=== PATIENT | female | born 1930 | race Caucasian/White ===

== ENCOUNTER 2016-07-07 10:50 | Inpatient (IN) | payer MEDICARE, OTHER ==
[~2016-07-07] VITALS: Ht 157.5 cm; Wt 56.8 kg
[~2016-07-07 10:50] MED LIST: /MOXI40TA PO; /PANT40TA PO; ALBU0.084 NEB; ALBU17IN INH; ALPR0.25 PO; AZIT250T3 PO; CITA10TA5 PO; CITA20TA2 PO; CITA20TA4 PO; COMBIN INH; DONE5TAB17 PO; DRIS50002 PO; FLUT44IN INH; FURO20TA2 PO; GABA-279 PO; HYOS125TA SL; IPRASOL4 INH; MIRT1TAB PO; MYLASSUD PO; NEURON PO; PANT40TA2 PO; PRED10TA2 PO; PRED5TA PO; SPIR1CAP INH; STIO1AER INH; SUCR1TA PO; TYLE325T5 PO; VITA500047 PO; XANA0.25 PO; ZANT150T PO; ZITH250T PO; [UNRECOGNIZED DRUG - OTHER] INH
[2016-07-07] MEDS ORDERED: IPRATROPIUM 0.5MG/ALBUTEROL 2.5MG INH SOL UD 3ML (DUONEB)(J7620) As Ordered ONE ×2 (11:32→16:15)
[2016-07-07] MEDS ORDERED: ALBUTEROL SULFATE 2.5 MG/0.5 ML INH NEB SOLN As Ordered ONE (11:32)
[2016-07-07 11:47] LABS: BASO # 0.1 K/mm3 (0.0-0.2); BASO % 0.8 % (0.0-1.0); EOS # 0.2 K/mm3 (0.0-0.50); EOS % 2.5 % (0.0-3.0); LARGE UNSTAINED CELL # 0.2 K/mm3 (0.0-0.4); LARGE UNSTAINED CELL % 2.2 % (0.0-4.0); LYMPH # 1.2 K/mm3 (1.5-4.5); LYMPH % 15.1 % (24.0-44.0); MEAN CORPUSCULAR HEMOGLOBIN 26.6 pg (27.0-33.0); MEAN CORPUSCULAR HGB CONC 30.8 g/dl (32.0-36.5); MEAN CORPUSCULAR VOLUME 86.2 fl (80.0-96.0); MONO # 0.2 K/mm3 (0.0-0.8); MONO % 2.6 % (0.0-5.0); NEUTROPHILS # 5.5 K/mm3 (1.8-7.7); NEUTROPHILS % 76.8 % (36.0-66.0); PLATELET COUNT, AUTOMATED 189 k/mm3 (150-450); RED CELL DISTRIBUTION WIDTH 13.7 % (11.5-14.5); WHITE BLOOD COUNT 7.1 K/mm3 (4.0-10.0)
[2016-07-07 12:04] LABS: ANION GAP 7 MEQ/L (8-16); BLOOD UREA NITROGEN 15 MG/DL (7-18); CALCIUM LEVEL 9.4 MG/DL (8.8-10.2); CARBON DIOXIDE LEVEL 35 MEQ/L (21-32); CHLORIDE LEVEL 102 MEQ/L (98-107); GLOMERULAR FILTRATION RATE > 60.0 (>32); GLUCOSE, FASTING 92 MG/DL (83-110); POTASSIUM SERUM 3.8 MEQ/L (3.5-5.1); SODIUM LEVEL 144 MEQ/L (136-145)
--- NOTE | 2016-07-07 12:24 | REP ---
PORTABLE CHEST: AP portable view of the chest is performed. COMPARISON: 06/26/2016 The heart is upper limits of normal in size, unchanged. There is some calcification of the thoracic aorta. The mediastinal silhouette is unchanged. Diffuse interstitial fibrosis is stable without evidence of acute infiltrate or pulmonary edema. IMPRESSION: Stable chronic lung changes. No evidence of acute infiltrate or pulmonary edema. Signed by Ezekiel Rees MD 07/07/2016 04:17 P
--- NOTE | 2016-07-07 13:45 | ECGEPIP ---
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
[2016-07-07] MEDS ORDERED: ONDANSETRON 4MG/2ML VIAL (J2405) IV PRN (14:00)
[2016-07-07] MEDS: IPRATROPIUM 0.5MG/ALBUTEROL 2.5MG INH SOL UD 3ML (DUONEB)(J7620) NEB PRN (16:17)
[2016-07-07 16:30] VITALS: BP 133/61
[2016-07-07] MEDS ORDERED: ALPRAZolam 0.25 MG TAB As Ordered ONE (17:13)
[2016-07-07] MEDS: SUCRALFATE 1 GM TAB PO SCH (17:17)
[2016-07-07] MEDS: ALPRAZolam 0.25 MG TAB PO PRN (17:17)
--- NOTE | 2016-07-07 17:43 | HPE ---
DATE OF ADMISSION: 07/07/2016 PRIMARY CARE PROVIDER: Angélica Sellers CHIEF COMPLAINT: Chest pain and shortness of breath. HISTORY OF THE PRESENT ILLNESS: This is an 85-year-old female patient with underlying medical history of chronic obstructive pulmonary disease (COPD), on home oxygen, O2 two liters, depression, anxiety, chronic respiratory failure, on O2 at night, history of cholecystectomy, hysterectomy, former smoker, was recently discharged on 07/03/2016. The patient was admitted for burning sensation of the chest. At this time, the patient presented with chest discomfort and pressure again, but as per patient, burning sensation was improved but also reported mild dyspnea. Denies any diarrhea or constipation. Denies any fevers or chills. Denies any significant cough. As per family, family is having increasing difficulty caring for the patient and seeking assistance in terms of placement, whether assisted living or residential facility. The patient initially was disagreeable during last admission, stating that she is returning to [place], but this time the patient is agreeable to potential placement. ALLERGIES: The patient reported allergy to ASPIRIN, FLUTICASONE, HYOSCYAMINE, IODINE, MILK PROTEIN EXTRACT, PENICILLIN, PENICILLIN CROSS REACTOR, RED DYE, SOLU-MEDROL, SULFA DRUGS, SULFA CROSS REACTOR, TEGASEROD. PAST MEDICAL HISTORY: Anxiety. COPD. Chronic respiratory failure, O2 dependent at home. Essential tremor. Gastric polyp. Irritable bowel syndrome with diarrhea intermittently. PAST SURGICAL HISTORY: Hysterectomy. Cholecystectomy. Colonoscopy, Cataract surgery bilateral. SOCIAL HISTORY: The patient travels with the son. Former smoker. Quit smoking 35 years ago. Denies alcohol drinking. Last drink was in her 50s and 60s. Denies any illicit drug use. FAMILY HISTORY: None significant. REVIEW OF SYSTEMS: 10-point review of systems is negative except for those mentioned in the history of the present illness. HOME MEDICATIONS: - Ventolin inhaler every 4 hours as needed - Duo-Nebs every 4 hours as needed - Xanax 0.25 mg by mouth three times a day as needed - Mylanta 30 mL by mouth every 6 hours as needed - citalopram 10 mg by mouth daily - donepezil 5 mg by mouth nightly - Flovent two puffs inhalation twice a day - Lasix 20 mg by mouth daily - gabapentin 100 mg by mouth twice a day - hyoscyamine 1-2 tablets by mouth sublingual four times a day as needed - mirtazapine 7.5 mg by mouth nightly - Protonix 40 mg by mouth twice a day - Carafate 1 gram by mouth three times a day - Spiriva inhalation daily - vitamin D 50,000 units by mouth weekly on Sunday PHYSICAL EXAMINATION: VITAL SIGNS: Blood pressure 132/60, pulse 78, respirations 20, temperature 97.5, pulse oximetry 96% on 2 liters nasal cannula. GENERAL: Patient with essential tremor, alert and oriented times three, in no acute distress. HEENT: Normocephalic, atraumatic with essential tremor. PULMONARY: Bilaterally clear to auscultation. CARDIAC: Regular rate and rhythm. Normal S1, S2. ABDOMEN: Soft, nontender, nondistended. EXTREMITIES: No edema bilateral lower extremities. Minimal tenderness to palpation lower extremities. EKG: Sinus rhythm at 77, no ST segment changes. LABORATORY: WBC 7.1, hemoglobin and hematocrit 13.1 over 42.6, platelets 189. Chemistry: Sodium 144, potassium 3.8, chloride 102, bicarbonate 35, BUN 15, creatinine 0.6. Cardiac enzymes negative times one. B-natriuretic peptide 14.3. ASSESSMENT AND PLAN: This is an 85-year-old female patient with underlying medical history of chronic obstructive pulmonary disease, chronic hypoxic respiratory failure, essential tremor, gastric polyp, irritable bowel syndrome, anxiety, presented with dyspnea and burning chest pain. PROBLEMS: 1. Burning chest pain. Atypical. Likely noncardiac. Likely secondary to GERD. Patient had previous workup. Cardiac enzymes negative. Telemetry monitoring overnight. EKG is appreciated. Protonix, Maalox, Carafate. Patient needs outpatient followup with gastroenterology after coronary event is ruled out. 2. Chronic obstructive pulmonary disease, chronic hypoxic respiratory failure. Oxygen supplementation, nebulizer treatment. Patient currently not having significant wheeze. Continue home medication. 3. Anxiety and depression. Continue home medications. 4. Depression. Continue home medication, supportive care. 5. Peripheral neuropathy. Continue Neurontin. 6. Deep vein thrombosis (DVT) prophylaxis. Lovenox subcu. DISPOSITION PLANNING: Patient and family services (PFS) consulted for potential placement, physical therapy.
[2016-07-07 19:28] VITALS: BP 123/59
[2016-07-07 20:00] VITALS: BP 123/59
[2016-07-07] MEDS: IPRATROPIUM 0.5MG/ALBUTEROL 2.5MG INH SOL UD 3ML (DUONEB)(J7620) NEB SCH (20:00)
[2016-07-07] MEDS: FLUTICASONE HFA 44 MCG 10.6GM INHALER (FLOVENT) INH SCH (20:54)
[2016-07-07] MEDS: MIRTAZAPINE 7.5MG PER 1/2 TABLET PO SCH (21:00)
[2016-07-07] MEDS ORDERED: PANTOPRAZOLE 40MG TAB (PROTONIX) As Ordered ONE (21:09)
[2016-07-07] MEDS ORDERED: GABAPENTIN 100 MG CAP As Ordered ONE (21:09)
[2016-07-07] MEDS: PANTOPRAZOLE 40MG TAB (PROTONIX) PO SCH (21:12)
[2016-07-07] MEDS: GABAPENTIN 100 MG CAP PO SCH (21:12)
[2016-07-07] MEDS: SENOKOT S TAB PO SCH (21:13)
[2016-07-07] MEDS: DONEPEZIL 5 MG TAB PO SCH (21:13)
[2016-07-08] VITALS (7 sets, daily range): BP systolic 106–142; BP diastolic 50–63; O2SAT 95
[2016-07-08] MEDS ORDERED: ACETAMINOPHEN 325 MG TAB As Ordered ONE (00:58)
[2016-07-08] MEDS: ACETAMINOPHEN TAB 650MG DOSE (2X325MG) PO PRN (00:59)
[2016-07-08] MEDS ORDERED: IPRATROPIUM 0.5MG/ALBUTEROL 2.5MG INH SOL UD 3ML (DUONEB)(J7620) As Ordered ONE ×3 (01:51→08:41)
[2016-07-08] MEDS: IPRATROPIUM 0.5MG/ALBUTEROL 2.5MG INH SOL UD 3ML (DUONEB)(J7620) NEB SCH ×4 (02:00→20:11)
[2016-07-08] MEDS ORDERED: ONDANSETRON 4MG/2ML VIAL (J2405) As Ordered ONE (04:36)
[2016-07-08] MEDS: IPRATROPIUM 0.5MG/ALBUTEROL 2.5MG INH SOL UD 3ML (DUONEB)(J7620) NEB PRN (04:41)
[2016-07-08 06:46] LABS: MEAN CORPUSCULAR HEMOGLOBIN 27.6 pg (27.0-33.0); MEAN CORPUSCULAR HGB CONC 31.2 g/dl (32.0-36.5); MEAN CORPUSCULAR VOLUME 88.4 fl (80.0-96.0); WHITE BLOOD COUNT 6.6 K/mm3 (4.0-10.0)
[2016-07-08 07:33] LABS: ANION GAP 9 MEQ/L (8-16); BLOOD UREA NITROGEN 16 MG/DL (7-18); CALCIUM LEVEL 9.1 MG/DL (8.8-10.2); CARBON DIOXIDE LEVEL 26 MEQ/L (21-32); CHLORIDE LEVEL 107 MEQ/L (98-107); CREATININE FOR GFR 0.51 MG/DL (0.55-1.02); GLOMERULAR FILTRATION RATE > 60.0 (>32); GLUCOSE, FASTING 76 MG/DL (83-110); MAGNESIUM LEVEL 2.3 MG/DL (1.8-2.4); POTASSIUM SERUM 4.1 MEQ/L (3.5-5.1); SODIUM LEVEL 142 MEQ/L (136-145)
[2016-07-08] MEDS: FLUTICASONE HFA 44 MCG 10.6GM INHALER (FLOVENT) INH SCH ×2 (08:47→20:11)
[2016-07-08] MEDS: TIOTROPIUM INHALER/CAPSULE (SPIRIVA) INH SCH (08:47)
[2016-07-08] MEDS ORDERED: ALPRAZolam 0.25 MG TAB As Ordered ONE (10:08)
[2016-07-08] MEDS: ALPRAZolam 0.25 MG TAB PO PRN ×3 (10:09→20:18)
[2016-07-08] MEDS: ENOXAPARIN 30 MG/0.3 ML SYR (J1650) SC SCH (10:10)
[2016-07-08] MEDS: GABAPENTIN 100 MG CAP PO SCH ×2 (10:11→20:18)
[2016-07-08] MEDS: FUROSEMIDE 20 MG TAB PO SCH (10:11)
[2016-07-08] MEDS: SUCRALFATE 1 GM TAB PO SCH ×3 (10:12→16:52)
[2016-07-08] MEDS: SENOKOT S TAB PO SCH ×2 (10:12→20:18)
[2016-07-08] MEDS: PANTOPRAZOLE 40MG TAB (PROTONIX) PO SCH ×2 (10:12→20:18)
[2016-07-08] MEDS: CitaloPRAM (CeleXA) 10 MG TABLET PO SCH (10:12)
--- NOTE | 2016-07-08 12:40 | IPN ---
DATE: 07/08/2016 Ms. Bravo is feeling well this morning. She has no complaints of chest pain. She does have intermittent burning substernally. No shortness of breath, no cough. Has tolerated diet. Temperature is 99, pulse 67, respiratory rate 18, blood pressure 130/63, 98% on 2.5 liters. She is awake and appropriately interactive, sitting at bedside. She has axial resting tremor. Mucous membranes moist. Neck supple. She is thin appearing. Her breathing is symmetrical and rested. Heart is distant sounding. Normal S1 and S2. Abdomen is soft, doughy, nontender. There is no significant lower extremity edema. White cell count is 6.6, hemoglobin 12, platelets 183, BUN 16, creatinine 0.5. Troponins have been negative times two. BNP was 14. My assessment is as follows: This is an 85-year-old with atypical chest pain, chronic hypoxic respiratory failure, essential tremor, irritable bowel, anxiety. My plan is as follows: 1. The patient has atypical chest pain which is most likely GI related. Continue current regimen and plan for outpatient GI consult. The patient has previously declined or not followed up with. 2. The patient has chronic obstructive pulmonary disease (COPD), chronic hypoxic respiratory failure on oxygen. Continue home medications and oxygen supplement as needed. I will monitor her clinically. 3. The patient has anxiety and depression. 4. The patient has peripheral neuropathy. 5. The patient has deep vein thrombosis (DVT) prophylaxis. 6. Patient and family services (PFS) has been consulted for likely placement. Physical therapy as ordered.
--- NOTE | 2016-07-08 13:56 | EDDOCDS ---
Physician Documentation [facility] Name: Barbara Bravo Age: 85 yrs Sex: Female : 1930 Arrival Date: 07/07/2016 Time: 10:50 Bed Admit Hold Private MD: Angélica Sellers A Disposition: 07/07/16 14:04 Hospitalization ordered by Kim Mcfarlane for Inpatient Admission. Preliminary diagnosis are Chronic obstructive pulmonary disease with (acute) exacerbation, Acute and chronic respiratory failure with hypoxia. - Bed requested for 4 [place]. - Status is Inpatient Admission. kr3 - Condition is Stable. - Problem is new. - Symptoms are unchanged. Historical: - Allergies: Advair Diskus (Unknown); Aspirin (Unknown); IODINEIODINE CONTAINING (Rash); PENICILLINS (Rash); Red Dye (Unknown); SULFA (SULFONAMIDES) (Rash); Symax-SL (Unknown); zelnorm (Unknown); - Home Meds: 1. Oxygen 2 liters at night and than as needed thru out day 2.5 LPM at night 2. alprazolam 0.25 mg Oral tab 1 tab tid prn (Last dose: 07/07/2016) 3. donepezil 5 mg oral TbDL nightly 4. Spiriva with HandiHaler 18 mcg Inhl CpDv 1 cap once daily (Last dose: 07/06/2016) 5. ventolinnHFA 2 puffs 2 puffa 4 times daily as needed. four times a day (Last dose: 07/07/2016) 6. gabapentin 100 mg Oral cap twice daily 7. Flovent HFA 2 puffs twice daily (Last dose: Unknown) 8. Lasix 20 mg Oral tab 1 tab once daily (Last dose: 07/07/2016) 9. Vitamin D Oral 78546 unit weekly 10. aluminum/ magnesium/simet 30ml every 6 hours as needed 11. pantoprazole 40 mg oral TbEC 1 tab 2 times per day (Last dose: 07/07/2016) 12. citalopram 10 mg Oral tab once daily (Last dose: 07/07/2016) 13. hyoscyamine sulfate 0.125 mg SL subl 1 -2 tabs under the tongue 4 times a day as needed 14. sucralfate 1 gram Oral tab 1 tab three times a day as needed 15. mirtazapine 7.5 mg Oral tab nightly 16. Albuterol-Ipratropium Inhl every 4 hours as needed - PMHx: Anxiety; COPD; ESSENTIAL TREMOR; Gastric Polyps; IBS with diarrhea; - PSHx: Hysterectomy; - Social history: Smoking status: Patient states former smoker of tobacco. No barriers to communication noted, The patient speaks fluent [place], Speaks appropriately for age. - Family history: Not pertinent. - : The pt / caregiver states he / she is not on anticoagulants. Home medication list is obtained from [employer] import data, a discharge med list. - Exposure Risk Screening:: None identified. Vital Signs: 07/07 11:03 BP 132 / 60; Pulse 78; Resp 20; Temp 97.5; Pulse Ox 87% on R/A; Weight 58.97 kg / rs3 130.01 lbs; Height 5 ft. 2 in. (157.48 cm); 11:12 Pulse Ox 96% on 2 lpm NC; kr3 12:03 BP 146 / 62 (auto/); kr3 12:04 Pulse 82 MON; Pulse Ox 96% on 2 lpm NC; kr3 12:33 BP 127 / 58 (auto/); kr3 12:34 Pulse 80 MON; Pulse Ox 93% on 2 lpm NC; kr3 13:03 BP 134 / 60 (auto/); kr3 13:04 Pulse 80 MON; Pulse Ox 93% on 2 lpm NC; kr3 13:33 BP 139 / 64 (auto/); kr3 13:34 Pulse 84 MON; Pulse Ox 93% on 2 lpm NC; kr3 14:02 Pulse 94 MON; Pulse Ox 92% on 2 lpm NC; kr3 14:03 BP 134 / 62 (auto/); kr3 11:03 Body Mass Index 23.78 (58.97 kg, 157.48 cm) rs3 MDM: 11:20 IV Saline Lock ordered. ml 11:20 Vital Signs ordered. ml 11:20 [employer] Teacher/Pulse Ox/q 15 min VS ordered. ml 11:20 Rhythm Strip to chart ordered. ml 11:21 Albuterol 5 mg Nebulizer once ordered. ml 11:21 Albuterol-Ipratropium 3 ml Inhalation once ordered. ml 11:21 Call Respiratory ordered. ml 11:21 CBC with Diff Ordered. EDMS 11:21 MED Profile Ordered. EDMS 11:21 CIP Ordered. EDMS 11:21 Troponin Ordered. EDMS 11:21 BNP Ordered. EDMS 11:21 ECG WITH READING ER PHYS+CARDIAG ordered. EDMS 11:23 Chest, 1 View Ordered. EDMS 11:24 Call Respiratory complete. rs3 11:41 Albuterol 5 mg Nebulizer once ordered. km6 12:01 Financial registration complete. lg 12:09 CBC with Diff Reviewed. ar2 12:09 MED Profile Reviewed. ar2 12:09 CIP Reviewed. ar2 12:09 Troponin Reviewed. ar2 12:09 BNP Reviewed. ar2 13:54 PHYSICAL THERAPY EVAL & TREAT ordered. EDMS 13:54 Admission / Observation Status ordered. EDMS 13:54 REGULAR DIET ordered. EDMS 13:55 CARDIAC MARKER PANEL Ordered. EDMS 14:04 BED REQUEST+ADM ordered. EDMS 14:45 [facility] Payment Agreement was scanned into [employer] and attached to record. lg 16:07 Albuterol-Ipratropium 3 ml Inhalation once ordered. jmb 19:31 COMPLETE BLOOD COUNT Ordered. EDMS 19:31 BASIC METABOLIC PROFILE Ordered. EDMS 19:31 MAGNESIUM LEVEL Ordered. EDMS 12 09:10 T-Sheet-- Draft Copy was scanned into [employer] and attached to record. [facility] Administered Medications: 07/07 11:35 Drug: Albuterol 5 mg [albuterol sulfate 2.5 mg/0.5 mL solution for nebulization (1 mL)] [facility] Route: Nebulizer; 11:41 Follow up: Response: Nebulizer completed km6 11:44 Follow up: Response: Nebulizer completed km6 11:41 Drug: Albuterol-Ipratropium 3 ml [ipratropium-albuterol 0.5 mg-3 mg(2.5 mg base)/3 mL [facility] nebulization soln (3 mL)] Route: Inhalation; 17:35 Drug: Albuterol-Ipratropium 3 ml [ipratropium-albuterol 0.5 mg-3 mg(2.5 mg base)/3 mL [facility] nebulization soln (3 mL)] {Note: administered by Mendel Krishnamurthy RRT at 1645 p.m..} Route: Inhalation; Signatures: Dispatcher [employer] Suzie Farmer MD MD ml Dandy Tsai, Reg Reg lg JakubRonna km6 Dasia Meadows,RN RN kr3 Davide Welch PA-C PA-C ar2 Marilee,RachelRN RN rs3 Mik Nur RN RN jmb Sarwat Hansen, CORPORATE WELLNESS COORDINATOR CORPORATE WELLNESS COORDINATOR jrd Bro Leonard RN RN mts Hoffert, Sarah [facility] The chart was reviewed and I authenticate all verbal orders and agree with the evaluation and treatment provided.Attachments: 14:45 [facility] Payment Agreement lg 07/08 09:10 T-Sheet-- Draft Copy [facility] MTDD
--- NOTE | 2016-07-08 13:56 | EDDOCDS ---
Nurse's Notes [facility] Name: Barbara Bravo Age: 85 yrs Sex: Female : 1930 Arrival Date: 07/07/2016 Time: 10:50 Bed Admit Hold Private MD: Angélica Sellers A Diagnosis: Chronic obstructive pulmonary disease with (acute) exacerbation;Acute and chronic respiratory failure with hypoxia Presentation: 07/07 10:54 Suicide/Homicide risk assessment- the patient denies having any suicidal and/or kr3 homicidal ideations and does not present with any other emotional, behavioral or mental health complaints. Status: Patient is not a supervisor home restoration service or dependent. Transition of care: patient was not received from another setting of care. 10:54 Acuity: DELORES Level 3 kr3 10:54 Method Of Arrival: Ambulance kr3 10:55 Presenting complaint: EMS states: increase difficulty breathing for several days. Adult kr3 Sepsis Screening: The patient does not have new or worsening altered mentation. Care prior to arrival: Medications administered prior to arrival: albuterol times 2, albuterol and atrovent, solumedrol 125mg Glucose check. 86. 11:01 Presenting complaint: Patient states: shortness of breath began 1 day ago. Complains of kr3 tightness upper chest intermittent. 11:12 Presenting complaint: Patient states: was hospitalized recently for same. Would like kr3 halfway placement but is unsure how to proceed. Reports anxiety at home. 14:19 Adult Sepsis Screening: Systolic blood pressure is greater than 100. Patient has a kr3 qSOFA score of 0- Negative Sepsis Screen. Triage Assessment: 10:58 General: Appears in no apparent distress, comfortable, Behavior is cooperative. Pain: kr3 Denies pain. The patient is triaged at the bedside. See Assessment in Nurses Notes section of ED record. Neurological: Level of Consciousness is awake, alert. Respiratory: Onset: The symptoms/episode began/occurred yesterday, Airway is patent Respiratory effort is even, Breath sounds with wheezes bilaterally. Respiratory: Reports shortness of breath on exertion Denies cough. Derm: Skin is pink, warm & dry. Historical: - Allergies: Advair Diskus (Unknown); Aspirin (Unknown); IODINEIODINE CONTAINING (Rash); PENICILLINS (Rash); Red Dye (Unknown); SULFA (SULFONAMIDES) (Rash); Symax-SL (Unknown); zelnorm (Unknown); - Home Meds: 1. Oxygen 2 liters at night and than as needed thru out day 2.5 LPM at night 2. alprazolam 0.25 mg Oral tab 1 tab tid prn (Last dose: 07/07/2016) 3. donepezil 5 mg oral TbDL nightly 4. Spiriva with HandiHaler 18 mcg Inhl CpDv 1 cap once daily (Last dose: 07/06/2016) 5. ventolinnHFA 2 puffs 2 puffa 4 times daily as needed. four times a day (Last dose: 07/07/2016) 6. gabapentin 100 mg Oral cap twice daily 7. Flovent HFA 2 puffs twice daily (Last dose: Unknown) 8. Lasix 20 mg Oral tab 1 tab once daily (Last dose: 07/07/2016) 9. Vitamin D Oral 07818 unit weekly 10. aluminum/ magnesium/simet 30ml every 6 hours as needed 11. pantoprazole 40 mg oral TbEC 1 tab 2 times per day (Last dose: 07/07/2016) 12. citalopram 10 mg Oral tab once daily (Last dose: 07/07/2016) 13. hyoscyamine sulfate 0.125 mg SL subl 1 -2 tabs under the tongue 4 times a day as needed 14. sucralfate 1 gram Oral tab 1 tab three times a day as needed 15. mirtazapine 7.5 mg Oral tab nightly 16. Albuterol-Ipratropium Inhl every 4 hours as needed - PMHx: Anxiety; COPD; ESSENTIAL TREMOR; Gastric Polyps; IBS with diarrhea; - PSHx: Hysterectomy; - Social history: Smoking status: Patient states former smoker of tobacco. No barriers to communication noted, The patient speaks fluent Macedonian, Speaks appropriately for age. - Family history: Not pertinent. - : The pt / caregiver states he / she is not on anticoagulants. Home medication list is obtained from [employer] import data, a discharge med list. - Exposure Risk Screening:: None identified. Screenin:13 Screening information is obtained from the patient. Fall risk: At risk due to gait kr3 disturbance, The following interventions are performed due to a positive Fall Risk Screen: Fall Alert bracelet is placed on the patient. Assistance ADL's: requires no assistance with activities of daily living. Abuse/DV Screen: The patient / caregiver reports he/she is: not in a situation that causes fear, pain or injury. Nutritional screening: No deficits noted. Advance Directives: Currently, there is no health care proxy. There is no Power of Prestressed Concrete Laborer. home support is adequate. Assessment: 11:14 Reassessment: Patient appears in no apparent distress at this time. Cardiovascular: kr3 Rhythm is sinus rhythm No ectopy. 12:14 Reassessment: Patient appears in no apparent distress at this time. Neurological: No kr3 deficits noted. Respiratory: Respiratory effort is even, unlabored. Derm: Skin is normal. 13:10 Adult Sepsis Screening: The patient does not have new or worsening altered mentation. kr3 Patient's respiratory rate is less than 22. Systolic blood pressure is greater than 100. Patient has a qSOFA score of 0- Negative Sepsis Screen. 13:30 Reassessment: Patient appears in no apparent distress at this time. talking with 3 hospitalist. 14:17 Reassessment: Patient appears in no apparent distress at this time. son at bedside. kr3 aware that admission is pending. 16:05 General: Appears in no apparent distress, Behavior is restless. Pain: Denies pain. rogelio Neurological: Level of Consciousness is awake, alert, obeys commands, Oriented to person, place, time, Nutritional Health Coach are equal bilaterally Speech is normal, Facial symmetry appears normal, Facial symmetry: tongue is midline. Cardiovascular: Capillary refill < 3 seconds Heart tones present Pulses are all present. Rhythm is sinus rhythm No ectopy. Respiratory: Airway is patent Respiratory effort is even, unlabored, Respiratory pattern is regular, symmetrical, Breath sounds with crackles bilaterally. GI: Abdomen is non- distended. Derm: Skin is pink, warm & dry. Musculoskeletal: Range of motion intact in all extremities. 17:18 General: Report off to Mariella Hopson RN. [facility] Vital Signs: 11:03 BP 132 / 60; Pulse 78; Resp 20; Temp 97.5; Pulse Ox 87% on R/A; Weight 58.97 kg; Height rs3 5 ft. 2 in. (157.48 cm); 11:12 Pulse Ox 96% on 2 lpm NC; kr3 12:03 BP 146 / 62 (auto/); kr3 12:04 Pulse 82 MON; Pulse Ox 96% on 2 lpm NC; kr3 12:33 BP 127 / 58 (auto/); kr3 12:34 Pulse 80 MON; Pulse Ox 93% on 2 lpm NC; kr3 13:03 BP 134 / 60 (auto/); kr3 13:04 Pulse 80 MON; Pulse Ox 93% on 2 lpm NC; kr3 13:33 BP 139 / 64 (auto/); kr3 13:34 Pulse 84 MON; Pulse Ox 93% on 2 lpm NC; kr3 14:02 Pulse 94 MON; Pulse Ox 92% on 2 lpm NC; kr3 14:03 BP 134 / 62 (auto/); kr3 11:03 Body Mass Index 23.78 (58.97 kg, 157.48 cm) rs3 Vitals: 11:03 Log In Time N/A - ambulance arrival. kr3 ED Course: 10:51 Patient visited by Sarwat Hansen PCA. jrd 10:51 Monica Brambila, RN is Primary Nurse. jrd 10:51 Dasia Meadows,JOYCE is Primary Nurse. jrd 10:51 Angélica Sellers is Private Physician. jrd 10:51 Patient moved to Waiting jrd 10:51 Patient moved to 11 jrd 10:54 Triage Initiated kr3 11:13 The patient / caregiver is instructed regarding the plan of care and ED course. Patient ria has correct armband on for positive identification. Placed in gown. Bed in low position. Call light in reach. Side rails up X2. information clerk automobile club on. Pulse ox on. NIBP on. 11:34 BNP Sent. rs3 11:34 Troponin Sent. rs3 11:34 CIP Sent. rs3 11:34 MED Profile Sent. rs3 11:34 CBC with Diff Sent. rs3 11:37 EKG done. (by ED staff). Reviewed by Suzie Meyer MD. jb5 11:38 Patient visited by Ariana Arnold PCA. jb5 11:42 Davide Welch PA-C is PHCP. ar2 11:42 Suzie Meyer MD is Attending Physician. ar2 11:42 Patient visited by Davide Welch PA-C. ar2 12:09 Patient visited by Alphonse Marshall PCA. jlf 12:42 Patient visited by Alphonse Marshall PCA. jlf 12:47 Chest, 1 View Returned. EDMS 13:22 Patient visited by Alphonse Marshall PCA. jlf 14:04 Kim Mcfarlane is Hospitalizing Provider. ar2 14:13 EKG-ADULT Returned. EDMS 14:17 PO fluids given. kr3 14:41 Diet tray given. kr3 14:45 [facility] Payment Agreement was scanned into [employer] and attached to record. lg 16:21 Patient moved to 19 jmb 18:08 Patient moved to Admit Hold mt4 19:03 Primary Nurse role handed off by Monica Brambila, JOYCE reeves 19:12 Primary Nurse role handed off by Dasia Meadows,JOYCE weems 21:10 moved bed patient insisted that air was blowing on her head VERY upset so moving the jb5 patient helped some patient insisted that she has been here for DAYS is now writing everything down becaue we can't tell the truth says patient. 21:13 Patient visited by Ariana Arnold PCA. jb5 07/08 01:02 Federico Isidro,RN is Primary Nurse. mgs 09:10 T-Sheet-- Draft Copy was scanned into [employer] and attached to record. [facility] Administered Medications: 07/07 11:35 Drug: Albuterol 5 mg [albuterol sulfate 2.5 mg/0.5 mL solution for nebulization (1 mL)] 6 Route: Nebulizer; 11:41 Follow up: Response: Nebulizer completed km6 11:44 Follow up: Response: Nebulizer completed km 11:41 Drug: Albuterol-Ipratropium 3 ml [ipratropium-albuterol 0.5 mg-3 mg(2.5 mg base)/3 mL [facility] nebulization soln (3 mL)] Route: Inhalation; 17:35 Drug: Albuterol-Ipratropium 3 ml [ipratropium-albuterol 0.5 mg-3 mg(2.5 mg base)/[address] [facility] nebulization soln (3 mL)] {Note: administered by Mendel Krishnamurthy CONSUMER RELATIONS COMPLAINT CLERK at 1645 p.m..} Route: Inhalation; RT: 11:43 Initial Med Neb Given as ordered Patient was instructed and evaluated on procedure km6 Patient tolerated procedure well without adverse effect. Respiratory: Breath sounds with wheezes bilaterally. at expiration. Order Results: Lab Order: CBC with Diff; SPEC'M 07/07/16 11:23 Test: WHITE BLOOD COUNT; Value: 7.1; Range: 4.0-10.0; Units: K/mm3; Status: F Test: RED BLOOD COUNT; Value: 4.94; Range: 4.00-5.40; Units: M/mm3; Status: F Test: HEMOGLOBIN; Value: 13.1; Range: 12.0-16.0; Units: g/dl; Status: F Test: HEMATOCRIT; Value: 42.6; Range: 36.0-47.0; Units: %; Status: F Test: MEAN CORPUSCULAR VOLUME; Value: 86.2; Range: 80.0-96.0; Units: fl; Status: F Test: MEAN CORPUSCULAR HEMOGLOBIN; Value: 26.6; Range: 27.0-33.0; Abnormal: Below low normal; Units: pg; Status: F Test: MEAN CORPUSCULAR HGB CONC; Value: 30.8; Range: 32.0-36.5; Abnormal: Below low normal; Units: g/dl; Status: F Test: RED CELL DISTRIBUTION WIDTH; Value: 13.7; Range: 11.5-14.5; Units: %; Status: F Test: PLATELET COUNT, AUTOMATED; Value: 189; Range: 150-450; Units: k/mm3; Status: F Test: NEUTROPHILS %; Value: 76.8; Range: 36.0-66.0; Abnormal: Above high normal; Units: %; Status: F Test: LYMPH %; Value: 15.1; Range: 24.0-44.0; Abnormal: Below low normal; Units: %; Status: F Test: MONO %; Value: 2.6; Range: 0.0-5.0; Units: %; Status: F Test: EOS %; Value: 2.5; Range: 0.0-3.0; Units: %; Status: F Test: BASO %; Value: 0.8; Range: 0.0-1.0; Units: %; Status: F Test: LARGE UNSTAINED CELL %; Value: 2.2; Range: 0.0-4.0; Units: %; Status: F Test: NEUTROPHILS #; Value: 5.5; Range: 1.8-7.7; Units: K/mm3; Status: F Test: LYMPH #; Value: 1.2; Range: 1.5-4.5; Abnormal: Below low normal; Units: K/mm3; Status: F Test: MONO #; Value: 0.2; Range: 0.0-0.8; Units: K/mm3; Status: F Test: EOS #; Value: 0.2; Range: 0.0-0.50; Units: K/mm3; Status: F Test: BASO #; Value: 0.1; Range: 0.0-0.2; Units: K/mm3; Status: F Test: LARGE UNSTAINED CELL #; Value: 0.2; Range: 0.0-0.4; Units: K/mm3; Status: F Lab Order: MED Profile; [facility]'M 07/07/16 11:23 Test: GLUCOSE, FASTING; Value: 92; Range: 83-110; Units: MG/DL; Status: F Test: BLOOD UREA NITROGEN; Value: 15; Range: 7-18; Units: MG/DL; Status: F Test: CREATININE FOR GFR; Value: 0.60; Range: 0.55-1.02; Units: MG/DL; Status: F Test: GLOMERULAR FILTRATION RATE; Value: > 60.0; Range: >32; Status: F Test: SODIUM LEVEL; Value: 144; Range: 136-145; Units: MEQ/L; Status: F Test: POTASSIUM SERUM; Value: 3.8; Range: 3.5-5.1; Units: MEQ/L; Status: F Test: CHLORIDE LEVEL; Value: 102; Range: 98-107; Units: MEQ/L; Status: F Test: CARBON DIOXIDE LEVEL; Value: 35; Range: 21-32; Abnormal: Above high normal; Units: MEQ/L; Status: F Test: ANION GAP; Value: 7; Range: 8-16; Abnormal: Below low normal; Units: MEQ/L; Status: F Test: CALCIUM LEVEL; Value: 9.4; Range: 8.8-10.2; Units: MG/DL; Status: F Test Note: ; Units are mL/min/1.73 m2 Chronic Kidney Disease Staging per NKF: Stage I & II GFR >=60 Normal to Mildly Decreased Stage III GFR 30-59 Moderately Decreased Stage IV GFR 15-29 Severely Decreased Stage V GFR <15 Very Little GFR Left ESRD GFR <15 on CONSUMER RELATIONS COMPLAINT CLERK Lab Order: CIP; [facility] 07/07/16 11:23 Test: CPK CREATINE PHOSPHOKINASE; Value: 31; Range: 26-192; Units: U/L; Status: F Test: CK-MB VALUE MASS; Value: 1.0; Range: 0.0-3.6; Units: NG/ML; Status: F Test: MB/CK RELATIVE INDEX; Value: 3.22; Range: < OR =4; Status: F Test Note: ; DIAGNOSIS CRITERIA MMB ng/ml Relative Index (RI) NON-AMI < or = 5 N/A REES ZONE > 5 < or = 4 AMI > 5 > 4 Lab Order: Troponin; [facility] 07/07/16 11:23 Test: TROPONIN I; Value: < 0.02; Range: < 0.10; Units: NG/ML; Status: F Test Note: ; Troponin I Reference Interval for Queryday LOCI: 99th Percentile= 0.00-0.045 ng/ml Risk Stratification: <= 0.10 ng/ml Decreased Risk for Adverse Clinical Events. 0.10-1.50 ng/ml Increased Risk for Adverse Clinical Events. Evaluation of additional criterion and/or repeat testing in 2-6 hours is suggested to rule out myocardial damage. >= 1.50 ng/ml Indicative of Myocardial Injury. Lab Order: BNP; [facility] 07/07/16 11:23 Test: BRAIN NATRIURETIC PEPTIDE; Value: 14.3; Range: <100; Units: PG/ML; Status: F Lab Order: CARDIAC MARKER PANEL; [facility] 07/07/16 18:19 Test: CPK CREATINE PHOSPHOKINASE; Value: 32; Range: 26-192; Units: U/L; Status: F Test: CK-MB VALUE MASS; Value: 1.0; Range: 0.0-3.6; Units: NG/ML; Status: F Test: MB/CK RELATIVE INDEX; Value: 3.12; Range: < OR =4; Status: F Test: TROPONIN I; Value: < 0.02; Range: < 0.10; Units: NG/ML; Status: F Test Note: ; DIAGNOSIS CRITERIA MMB ng/ml Relative Index (RI) NON-AMI < or = 5 N/A REES ZONE > 5 < or = 4 AMI > 5 > 4 Lab Order: COMPLETE BLOOD COUNT; [facility] 07/08/16 06:31 Test: WHITE BLOOD COUNT; Value: 6.6; Range: 4.0-10.0; Units: K/mm3; Status: F Test: RED BLOOD COUNT; Value: 4.34; Range: 4.00-5.40; Units: M/mm3; Status: F Test: HEMOGLOBIN; Value: 12.0; Range: 12.0-16.0; Units: g/dl; Status: F Test: HEMATOCRIT; Value: 38.4; Range: 36.0-47.0; Units: %; Status: F Test: MEAN CORPUSCULAR VOLUME; Value: 88.4; Range: 80.0-96.0; Units: fl; Status: F Test: MEAN CORPUSCULAR HEMOGLOBIN; Value: 27.6; Range: 27.0-33.0; Units: pg; Status: F Test: MEAN CORPUSCULAR HGB CONC; Value: 31.2; Range: 32.0-36.5; Abnormal: Below low normal; Units: g/dl; Status: F Test: RED CELL DISTRIBUTION WIDTH; Value: 13.0; Range: 11.5-14.5; Units: %; Status: F Test: PLATELET COUNT, AUTOMATED; Value: 183; Range: 150-450; Units: k/mm3; Status: F Lab Order: BASIC METABOLIC PROFILE; [facility] 07/08/16 06:31 Test: GLUCOSE, FASTING; Value: 76; Range: 83-110; Abnormal: Below low normal; Units: MG/DL; Status: F Test: BLOOD UREA NITROGEN; Value: 16; Range: 7-18; Units: MG/DL; Status: F Test: CREATININE FOR GFR; Value: 0.51; Range: 0.55-1.02; Abnormal: Below low normal; Units: MG/DL; Status: F Test: GLOMERULAR FILTRATION RATE; Value: > 60.0; Range: >32; Status: F Test: SODIUM LEVEL; Value: 142; Range: 136-145; Units: MEQ/L; Status: F Test: POTASSIUM SERUM; Value: 4.1; Range: 3.5-5.1; Units: MEQ/L; Status: F Test: CHLORIDE LEVEL; Value: 107; Range: 98-107; Units: MEQ/L; Status: F Test: CARBON DIOXIDE LEVEL; Value: 26; Range: 21-32; Units: MEQ/L; Status: F Test: ANION GAP; Value: 9; Range: 8-16; Units: MEQ/L; Status: F Test: CALCIUM LEVEL; Value: 9.1; Range: 8.8-10.2; Units: MG/DL; Status: F Test Note: ; Units are mL/min/1.73 m2 Chronic Kidney Disease Staging per NKF: Stage I & II GFR >=60 Normal to Mildly Decreased Stage III GFR 30-59 Moderately Decreased Stage IV GFR 15-29 Severely Decreased Stage V GFR <15 Very Little GFR Left ESRD GFR <15 on CONSUMER RELATIONS COMPLAINT CLERK Lab Order: MAGNESIUM LEVEL; SPEC'M 07/08/16 06:31 Test: MAGNESIUM LEVEL; Value: 2.3; Range: 1.8-2.4; Units: MG/DL; Status: F Radiology Order: EKG-ADULT Test: EKG-ADULT REASON FOR EXAMINATION: sob; Stationary ECG Study; [facility] - ED; ; Test Date: 2016-07-07; Pat Name: BARBARA BRAVO Department:; Room: -; Gender: F Rn Quality: anuj; : 1930 Requested By: Suzie Meyer; Order Number: [id number] Reading MD: Td Campbell; Measurements; Intervals [place]; Rate: 77 P: -6; [place]: 155 QRS: 28; QRSD: 94 T: 27; QT: 377; QTc: 428; Interpretive Statements; SINUS RHYTHM; POSSIBLE LEFT ATRIAL ENLARGEMENT; LEFT VENTRICULAR HYPERTROPHY; ; Electronically Signed On 07-07-2016 13:45:14 EST by Td Campbell; Radiology Order: Chest, 1 View Test: Chest, 1 View REASON FOR EXAMINATION: sob; PORTABLE CHEST:; ; AP portable view of the chest is performed.; ; COMPARISON: 06/26/2016; ; The heart is upper limits of normal in size, unchanged. There is some; calcification of the thoracic aorta. The mediastinal silhouette is unchanged.; Diffuse interstitial fibrosis is stable without evidence of acute infiltrate or; pulmonary edema.; ; IMPRESSION:; ; Stable chronic lung changes. No evidence of acute infiltrate or pulmonary edema.; ; ; ; Signed by; Ezekiel Rees MD 07/07/2016 04:17 P; Outcome: 14:04 Decision to Hospitalize by Provider. ar2 14:19 No special radiology studies were completed. kr3 07/08 13:55 Patient left the ED. kr3 Signatures: Dispatcher [employer] EDMS Dandy Tsai, Reg Reg lg Ronna Call km6 Dasia Meadows,RN RN kr3 Ariana Arnold, REFINERY OPERATOR LIGHT ENDS RECOVERY REFINERY OPERATOR LIGHT ENDS RECOVERY jb5 Monica Brambila, RN RN Davide Nathan, PA-C PA-C ar2 Emma Mendoza mt4 Rachel HuntRN RN rs3 Mik Nur,RN RN Alphonse Srivastava, REFINERY OPERATOR LIGHT ENDS RECOVERY REFINERY OPERATOR LIGHT ENDS RECOVERY jlSarwat Martinez, REFINERY OPERATOR LIGHT ENDS RECOVERY REFINERY OPERATOR LIGHT ENDS RECOVERY jrFederico Richard,RN RN Laurel Rowan Corrections: (The following items were deleted from the chart) 07/07 11:34 11:03 BP 132 / ???; Pulse 78bpm; Resp 20bpm; Pulse Ox 87% RA; Temp 97.5F; 58.97 kg; rs3 Height 5 ft. 2 in.; BMI: 23.7; kr3 11:41 11:15 Albuterol 5 mg Nebulizer km6 km6 MTDD
[2016-07-08] MEDS: MAALOX 30 ML SUSP *UDC PO PRN (14:09)
[2016-07-08] MEDS: DONEPEZIL 5 MG TAB PO SCH (20:18)
[2016-07-08] MEDS: MIRTAZAPINE 7.5MG PER 1/2 TABLET PO SCH (20:18)
[2016-07-09] MEDS: IPRATROPIUM 0.5MG/ALBUTEROL 2.5MG INH SOL UD 3ML (DUONEB)(J7620) NEB SCH ×4 (02:00→19:00)
[2016-07-09] MEDS: ALPRAZolam 0.25 MG TAB PO PRN ×3 (05:24→17:11)
[2016-07-09 06:00] VITALS: BP 133/58
[2016-07-09 06:17] LABS: MEAN CORPUSCULAR HEMOGLOBIN 27.9 pg (27.0-33.0); MEAN CORPUSCULAR HGB CONC 31.3 g/dl (32.0-36.5); MEAN CORPUSCULAR VOLUME 89.2 fl (80.0-96.0); WHITE BLOOD COUNT 5.9 K/mm3 (4.0-10.0)
[2016-07-09 06:31] LABS: ANION GAP 5 MEQ/L (8-16); BLOOD UREA NITROGEN 20 MG/DL (7-18); CALCIUM LEVEL 9.1 MG/DL (8.8-10.2); CARBON DIOXIDE LEVEL 37 MEQ/L (21-32); CHLORIDE LEVEL 104 MEQ/L (98-107); CREATININE FOR GFR 0.58 MG/DL (0.55-1.02); GLOMERULAR FILTRATION RATE > 60.0 (>32); GLUCOSE, FASTING 79 MG/DL (83-110); MAGNESIUM LEVEL 2.3 MG/DL (1.8-2.4); SODIUM LEVEL 146 MEQ/L (136-145)
[2016-07-09] MEDS: FLUTICASONE HFA 44 MCG 10.6GM INHALER (FLOVENT) INH SCH ×2 (08:15→18:04)
[2016-07-09] MEDS: TIOTROPIUM INHALER/CAPSULE (SPIRIVA) INH SCH (08:15)
[2016-07-09] MEDS: ALBUTEROL 90 MCG/ACT 8GM HFA INHALER INH PRN ×2 (08:16→18:04)
[2016-07-09] MEDS: PANTOPRAZOLE 40MG TAB (PROTONIX) PO SCH ×2 (08:54→20:18)
[2016-07-09] MEDS: GABAPENTIN 100 MG CAP PO SCH ×2 (08:54→20:18)
[2016-07-09] MEDS: CitaloPRAM (CeleXA) 10 MG TABLET PO SCH (08:54)
[2016-07-09] MEDS: SENOKOT S TAB PO SCH ×2 (08:55→20:18)
[2016-07-09] MEDS: SUCRALFATE 1 GM TAB PO SCH ×3 (08:55→17:11)
[2016-07-09] MEDS: FUROSEMIDE 20 MG TAB PO SCH (08:55)
[2016-07-09] MEDS: ENOXAPARIN 30 MG/0.3 ML SYR (J1650) SC SCH (08:55)
[2016-07-09] MEDS: VITAMIN D 50,000 UNITS CAPSULE (ERGOCALCIFEROL 1.25MG) PO SCH (08:55)
[2016-07-09] MEDS: MAALOX 30 ML SUSP *UDC PO PRN ×2 (10:23→15:05)
--- NOTE | 2016-07-09 10:27 | IPNPDOC ---
Date of Service/Time 07/09/16 Progress Note SUBJECTIVE: [Patient also has burning in her chest is better but still present. She otherwise has no other skin complaints] OBJECTIVE: PHYSICAL EXAMINATION: VITAL SIGNS: Please see below. GENERAL: Frail elderly female sleeping peacefully is entered the room but easily arousable to verbal stimuli she has an essential tremor HEENT: [ she is wearing glasses she has moist mucous membranes] CARDIOVASCULAR: S1-S2 regular. RESPIRATORY: Clear no wheeze. ABDOMINAL: Bowel sounds are present abdomen soft EXTREMITIES: No clubbing cyanosis she has some tenderness to even light touch of the bilateral lower extremities LABORATORY DATA: Mild hypernatremia otherwise Please see below. DVT prophylaxis ordered?: [Lovenox] ASSESSMENT AND PLAN: This is a 85-year-old female with noncardiac chest pain. Problem #1 chest pain/burning: Likely noncardiac in nature likely GI in nature the patient is on Protonix twice a day in addition to that she is also on Zofran Mylanta Carafate. And it is improving. The patient was previously scheduled see GI as an outpatient but she did not fall while. She will likely benefit from outpatient EGD. At the present time she is tolerating a regular diet Problem #2 anxiety depression the patient was continued on Xanax and Celexa Problem #3 dementia the patient continued on Aricept and Remeron the patient feels as though she is too much for them to care for at home and she will likely require long-term facility placement I did discuss this with her this a.m. and she is agreeable for this Problem #4 COPD the patient was continued on Spiriva Flovent as well as duo nebs she is at her baseline O2 requirement. Problem #5 neuropathy the patient continued on gabapentin DISPOSITION: [The patient will require placement physical therapy is ordered]. VS, I&O, 24H, Fishbone VS, I&O, 24H, Fishbone Vital Signs Date Time Temp Pulse Resp B/P Pulse Ox O2 Delivery O2 Flow Rate FiO2 07/09/16 06:00 96.0 63 21 133/58 97 Nasal Cannula 2.0 I&O- Last 24 Hours up to 6 AM 07/09/16 06:00 Intake Total 1440 ml Output Total 400 ml Balance 1040 ml Laboratory Tests 2 07/09/16 06:05: Anion Gap 5L, Blood Urea Nitrogen 20H, Creatinine 0.58, Sodium Level 146H, Potassium Level 4.0, Chloride Level 104, Carbon Dioxide Level 37H, Calcium Level 9.1, Glomerular Filtration Rate > 60.0, Magnesium Level 2.3 Laboratory Tests 07/09/16 06:05 Calcium Level 9.1, Red Blood Count 4.25, Mean Corpuscular Volume 89.2, Mean Corpuscular Hemoglobin 27.9, Mean Corpuscular Hemoglobin Concent 31.3 L, Red Cell Distribution Width 13.0 JOSE ALBERTO SEN MD Jul 09, 2016 10:27
[2016-07-09] MEDS: MIRTAZAPINE 7.5MG PER 1/2 TABLET PO SCH (20:18)
[2016-07-09] MEDS: DONEPEZIL 5 MG TAB PO SCH (20:18)
[2016-07-09 22:00] VITALS: BP 116/55
[2016-07-10] MEDS: IPRATROPIUM 0.5MG/ALBUTEROL 2.5MG INH SOL UD 3ML (DUONEB)(J7620) NEB SCH ×4 (00:07→19:53)
[2016-07-10] MEDS: IPRATROPIUM 0.5MG/ALBUTEROL 2.5MG INH SOL UD 3ML (DUONEB)(J7620) NEB PRN ×3 (05:24→20:56)
[2016-07-10 06:00] VITALS: BP 132/63
[2016-07-10] MEDS: ALPRAZolam 0.25 MG TAB PO PRN ×2 (06:08→14:52)
[2016-07-10 07:01] LABS: MEAN CORPUSCULAR HEMOGLOBIN 27.7 pg (27.0-33.0); MEAN CORPUSCULAR HGB CONC 30.9 g/dl (32.0-36.5); MEAN CORPUSCULAR VOLUME 89.8 fl (80.0-96.0); WHITE BLOOD COUNT 4.9 K/mm3 (4.0-10.0)
[2016-07-10 07:23] LABS: ANION GAP 4 MEQ/L (8-16); BLOOD UREA NITROGEN 19 MG/DL (7-18); CARBON DIOXIDE LEVEL 38 MEQ/L (21-32); CHLORIDE LEVEL 101 MEQ/L (98-107); CREATININE FOR GFR 0.53 MG/DL (0.55-1.02); GLOMERULAR FILTRATION RATE > 60.0 (>32); GLUCOSE, FASTING 80 MG/DL (83-110); MAGNESIUM LEVEL 2.3 MG/DL (1.8-2.4); POTASSIUM SERUM 3.9 MEQ/L (3.5-5.1); SODIUM LEVEL 143 MEQ/L (136-145)
[2016-07-10] MEDS: SUCRALFATE 1 GM TAB PO SCH ×3 (08:25→17:32)
[2016-07-10] MEDS: GABAPENTIN 100 MG CAP PO SCH ×2 (08:25→20:37)
[2016-07-10] MEDS: CitaloPRAM (CeleXA) 10 MG TABLET PO SCH (08:25)
[2016-07-10] MEDS: ENOXAPARIN 30 MG/0.3 ML SYR (J1650) SC SCH (08:25)
[2016-07-10] MEDS: FUROSEMIDE 20 MG TAB PO SCH (08:25)
[2016-07-10] MEDS: PANTOPRAZOLE 40MG TAB (PROTONIX) PO SCH ×2 (08:25→20:37)
[2016-07-10] MEDS: SENOKOT S TAB PO SCH ×2 (08:25→20:37)
[2016-07-10] MEDS: TIOTROPIUM INHALER/CAPSULE (SPIRIVA) INH SCH (08:56)
[2016-07-10] MEDS: FLUTICASONE HFA 44 MCG 10.6GM INHALER (FLOVENT) INH SCH ×2 (08:57→19:54)
--- NOTE | 2016-07-10 12:59 | IPNPDOC ---
Date of Service/Time 07/10/16 Progress Note SUBJECTIVE: [Her burning substernal pain is improving. She does not remember me from her previous stays lengthy discussion] OBJECTIVE: PHYSICAL EXAMINATION: VITAL SIGNS: Please see below. GENERAL: Frail elderly female sitting in a recliner she does have a pronounced essential tremor involving her head HEENT: [ she is wearing glasses she has moist mucous membranes] CARDIOVASCULAR: S1-S2 regular. RESPIRATORY: Clear no wheeze. ABDOMINAL: Bowel sounds are present abdomen soft EXTREMITIES: No clubbing cyanosis she has some tenderness to even light touch of the bilateral lower extremities LABORATORY DATA: Please see below. DVT prophylaxis ordered?: [Lovenox] ASSESSMENT AND PLAN: This is a 85-year-old female with noncardiac chest pain. Problem #1 chest pain/burning: Likely noncardiac in nature likely GI in nature the patient is on Protonix twice a day in addition to that she is also on Zofran Mylanta Carafate. And it is improving. The patient was previously scheduled see GI as an outpatient but she did not fall while. She will likely benefit from outpatient EGD. At the present time she is tolerating a regular diet Problem #2 anxiety depression the patient was continued on Xanax and Celexa Problem #3 dementia the patient continued on Aricept and Remeron the patient feels as though she is too much for them to care for at home and she will likely require senior living facility placement I did discuss this with the patient yesterday she was disappointed but agreeable to this morning when I bring that up with her again she does not remember that yesterday his conversation at all. This a.m. she is angry about her family's decision but agreeable. PFS consultation placed as we work towards disposition Problem #4 COPD the patient was continued on Spiriva Flovent as well as duo nebs she is at her baseline O2 requirement. Problem #5 neuropathy the patient continued on gabapentin DISPOSITION: [The patient will require placement physical therapy is ordered]. VS, I&O, 24H, Fishbone VS, I&O, 24H, Fishbone Vital Signs Date Time Temp Pulse Resp B/P Pulse Ox O2 Delivery O2 Flow Rate FiO2 07/10/16 10:51 92 Nasal Cannula 1.0 07/10/16 06:00 96.7 64 17 132/63 I&O- Last 24 Hours up to 6 AM 07/10/16 06:00 Intake Total 1920 ml Output Total 900 ml Balance 1020 ml Laboratory Tests 2 07/10/16 06:09: Anion Gap 4L, Blood Urea Nitrogen 19H, Creatinine 0.53L, Sodium Level 143, Potassium Level 3.9, Chloride Level 101, Carbon Dioxide Level 38H, Calcium Level 9.0, Glomerular Filtration Rate > 60.0, Magnesium Level 2.3 Laboratory Tests 07/10/16 06:09 Calcium Level 9.0, Red Blood Count 4.11, Mean Corpuscular Volume 89.8, Mean Corpuscular Hemoglobin 27.7, Mean Corpuscular Hemoglobin Concent 30.9 L, Red Cell Distribution Width 13.0 JOSE ALBERTO SEN MD Jul 10, 2016 12:59
[2016-07-10 14:00] VITALS: BP 102/49
--- NOTE | 2016-07-10 14:56 | EDDOCDS ---
Physician Documentation [facility] Name: Barbara Bravo Age: 85 yrs Sex: Female : 1930 Arrival Date: 07/07/2016 Time: 10:50 Bed Admit Hold Private MD: Angélica Sellers A Disposition: 07/07/16 14:04 Hospitalization ordered by Kim Mcfarlane for Inpatient Admission. Preliminary diagnosis are Chronic obstructive pulmonary disease with (acute) exacerbation, Acute and chronic respiratory failure with hypoxia. - Bed requested for 4 [place]. - Status is Inpatient Admission. kr3 - Condition is Stable. - Problem is new. - Symptoms are unchanged. Historical: - Allergies: Advair Diskus (Unknown); Aspirin (Unknown); IODINEIODINE CONTAINING (Rash); PENICILLINS (Rash); Red Dye (Unknown); SULFA (SULFONAMIDES) (Rash); Symax-SL (Unknown); zelnorm (Unknown); - Home Meds: 1. Oxygen 2 liters at night and than as needed thru out day 2.5 LPM at night 2. alprazolam 0.25 mg Oral tab 1 tab tid prn (Last dose: 07/07/2016) 3. donepezil 5 mg oral TbDL nightly 4. Spiriva with HandiHaler 18 mcg Inhl CpDv 1 cap once daily (Last dose: 07/06/2016) 5. ventolinnHFA 2 puffs 2 puffa 4 times daily as needed. four times a day (Last dose: 07/07/2016) 6. gabapentin 100 mg Oral cap twice daily 7. Flovent HFA 2 puffs twice daily (Last dose: Unknown) 8. Lasix 20 mg Oral tab 1 tab once daily (Last dose: 07/07/2016) 9. Vitamin D Oral 87463 unit weekly 10. aluminum/ magnesium/simet 30ml every 6 hours as needed 11. pantoprazole 40 mg oral TbEC 1 tab 2 times per day (Last dose: 07/07/2016) 12. citalopram 10 mg Oral tab once daily (Last dose: 07/07/2016) 13. hyoscyamine sulfate 0.125 mg SL subl 1 -2 tabs under the tongue 4 times a day as needed 14. sucralfate 1 gram Oral tab 1 tab three times a day as needed 15. mirtazapine 7.5 mg Oral tab nightly 16. Albuterol-Ipratropium Inhl every 4 hours as needed - PMHx: Anxiety; COPD; ESSENTIAL TREMOR; Gastric Polyps; IBS with diarrhea; - PSHx: Hysterectomy; - Social history: Smoking status: Patient states former smoker of tobacco. No barriers to communication noted, The patient speaks fluent Kazakh, Speaks appropriately for age. - Family history: Not pertinent. - : The pt / caregiver states he / she is not on anticoagulants. Home medication list is obtained from [employer] import data, a discharge med list. - Exposure Risk Screening:: None identified. Vital Signs: 07/07 11:03 BP 132 / 60; Pulse 78; Resp 20; Temp 97.5; Pulse Ox 87% on R/A; Weight 58.97 kg / rs3 130.01 lbs; Height 5 ft. 2 in. (157.48 cm); 11:12 Pulse Ox 96% on 2 lpm NC; kr3 12:03 BP 146 / 62 (auto/); kr3 12:04 Pulse 82 MON; Pulse Ox 96% on 2 lpm NC; kr3 12:33 BP 127 / 58 (auto/); kr3 12:34 Pulse 80 MON; Pulse Ox 93% on 2 lpm NC; kr3 13:03 BP 134 / 60 (auto/); kr3 13:04 Pulse 80 MON; Pulse Ox 93% on 2 lpm NC; kr3 13:33 BP 139 / 64 (auto/); kr3 13:34 Pulse 84 MON; Pulse Ox 93% on 2 lpm NC; kr3 14:02 Pulse 94 MON; Pulse Ox 92% on 2 lpm NC; kr3 14:03 BP 134 / 62 (auto/); kr3 11:03 Body Mass Index 23.78 (58.97 kg, 157.48 cm) rs3 MDM: 11:20 IV Saline Lock ordered. ml 11:20 Vital Signs ordered. ml 11:20 Quality Improvement Manager/Pulse Ox/q 15 min VS ordered. ml 11:20 Rhythm Strip to chart ordered. ml 11:21 Albuterol 5 mg Nebulizer once ordered. ml 11:21 Albuterol-Ipratropium 3 ml Inhalation once ordered. ml 11:21 Call Respiratory ordered. ml 11:21 CBC with Diff Ordered. EDMS 11:21 MED Profile Ordered. EDMS 11:21 CIP Ordered. EDMS 11:21 Troponin Ordered. EDMS 11:21 BNP Ordered. EDMS 11:21 ECG WITH READING ER PHYS+CARDIAG ordered. EDMS 11:23 Chest, 1 View Ordered. EDMS 11:24 Call Respiratory complete. rs3 11:41 Albuterol 5 mg Nebulizer once ordered. km6 12:01 Financial registration complete. lg 12:09 CBC with Diff Reviewed. ar2 12:09 MED Profile Reviewed. ar2 12:09 CIP Reviewed. ar2 12:09 Troponin Reviewed. ar2 12:09 BNP Reviewed. ar2 13:54 PHYSICAL THERAPY EVAL & TREAT ordered. EDMS 13:54 Admission / Observation Status ordered. EDMS 13:54 REGULAR DIET ordered. EDMS 13:55 CARDIAC MARKER PANEL Ordered. EDMS 14:04 BED REQUEST+ADM ordered. EDMS 14:45 [facility] Payment Agreement was scanned into [employer] and attached to record. lg 16:07 Albuterol-Ipratropium 3 ml Inhalation once ordered. b 19:31 COMPLETE BLOOD COUNT Ordered. EDMS 19:31 BASIC METABOLIC PROFILE Ordered. EDMS 19:31 MAGNESIUM LEVEL Ordered. EDMS 12 09:10 T-Sheet-- Draft Copy was scanned into [employer] and attached to record. [place] [place] 14:17 ECG/EKG was scanned into [employer] and attached to record. gb Administered Medications: 07/07 11:35 Drug: Albuterol 5 mg [albuterol sulfate 2.5 mg/0.5 mL solution for nebulization (1 mL)] [facility] Route: Nebulizer; 11:41 Follow up: Response: Nebulizer completed [facility] 11:44 Follow up: Response: Nebulizer completed [facility] 11:41 Drug: Albuterol-Ipratropium 3 ml [ipratropium-albuterol 0.5 mg-3 mg(2.5 mg base)/3 mL [facility] nebulization soln (3 mL)] Route: Inhalation; 17:35 Drug: Albuterol-Ipratropium 3 ml [ipratropium-albuterol 0.5 mg-3 mg(2.5 mg base)/3 mL [facility] nebulization soln (3 mL)] {Note: administered by Mendel Krishnamurthy RRT at 1645 p.m..} Route: Inhalation; Signatures: Dispatcher [employer] EDSuzie Perry MD MD ml Cassie Dougherty, Reg Reg gb Dandy Tsai, Reg Reg lg Ronna Call km6 Dasia Meadows,RN RN kr3 Davide Welch PA-C PAVesta ar2 Rachel Hunt RN RN rs3 Mik NurRN RN faustinab Sarwat Hansen, RADHA DATA TECHNICAL LEAD Bro Ware RN RN [facility] The chart was reviewed and I authenticate all verbal orders and agree with the evaluation and treatment provided.Attachments: 14:45 [facility] [place] Agreement lg 07/08 09:10 T-Sheet-- Draft Copy [facility] [place] 14:17 ECG/EKG gb Chart Complete MTDD
--- NOTE | 2016-07-10 14:56 | EDDOCDS ---
Nurse's Notes [facility] Name: Barbara Bravo Age: 85 yrs Sex: Female : 1930 Arrival Date: 07/07/2016 Time: 10:50 Bed Admit Hold Private MD: Angélica Sellers A Diagnosis: Chronic obstructive pulmonary disease with (acute) exacerbation;Acute and chronic respiratory failure with hypoxia Presentation: 07/07 10:54 Suicide/Homicide risk assessment- the patient denies having any suicidal and/or kr3 homicidal ideations and does not present with any other emotional, behavioral or mental health complaints. Status: Patient is not a ambulatory services representative or dependent. Transition of care: patient was not received from another setting of care. 10:54 Acuity: DELORES Level 3 kr3 10:54 Method Of Arrival: Ambulance kr3 10:55 Presenting complaint: EMS states: increase difficulty breathing for several days. Adult kr3 Sepsis Screening: The patient does not have new or worsening altered mentation. Care prior to arrival: Medications administered prior to arrival: albuterol times 2, albuterol and atrovent, solumedrol 125mg Glucose check. 86. 11:01 Presenting complaint: Patient states: shortness of breath began 1 day ago. Complains of kr3 tightness upper chest intermittent. 11:12 Presenting complaint: Patient states: was hospitalized recently for same. Would like kr3 long term placement but is unsure how to proceed. Reports anxiety at home. 14:19 Adult Sepsis Screening: Systolic blood pressure is greater than 100. Patient has a kr3 qSOFA score of 0- Negative Sepsis Screen. Triage Assessment: 10:58 General: Appears in no apparent distress, comfortable, Behavior is cooperative. Pain: kr3 Denies pain. The patient is triaged at the bedside. See Assessment in Nurses Notes section of ED record. Neurological: Level of Consciousness is awake, alert. Respiratory: Onset: The symptoms/episode began/occurred yesterday, Airway is patent Respiratory effort is even, Breath sounds with wheezes bilaterally. Respiratory: Reports shortness of breath on exertion Denies cough. Derm: Skin is pink, warm & dry. Historical: - Allergies: Advair Diskus (Unknown); Aspirin (Unknown); IODINEIODINE CONTAINING (Rash); PENICILLINS (Rash); Red Dye (Unknown); SULFA (SULFONAMIDES) (Rash); Symax-SL (Unknown); zelnorm (Unknown); - Home Meds: 1. Oxygen 2 liters at night and than as needed thru out day 2.5 LPM at night 2. alprazolam 0.25 mg Oral tab 1 tab tid prn (Last dose: 07/07/2016) 3. donepezil 5 mg oral TbDL nightly 4. Spiriva with HandiHaler 18 mcg Inhl CpDv 1 cap once daily (Last dose: 07/06/2016) 5. ventolinnHFA 2 puffs 2 puffa 4 times daily as needed. four times a day (Last dose: 07/07/2016) 6. gabapentin 100 mg Oral cap twice daily 7. Flovent HFA 2 puffs twice daily (Last dose: Unknown) 8. Lasix 20 mg Oral tab 1 tab once daily (Last dose: 07/07/2016) 9. Vitamin D Oral 89025 unit weekly 10. aluminum/ magnesium/simet 30ml every 6 hours as needed 11. pantoprazole 40 mg oral TbEC 1 tab 2 times per day (Last dose: 07/07/2016) 12. citalopram 10 mg Oral tab once daily (Last dose: 07/07/2016) 13. hyoscyamine sulfate 0.125 mg SL subl 1 -2 tabs under the tongue 4 times a day as needed 14. sucralfate 1 gram Oral tab 1 tab three times a day as needed 15. mirtazapine 7.5 mg Oral tab nightly 16. Albuterol-Ipratropium Inhl every 4 hours as needed - PMHx: Anxiety; COPD; ESSENTIAL TREMOR; Gastric Polyps; IBS with diarrhea; - PSHx: Hysterectomy; - Social history: Smoking status: Patient states former smoker of tobacco. No barriers to communication noted, The patient speaks fluent Irish, Speaks appropriately for age. - Family history: Not pertinent. - : The pt / caregiver states he / she is not on anticoagulants. Home medication list is obtained from [employer] import data, a discharge med list. - Exposure Risk Screening:: None identified. Screenin:13 Screening information is obtained from the patient. Fall risk: At risk due to gait kr3 disturbance, The following interventions are performed due to a positive Fall Risk Screen: Fall Alert bracelet is placed on the patient. Assistance ADL's: requires no assistance with activities of daily living. Abuse/DV Screen: The patient / caregiver reports he/she is: not in a situation that causes fear, pain or injury. Nutritional screening: No deficits noted. Advance Directives: Currently, there is no health care proxy. There is no Power of [employer]. home support is adequate. Assessment: 11:14 Reassessment: Patient appears in no apparent distress at this time. Cardiovascular: kr3 Rhythm is sinus rhythm No ectopy. 12:14 Reassessment: Patient appears in no apparent distress at this time. Neurological: No kr3 deficits noted. Respiratory: Respiratory effort is even, unlabored. Derm: Skin is normal. 13:10 Adult Sepsis Screening: The patient does not have new or worsening altered mentation. kr3 Patient's respiratory rate is less than 22. Systolic blood pressure is greater than 100. Patient has a qSOFA score of 0- Negative Sepsis Screen. 13:30 Reassessment: Patient appears in no apparent distress at this time. talking with 3 hospitalist. 14:17 Reassessment: Patient appears in no apparent distress at this time. son at bedside. kr3 aware that admission is pending. 16:05 General: Appears in no apparent distress, Behavior is restless. Pain: Denies pain. rogelio Neurological: Level of Consciousness is awake, alert, obeys commands, Oriented to person, place, time, Home Specialist are equal bilaterally Speech is normal, Facial symmetry appears normal, Facial symmetry: tongue is midline. Cardiovascular: Capillary refill < 3 seconds Heart tones present Pulses are all present. Rhythm is sinus rhythm No ectopy. Respiratory: Airway is patent Respiratory effort is even, unlabored, Respiratory pattern is regular, symmetrical, Breath sounds with crackles bilaterally. GI: Abdomen is non- distended. Derm: Skin is pink, warm & dry. Musculoskeletal: Range of motion intact in all extremities. 17:18 General: Report off to Mariella Hopson RN. [facility] Vital Signs: 11:03 BP 132 / 60; Pulse 78; Resp 20; Temp 97.5; Pulse Ox 87% on R/A; Weight 58.97 kg; Height rs3 5 ft. 2 in. (157.48 cm); 11:12 Pulse Ox 96% on 2 lpm NC; kr3 12:03 BP 146 / 62 (auto/); kr3 12:04 Pulse 82 MON; Pulse Ox 96% on 2 lpm NC; kr3 12:33 BP 127 / 58 (auto/); kr3 12:34 Pulse 80 MON; Pulse Ox 93% on 2 lpm NC; kr3 13:03 BP 134 / 60 (auto/); kr3 13:04 Pulse 80 MON; Pulse Ox 93% on 2 lpm NC; kr3 13:33 BP 139 / 64 (auto/); kr3 13:34 Pulse 84 MON; Pulse Ox 93% on 2 lpm NC; kr3 14:02 Pulse 94 MON; Pulse Ox 92% on 2 lpm NC; kr3 14:03 BP 134 / 62 (auto/); kr3 11:03 Body Mass Index 23.78 (58.97 kg, 157.48 cm) rs3 Vitals: 11:03 Log In Time N/A - ambulance arrival. kr3 ED Course: 10:51 Patient visited by Sarwat Hansen PCA. jrd 10:51 Monica Brambila, RN is Primary Nurse. jrd 10:51 Dasia Meadows,JOYCE is Primary Nurse. jrd 10:51 Angélica Sellers is Private Physician. jrd 10:51 Patient moved to Waiting jrd 10:51 Patient moved to 11 jrd 10:54 Triage Initiated kr3 11:13 The patient / caregiver is instructed regarding the plan of care and ED course. Patient ria has correct armband on for positive identification. Placed in gown. Bed in low position. Call light in reach. Side rails up X2. vice president media relations on. Pulse ox on. NIBP on. 11:34 BNP Sent. rs3 11:34 Troponin Sent. rs3 11:34 CIP Sent. rs3 11:34 MED Profile Sent. rs3 11:34 CBC with Diff Sent. rs3 11:37 EKG done. (by ED staff). Reviewed by Suzie Meyer MD. jb5 11:38 Patient visited by Ariana Arnold PCA. jb5 11:42 Davide Welch PA-C is PHCP. ar2 11:42 Suzie Meyer MD is Attending Physician. ar2 11:42 Patient visited by Davide Welch PA-C. ar2 12:09 Patient visited by Alphonse Marshall PCA. jlf 12:42 Patient visited by Alphonse Marshall PCA. jlf 12:47 Chest, 1 View Returned. EDMS 13:22 Patient visited by Alphonse Marshall PCA. jlf 14:04 Kim Mcfarlane is Hospitalizing Provider. ar2 14:13 EKG-ADULT Returned. EDMS 14:17 PO fluids given. kr3 14:41 Diet tray given. kr3 14:45 [facility] Payment Agreement was scanned into [employer] and attached to record. lg 16:21 Patient moved to 19 jmb 18:08 Patient moved to Admit Hold mt4 19:03 Primary Nurse role handed off by Monica Brambila, JOYCE reeves 19:12 Primary Nurse role handed off by Dasia Meadows,JOYCE fuchs 21:10 moved bed bc patient insisted that air was blowing on her head VERY upset so moving the jb5 patient helped some patient insisted that she has been here for DAYS is now writing everything down becaue we can't tell the truth says patient. 21:13 Patient visited by Ariana Arnold PCA. jb5 07/08 01:02 Federico Isidro,RN is Primary Nurse. mgs 09:10 T-Sheet-- Draft Copy was scanned into [employer] and attached to record. [facility] 14:17 ECG/EKG was scanned into [employer] and attached to record. gb Administered Medications: 07/07 11:35 Drug: Albuterol 5 mg [albuterol sulfate 2.5 mg/0.5 mL solution for nebulization (1 mL)] [facility] Route: Nebulizer; 11:41 Follow up: Response: Nebulizer completed km 11:44 Follow up: Response: Nebulizer completed [facility] 11:41 Drug: Albuterol-Ipratropium 3 ml [ipratropium-albuterol 0.5 mg-3 mg(2.5 mg base)/3 mL [facility] nebulization soln (3 mL)] Route: Inhalation; 17:35 Drug: Albuterol-Ipratropium 3 ml [ipratropium-albuterol 0.5 mg-3 mg(2.5 mg base)/3 mL [facility] nebulization soln (3 mL)] {Note: administered by Mendel Krishnamurthy DRUG AND ALCOHOL COUNSELLOR at 1645 p.m..} Route: Inhalation; RT: 11:43 Initial Med Neb Given as ordered Patient was instructed and evaluated on procedure km6 Patient tolerated procedure well without adverse effect. Respiratory: Breath sounds with wheezes bilaterally. at expiration. Order Results: Lab Order: CBC with Diff; SPEC'M 07/07/16 11:23 Test: WHITE BLOOD COUNT; Value: 7.1; Range: 4.0-10.0; Units: K/mm3; Status: F Test: RED BLOOD COUNT; Value: 4.94; Range: 4.00-5.40; Units: M/mm3; Status: F Test: HEMOGLOBIN; Value: 13.1; Range: 12.0-16.0; Units: g/dl; Status: F Test: HEMATOCRIT; Value: 42.6; Range: 36.0-47.0; Units: %; Status: F Test: MEAN CORPUSCULAR VOLUME; Value: 86.2; Range: 80.0-96.0; Units: fl; Status: F Test: MEAN CORPUSCULAR HEMOGLOBIN; Value: 26.6; Range: 27.0-33.0; Abnormal: Below low normal; Units: pg; Status: F Test: MEAN CORPUSCULAR HGB CONC; Value: 30.8; Range: 32.0-36.5; Abnormal: Below low normal; Units: g/dl; Status: F Test: RED CELL DISTRIBUTION WIDTH; Value: 13.7; Range: 11.5-14.5; Units: %; Status: F Test: PLATELET COUNT, AUTOMATED; Value: 189; Range: 150-450; Units: k/mm3; Status: F Test: NEUTROPHILS %; Value: 76.8; Range: 36.0-66.0; Abnormal: Above high normal; Units: %; Status: F Test: LYMPH %; Value: 15.1; Range: 24.0-44.0; Abnormal: Below low normal; Units: %; Status: F Test: MONO %; Value: 2.6; Range: 0.0-5.0; Units: %; Status: F Test: EOS %; Value: 2.5; Range: 0.0-3.0; Units: %; Status: F Test: BASO %; Value: 0.8; Range: 0.0-1.0; Units: %; Status: F Test: LARGE UNSTAINED CELL %; Value: 2.2; Range: 0.0-4.0; Units: %; Status: F Test: NEUTROPHILS #; Value: 5.5; Range: 1.8-7.7; Units: K/mm3; Status: F Test: LYMPH #; Value: 1.2; Range: 1.5-4.5; Abnormal: Below low normal; Units: K/mm3; Status: F Test: MONO #; Value: 0.2; Range: 0.0-0.8; Units: K/mm3; Status: F Test: EOS #; Value: 0.2; Range: 0.0-0.50; Units: K/mm3; Status: F Test: BASO #; Value: 0.1; Range: 0.0-0.2; Units: K/mm3; Status: F Test: LARGE UNSTAINED CELL #; Value: 0.2; Range: 0.0-0.4; Units: K/mm3; Status: F Lab Order: MED Profile; [facility] 07/07/16 11:23 Test: GLUCOSE, FASTING; Value: 92; Range: 83-110; Units: MG/DL; Status: F Test: BLOOD UREA NITROGEN; Value: 15; Range: 7-18; Units: MG/DL; Status: F Test: CREATININE FOR GFR; Value: 0.60; Range: 0.55-1.02; Units: MG/DL; Status: F Test: GLOMERULAR FILTRATION RATE; Value: > 60.0; Range: >32; Status: F Test: SODIUM LEVEL; Value: 144; Range: 136-145; Units: MEQ/L; Status: F Test: POTASSIUM SERUM; Value: 3.8; Range: 3.5-5.1; Units: MEQ/L; Status: F Test: CHLORIDE LEVEL; Value: 102; Range: 98-107; Units: MEQ/L; Status: F Test: CARBON DIOXIDE LEVEL; Value: 35; Range: 21-32; Abnormal: Above high normal; Units: MEQ/L; Status: F Test: ANION GAP; Value: 7; Range: 8-16; Abnormal: Below low normal; Units: MEQ/L; Status: F Test: CALCIUM LEVEL; Value: 9.4; Range: 8.8-10.2; Units: MG/DL; Status: F Test Note: ; Units are mL/min/1.73 m2 Chronic Kidney Disease Staging per NKF: Stage I & II GFR >=60 Normal to Mildly Decreased Stage III GFR 30-59 Moderately Decreased Stage IV GFR 15-29 Severely Decreased Stage V GFR <15 Very Little GFR Left ESRD GFR <15 on DRUG AND ALCOHOL COUNSELLOR Lab Order: CIP; [facility] 07/07/16 11:23 Test: CPK CREATINE PHOSPHOKINASE; Value: 31; Range: 26-192; Units: U/L; Status: F Test: CK-MB VALUE MASS; Value: 1.0; Range: 0.0-3.6; Units: NG/ML; Status: F Test: MB/CK RELATIVE INDEX; Value: 3.22; Range: < OR =4; Status: F Test Note: ; DIAGNOSIS CRITERIA MMB ng/ml Relative Index (RI) NON-AMI < or = 5 N/A REES ZONE > 5 < or = 4 AMI > 5 > 4 Lab Order: Troponin; [facility] 07/07/16 11:23 Test: TROPONIN I; Value: < 0.02; Range: < 0.10; Units: NG/ML; Status: F Test Note: ; Troponin I Reference Interval for Trenergi LOCI: 99th Percentile= 0.00-0.045 ng/ml Risk Stratification: <= 0.10 ng/ml Decreased Risk for Adverse Clinical Events. 0.10-1.50 ng/ml Increased Risk for Adverse Clinical Events. Evaluation of additional criterion and/or repeat testing in 2-6 hours is suggested to rule out myocardial damage. >= 1.50 ng/ml Indicative of Myocardial Injury. Lab Order: BNP; [facility] 07/07/16 11:23 Test: BRAIN NATRIURETIC PEPTIDE; Value: 14.3; Range: <100; Units: PG/ML; Status: F Lab Order: CARDIAC MARKER PANEL; [facility] 07/07/16 18:19 Test: CPK CREATINE PHOSPHOKINASE; Value: 32; Range: 26-192; Units: U/L; Status: F Test: CK-MB VALUE MASS; Value: 1.0; Range: 0.0-3.6; Units: NG/ML; Status: F Test: MB/CK RELATIVE INDEX; Value: 3.12; Range: < OR =4; Status: F Test: TROPONIN I; Value: < 0.02; Range: < 0.10; Units: NG/ML; Status: F Test Note: ; DIAGNOSIS CRITERIA MMB ng/ml Relative Index (RI) NON-AMI < or = 5 N/A REES ZONE > 5 < or = 4 AMI > 5 > 4 Lab Order: COMPLETE BLOOD COUNT; [facility] 07/08/16 06:31 Test: WHITE BLOOD COUNT; Value: 6.6; Range: 4.0-10.0; Units: K/mm3; Status: F Test: RED BLOOD COUNT; Value: 4.34; Range: 4.00-5.40; Units: M/mm3; Status: F Test: HEMOGLOBIN; Value: 12.0; Range: 12.0-16.0; Units: g/dl; Status: F Test: HEMATOCRIT; Value: 38.4; Range: 36.0-47.0; Units: %; Status: F Test: MEAN CORPUSCULAR VOLUME; Value: 88.4; Range: 80.0-96.0; Units: fl; Status: F Test: MEAN CORPUSCULAR HEMOGLOBIN; Value: 27.6; Range: 27.0-33.0; Units: pg; Status: F Test: MEAN CORPUSCULAR HGB CONC; Value: 31.2; Range: 32.0-36.5; Abnormal: Below low normal; Units: g/dl; Status: F Test: RED CELL DISTRIBUTION WIDTH; Value: 13.0; Range: 11.5-14.5; Units: %; Status: F Test: PLATELET COUNT, AUTOMATED; Value: 183; Range: 150-450; Units: k/mm3; Status: F Lab Order: BASIC METABOLIC PROFILE; [facility] 07/08/16 06:31 Test: GLUCOSE, FASTING; Value: 76; Range: 83-110; Abnormal: Below low normal; Units: MG/DL; Status: F Test: BLOOD UREA NITROGEN; Value: 16; Range: 7-18; Units: MG/DL; Status: F Test: CREATININE FOR GFR; Value: 0.51; Range: 0.55-1.02; Abnormal: Below low normal; Units: MG/DL; Status: F Test: GLOMERULAR FILTRATION RATE; Value: > 60.0; Range: >32; Status: F Test: SODIUM LEVEL; Value: 142; Range: 136-145; Units: MEQ/L; Status: F Test: POTASSIUM SERUM; Value: 4.1; Range: 3.5-5.1; Units: MEQ/L; Status: F Test: CHLORIDE LEVEL; Value: 107; Range: 98-107; Units: MEQ/L; Status: F Test: CARBON DIOXIDE LEVEL; Value: 26; Range: 21-32; Units: MEQ/L; Status: F Test: ANION GAP; Value: 9; Range: 8-16; Units: MEQ/L; Status: F Test: CALCIUM LEVEL; Value: 9.1; Range: 8.8-10.2; Units: MG/DL; Status: F Test Note: ; Units are mL/min/1.73 m2 Chronic Kidney Disease Staging per NKF: Stage I & II GFR >=60 Normal to Mildly Decreased Stage III GFR 30-59 Moderately Decreased Stage IV GFR 15-29 Severely Decreased Stage V GFR <15 Very Little GFR Left ESRD GFR <15 on DRUG AND ALCOHOL COUNSELLOR Lab Order: MAGNESIUM LEVEL; SPEC'M 07/08/16 06:31 Test: MAGNESIUM LEVEL; Value: 2.3; Range: 1.8-2.4; Units: MG/DL; Status: F Radiology Order: EKG-ADULT Test: EKG-ADULT REASON FOR EXAMINATION: sob; Stationary ECG Study; [facility] - ED; ; Test Date: 2016-07-07; Pat Name: BARBARA BRAVO Department:; Room: -; Gender: F 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 There is some; calcification of the thoracic aorta. The mediastinal silhouette is unchanged.; Diffuse interstitial fibrosis is stable without evidence of acute infiltrate or; pulmonary edema.; ; IMPRESSION:; ; Stable chronic lung changes. No evidence of acute infiltrate or pulmonary edema.; ; ; ; Signed by; Ezekiel Rees MD 07/07/2016 04:17 P; Outcome: 14:04 Decision to Hospitalize by Provider. ar2 14:19 No special radiology studies were completed. kr3 07/08 13:55 Patient left the ED. kr3 Signatures: Dispatcher [employer] EDMS Cassie Dougherty, Reg Reg gb Dandy Tsai, Reg Reg lg StantonRonna rodriguez km6 Dasia Meadows,RN RN kr3 Ariana Arnold, AMUSEMENT CENTRE MANAGER AMUSEMENT CENTRE MANAGER jb5 Monica Brambila, RN RN Davide Nathan PA-C PA-Gin ar2 Emma Mendoza mt4 Rachel Hunt RN RN rs3 Mik NurRN RN Alphonse Srivastava, AMUSEMENT CENTRE MANAGER AMUSEMENT CENTRE MANAGER jlSarwat Martinez, AMUSEMENT CENTRE MANAGER AMUSEMENT CENTRE MANAGER Federico Oleary,RN RN Laurel Rowan Corrections: (The following items were deleted from the chart) 07/07 11:34 11:03 BP 132 / ???; Pulse 78bpm; Resp 20bpm; Pulse Ox 87% RA; Temp 97.5F; 58.97 kg; rs3 Height 5 ft. 2 in.; BMI: 23.7; kr3 11:41 11:15 Albuterol 5 mg Nebulizer km6 km6 Chart Complete MTDD
--- NOTE | 2016-07-10 14:56 | EDDOCDS ---
Physician Documentation [facility] Name: Barbara Bravo Age: 85 yrs Sex: Female : 1930 Arrival Date: 07/07/2016 Time: 10:50 Bed Admit Hold Private MD: Angélica Sellers A Disposition: 07/07/16 14:04 Hospitalization ordered by Kim Mcfarlane for Inpatient Admission. Preliminary diagnosis are Chronic obstructive pulmonary disease with (acute) exacerbation, Acute and chronic respiratory failure with hypoxia. - Bed requested for 4 Hercules. - Status is Inpatient Admission. kr3 - Condition is Stable. - Problem is new. - Symptoms are unchanged. Historical: - Allergies: Advair Diskus (Unknown); Aspirin (Unknown); IODINEIODINE CONTAINING (Rash); PENICILLINS (Rash); Red Dye (Unknown); SULFA (SULFONAMIDES) (Rash); Symax-SL (Unknown); zelnorm (Unknown); - Home Meds: 1. Oxygen 2 liters at night and than as needed thru out day 2.5 LPM at night 2. alprazolam 0.25 mg Oral tab 1 tab tid prn (Last dose: 07/07/2016) 3. donepezil 5 mg oral TbDL nightly 4. Spiriva with HandiHaler 18 mcg Inhl CpDv 1 cap once daily (Last dose: 07/06/2016) 5. ventolinnHFA 2 puffs 2 puffa 4 times daily as needed. four times a day (Last dose: 07/07/2016) 6. gabapentin 100 mg Oral cap twice daily 7. Flovent HFA 2 puffs twice daily (Last dose: Unknown) 8. Lasix 20 mg Oral tab 1 tab once daily (Last dose: 07/07/2016) 9. Vitamin D Oral 87146 unit weekly 10. aluminum/ magnesium/simet 30ml every 6 hours as needed 11. pantoprazole 40 mg oral TbEC 1 tab 2 times per day (Last dose: 07/07/2016) 12. citalopram 10 mg Oral tab once daily (Last dose: 07/07/2016) 13. hyoscyamine sulfate 0.125 mg SL subl 1 -2 tabs under the tongue 4 times a day as needed 14. sucralfate 1 gram Oral tab 1 tab three times a day as needed 15. mirtazapine 7.5 mg Oral tab nightly 16. Albuterol-Ipratropium Inhl every 4 hours as needed - PMHx: Anxiety; COPD; ESSENTIAL TREMOR; Gastric Polyps; IBS with diarrhea; - PSHx: Hysterectomy; - Social history: Smoking status: Patient states former smoker of tobacco. No barriers to communication noted, The patient speaks fluent Icelandic, Speaks appropriately for age. - Family history: Not pertinent. - : The pt / caregiver states he / she is not on anticoagulants. Home medication list is obtained from copygram import data, a discharge med list. - Exposure Risk Screening:: None identified. Vital Signs: 07/07 11:03 BP 132 / 60; Pulse 78; Resp 20; Temp 97.5; Pulse Ox 87% on R/A; Weight 58.97 kg / rs3 130.01 lbs; Height 5 ft. 2 in. (157.48 cm); 11:12 Pulse Ox 96% on 2 lpm NC; kr3 12:03 BP 146 / 62 (auto/); kr3 12:04 Pulse 82 MON; Pulse Ox 96% on 2 lpm NC; kr3 12:33 BP 127 / 58 (auto/); kr3 12:34 Pulse 80 MON; Pulse Ox 93% on 2 lpm NC; kr3 13:03 BP 134 / 60 (auto/); kr3 13:04 Pulse 80 MON; Pulse Ox 93% on 2 lpm NC; kr3 13:33 BP 139 / 64 (auto/); kr3 13:34 Pulse 84 MON; Pulse Ox 93% on 2 lpm NC; kr3 14:02 Pulse 94 MON; Pulse Ox 92% on 2 lpm NC; kr3 14:03 BP 134 / 62 (auto/); kr3 11:03 Body Mass Index 23.78 (58.97 kg, 157.48 cm) rs3 MDM: 11:20 IV Saline Lock ordered. ml 11:20 Vital Signs ordered. ml 11:20 Maintenance Machine Repairer/Pulse Ox/q 15 min VS ordered. ml 11:20 Rhythm Strip to chart ordered. ml 11:21 Albuterol 5 mg Nebulizer once ordered. ml 11:21 Albuterol-Ipratropium 3 ml Inhalation once ordered. ml 11:21 Call Respiratory ordered. ml 11:21 CBC with Diff Ordered. EDMS 11:21 MED Profile Ordered. EDMS 11:21 CIP Ordered. EDMS 11:21 Troponin Ordered. EDMS 11:21 BNP Ordered. EDMS 11:21 ECG WITH READING ER PHYS+CARDIAG ordered. EDMS 11:23 Chest, 1 View Ordered. EDMS 11:24 Call Respiratory complete. rs3 11:41 Albuterol 5 mg Nebulizer once ordered. km6 12:01 Financial registration complete. lg 12:09 CBC with Diff Reviewed. ar2 12:09 MED Profile Reviewed. ar2 12:09 CIP Reviewed. ar2 12:09 Troponin Reviewed. ar2 12:09 BNP Reviewed. ar2 13:54 PHYSICAL THERAPY EVAL & TREAT ordered. EDMS 13:54 Admission / Observation Status ordered. EDMS 13:54 REGULAR DIET ordered. EDMS 13:55 CARDIAC MARKER PANEL Ordered. EDMS 14:04 BED REQUEST+ADM ordered. EDMS 14:45 [facility] Payment Agreement was scanned into [employer] and attached to record. lg 16:07 Albuterol-Ipratropium 3 ml Inhalation once ordered. b 19:31 COMPLETE BLOOD COUNT Ordered. EDMS 19:31 BASIC METABOLIC PROFILE Ordered. EDMS 19:31 MAGNESIUM LEVEL Ordered. EDMS 12 09:10 T-Sheet-- Draft Copy was scanned into [employer] and attached to record. [facility] 14:17 ECG/EKG was scanned into [employer] and attached to record. gb Administered Medications: 07/07 11:35 Drug: Albuterol 5 mg [albuterol sulfate 2.5 mg/0.5 mL solution for nebulization (1 mL)] [facility] Route: Nebulizer; 11:41 Follow up: Response: Nebulizer completed [facility] 11:44 Follow up: Response: Nebulizer completed [facility] 11:41 Drug: Albuterol-Ipratropium 3 ml [ipratropium-albuterol 0.5 mg-3 mg(2.5 mg base)/3 mL [facility] nebulization soln (3 mL)] Route: Inhalation; 17:35 Drug: Albuterol-Ipratropium 3 ml [ipratropium-albuterol 0.5 mg-3 mg(2.5 mg base)/3 mL [facility] nebulization soln (3 mL)] {Note: administered by Mendel Krishnamurthy RRT at 1645 p.m..} Route: Inhalation; Signatures: Dispatcher [employer] EDSuzie Perry MD MD ml Cassie Dougherty, Reg Reg gb Dandy Tsai, Reg Reg lg Ronna Call km6 Dsaia Meadows,RN RN kr3 Davide Welch PA-C PAVesta ar2 Rachel Hunt RN RN rs3 Mik NurRN RN faustinab Sarwat Hansen, RADHA INTERNATIONAL FLIGHT ATTENDANT Bro Ware RN RN [facility] The chart was reviewed and I authenticate all verbal orders and agree with the evaluation and treatment provided.Attachments: 14:45 [facility] [place] Agreement lg 07/08 09:10 T-Sheet-- Draft Copy [facility] 14:17 ECG/EKG gb Chart Complete MTDD
[2016-07-10] MEDS: MIRTAZAPINE 7.5MG PER 1/2 TABLET PO SCH (20:37)
[2016-07-10] MEDS: DONEPEZIL 5 MG TAB PO SCH (20:37)
[2016-07-10 22:00] VITALS: BP 134/63
[2016-07-11] MEDS: IPRATROPIUM 0.5MG/ALBUTEROL 2.5MG INH SOL UD 3ML (DUONEB)(J7620) NEB SCH ×4 (01:00→19:55)
[2016-07-11] MEDS: MAALOX 30 ML SUSP *UDC PO PRN (04:49)
[2016-07-11 06:00] VITALS: BP 137/63
[2016-07-11] MEDS: ALPRAZolam 0.25 MG TAB PO PRN ×3 (06:40→20:22)
[2016-07-11 07:05] LABS: MEAN CORPUSCULAR HEMOGLOBIN 27.6 pg (27.0-33.0); MEAN CORPUSCULAR HGB CONC 31.6 g/dl (32.0-36.5); MEAN CORPUSCULAR VOLUME 87.4 fl (80.0-96.0); RED CELL DISTRIBUTION WIDTH 13.8 % (11.5-14.5); WHITE BLOOD COUNT 6.1 K/mm3 (4.0-10.0)
[2016-07-11] MEDS: SUCRALFATE 1 GM TAB PO SCH ×3 (07:08→17:45)
[2016-07-11 07:26] LABS: ANION GAP 7 MEQ/L (8-16); BLOOD UREA NITROGEN 15 MG/DL (7-18); CALCIUM LEVEL 9.7 MG/DL (8.8-10.2); CARBON DIOXIDE LEVEL 34 MEQ/L (21-32); CHLORIDE LEVEL 104 MEQ/L (98-107); GLOMERULAR FILTRATION RATE > 60.0 (>32); GLUCOSE, FASTING 81 MG/DL (83-110); MAGNESIUM LEVEL 2.4 MG/DL (1.8-2.4); POTASSIUM SERUM 3.8 MEQ/L (3.5-5.1); SODIUM LEVEL 145 MEQ/L (136-145)
[2016-07-11] MEDS: FLUTICASONE HFA 44 MCG 10.6GM INHALER (FLOVENT) INH SCH ×2 (07:52→19:55)
[2016-07-11] MEDS: TIOTROPIUM INHALER/CAPSULE (SPIRIVA) INH SCH (07:52)
[2016-07-11] MEDS: CitaloPRAM (CeleXA) 10 MG TABLET PO SCH (09:22)
[2016-07-11] MEDS: PANTOPRAZOLE 40MG TAB (PROTONIX) PO SCH ×2 (09:22→20:22)
[2016-07-11] MEDS: GABAPENTIN 100 MG CAP PO SCH ×2 (09:22→20:22)
[2016-07-11] MEDS: FUROSEMIDE 20 MG TAB PO SCH (09:23)
[2016-07-11] MEDS: SENOKOT S TAB PO SCH ×2 (09:23→20:22)
[2016-07-11] MEDS: ENOXAPARIN 30 MG/0.3 ML SYR (J1650) SC SCH (09:23)
[2016-07-11] MEDS ORDERED: TUBERCULIN PPD 5 UNITS/0.1 ML ID ONE (12:00)
[2016-07-11 14:00] VITALS: BP 113/55
[2016-07-11] MEDS: DONEPEZIL 5 MG TAB PO SCH (20:22)
[2016-07-11] MEDS: MIRTAZAPINE 7.5MG PER 1/2 TABLET PO SCH (20:22)
[2016-07-11] MEDS: ACETAMINOPHEN TAB 650MG DOSE (2X325MG) PO PRN (20:23)
[2016-07-11 22:00] VITALS: BP 104/55
[2016-07-12] MEDS: IPRATROPIUM 0.5MG/ALBUTEROL 2.5MG INH SOL UD 3ML (DUONEB)(J7620) NEB SCH ×4 (01:49→19:53)
[2016-07-12] MEDS: MAALOX 30 ML SUSP *UDC PO PRN ×3 (05:37→20:31)
[2016-07-12 05:57] LABS: MEAN CORPUSCULAR HEMOGLOBIN 27.5 pg (27.0-33.0); MEAN CORPUSCULAR HGB CONC 32.1 g/dl (32.0-36.5); MEAN CORPUSCULAR VOLUME 85.6 fl (80.0-96.0); RED CELL DISTRIBUTION WIDTH 13.8 % (11.5-14.5); WHITE BLOOD COUNT 5.8 K/mm3 (4.0-10.0)
[2016-07-12 06:00] VITALS: BP 127/60
[2016-07-12 06:12] LABS: ANION GAP 5 MEQ/L (8-16); BLOOD UREA NITROGEN 15 MG/DL (7-18); CARBON DIOXIDE LEVEL 36 MEQ/L (21-32); CHLORIDE LEVEL 105 MEQ/L (98-107); CREATININE FOR GFR 0.62 MG/DL (0.55-1.02); GLOMERULAR FILTRATION RATE > 60.0 (>32); GLUCOSE, FASTING 77 MG/DL (83-110); MAGNESIUM LEVEL 2.3 MG/DL (1.8-2.4); POTASSIUM SERUM 4.2 MEQ/L (3.5-5.1); SODIUM LEVEL 146 MEQ/L (136-145)
[2016-07-12] MEDS: TIOTROPIUM INHALER/CAPSULE (SPIRIVA) INH SCH (07:33)
[2016-07-12] MEDS: FLUTICASONE HFA 44 MCG 10.6GM INHALER (FLOVENT) INH SCH ×2 (07:34→19:54)
[2016-07-12] MEDS: SUCRALFATE 1 GM TAB PO SCH ×3 (08:58→18:46)
[2016-07-12] MEDS: GABAPENTIN 100 MG CAP PO SCH ×2 (08:58→20:32)
[2016-07-12] MEDS: CitaloPRAM (CeleXA) 10 MG TABLET PO SCH (08:59)
[2016-07-12] MEDS: FUROSEMIDE 20 MG TAB PO SCH (08:59)
[2016-07-12] MEDS: SENOKOT S TAB PO SCH ×2 (08:59→20:32)
[2016-07-12] MEDS: PANTOPRAZOLE 40MG TAB (PROTONIX) PO SCH ×2 (08:59→20:32)
[2016-07-12] MEDS: ENOXAPARIN 30 MG/0.3 ML SYR (J1650) SC SCH (09:00)
[2016-07-12] MEDS: ALPRAZolam 0.25 MG TAB PO PRN ×2 (09:07→20:31)
[2016-07-12 14:00] VITALS: BP 129/60
[2016-07-12] MEDS: MIRTAZAPINE 7.5MG PER 1/2 TABLET PO SCH (20:31)
[2016-07-12] MEDS: DONEPEZIL 5 MG TAB PO SCH (20:32)
[2016-07-12] MEDS ORDERED: CALCIUM CARBONATE 500 MG CHEW U/D PO ONE (21:15)
[2016-07-12 22:00] VITALS: BP 106/49
[2016-07-13] MEDS: IPRATROPIUM 0.5MG/ALBUTEROL 2.5MG INH SOL UD 3ML (DUONEB)(J7620) NEB SCH ×4 (00:04→20:00)
[2016-07-13] MEDS: MAALOX 30 ML SUSP *UDC PO PRN ×3 (03:28→22:34)
[2016-07-13] MEDS: ALPRAZolam 0.25 MG TAB PO PRN ×2 (05:50→14:20)
[2016-07-13 06:00] VITALS: BP 130/60
[2016-07-13 07:00] LABS: MEAN CORPUSCULAR HEMOGLOBIN 26.9 pg (27.0-33.0); MEAN CORPUSCULAR HGB CONC 30.7 g/dl (32.0-36.5); MEAN CORPUSCULAR VOLUME 87.7 fl (80.0-96.0); RED CELL DISTRIBUTION WIDTH 12.7 % (11.5-14.5); WHITE BLOOD COUNT 5.3 K/mm3 (4.0-10.0)
[2016-07-13 07:15] LABS: ANION GAP 6 MEQ/L (8-16); BLOOD UREA NITROGEN 14 MG/DL (7-18); CALCIUM LEVEL 9.3 MG/DL (8.8-10.2); CARBON DIOXIDE LEVEL 35 MEQ/L (21-32); CHLORIDE LEVEL 102 MEQ/L (98-107); CREATININE FOR GFR 0.61 MG/DL (0.55-1.02); GLOMERULAR FILTRATION RATE > 60.0 (>32); GLUCOSE, FASTING 78 MG/DL (83-110); MAGNESIUM LEVEL 2.4 MG/DL (1.8-2.4); POTASSIUM SERUM 4.1 MEQ/L (3.5-5.1); SODIUM LEVEL 143 MEQ/L (136-145)
[2016-07-13] MEDS: ENOXAPARIN 30 MG/0.3 ML SYR (J1650) SC SCH (07:51)
[2016-07-13] MEDS: SENOKOT S TAB PO SCH ×2 (07:51→22:34)
[2016-07-13] MEDS: CitaloPRAM (CeleXA) 10 MG TABLET PO SCH (07:51)
[2016-07-13] MEDS: SUCRALFATE 1 GM TAB PO SCH ×3 (07:51→17:26)
[2016-07-13] MEDS: GABAPENTIN 100 MG CAP PO SCH ×2 (07:51→22:34)
[2016-07-13] MEDS: PANTOPRAZOLE 40MG TAB (PROTONIX) PO SCH ×2 (07:52→22:34)
[2016-07-13] MEDS: FUROSEMIDE 20 MG TAB PO SCH (07:52)
[2016-07-13] MEDS: TIOTROPIUM INHALER/CAPSULE (SPIRIVA) INH SCH (08:07)
[2016-07-13] MEDS: FLUTICASONE HFA 44 MCG 10.6GM INHALER (FLOVENT) INH SCH ×2 (08:08→20:02)
[2016-07-13] MEDS ORDERED: PPD DOCUMENTATION ENTRY MISC XX SCH (10:00)
[2016-07-13 14:00] VITALS: BP 113/56
[2016-07-13 21:00] VITALS: BP 118/57
[2016-07-13] MEDS: DONEPEZIL 5 MG TAB PO SCH (22:34)
[2016-07-13] MEDS: MIRTAZAPINE 7.5MG PER 1/2 TABLET PO SCH (22:34)
[2016-07-14] MEDS: IPRATROPIUM 0.5MG/ALBUTEROL 2.5MG INH SOL UD 3ML (DUONEB)(J7620) NEB SCH ×4 (00:48→20:07)
[2016-07-14 05:54] LABS: MEAN CORPUSCULAR HEMOGLOBIN 27.3 pg (27.0-33.0); MEAN CORPUSCULAR HGB CONC 31.3 g/dl (32.0-36.5); MEAN CORPUSCULAR VOLUME 87.2 fl (80.0-96.0); RED CELL DISTRIBUTION WIDTH 13.6 % (11.5-14.5); WHITE BLOOD COUNT 6.2 K/mm3 (4.0-10.0)
[2016-07-14 06:20] LABS: ANION GAP 6 MEQ/L (8-16); BLOOD UREA NITROGEN 18 MG/DL (7-18); CALCIUM LEVEL 8.9 MG/DL (8.8-10.2); CARBON DIOXIDE LEVEL 37 MEQ/L (21-32); CHLORIDE LEVEL 103 MEQ/L (98-107); CREATININE FOR GFR 0.53 MG/DL (0.55-1.02); GLOMERULAR FILTRATION RATE > 60.0 (>32); GLUCOSE, FASTING 79 MG/DL (83-110); MAGNESIUM LEVEL 2.4 MG/DL (1.8-2.4); POTASSIUM SERUM 4.3 MEQ/L (3.5-5.1); SODIUM LEVEL 146 MEQ/L (136-145)
[2016-07-14 06:50] VITALS: BP 119/60
[2016-07-14] MEDS: CitaloPRAM (CeleXA) 10 MG TABLET PO SCH (08:21)
[2016-07-14] MEDS: PANTOPRAZOLE 40MG TAB (PROTONIX) PO SCH ×2 (08:21→19:40)
[2016-07-14] MEDS: ALPRAZolam 0.25 MG TAB PO PRN ×2 (08:21→19:40)
[2016-07-14] MEDS: ENOXAPARIN 30 MG/0.3 ML SYR (J1650) SC SCH (08:22)
[2016-07-14] MEDS: SENOKOT S TAB PO SCH ×2 (08:22→19:40)
[2016-07-14] MEDS: FUROSEMIDE 20 MG TAB PO SCH (08:22)
[2016-07-14] MEDS: SUCRALFATE 1 GM TAB PO SCH ×3 (08:22→16:47)
[2016-07-14] MEDS: GABAPENTIN 100 MG CAP PO SCH ×2 (08:22→19:40)
[2016-07-14] MEDS: TIOTROPIUM INHALER/CAPSULE (SPIRIVA) INH SCH (08:53)
[2016-07-14] MEDS: FLUTICASONE HFA 44 MCG 10.6GM INHALER (FLOVENT) INH SCH ×2 (08:53→20:07)
[2016-07-14] MEDS: IPRATROPIUM 0.5MG/ALBUTEROL 2.5MG INH SOL UD 3ML (DUONEB)(J7620) NEB PRN (10:18)
[2016-07-14 12:50] VITALS: BP 109/54
[2016-07-14] MEDS: ALBUTEROL 90 MCG/ACT 8GM HFA INHALER INH PRN (17:00)
[2016-07-14] MEDS: MAALOX 30 ML SUSP *UDC PO PRN (19:40)
[2016-07-14] MEDS: DONEPEZIL 5 MG TAB PO SCH (19:40)
[2016-07-14] MEDS: MIRTAZAPINE 7.5MG PER 1/2 TABLET PO SCH (19:41)
[2016-07-14 21:20] VITALS: BP 121/54
[2016-07-15] MEDS: IPRATROPIUM 0.5MG/ALBUTEROL 2.5MG INH SOL UD 3ML (DUONEB)(J7620) NEB SCH ×4 (00:36→19:15)
[2016-07-15 05:25] VITALS: BP 135/64
[2016-07-15] MEDS: ALPRAZolam 0.25 MG TAB PO PRN (05:32)
[2016-07-15] MEDS: IPRATROPIUM 0.5MG/ALBUTEROL 2.5MG INH SOL UD 3ML (DUONEB)(J7620) NEB PRN (05:49)
[2016-07-15] MEDS: CitaloPRAM (CeleXA) 10 MG TABLET PO SCH (08:06)
[2016-07-15] MEDS: SENOKOT S TAB PO SCH ×2 (08:06→20:05)
[2016-07-15] MEDS: SUCRALFATE 1 GM TAB PO SCH ×3 (08:06→16:57)
[2016-07-15] MEDS: GABAPENTIN 100 MG CAP PO SCH ×2 (08:06→20:05)
[2016-07-15] MEDS: PANTOPRAZOLE 40MG TAB (PROTONIX) PO SCH ×2 (08:06→20:05)
[2016-07-15] MEDS: ENOXAPARIN 30 MG/0.3 ML SYR (J1650) SC SCH (08:06)
[2016-07-15] MEDS: FUROSEMIDE 20 MG TAB PO SCH (08:07)
[2016-07-15] MEDS: TIOTROPIUM INHALER/CAPSULE (SPIRIVA) INH SCH (08:40)
[2016-07-15] MEDS: FLUTICASONE HFA 44 MCG 10.6GM INHALER (FLOVENT) INH SCH ×2 (08:40→21:00)
[2016-07-15] MEDS: ALPRAZolam 0.5 MG TAB PO PRN ×2 (12:19→18:27)
[2016-07-15 14:00] VITALS: BP 92/52
[2016-07-15 17:08] VITALS: BP 126/60
[2016-07-15] MEDS: MIRTAZAPINE 7.5MG PER 1/2 TABLET PO SCH (20:05)
[2016-07-15] MEDS: MAALOX 30 ML SUSP *UDC PO PRN (20:05)
[2016-07-15] MEDS: DONEPEZIL 5 MG TAB PO SCH (20:05)
[2016-07-16] MEDS: MAALOX 30 ML SUSP *UDC PO PRN ×2 (01:39→19:52)
[2016-07-16] MEDS: ALPRAZolam 0.5 MG TAB PO PRN ×3 (02:30→17:28)
[2016-07-16] MEDS: IPRATROPIUM 0.5MG/ALBUTEROL 2.5MG INH SOL UD 3ML (DUONEB)(J7620) NEB SCH ×4 (02:30→20:11)
[2016-07-16 05:50] VITALS: BP 102/57
[2016-07-16] MEDS: SUCRALFATE 1 GM TAB PO SCH ×3 (06:37→17:28)
[2016-07-16] MEDS: TIOTROPIUM INHALER/CAPSULE (SPIRIVA) INH SCH (08:00)
[2016-07-16] MEDS: FLUTICASONE HFA 44 MCG 10.6GM INHALER (FLOVENT) INH SCH ×2 (09:00→20:11)
[2016-07-16] MEDS: ENOXAPARIN 30 MG/0.3 ML SYR (J1650) SC SCH (10:00)
[2016-07-16] MEDS: SENOKOT S TAB PO SCH ×2 (10:00→19:52)
[2016-07-16] MEDS: PANTOPRAZOLE 40MG TAB (PROTONIX) PO SCH ×2 (10:00→19:52)
[2016-07-16] MEDS: GABAPENTIN 100 MG CAP PO SCH ×2 (10:00→19:52)
[2016-07-16] MEDS: CitaloPRAM (CeleXA) 10 MG TABLET PO SCH (10:01)
[2016-07-16] MEDS: FUROSEMIDE 20 MG TAB PO SCH (10:01)
[2016-07-16] MEDS: VITAMIN D 50,000 UNITS CAPSULE (ERGOCALCIFEROL 1.25MG) PO SCH (10:02)
[2016-07-16 14:00] VITALS: BP 115/56
[2016-07-16] MEDS: MIRTAZAPINE 7.5MG PER 1/2 TABLET PO SCH (19:52)
[2016-07-16] MEDS: DONEPEZIL 5 MG TAB PO SCH (19:52)
[2016-07-16 22:00] VITALS: BP 105/51
[2016-07-17] MEDS: IPRATROPIUM 0.5MG/ALBUTEROL 2.5MG INH SOL UD 3ML (DUONEB)(J7620) NEB SCH ×4 (01:54→19:36)
[2016-07-17 06:00] VITALS: BP 142/64
[2016-07-17] MEDS: TIOTROPIUM INHALER/CAPSULE (SPIRIVA) INH SCH (07:22)
[2016-07-17] MEDS: FLUTICASONE HFA 44 MCG 10.6GM INHALER (FLOVENT) INH SCH ×2 (07:23→19:37)
[2016-07-17] MEDS: CitaloPRAM (CeleXA) 10 MG TABLET PO SCH (08:44)
[2016-07-17] MEDS: FUROSEMIDE 20 MG TAB PO SCH (08:44)
[2016-07-17] MEDS: SUCRALFATE 1 GM TAB PO SCH ×3 (08:44→16:30)
[2016-07-17] MEDS: PANTOPRAZOLE 40MG TAB (PROTONIX) PO SCH ×2 (08:44→20:51)
[2016-07-17] MEDS: MAALOX 30 ML SUSP *UDC PO PRN ×2 (08:44→16:30)
[2016-07-17] MEDS: GABAPENTIN 100 MG CAP PO SCH ×2 (08:45→20:51)
[2016-07-17] MEDS: ALPRAZolam 0.5 MG TAB PO PRN ×2 (08:45→15:58)
[2016-07-17] MEDS: SENOKOT S TAB PO SCH ×2 (08:45→20:51)
[2016-07-17] MEDS: ENOXAPARIN 30 MG/0.3 ML SYR (J1650) SC SCH (13:12)
[2016-07-17 14:00] VITALS: BP 114/55
[2016-07-17] MEDS: ACETAMINOPHEN TAB 650MG DOSE (2X325MG) PO PRN (16:00)
[2016-07-17] MEDS ORDERED: ALBU17IN INH (17:21)
[2016-07-17] MEDS ORDERED: IPRASOL4 IN (17:39)
[2016-07-17] MEDS ORDERED: XANA0.25 PO (17:39)
[2016-07-17] MEDS ORDERED: MYLASSUD FT (17:39)
[2016-07-17] MEDS ORDERED: LASI20TA PO (17:43)
[2016-07-17] MEDS ORDERED: CITA10TA5 PO (17:43)
[2016-07-17] MEDS ORDERED: FLUT44IN INH (17:43)
[2016-07-17] MEDS ORDERED: DONETAB5 PO (17:43)
[2016-07-17] MEDS ORDERED: NEUR100C PO (17:43)
[2016-07-17] MEDS ORDERED: HYOS0.1259 PO (17:43)
[2016-07-17] MEDS ORDERED: MIRT1TAB PO (17:43)
[2016-07-17] MEDS ORDERED: PANT40TA2 PO (17:46)
[2016-07-17] MEDS ORDERED: SUCR1TA PO (17:46)
[2016-07-17] MEDS ORDERED: VITA50003 PO (17:46)
[2016-07-17] MEDS ORDERED: SPIR1CAP INH (17:46)
[2016-07-17] MEDS: DONEPEZIL 5 MG TAB PO SCH (20:51)
[2016-07-17] MEDS: MIRTAZAPINE 7.5MG PER 1/2 TABLET PO SCH (20:51)
[2016-07-17 22:00] VITALS: BP 125/57
[2016-07-18] MEDS: IPRATROPIUM 0.5MG/ALBUTEROL 2.5MG INH SOL UD 3ML (DUONEB)(J7620) NEB SCH ×4 (00:08→07:55)
[2016-07-18] MEDS: ALPRAZolam 0.5 MG TAB PO PRN ×2 (01:18→07:05)
[2016-07-18 06:00] VITALS: BP 132/63
[2016-07-18] MEDS: MAALOX 30 ML SUSP *UDC PO PRN (06:53)
[2016-07-18] MEDS: SUCRALFATE 1 GM TAB PO SCH (07:04)
[2016-07-18] MEDS: GABAPENTIN 100 MG CAP PO SCH (07:04)
[2016-07-18] MEDS: SENOKOT S TAB PO SCH (07:05)
[2016-07-18] MEDS: CitaloPRAM (CeleXA) 10 MG TABLET PO SCH (07:05)
[2016-07-18] MEDS: PANTOPRAZOLE 40MG TAB (PROTONIX) PO SCH (07:05)
[2016-07-18] MEDS: FUROSEMIDE 20 MG TAB PO SCH (07:05)
[2016-07-18] MEDS: FLUTICASONE HFA 44 MCG 10.6GM INHALER (FLOVENT) INH SCH (07:07)
[2016-07-18] MEDS: TIOTROPIUM INHALER/CAPSULE (SPIRIVA) INH SCH (07:07)
[2016-07-18] MEDS: ENOXAPARIN 30 MG/0.3 ML SYR (J1650) SC SCH (08:38)
--- NOTE | 2016-07-18 14:55 | IPN ---
DATE: 07/18/2016 Ms. Bravo will be discharged today with the plans as laid out yesterday by Dr. Benjamin. No complaints this morning. Temperature is 98.2, pulse 60, respiratory rate 20, blood pressure 132/63, 97% on 2 liters nasal cannula. She has requested to have her breathing treatments at bedside which I believe will be reasonable.
--- NOTE | 2016-09-19 10:27 | DSES ---
DATE OF ADMISSION: 07/10/2016 DATE OF DISCHARGE: 07/18/2016 SPECIALISTS INVOLVED IN CARE: None. COMPLICATIONS OF STAY: None. PROCEDURES PERFORMED DURING STAY: None. DISCHARGE DIAGNOSES: 1. Atypical chest pain. 2. Anxiety and depression. 3. Dementia. 4. Chronic obstructive pulmonary disease (COPD). 5. Neuropathy. 6. Chronic respiratory failure, home oxygen dependent. 7. Essential tremor. 8. Irritable bowel syndrome with diarrhea. SUMMARY OF HOSPITALIZATION: This is an 85-year-old who presented with burning sensation of the chest and some shortness of breath. She was admitted to the hospitalist service. Her symptoms improved. The patient was open to the idea of placement on the day of discharge, see my progress note from that day for condition at discharge. Discharge instructions include the following. Diet and activity as tolerated. Followup with her primary care provider (PCP) within 7 days. Followup with GI within 1 week. Albuterol every 4 hours as needed for shortness of breath. DuoNeb inhaled every 4 hours as needed for shortness of breath. Xanax 0.25 mg three times a day as needed for anxiety or agitation. Maalox 30 mL every 6 hours as needed for GI upset. Citalopram 10 mg by mouth daily. Donepezil 5 mg b mouth daily at bedtime. Vitamin D supplement 50,000 units weekly on Sundays. Fluticasone 2 puffs inhaled twice daily. Lasix 20 mg by mouth daily. Neurontin 100 mg by mouth twice daily. Hyoscyamine 0.125 mg four times as needed for abdominal discomfort. Mirtazapine 7.5 mg by mouth daily at bedtime. Protonix 40 mg by mouth daily. Sucralfate 1 gram by mouth before meals. Spiriva inhaled daily. She is on continuous home oxygen. She is given a prescription for rolling walker and shower chair. She is discharged to assisted living.
== END 2016-07-18 09:20 | DRG 313 ==
LOC: M ED 10:50 → M ED INP 13:48 → M MSPAV 07-08 13:58 → OBSVTOIN 07-10 12:56
PROVIDERS: ADMIT Hospitalist; ATTEND Internal Medicine
DX: R07.89 Other chest pain (principal); J96.11 Chronic respiratory failure with hypoxia; J44.9 Chronic obstructive pulmonary disease, unspecified; R20.8 Other disturbances of skin sensation; F41.9 Anxiety disorder, unspecified; F32.9 Major depressive disorder, single episode, unspecified; F03.90 Unspecified dementia, unspecified severity, without behavioral disturbance, psychotic disturbance, mood disturbance, and anxiety; G25.0 Essential tremor; K58.0 Irritable bowel syndrome with diarrhea; G62.9 Polyneuropathy, unspecified; Z99.81 Dependence on supplemental oxygen; Z87.891 Personal history of nicotine dependence; Z79.899 Other long term (current) drug therapy

== ENCOUNTER 2016-07-19 17:26 | Emergency (ER) | payer MEDICARE, OTHER ==
[~2016-07-19 17:26] MED LIST changes: +DONETAB5 PO; +HYOS0.1259 PO; +IPRASOL4 IN; +LASI20TA PO; +MYLASSUD FT; +NEUR100C PO; +VITA50003 PO
[2016-07-19] MEDS ORDERED: GI COCKTAIL 50ML BTL(HYOSCYAMINE/MAALOX/LIDOCAINE VISCOUS)(1:3:1) As Ordered ONE ×2 (17:39→20:36)
[2016-07-19 17:51] LABS: BASO % 0.3 % (0.0-1.0); EOS # 0.3 K/mm3 (0.0-0.50); EOS % 4.4 % (0.0-3.0); LARGE UNSTAINED CELL # 0.3 K/mm3 (0.0-0.4); LARGE UNSTAINED CELL % 4.4 % (0.0-4.0); LYMPH # 1.2 K/mm3 (1.5-4.5); LYMPH % 17.3 % (24.0-44.0); MEAN CORPUSCULAR HEMOGLOBIN 27.3 pg (27.0-33.0); MEAN CORPUSCULAR HGB CONC 31.4 g/dl (32.0-36.5); MEAN CORPUSCULAR VOLUME 86.9 fl (80.0-96.0); MONO # 0.3 K/mm3 (0.0-0.8); MONO % 4.1 % (0.0-5.0); NEUTROPHILS # 4.7 K/mm3 (1.8-7.7); NEUTROPHILS % 69.5 % (36.0-66.0); PLATELET COUNT, AUTOMATED 197 k/mm3 (150-450); RED CELL DISTRIBUTION WIDTH 12.8 % (11.5-14.5); WHITE BLOOD COUNT 6.8 K/mm3 (4.0-10.0)
[2016-07-19 18:15] LABS: ANION GAP 6 MEQ/L (8-16); BLOOD UREA NITROGEN 14 MG/DL (7-18); CALCIUM LEVEL 9.3 MG/DL (8.8-10.2); CARBON DIOXIDE LEVEL 34 MEQ/L (21-32); CHLORIDE LEVEL 104 MEQ/L (98-107); CREATININE FOR GFR 0.52 MG/DL (0.55-1.02); GLOMERULAR FILTRATION RATE > 60.0 (>32); GLUCOSE, FASTING 88 MG/DL (83-110); POTASSIUM SERUM 4.4 MEQ/L (3.5-5.1); SODIUM LEVEL 144 MEQ/L (136-145)
[2016-07-19] MEDS ORDERED: SUCRALFATE 1 GM TAB As Ordered ONE (18:18)
[2016-07-19] MEDS ORDERED: PANTOPRAZOLE 40MG INJ (PROTONIX) (C9113) As Ordered ONE (18:52)
[2016-07-19] MEDS ORDERED: MORPHINE 2 MG/ML 1ML SYRINGE As Ordered ONE ×2 (18:53→20:06)
--- NOTE | 2016-07-19 18:56 | REP ---
AP PORTABLE VIEW OF THE CHEST: AP portable view of the chest is performed and compared to prior study of 06/29/2016. There is again diffuse interstitial fibrotic change which appears stable. No new infiltrate is seen. The heart is normal in size. There is calcification of the thoracic aorta. Mediastinal silhouette is unchanged. IMPRESSION: Stable chronic findings without evidence of acute infiltrate. Signed by Ezekiel Rees MD 07/19/2016 07:17 P
--- NOTE | 2016-07-19 20:06 | ECGEPIP ---
Stationary ECG Study [facility] - ED Test Date: 2016-07-19 Pat Name: ALINA SANTOS Department: Room: - Gender: F Anatomic Pathology Assistant: marco : 1930 Requested By: Laurel Em Order Number: [id number] Reading MD: Laurel Em Measurements Intervals [place] Rate: 66 P: 80 SC: 158 QRS: 41 QRSD: 86 T: 48 QT: 373 QTc: 391 Interpretive Statements SINUS RHYTHM POSSIBLE LEFT ATRIAL ENLARGEMENT NSTTW ABNORMALITY Electronically Signed On 07-19-2016 20:06:07 EST by Laurel Em
[2016-07-19] MEDS ORDERED: NORCO, ANEXSIA 5/325MG TABLET (HYDROcodone/ACETAMINOPHEN) As Ordered ONE (20:13)
--- NOTE | 2016-07-19 20:57 | EDDOCDS ---
Physician Documentation [facility] Name: Barbara Bravo Age: 85 yrs Sex: Female : 1930 Arrival Date: 07/19/2016 Time: 17:26 Bed 5 Private MD: Brea Ruiz Disposition: 07/19/16 19:16 Discharged to Home/Self Care. Impression: Gastro-esophageal reflux disease with esophagitis. - Condition is Stable. - Discharge Instructions: Esophagitis, Gastroesophageal Reflux Disease, Adult, Heartburn, [id number]. - Prescriptions for Carafate 100 mg/mL Oral suspension - take 10 milliliter by ORAL route 4 times per day on an empty stomach 1 hour before meals and at bedtime; 220 milliliter. Protonix 40 mg Oral Tablet - take 1 tablet by ORAL route once daily; 30 tablet. - Medication Reconciliation, Local Pharmacy Hours form. - Follow up: Brea Ruiz; When: 1 - 2 days. - Problem is an acute exacerbation. - Symptoms have improved. Historical: - Allergies: Advair Diskus (Unknown); Aspirin (Unknown); IODINEIODINE CONTAINING (Rash); PENICILLINS (Rash); Red Dye (Unknown); SULFA (SULFONAMIDES) (Rash); Symax-SL (Unknown); zelnorm (Unknown); - Home Meds: 1. aluminum/ magnesium/simet 30ml every 6 hours as needed (Last dose: 07/19/2016) 2. alprazolam 0.25 mg Oral tab 1 tab tid prn 3. Oxygen continuous 2.5 LPM at night 4. Vitamin D Oral 49230 unit weekly 5. Spiriva with HandiHaler 18 mcg Inhl CpDv 1 cap once daily 6. pantoprazole 40 mg oral TbEC 1 tab once daily (Last dose: 07/19/2016) 7. mirtazapine 7.5 mg Oral tab nightly (Last dose: 07/18/2016) 8. gabapentin 100 mg Oral tab twice daily 9. Lasix 20 mg Oral tab 1 tab once daily (Last dose: 07/19/2016) 10. Flovent HFA 2 puffs twice daily (Last dose: 07/19/2016) 11. citalopram 10 mg Oral tab once daily (Last dose: 07/19/2016) 12. donepezil 5 mg oral TbDL nightly (Last dose: 07/18/2016) 13. Albuterol-Ipratropium Inhl every 4 hours as needed 14. Ventolin Rotahaler/Rotacaps Inhl as needed 15. sucralfate 1 gram Oral tab 1 tab three times a day as needed (Last dose: 07/19/2016) 16. hyoscyamine sulfate 0.125 mg SL subl 1 -2 tabs under the tongue 4 times a day as needed - PMHx: Anxiety; COPD; ESSENTIAL TREMOR; Gastric Polyps; IBS with diarrhea; GERD; - PSHx: Hysterectomy; - Social history: Smoking status: Patient states former smoker of tobacco. No barriers to communication noted, The patient speaks fluent Filipino, Speaks appropriately for age. - Family history: Not pertinent. - : The pt / caregiver states he / she is not on anticoagulants. Home medication list is obtained from the facility MAR. - Exposure Risk Screening:: None identified. Vital Signs: 07/19 17:32 BP 164 / 83 (auto/); jp6 17:34 Pulse 68 MON; Pulse Ox 97% ; jp6 17:34 BP 145 / 89; Pulse 70; Resp 16; Temp 98(O); Pulse Ox 95% on 2 lpm NC; Pain 0/10; jp6 17:43 BP 164 / 83; Pulse 68; Resp 18; Temp 97.7(T); Pulse Ox 97% on 2 lpm NC; Weight 56.7 kg kr3 / 125 lbs (R); Height 5 ft. 2 in. (157.48 cm); 18:07 Pain 2/10; kr3 17:43 Body Mass Index 22.86 (56.70 kg, 157.48 cm) kr3 MDM: 17:35 ECG WITH READING ER PHYS+CARDIAG ordered. EDMS 17:37 Title Curative Specialist/Pulse Ox/q 30 min VS ordered. sd1 17:37 IV Saline Lock ordered. sd1 17:37 Rhythm Strip to chart ordered. sd1 17:37 Undress patient appropriately for examination ordered. sd1 17:37 GI Cocktail - (Alum-Mag Hydroxide-Simeth 30 ml, Lidocaine 10 ml, Hyoscyamine 10 ml) PO sd1 once; Pre-mixed 50mL unit dose ordered. 17:38 Basic Metabolic Profile Ordered. EDMS 17:38 CBC with Diff Ordered. EDMS 17:38 Cardiac Injury Profile Ordered. EDMS 17:38 Troponin Ordered. EDMS 17:39 Chest, 1 View Ordered. EDMS 17:57 Sucralfate 1 grams PO once ordered. sd1 18:31 Financial registration complete. dm19 18:32 REPLACED BY [facility] Payment Agreement was scanned into [employer] and attached to record. dm19 18:38 Basic Metabolic Profile Reviewed. sd1 18:38 CBC with Diff Reviewed. sd1 18:38 Cardiac Injury Profile Reviewed. sd1 18:38 Troponin Reviewed. sd1 18:38 pantoprazole 40 mg IV at bolus once ordered. sd1 18:47 morphine 2 mg IVP every 15 minutes; Document pain score/vitals after each dose (Hold if sd1 SBP < 90mmHg) x3 ordered. 18:48 REGULAR+DIET ordered. EDMS 18:50 ECG WITH READING ER PHYS+CARDIAG ordered. EDMS 20:12 HYDROcodone-acetaminophen 5 mg-325 mg 1 tabs PO once ordered. cs11 Administered Medications: 17:42 Drug: GI Cocktail - (Alum-Mag Hydroxide-Simeth Suspension 225 mg-200 mg-25 mg/5 mL 30 kr3 ml, Lidocaine Liquid 2 % 10 ml, Hyoscyamine Liquid 10 ml) Route: PO; 18:07 Follow up: Pain 2/10 Adult; Response: Pain is decreased kr3 18:23 Drug: Sucralfate 1 grams [sucralfate 1 gram tablet (1 tabs)] Route: PO; k 18:57 Drug: pantoprazole 40 mg [pantoprazole 40 mg intravenous solution] Route: IV; Rate: kr3 bolus; Site: left hand; 20:12 Not Given (Patient Refused): morphine 2 mg IVP every 15 minutes; Document pain cs11 score/vitals after each dose (Hold if SBP < 90mmHg) x3 20:14 Drug: HYDROcodone-acetaminophen 1 tabs [hydrocodone 5 mg-acetaminophen 325 mg tablet (1 cf2 tabs)] Route: PO; Signatures: Dispatcher [employer] EDMS Laurel Em MD MD sd1 Dasia MeadowsRN RN inessa3 Arslan Powers DO DO cs11 Monica Foley RN RN jp6 Melly Braga dm19 Vadim Tomas RNk Caridad Evans RN cf2 The chart was reviewed and I authenticate all verbal orders and agree with the evaluation and treatment provided.Corrections: (The following items were deleted from the chart) 18:35 17:38 ECG WITH READING ER PHYS+CARDIAG ordered. EDMS EDMS Attachments: 18:32 [facility] [place] dm19 MTDD
--- NOTE | 2016-07-19 20:57 | EDDOCDS ---
Nurse's Notes [facility] Name: Alina Bravo Age: 85 yrs Sex: Female : 1930 Arrival Date: 07/19/2016 Time: 17:26 Bed 5 Private MD: Brea Ruiz Diagnosis: Gastro-esophageal reflux disease with esophagitis Presentation: 07/19 17:27 Presenting complaint: Patient states: 'torso burning' all day EMS states: called for kr3 chest pain. Patient told EMS feels like GERD flare up. Adult Sepsis Screening: The patient does not have new or worsening altered mentation. Suicide/Homicide risk assessment- the patient denies having any suicidal and/or homicidal ideations and does not present with any other emotional, behavioral or mental health complaints. Status: Patient is not a client service consultant or dependent. Transition of care: patient was not received from another setting of care. 17:27 Method Of Arrival: Ambulance kr3 17:27 Acuity: DELORES Level 3 kr3 20:56 Adult Sepsis Screening: Patient's respiratory rate is less than 22. Systolic blood jp6 pressure is greater than 100. Patient has a qSOFA score of. Triage Assessment: 17:43 General: Appears in no apparent distress, comfortable, Behavior is anxious, appropriate kr3 for age, cooperative. Pain: Location: back and chest Pain currently is 7 out of 10 on a pain scale. Quality of pain is described as burning, Pain began 10 AM Is continuous. The patient is triaged at the bedside. See Assessment in Nurses Notes section of ED record. Neurological: Level of Consciousness is awake, alert. Respiratory: Airway is patent Respiratory effort is even, labored, Breath sounds are clear bilaterally. GI: Reports epigastric pain. Derm: Skin is normal. Historical: - Allergies: Advair Diskus (Unknown); Aspirin (Unknown); IODINEIODINE CONTAINING (Rash); PENICILLINS (Rash); Red Dye (Unknown); SULFA (SULFONAMIDES) (Rash); Symax-SL (Unknown); zelnorm (Unknown); - Home Meds: 1. aluminum/ magnesium/simet 30ml every 6 hours as needed (Last dose: 07/19/2016) 2. alprazolam 0.25 mg Oral tab 1 tab tid prn 3. Oxygen continuous 2.5 LPM at night 4. Vitamin D Oral 17428 unit weekly 5. Spiriva with HandiHaler 18 mcg Inhl CpDv 1 cap once daily 6. pantoprazole 40 mg oral TbEC 1 tab once daily (Last dose: 07/19/2016) 7. mirtazapine 7.5 mg Oral tab nightly (Last dose: 07/18/2016) 8. gabapentin 100 mg Oral tab twice daily 9. Lasix 20 mg Oral tab 1 tab once daily (Last dose: 07/19/2016) 10. Flovent HFA 2 puffs twice daily (Last dose: 07/19/2016) 11. citalopram 10 mg Oral tab once daily (Last dose: 07/19/2016) 12. donepezil 5 mg oral TbDL nightly (Last dose: 07/18/2016) 13. Albuterol-Ipratropium Inhl every 4 hours as needed 14. Ventolin Rotahaler/Rotacaps Inhl as needed 15. sucralfate 1 gram Oral tab 1 tab three times a day as needed (Last dose: 07/19/2016) 16. hyoscyamine sulfate 0.125 mg SL subl 1 -2 tabs under the tongue 4 times a day as needed - PMHx: Anxiety; COPD; ESSENTIAL TREMOR; Gastric Polyps; IBS with diarrhea; GERD; - PSHx: Hysterectomy; - Social history: Smoking status: Patient states former smoker of tobacco. No barriers to communication noted, The patient speaks fluent Uzbek, Speaks appropriately for age. - Family history: Not pertinent. - : The pt / caregiver states he / she is not on anticoagulants. Home medication list is obtained from the facility MAR. - Exposure Risk Screening:: None identified. Screenin:46 Screening information is obtained from the patient. Fall risk: At risk due to gait kr3 disturbance, The following interventions are performed due to a positive Fall Risk Screen: Fall Alert bracelet is placed on the patient. Assistance ADL's: Requires assistance with meal preparation, this assistance is provided by residence staff, medication administration, assistance is provided by residence staff. Abuse/DV Screen: The patient / caregiver reports he/she is: not in a situation that causes fear, pain or injury. Nutritional screening: No deficits noted. Advance Directives: Currently, there is no health care proxy. There is no Power of Public Services Assistant. home support is adequate. Assessment: 17:47 Reassessment: talking in full sentences but reports 'I can't breath'. kr3 18:24 General: Appears states I can't breathe. reassurance provided regarding continuous jmk application of oxygen , chest CTA, and maintaining sat above 96% despite conversation. relaxation encouraged.. 18:57 Reassessment: Patient appears in no apparent distress at this time. Reassessment: kr3 refused Morphine. Pain: Location: chest Pain currently is 5 out of 10 on a pain scale. Quality of pain is described as burning. 20:00 Reassessment: Patient states symptoms have not improved. General: Appears anxious-c/o jp6 gi upset and sob.VS WNL.. Behavior is anxious, cooperative. Neurological: No deficits noted. Neurological: Level of Consciousness is awake, alert, Oriented to person, place, time. EENT: No deficits noted. Cardiovascular: No deficits noted. Respiratory: Respiratory effort is even, unlabored, Respiratory pattern is regular, symmetrical, Breath sounds are diminished bilaterally. GI: No deficits noted. : No deficits noted. Derm: Skin is pink, warm & dry. Musculoskeletal: No deficits noted. 20:53 Reassessment: Patient appears in no apparent distress at this time. Patient states jp6 symptoms have improved. Report called to Sofiya RN nurse airport location manager at [facility] Vital Signs: 17:32 BP 164 / 83 (auto/); jp6 17:34 Pulse 68 MON; Pulse Ox 97% ; jp6 17:34 BP 145 / 89; Pulse 70; Resp 16; Temp 98(O); Pulse Ox 95% on 2 lpm NC; Pain 0/10; jp6 17:43 BP 164 / 83; Pulse 68; Resp 18; Temp 97.7(T); Pulse Ox 97% on 2 lpm NC; Weight 56.7 kg kr3 (R); Height 5 ft. 2 in. (157.48 cm); 18:07 Pain 2/10; kr3 17:43 Body Mass Index 22.86 (56.70 kg, 157.48 cm) kr3 Vitals: 17:43 Log In Time N/A - ambulance arrival. kr3 ED Course: 17:27 Patient visited by Na Sullivan, Tip Mender. lbd 17:27 Patient moved to Waiting lbd 17:27 Patient moved to 5 kr3 17:28 Brea Ruiz is Private Physician. lbd 17:28 Laurel Em MD is Attending Physician. sd1 17:28 Patient moved to Waiting lbd 17:28 Patient moved to 5 sd1 17:29 Triage Initiated kr3 17:30 Patient visited by Laurel Em MD. sd1 17:34 The patient / caregiver is instructed regarding the plan of care and ED course. Pulse jp6 ox on. 17:34 Discontinued lock intact, bleeding controlled, pressure dressing applied, No jp6 redness/swelling at site. No procedures done that require assistance. 17:43 Patient visited by Alphonse Marshall PCA. jlf 17:43 Patient visited by Alphonse Marshall PCA. jlf 17:43 Basic Metabolic Profile Sent. kr3 17:43 CBC with Diff Sent. kr3 17:43 Cardiac Injury Profile Sent. kr3 17:43 Troponin Sent. kr3 17:43 EKG done. (by ED staff). Reviewed by Laurel Em MD. jlf 17:48 Maintain field IV. Dressing intact. Site clean & dry. Gauge & site: #20 left hand. O2 kr3 via nasal cannula \T\ 2L/min. 18:26 Patient visited by Vadim Tomas,JOYCE. jmk 18:32 [facility] Payment Agreement was scanned into Peecho and attached to record. dm19 18:56 Patient visited by Dasia Meadows,JOYCE. kr3 19:14 Chest, 1 View Returned. EDMS 19:16 Brea Ruiz is Referral Physician. sd1 19:45 Monica Foley,RN is Primary Nurse. jp6 19:45 Patient visited by Monica Foley RN. jp6 20:33 EKG-ADULT Returned. EDMS Administered Medications: 17:42 Drug: GI Cocktail - (Alum-Mag Hydroxide-Simeth Suspension 225 mg-200 mg-25 mg/5 mL 30 kr3 ml, Lidocaine Liquid 2 % 10 ml, Hyoscyamine Liquid 10 ml) Route: PO; 18:07 Follow up: Pain 2/10 Adult; Response: Pain is decreased kr3 18:23 Drug: Sucralfate 1 grams [sucralfate 1 gram tablet (1 tabs)] Route: PO; jmk 18:57 Drug: pantoprazole 40 mg [pantoprazole 40 mg intravenous solution] Route: IV; Rate: kr3 bolus; Site: left hand; 20:12 Not Given (Patient Refused): morphine 2 mg IVP every 15 minutes; Document pain cs11 score/vitals after each dose (Hold if SBP < 90mmHg) x3 20:14 Drug: HYDROcodone-acetaminophen 1 tabs [hydrocodone 5 mg-acetaminophen 325 mg tablet (1 cf2 tabs)] Route: PO; Order Results: Lab Order: Basic Metabolic Profile; SPEC'M 07/19/16 17:41 Test: GLUCOSE, FASTING; Value: 88; Range: 83-110; Units: MG/DL; Status: F Test: BLOOD UREA NITROGEN; Value: 14; Range: 7-18; Units: MG/DL; Status: F Test: CREATININE FOR GFR; Value: 0.52; Range: 0.55-1.02; Abnormal: Below low normal; Units: MG/DL; Status: F Test: GLOMERULAR FILTRATION RATE; Value: > 60.0; Range: >32; Status: F Test: SODIUM LEVEL; Value: 144; Range: 136-145; Units: MEQ/L; Status: F Test: POTASSIUM SERUM; Value: 4.4; Range: 3.5-5.1; Units: MEQ/L; Status: F Test: CHLORIDE LEVEL; Value: 104; Range: 98-107; Units: MEQ/L; Status: F Test: CARBON DIOXIDE LEVEL; Value: 34; Range: 21-32; Abnormal: Above high normal; Units: MEQ/L; Status: F Test: ANION GAP; Value: 6; Range: 8-16; Abnormal: Below low normal; Units: MEQ/L; Status: F Test: CALCIUM LEVEL; Value: 9.3; Range: 8.8-10.2; Units: MG/DL; Status: F Test Note: ; Units are mL/min/1.73 m2 Chronic Kidney Disease Staging per NKF: Stage I & II GFR >=60 Normal to Mildly Decreased Stage III GFR 30-59 Moderately Decreased Stage IV GFR 15-29 Severely Decreased Stage V GFR <15 Very Little GFR Left ESRD GFR <15 on RETAIL DEPARTMENT RESET Lab Order: CBC with Diff; SPEC'M 07/19/16 17:41 Test: WHITE BLOOD COUNT; Value: 6.8; Range: 4.0-10.0; Units: K/mm3; Status: F Test: RED BLOOD COUNT; Value: 4.33; Range: 4.00-5.40; Units: M/mm3; Status: F Test: HEMOGLOBIN; Value: 11.8; Range: 12.0-16.0; Abnormal: Below low normal; Units: g/dl; Status: F Test: HEMATOCRIT; Value: 37.6; Range: 36.0-47.0; Units: %; Status: F Test: MEAN CORPUSCULAR VOLUME; Value: 86.9; Range: 80.0-96.0; Units: fl; Status: F Test: MEAN CORPUSCULAR HEMOGLOBIN; Value: 27.3; Range: 27.0-33.0; Units: pg; Status: F Test: MEAN CORPUSCULAR HGB CONC; Value: 31.4; Range: 32.0-36.5; Abnormal: Below low normal; Units: g/dl; Status: F Test: RED CELL DISTRIBUTION WIDTH; Value: 12.8; Range: 11.5-14.5; Units: %; Status: F Test: PLATELET COUNT, AUTOMATED; Value: 197; Range: 150-450; Units: k/mm3; Status: F Test: NEUTROPHILS %; Value: 69.5; Range: 36.0-66.0; Abnormal: Above high normal; Units: %; Status: F Test: LYMPH %; Value: 17.3; Range: 24.0-44.0; Abnormal: Below low normal; Units: %; Status: F Test: MONO %; Value: 4.1; Range: 0.0-5.0; Units: %; Status: F Test: EOS %; Value: 4.4; Range: 0.0-3.0; Abnormal: Above high normal; Units: %; Status: F Test: BASO %; Value: 0.3; Range: 0.0-1.0; Units: %; Status: F Test: LARGE UNSTAINED CELL %; Value: 4.4; Range: 0.0-4.0; Abnormal: Above high normal; Units: %; Status: F Test: NEUTROPHILS #; Value: 4.7; Range: 1.8-7.7; Units: K/mm3; Status: F Test: LYMPH #; Value: 1.2; Range: 1.5-4.5; Abnormal: Below low normal; Units: K/mm3; Status: F Test: MONO #; Value: 0.3; Range: 0.0-0.8; Units: K/mm3; Status: F Test: EOS #; Value: 0.3; Range: 0.0-0.50; Units: K/mm3; Status: F Test: BASO #; Value: 0.0; Range: 0.0-0.2; Units: K/mm3; Status: F Test: LARGE UNSTAINED CELL #; Value: 0.3; Range: 0.0-0.4; Units: K/mm3; Status: F Lab Order: Cardiac Injury Profile; SPEC'M 07/19/16 17:41 Test: CPK CREATINE PHOSPHOKINASE; Value: 36; Range: 26-192; Units: U/L; Status: F Test: CK-MB VALUE MASS; Value: 1.0; Range: 0.0-3.6; Units: NG/ML; Status: F Test: MB/CK RELATIVE INDEX; Value: 2.77; Range: < OR =4; Status: F Test Note: ; DIAGNOSIS CRITERIA MMB ng/ml Relative Index (RI) NON-AMI < or = 5 N/A REES ZONE > 5 < or = 4 AMI > 5 > 4 Lab Order: Troponin; SPEC'M 07/19/16 17:41 Test: TROPONIN I; Value: < 0.02; Range: < 0.10; Units: NG/ML; Status: F Test Note: ; Troponin I Reference Interval for [employer] LOCI: 99th Percentile= 0.00-0.045 ng/ml Risk Stratification: <= 0.10 ng/ml Decreased Risk for Adverse Clinical Events. 0.10-1.50 ng/ml Increased Risk for Adverse Clinical Events. Evaluation of additional criterion and/or repeat testing in 2-6 hours is suggested to rule out myocardial damage. >= 1.50 ng/ml Indicative of Myocardial Injury. 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; : 1930 Requested By: Laurel Em; Order Number: [id number] Reading MD: Laurel Em; Measurements; Intervals [place]; Rate: 66 P: 80; SC: 158 QRS: 41; QRSD: 86 T: 48; QT: 373; QTc: 391; Interpretive Statements; SINUS RHYTHM; POSSIBLE LEFT ATRIAL ENLARGEMENT; NSTTW ABNORMALITY; Electronically Signed On 07-19-2016 20:06:07 EST by Laurel Em; Radiology Order: Chest, 1 View Test: Chest, 1 View REASON FOR EXAMINATION: Chest Pain; AP PORTABLE VIEW OF THE CHEST:; ; AP portable view of the chest is performed and compared to prior study of; 06/29/2016.; ; There is again diffuse interstitial fibrotic change which appears stable. No new; infiltrate is seen. The heart is normal in size. There is calcification of the; thoracic aorta. Mediastinal silhouette is unchanged.; ; IMPRESSION:; ; Stable chronic findings without evidence of acute infiltrate.; ; ; Signed by; Ezekiel Rees MD 07/19/2016 07:17 P; Outcome: 17:34 Discharge Assessment: Patient awake, alert and oriented x 3. No cognitive and/or jp6 functional deficits noted. Patient verbalized understanding of disposition instructions. patient administered narcotics - yes. Pt provided with safe discharge. The following High Risk Discharge criteria are identified: None. Discharged to snf. Report called to Sofiya COOK. Condition: improved. Discharge instructions given to patient, Instructed on discharge instructions, follow up and referral plans. medication usage, Demonstrated understanding of instructions, medications, Patient was not receptive of discharge instructions. Prescriptions given X 1. CT Study completed. Property :Personal belongings accompany Pt. 19:16 Discharge ordered by Provider. sd1 20:57 Patient left the ED. jp6 Signatures: Dispatcher [employer] EDMS Laurel Em MD MD sd1 Na Sullivan, Tip Mender Unit lbd Vadim Tomas,RN RN Dasia Valerio,RN RN inessa3 Alphonse Marshall, X [employer] WIREMAN X [employer] ELECT[employer] WIREMAN Monica FuRN RN jp6 Caridad Evans,RN RN cf2 Melly Braga dm19 Arslan Powers DO cs11 Corrections: (The following items were deleted from the chart) 17: 17:27 Acuity: DELORES Level 2 kr3 kr3 MTDD
--- NOTE | 2016-07-21 21:57 | EDDOCDS ---
Physician Documentation [facility] Name: Barbara Bravo Age: 85 yrs Sex: Female : 1930 Arrival Date: 07/19/2016 Time: 17:26 Bed 5 Private MD: Brea Ruiz Disposition: 07/19/16 19:16 Discharged to Home/Self Care. Impression: Gastro-esophageal reflux disease with esophagitis. - Condition is Stable. - Discharge Instructions: Esophagitis, Gastroesophageal Reflux Disease, Adult, Heartburn, Ltps-ke-Apdy. - Prescriptions for Carafate 100 mg/mL Oral suspension - take 10 milliliter by ORAL route 4 times per day on an empty stomach 1 hour before meals and at bedtime; 220 milliliter. Protonix 40 mg Oral Tablet - take 1 tablet by ORAL route once daily; 30 tablet. - Medication Reconciliation, Local Pharmacy Hours form. - Follow up: Brea Ruiz; When: 1 - 2 days. - Problem is an acute exacerbation. - Symptoms have improved. Historical: - Allergies: Advair Diskus (Unknown); Aspirin (Unknown); IODINEIODINE CONTAINING (Rash); PENICILLINS (Rash); Red Dye (Unknown); SULFA (SULFONAMIDES) (Rash); Symax-SL (Unknown); zelnorm (Unknown); - Home Meds: 1. aluminum/ magnesium/simet 30ml every 6 hours as needed (Last dose: 07/19/2016) 2. alprazolam 0.25 mg Oral tab 1 tab tid prn 3. Oxygen continuous 2.5 LPM at night 4. Vitamin D Oral 42177 unit weekly 5. Spiriva with HandiHaler 18 mcg Inhl CpDv 1 cap once daily 6. pantoprazole 40 mg oral TbEC 1 tab once daily (Last dose: 07/19/2016) 7. mirtazapine 7.5 mg Oral tab nightly (Last dose: 07/18/2016) 8. gabapentin 100 mg Oral tab twice daily 9. Lasix 20 mg Oral tab 1 tab once daily (Last dose: 07/19/2016) 10. Flovent HFA 2 puffs twice daily (Last dose: 07/19/2016) 11. citalopram 10 mg Oral tab once daily (Last dose: 07/19/2016) 12. donepezil 5 mg oral TbDL nightly (Last dose: 07/18/2016) 13. Albuterol-Ipratropium Inhl every 4 hours as needed 14. Ventolin Rotahaler/Rotacaps Inhl as needed 15. sucralfate 1 gram Oral tab 1 tab three times a day as needed (Last dose: 07/19/2016) 16. hyoscyamine sulfate 0.125 mg SL subl 1 -2 tabs under the tongue 4 times a day as needed - PMHx: Anxiety; COPD; ESSENTIAL TREMOR; Gastric Polyps; IBS with diarrhea; GERD; - PSHx: Hysterectomy; - Social history: Smoking status: Patient states former smoker of tobacco. No barriers to communication noted, The patient speaks fluent Trinidadian, Speaks appropriately for age. - Family history: Not pertinent. - : The pt / caregiver states he / she is not on anticoagulants. Home medication list is obtained from the facility MAR. - Exposure Risk Screening:: None identified. Vital Signs: 07/19 17:32 BP 164 / 83 (auto/); jp6 17:34 Pulse 68 MON; Pulse Ox 97% ; jp6 17:34 BP 145 / 89; Pulse 70; Resp 16; Temp 98(O); Pulse Ox 95% on 2 lpm NC; Pain 0/10; jp6 17:43 BP 164 / 83; Pulse 68; Resp 18; Temp 97.7(T); Pulse Ox 97% on 2 lpm NC; Weight 56.7 kg kr3 / 125 lbs (R); Height 5 ft. 2 in. (157.48 cm); 18:07 Pain 2/10; kr3 17:43 Body Mass Index 22.86 (56.70 kg, 157.48 cm) kr3 MDM: 17:35 ECG WITH READING ER PHYS+CARDIAG ordered. EDMS 17:37 Statistical Assistant/Pulse Ox/q 30 min VS ordered. sd1 17:37 IV Saline Lock ordered. sd1 17:37 Rhythm Strip to chart ordered. sd1 17:37 Undress patient appropriately for examination ordered. sd1 17:37 GI Cocktail - (Alum-Mag Hydroxide-Simeth 30 ml, Lidocaine 10 ml, Hyoscyamine 10 ml) PO sd1 once; Pre-mixed 50mL unit dose ordered. 17:38 Basic Metabolic Profile Ordered. EDMS 17:38 CBC with Diff Ordered. EDMS 17:38 Cardiac Injury Profile Ordered. EDMS 17:38 Troponin Ordered. EDMS 17:39 Chest, 1 View Ordered. EDMS 17:57 Sucralfate 1 grams PO once ordered. sd1 18:31 Financial registration complete. dm19 18:32 [facility] Payment Agreement was scanned into Dib[employer] and attached to record. dm19 18:38 Basic Metabolic Profile Reviewed. sd1 18:38 CBC with Diff Reviewed. sd1 18:38 Cardiac Injury Profile Reviewed. sd1 18:38 Troponin Reviewed. sd1 18:38 pantoprazole 40 mg IV at bolus once ordered. sd1 18:47 morphine 2 mg IVP every 15 minutes; Document pain score/vitals after each dose (Hold if sd1 SBP < 90mmHg) x3 ordered. 18:48 REGULAR+DIET ordered. EDMS 18:50 ECG WITH READING ER PHYS+CARDIAG ordered. EDMS 20:12 HYDROcodone-acetaminophen 5 mg-325 mg 1 tabs PO once ordered. cs11 07/21 08:21 T-Sheet-- Draft Copy was scanned into Dibbz and attached to record. gb 08:22 ECG/EKG was scanned into [employer]ib[employer] and attached to record. gb Administered Medications: 07/19 17:42 Drug: GI Cocktail - (Alum-Mag Hydroxide-Simeth Suspension 225 mg-200 mg-25 mg/5 mL 30 kr3 ml, Lidocaine Liquid 2 % 10 ml, Hyoscyamine Liquid 10 ml) Route: PO; 18:07 Follow up: Pain 2/10 Adult; Response: Pain is decreased kr3 18:23 Drug: Sucralfate 1 grams [sucralfate 1 gram tablet (1 tabs)] Route: PO; k 18:57 Drug: pantoprazole 40 mg [pantoprazole 40 mg intravenous solution] Route: IV; Rate: kr3 bolus; Site: left hand; 20:12 Not Given (Patient Refused): morphine 2 mg IVP every 15 minutes; Document pain cs11 score/vitals after each dose (Hold if SBP < 90mmHg) x3 20:14 Drug: HYDROcodone-acetaminophen 1 tabs [hydrocodone 5 mg-acetaminophen 325 mg tablet (1 cf2 tabs)] Route: PO; Signatures: Dispatcher [employer] EDMS Laurel Em MD MD sd1 Cassie Dougherty, Reg Reg gb Dasia Meadows,RN RN kr3 Arslan Powers, DO cs11 Monica Foley,RN RN jp6 Melly Braga dm19 Vadim Tomas RNk Cristina, Caridad COOK cf2 The chart was reviewed and I authenticate all verbal orders and agree with the evaluation and treatment provided.Corrections: (The following items were deleted from the chart) 18:35 17:38 ECG WITH READING ER PHYS+CARDIAG ordered. EDMS EDMS Attachments: 18:32 [facility] Payment Agreement dm19 07/21 08:21 T-Sheet-- Draft Copy gb 08:22 ECG/EKG gb Chart Complete MTDD
--- NOTE | 2016-07-21 21:57 | EDDOCDS ---
Physician Documentation [facility] Name: Barbara Bravo Age: 85 yrs Sex: Female : 1930 Arrival Date: 07/19/2016 Time: 17:26 Bed 5 Private MD: Brea Ruiz Disposition: 07/19/16 19:16 Discharged to Home/Self Care. Impression: Gastro-esophageal reflux disease with esophagitis. - Condition is Stable. - Discharge Instructions: Esophagitis, Gastroesophageal Reflux Disease, Adult, Heartburn, [id number]. - Prescriptions for Carafate 100 mg/mL Oral suspension - take 10 milliliter by ORAL route 4 times per day on an empty stomach 1 hour before meals and at bedtime; 220 milliliter. Protonix 40 mg Oral Tablet - take 1 tablet by ORAL route once daily; 30 tablet. - Medication Reconciliation, Local Pharmacy Hours form. - Follow up: Brea Ruiz; When: 1 - 2 days. - Problem is an acute exacerbation. - Symptoms have improved. Historical: - Allergies: Advair Diskus (Unknown); Aspirin (Unknown); IODINEIODINE CONTAINING (Rash); PENICILLINS (Rash); Red Dye (Unknown); SULFA (SULFONAMIDES) (Rash); Symax-SL (Unknown); zelnorm (Unknown); - Home Meds: 1. aluminum/ magnesium/simet 30ml every 6 hours as needed (Last dose: 07/19/2016) 2. alprazolam 0.25 mg Oral tab 1 tab tid prn 3. Oxygen continuous 2.5 LPM at night 4. Vitamin D Oral 23945 unit weekly 5. Spiriva with HandiHaler 18 mcg Inhl CpDv 1 cap once daily 6. pantoprazole 40 mg oral TbEC 1 tab once daily (Last dose: 07/19/2016) 7. mirtazapine 7.5 mg Oral tab nightly (Last dose: 07/18/2016) 8. gabapentin 100 mg Oral tab twice daily 9. Lasix 20 mg Oral tab 1 tab once daily (Last dose: 07/19/2016) 10. Flovent HFA 2 puffs twice daily (Last dose: 07/19/2016) 11. citalopram 10 mg Oral tab once daily (Last dose: 07/19/2016) 12. donepezil 5 mg oral TbDL nightly (Last dose: 07/18/2016) 13. Albuterol-Ipratropium Inhl every 4 hours as needed 14. Ventolin Rotahaler/Rotacaps Inhl as needed 15. sucralfate 1 gram Oral tab 1 tab three times a day as needed (Last dose: 07/19/2016) 16. hyoscyamine sulfate 0.125 mg SL subl 1 -2 tabs under the tongue 4 times a day as needed - PMHx: Anxiety; COPD; ESSENTIAL TREMOR; Gastric Polyps; IBS with diarrhea; GERD; - PSHx: Hysterectomy; - Social history: Smoking status: Patient states former smoker of tobacco. No barriers to communication noted, The patient speaks fluent Sierra Leonean, Speaks appropriately for age. - Family history: Not pertinent. - : The pt / caregiver states he / she is not on anticoagulants. Home medication list is obtained from the facility MAR. - Exposure Risk Screening:: None identified. Vital Signs: 07/19 17:32 BP 164 / 83 (auto/); jp6 17:34 Pulse 68 MON; Pulse Ox 97% ; jp6 17:34 BP 145 / 89; Pulse 70; Resp 16; Temp 98(O); Pulse Ox 95% on 2 lpm NC; Pain 0/10; jp6 17:43 BP 164 / 83; Pulse 68; Resp 18; Temp 97.7(T); Pulse Ox 97% on 2 lpm NC; Weight 56.7 kg kr3 / 125 lbs (R); Height 5 ft. 2 in. (157.48 cm); 18:07 Pain 2/10; kr3 17:43 Body Mass Index 22.86 (56.70 kg, 157.48 cm) kr3 MDM: 17:35 ECG WITH READING ER PHYS+CARDIAG ordered. EDMS 17:37 Expediter Service Order/Pulse Ox/q 30 min VS ordered. sd1 17:37 IV Saline Lock ordered. sd1 17:37 Rhythm Strip to chart ordered. sd1 17:37 Undress patient appropriately for examination ordered. sd1 17:37 GI Cocktail - (Alum-Mag Hydroxide-Simeth 30 ml, Lidocaine 10 ml, Hyoscyamine 10 ml) PO sd1 once; Pre-mixed 50mL unit dose ordered. 17:38 Basic Metabolic Profile Ordered. EDMS 17:38 CBC with Diff Ordered. EDMS 17:38 Cardiac Injury Profile Ordered. EDMS 17:38 Troponin Ordered. EDMS 17:39 Chest, 1 View Ordered. EDMS 17:57 Sucralfate 1 grams PO once ordered. sd1 18:31 Financial registration complete. dm19 18:32 [facility] Payment Agreement was scanned into [employer] and attached to record. dm19 18:38 Basic Metabolic Profile Reviewed. sd1 18:38 CBC with Diff Reviewed. sd1 18:38 Cardiac Injury Profile Reviewed. sd1 18:38 Troponin Reviewed. sd1 18:38 pantoprazole 40 mg IV at bolus once ordered. sd1 18:47 morphine 2 mg IVP every 15 minutes; Document pain score/vitals after each dose (Hold if sd1 SBP < 90mmHg) x3 ordered. 18:48 REGULAR+DIET ordered. EDMS 18:50 ECG WITH READING ER PHYS+CARDIAG ordered. EDMS 20:12 HYDROcodone-acetaminophen 5 mg-325 mg 1 tabs PO once ordered. cs11 07/21 08:21 T-Sheet-- Draft Copy was scanned into [employer] and attached to record. gb 08:22 ECG/EKG was scanned into [employer] and attached to record. gb Administered Medications: 07/19 17:42 Drug: GI Cocktail - (Alum-Mag Hydroxide-Simeth Suspension 225 mg-200 mg-25 mg/5 mL 30 kr3 ml, Lidocaine Liquid 2 % 10 ml, Hyoscyamine Liquid 10 ml) Route: PO; 18:07 Follow up: Pain 2/10 Adult; Response: Pain is decreased kr3 18:23 Drug: Sucralfate 1 grams [sucralfate 1 gram tablet (1 tabs)] Route: PO; k 18:57 Drug: pantoprazole 40 mg [pantoprazole 40 mg intravenous solution] Route: IV; Rate: kr3 bolus; Site: left hand; 20:12 Not Given (Patient Refused): morphine 2 mg IVP every 15 minutes; Document pain cs11 score/vitals after each dose (Hold if SBP < 90mmHg) x3 20:14 Drug: HYDROcodone-acetaminophen 1 tabs [hydrocodone 5 mg-acetaminophen 325 mg tablet (1 cf2 tabs)] Route: PO; Signatures: Dispatcher [employer] EDMS Laurel Em MD MD sd1 Cassie Dougherty, Reg Reg gb Dasia Meadows,RN RN kr3 Arslan Powers, DO cs11 Monica Foley,RN RN jp6 Melly Braga dm19 Vadim Tomas RNk Cristina, Caridad COOK cf2 The chart was reviewed and I authenticate all verbal orders and agree with the evaluation and treatment provided.Corrections: (The following items were deleted from the chart) 18:35 17:38 ECG WITH READING ER PHYS+CARDIAG ordered. EDMS EDMS Attachments: 18:32 [facility] Payment Agreement dm19 07/21 08:21 T-Sheet-- Draft Copy gb 08:22 ECG/EKG gb Chart Complete MTDD
--- NOTE | 2016-07-21 21:58 | EDDOCDS ---
Nurse's Notes [facility] Name: Alina Santos Age: 85 yrs Sex: Female : 1930 Arrival Date: 07/19/2016 Time: 17:26 Bed 5 Private MD: Brea Ruiz Diagnosis: Gastro-esophageal reflux disease with esophagitis Presentation: 07/19 17:27 Presenting complaint: Patient states: 'torso burning' all day EMS states: called for kr3 chest pain. Patient told EMS feels like GERD flare up. Adult Sepsis Screening: The patient does not have new or worsening altered mentation. Suicide/Homicide risk assessment- the patient denies having any suicidal and/or homicidal ideations and does not present with any other emotional, behavioral or mental health complaints. Status: Patient is not a service assistant or dependent. Transition of care: patient was not received from another setting of care. 17:27 Method Of Arrival: Ambulance kr3 17:27 Acuity: DELORES Level 3 kr3 20:56 Adult Sepsis Screening: Patient's respiratory rate is less than 22. Systolic blood jp6 pressure is greater than 100. Patient has a qSOFA score of. Triage Assessment: 17:43 General: Appears in no apparent distress, comfortable, Behavior is anxious, appropriate kr3 for age, cooperative. Pain: Location: back and chest Pain currently is 7 out of 10 on a pain scale. Quality of pain is described as burning, Pain began 10 AM Is continuous. The patient is triaged at the bedside. See Assessment in Nurses Notes section of ED record. Neurological: Level of Consciousness is awake, alert. Respiratory: Airway is patent Respiratory effort is even, labored, Breath sounds are clear bilaterally. GI: Reports epigastric pain. Derm: Skin is normal. Historical: - Allergies: Advair Diskus (Unknown); Aspirin (Unknown); IODINEIODINE CONTAINING (Rash); PENICILLINS (Rash); Red Dye (Unknown); SULFA (SULFONAMIDES) (Rash); Symax-SL (Unknown); zelnorm (Unknown); - Home Meds: 1. aluminum/ magnesium/simet 30ml every 6 hours as needed (Last dose: 07/19/2016) 2. alprazolam 0.25 mg Oral tab 1 tab tid prn 3. Oxygen continuous 2.5 LPM at night 4. Vitamin D Oral 82384 unit weekly 5. Spiriva with HandiHaler 18 mcg Inhl CpDv 1 cap once daily 6. pantoprazole 40 mg oral TbEC 1 tab once daily (Last dose: 07/19/2016) 7. mirtazapine 7.5 mg Oral tab nightly (Last dose: 07/18/2016) 8. gabapentin 100 mg Oral tab twice daily 9. Lasix 20 mg Oral tab 1 tab once daily (Last dose: 07/19/2016) 10. Flovent HFA 2 puffs twice daily (Last dose: 07/19/2016) 11. citalopram 10 mg Oral tab once daily (Last dose: 07/19/2016) 12. donepezil 5 mg oral TbDL nightly (Last dose: 07/18/2016) 13. Albuterol-Ipratropium Inhl every 4 hours as needed 14. Ventolin Rotahaler/Rotacaps Inhl as needed 15. sucralfate 1 gram Oral tab 1 tab three times a day as needed (Last dose: 07/19/2016) 16. hyoscyamine sulfate 0.125 mg SL subl 1 -2 tabs under the tongue 4 times a day as needed - PMHx: Anxiety; COPD; ESSENTIAL TREMOR; Gastric Polyps; IBS with diarrhea; GERD; - PSHx: Hysterectomy; - Social history: Smoking status: Patient states former smoker of tobacco. No barriers to communication noted, The patient speaks fluent Albanian, Speaks appropriately for age. - Family history: Not pertinent. - : The pt / caregiver states he / she is not on anticoagulants. Home medication list is obtained from the facility MAR. - Exposure Risk Screening:: None identified. Screenin:46 Screening information is obtained from the patient. Fall risk: At risk due to gait kr3 disturbance, The following interventions are performed due to a positive Fall Risk Screen: Fall Alert bracelet is placed on the patient. Assistance ADL's: Requires assistance with meal preparation, this assistance is provided by residence staff, medication administration, assistance is provided by residence staff. Abuse/DV Screen: The patient / caregiver reports he/she is: not in a situation that causes fear, pain or injury. Nutritional screening: No deficits noted. Advance Directives: Currently, there is no health care proxy. There is no Power of User Support Analyst Supervisor. home support is adequate. Assessment: 17:47 Reassessment: talking in full sentences but reports 'I can't breath'. kr3 18:24 General: Appears states I can't breathe. reassurance provided regarding continuous jmk application of oxygen , chest CTA, and maintaining sat above 96% despite conversation. relaxation encouraged.. 18:57 Reassessment: Patient appears in no apparent distress at this time. Reassessment: kr3 refused Morphine. Pain: Location: chest Pain currently is 5 out of 10 on a pain scale. Quality of pain is described as burning. 20:00 Reassessment: Patient states symptoms have not improved. General: Appears anxious-c/o jp6 gi upset and sob.VS WNL.. Behavior is anxious, cooperative. Neurological: No deficits noted. Neurological: Level of Consciousness is awake, alert, Oriented to person, place, time. EENT: No deficits noted. Cardiovascular: No deficits noted. Respiratory: Respiratory effort is even, unlabored, Respiratory pattern is regular, symmetrical, Breath sounds are diminished bilaterally. GI: No deficits noted. : No deficits noted. Derm: Skin is pink, warm & dry. Musculoskeletal: No deficits noted. 20:53 Reassessment: Patient appears in no apparent distress at this time. Patient states jp6 symptoms have improved. Report called to Sofiya RN nurse hospital account manager at [facility].. Vital Signs: 17:32 BP 164 / 83 (auto/); jp6 17:34 Pulse 68 MON; Pulse Ox 97% ; jp6 17:34 BP 145 / 89; Pulse 70; Resp 16; Temp 98(O); Pulse Ox 95% on 2 lpm NC; Pain 0/10; jp6 17:43 BP 164 / 83; Pulse 68; Resp 18; Temp 97.7(T); Pulse Ox 97% on 2 lpm NC; Weight 56.7 kg kr3 (R); Height 5 ft. 2 in. (157.48 cm); 18:07 Pain 2/10; kr3 17:43 Body Mass Index 22.86 (56.70 kg, 157.48 cm) kr3 Vitals: 17:43 Log In Time N/A - ambulance arrival. kr3 ED Course: 17:27 Patient visited by Na Sullivan, [employer] Salesperson. lbd 17:27 Patient moved to Waiting lbd 17:27 Patient moved to 5 kr3 17:28 Brea Ruiz is Private Physician. lbd 17:28 Laurel Em MD is Attending Physician. sd1 17:28 Patient moved to Waiting lbd 17:28 Patient moved to 5 sd1 17:29 Triage Initiated kr3 17:30 Patient visited by Laurel Em MD. sd1 17:34 The patient / caregiver is instructed regarding the plan of care and ED course. Pulse jp6 ox on. 17:34 Discontinued lock intact, bleeding controlled, pressure dressing applied, No jp6 redness/swelling at site. No procedures done that require assistance. 17:43 Patient visited by Alphonse Marshall PCA. jlf 17:43 Patient visited by Alphonse Marshall PCA. jlf 17:43 Basic Metabolic Profile Sent. kr3 17:43 CBC with Diff Sent. kr3 17:43 Cardiac Injury Profile Sent. kr3 17:43 Troponin Sent. kr3 17:43 EKG done. (by ED staff). Reviewed by Laurel mE MD. jlf 17:48 Maintain field IV. Dressing intact. Site clean & dry. Gauge & site: #20 left hand. O2 kr3 via nasal cannula \T\ 2L/min. 18:26 Patient visited by Vadim Tomas,JOYCE. jmk 18:32 [facility] Payment Agreement was scanned into [employer] and attached to record. dm19 18:56 Patient visited by Dasia Meadows,JOYCE. kr3 19:14 Chest, 1 View Returned. EDMS 19:16 Brea Ruiz is Referral Physician. sd1 19:45 Monica Foley,RN is Primary Nurse. jp6 19:45 Patient visited by Monica Foley RN. jp6 20:33 EKG-ADULT Returned. EDMS 01 08:21 T-Sheet-- Draft Copy was scanned into [employer] and attached to record. gb 08:22 ECG/EKG was scanned into [employer] and attached to record. gb Administered Medications: 07/19 17:42 Drug: GI Cocktail - (Alum-Mag Hydroxide-Simeth Suspension 225 mg-200 mg-25 mg/5 mL 30 kr3 ml, Lidocaine Liquid 2 % 10 ml, Hyoscyamine Liquid 10 ml) Route: PO; 18:07 Follow up: Pain 2/10 Adult; Response: Pain is decreased kr3 18:23 Drug: Sucralfate 1 grams [sucralfate 1 gram tablet (1 tabs)] Route: PO; [facility] 18:57 Drug: pantoprazole 40 mg [pantoprazole 40 mg intravenous solution] Route: IV; Rate: kr3 bolus; Site: left hand; 20:12 Not Given (Patient Refused): morphine 2 mg IVP every 15 minutes; Document pain cs11 score/vitals after each dose (Hold if SBP < 90mmHg) x3 20:14 Drug: HYDROcodone-acetaminophen 1 tabs [hydrocodone 5 mg-acetaminophen 325 mg tablet (1 cf2 tabs)] Route: PO; Order Results: Lab Order: Basic Metabolic Profile; [facility] 07/19/16 17:41 Test: GLUCOSE, FASTING; Value: 88; Range: 83-110; Units: MG/DL; Status: F Test: BLOOD UREA NITROGEN; Value: 14; Range: 7-18; Units: MG/DL; Status: F Test: CREATININE FOR GFR; Value: 0.52; Range: 0.55-1.02; Abnormal: Below low normal; Units: MG/DL; Status: F Test: GLOMERULAR FILTRATION RATE; Value: > 60.0; Range: >32; Status: F Test: SODIUM LEVEL; Value: 144; Range: 136-145; Units: MEQ/L; Status: F Test: POTASSIUM SERUM; Value: 4.4; Range: 3.5-5.1; Units: MEQ/L; Status: F Test: CHLORIDE LEVEL; Value: 104; Range: 98-107; Units: MEQ/L; Status: F Test: CARBON DIOXIDE LEVEL; Value: 34; Range: 21-32; Abnormal: Above high normal; Units: MEQ/L; Status: F Test: ANION GAP; Value: 6; Range: 8-16; Abnormal: Below low normal; Units: MEQ/L; Status: F Test: CALCIUM LEVEL; Value: 9.3; Range: 8.8-10.2; Units: MG/DL; Status: F Test Note: ; Units are mL/min/1.73 m2 Chronic Kidney Disease Staging per NKF: Stage I & II GFR >=60 Normal to Mildly Decreased Stage III GFR 30-59 Moderately Decreased Stage IV GFR 15-29 Severely Decreased Stage V GFR <15 Very Little GFR Left ESRD GFR <15 on BILLING CLERK Lab Order: CBC with Diff; LISA'M 07/19/16 17:41 Test: WHITE BLOOD COUNT; Value: 6.8; Range: 4.0-10.0; Units: K/mm3; Status: F Test: RED BLOOD COUNT; Value: 4.33; Range: 4.00-5.40; Units: M/mm3; Status: F Test: HEMOGLOBIN; Value: 11.8; Range: 12.0-16.0; Abnormal: Below low normal; Units: g/dl; Status: F Test: HEMATOCRIT; Value: 37.6; Range: 36.0-47.0; Units: %; Status: F Test: MEAN CORPUSCULAR VOLUME; Value: 86.9; Range: 80.0-96.0; Units: fl; Status: F Test: MEAN CORPUSCULAR HEMOGLOBIN; Value: 27.3; Range: 27.0-33.0; Units: pg; Status: F Test: MEAN CORPUSCULAR HGB CONC; Value: 31.4; Range: 32.0-36.5; Abnormal: Below low normal; Units: g/dl; Status: F Test: RED CELL DISTRIBUTION WIDTH; Value: 12.8; Range: 11.5-14.5; Units: %; Status: F Test: PLATELET COUNT, AUTOMATED; Value: 197; Range: 150-450; Units: k/mm3; Status: F Test: NEUTROPHILS %; Value: 69.5; Range: 36.0-66.0; Abnormal: Above high normal; Units: %; Status: F Test: LYMPH %; Value: 17.3; Range: 24.0-44.0; Abnormal: Below low normal; Units: %; Status: F Test: MONO %; Value: 4.1; Range: 0.0-5.0; Units: %; Status: F Test: EOS %; Value: 4.4; Range: 0.0-3.0; Abnormal: Above high normal; Units: %; Status: F Test: BASO %; Value: 0.3; Range: 0.0-1.0; Units: %; Status: F Test: LARGE UNSTAINED CELL %; Value: 4.4; Range: 0.0-4.0; Abnormal: Above high normal; Units: %; Status: F Test: NEUTROPHILS #; Value: 4.7; Range: 1.8-7.7; Units: K/mm3; Status: F Test: LYMPH #; Value: 1.2; Range: 1.5-4.5; Abnormal: Below low normal; Units: K/mm3; Status: F Test: MONO #; Value: 0.3; Range: 0.0-0.8; Units: K/mm3; Status: F Test: EOS #; Value: 0.3; Range: 0.0-0.50; Units: K/mm3; Status: F Test: BASO #; Value: 0.0; Range: 0.0-0.2; Units: K/mm3; Status: F Test: LARGE UNSTAINED CELL #; Value: 0.3; Range: 0.0-0.4; Units: K/mm3; Status: F Lab Order: Cardiac Injury Profile; SPEC'M 07/19/16 17:41 Test: CPK CREATINE PHOSPHOKINASE; Value: 36; Range: 26-192; Units: U/L; Status: F Test: CK-MB VALUE MASS; Value: 1.0; Range: 0.0-3.6; Units: NG/ML; Status: F Test: MB/CK RELATIVE INDEX; Value: 2.77; Range: < OR =4; Status: F Test Note: ; DIAGNOSIS CRITERIA MMB ng/ml Relative Index (RI) NON-AMI < or = 5 N/A REES ZONE > 5 < or = 4 AMI > 5 > 4 Lab Order: Troponin; SPEC'M 07/19/16 17:41 Test: TROPONIN I; Value: < 0.02; Range: < 0.10; Units: NG/ML; Status: F Test Note: ; Troponin I Reference Interval for [employer] LOCI: 99th Percentile= 0.00-0.045 ng/ml Risk Stratification: <= 0.10 ng/ml Decreased Risk for Adverse Clinical Events. 0.10-1.50 ng/ml Increased Risk for Adverse Clinical Events. Evaluation of additional criterion and/or repeat testing in 2-6 hours is suggested to rule out myocardial damage. >= 1.50 ng/ml Indicative of Myocardial Injury. 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; : 1930 Requested By: Laurel Em; Order Number: [id number] Reading MD: Laurel Em; Measurements; Intervals [place]; Rate: 66 P: 80; ME: 158 QRS: 41; QRSD: 86 T: 48; QT: 373; QTc: 391; Interpretive Statements; SINUS RHYTHM; POSSIBLE LEFT ATRIAL ENLARGEMENT; NSTTW ABNORMALITY; Electronically Signed On 07-19-2016 20:06:07 EST by Laurel Em; Radiology Order: Chest, 1 View Test: Chest, 1 View REASON FOR EXAMINATION: Chest Pain; AP PORTABLE VIEW OF THE CHEST:; ; AP portable view of the chest is performed and compared to prior study of; 06/29/2016.; ; There is again diffuse interstitial fibrotic change which appears stable. No new; infiltrate is seen. The heart is normal in size. There is calcification of the; thoracic aorta. Mediastinal silhouette is unchanged.; ; IMPRESSION:; ; Stable chronic findings without evidence of acute infiltrate.; ; ; Signed by; Ezekiel Rees MD 07/19/2016 07:17 P; Outcome: 17:34 Discharge Assessment: Patient awake, alert and oriented x 3. No cognitive and/or jp6 functional deficits noted. Patient verbalized understanding of disposition instructions. patient administered narcotics - yes. Pt provided with safe discharge. The following High Risk Discharge criteria are identified: None. Discharged to [facility]. Report called to Sofiya COOK. Condition: improved. Discharge instructions given to patient, Instructed on discharge instructions, follow up and referral plans. medication usage, Demonstrated understanding of instructions, medications, Patient was not receptive of discharge instructions. Prescriptions given X 1. CT Study completed. Property :Personal belongings accompany Pt. 19:16 Discharge ordered by Provider. sd1 20:57 Patient left the ED. jp6 Signatures: Dispatcher [employer] EDMS Laurel Em MD MD sd1 Na Sullivan, [employer] Salesperson Unit lbd Vadim Tomas,RN RN faustinak Cassie Dougherty, Reg Reg gb Dasia Meadows,RN RN kr3 Alphonse Marshall, HVAC SERVICE TECHNICIAN HVAC SERVICE TECHNICIAN jlf Monica Foley,RN RN jp6 Caridad Evans,RN RN cf2 Melly Braga dm19 Arslan Powers DO cs11 Corrections: (The following items were deleted from the chart) 17:31 17:27 Acuity: DELORES Level 2 kr3 kr3 Chart Complete MTDD
== END 2016-07-19 20:57 | disposition home or self-care (01) ==
LOC: M ED 17:26
DX: K21.9 Gastro-esophageal reflux disease without esophagitis (principal); J44.9 Chronic obstructive pulmonary disease, unspecified; I10 Essential (primary) hypertension; F41.9 Anxiety disorder, unspecified; K58.0 Irritable bowel syndrome with diarrhea; G25.0 Essential tremor; K31.7 Polyp of stomach and duodenum; Z79.899 Other long term (current) drug therapy; Z99.81 Dependence on supplemental oxygen; Z88.0 Allergy status to penicillin; Z88.2 Allergy status to sulfonamides; Z88.8 Allergy status to other drugs, medicaments and biological substances; Z88.6 Allergy status to analgesic agent; Z91.041 Radiographic dye allergy status
CPT/HCPCS: 71010; 80048; 82550; 82553; 84484; 85025; 93005; 93041; 96374; 99285; C9113

== ENCOUNTER 2016-08-01 09:40 | Emergency (ER) | payer MEDICARE, OTHER ==
[2016-08-01 11:37] LABS: ANION GAP 7 MEQ/L (8-16); BLOOD UREA NITROGEN 10 MG/DL (7-18); CALCIUM LEVEL 9.8 MG/DL (8.8-10.2); CARBON DIOXIDE LEVEL 34 MEQ/L (21-32); CHLORIDE LEVEL 102 MEQ/L (98-107); CREATININE FOR GFR 0.54 MG/DL (0.55-1.02); GLOMERULAR FILTRATION RATE > 60.0 (>32); GLUCOSE, FASTING 88 MG/DL (83-110); POTASSIUM SERUM 3.8 MEQ/L (3.5-5.1); SODIUM LEVEL 143 MEQ/L (136-145)
[2016-08-01] MEDS ORDERED: IPRATROPIUM 0.5MG/ALBUTEROL 2.5MG INH SOL UD 3ML (DUONEB)(J7620) As Ordered ONE (11:44)
[2016-08-01 11:47] LABS: BASO % 0.2 % (0.0-1.0); EOS # 0.1 K/mm3 (0.0-0.50); EOS % 0.6 % (0.0-3.0); LARGE UNSTAINED CELL # 0.1 K/mm3 (0.0-0.4); LARGE UNSTAINED CELL % 0.8 % (0.0-4.0); LYMPH # 0.5 K/mm3 (1.5-4.5); LYMPH % 4.4 % (24.0-44.0); MEAN CORPUSCULAR HEMOGLOBIN 27.8 pg (27.0-33.0); MEAN CORPUSCULAR HGB CONC 31.9 g/dl (32.0-36.5); MEAN CORPUSCULAR VOLUME 87.2 fl (80.0-96.0); MONO # 0.3 K/mm3 (0.0-0.8); MONO % 2.5 % (0.0-5.0); NEUTROPHILS # 10.8 K/mm3 (1.8-7.7); NEUTROPHILS % 91.5 % (36.0-66.0); PLATELET COUNT, AUTOMATED 183 k/mm3 (150-450); RED CELL DISTRIBUTION WIDTH 13.2 % (11.5-14.5); WHITE BLOOD COUNT 11.8 K/mm3 (4.0-10.0)
--- NOTE | 2016-08-01 13:10 | REP ---
PA and lateral chest radiograph 08/01/2016 Indication :shortness of breath Comparison: PA and lateral chest 04/06/2007, 06/29/2016, portable chest 07/19/2016 The cardiac silhouette is of normal size. Chronic scarring is seen in the region of the right cardiophrenic angle, in addition to the epicardial fat pad. There is cephalization of pulmonary vasculature consistent with pulmonary venous hypertension. Small nodular density in the right base measuring 6 x 11 mm represents interval change. There is generalized osteopenia in the thoracic spine and minimal thoracic dextroscoliosis Impression underlying COPD with pulmonary venous hypertension. Prominent right epicardial fat pad with scarring in the cardiophrenic angle. 6 x 11 mm nodular density in the right base concerning for pulmonary nodule. Consider CT of the chest which can be performed without IV contrast Signed by Raysa Deal MD 08/01/2016 01:01 P
--- NOTE | 2016-08-01 14:20 | REP ---
CT study of the chest without contrast: History: Nodule on chest x-ray. Comparison is made with today's chest x-ray showing a 1.1 cm nodular density projecting just above the right hemidiaphragm. CT findings: There is no evidence of pleural or pericardial effusion. No mediastinal or hilar adenopathy is noted on this noncontrast CT study. There is some vascular calcification. No adrenal lesion is seen. The visualized upper abdominal structures show clips in the gallbladder fossa and are otherwise unremarkable. There is bronchiectasis in the right lower lobe with some inspissated endobronchial secretions in the basilar segment bronchi. There is some linear atelectatic or fibrotic change in the right lower lobe. Also noted in this region is a somewhat nodular opacity 2-3 cm above the right hemidiaphragm. This measures 7 mm in diameter. It is not visibly calcified. This would appear to correspond with the radiographic opacity. There is a second pulmonary nodule which is more impressive and more worrisome in the vishal bronchovascular distribution in the left upper lobe. This measures 12-13 mm in greatest diameter. It is not visibly calcified. No other significant lung nodule or mass lesion is seen. No infiltrate is noted. The exam is otherwise unremarkable. Impression: 1. Right lower lobe bronchiectasis with discoid atelectasis and/or scarring in the right lower lobe. 2. 7 mm noncalcified pulmonary nodule in the right lower lobe. 3. 13 mm irregular noncalcified pulmonary nodule in the left upper lobe worrisome for primary lung malignancy. Recommend pulmonary medicine evaluation and PET scanning. Signed by Michael Lo MD 08/01/2016 02:35 P
[2016-08-01] MEDS ORDERED: ALPRAZolam 0.25 MG TAB As Ordered ONE (17:28)
--- NOTE | 2016-08-01 18:33 | EDDOCDS ---
Nurse's Notes [facility] Name: Barbara Bravo Age: 85 yrs Sex: Female : 1930 Arrival Date: 08/01/2016 Time: 09:40 Bed 6 Private MD: Brea Ruiz Diagnosis: Chronic obstructive pulmonary disease with (acute) exacerbation;Solitary pulmonary nodule Presentation: 08/01 09:54 Presenting complaint: Patient states: states she has been ill for the past week, mk4 coughing productive and short of breathe is on oxygen as she has COPD . Adult Sepsis Screening: The patient does not have new or worsening altered mentation. Patient has a respiratory rate of greater than or equal to 22 (1 point). Systolic blood pressure is greater than 100. Patient has a qSOFA score of 1- Negative Sepsis Screen. Patient has fever/chills- Positive Sepsis Screen. ED Provider Notified Td Campbell MD Patient made DELORES Level 2. Patient placed in exam room. Charge nurse notified. 09:55 Suicide/Homicide risk assessment- the patient denies having any suicidal and/or mk4 homicidal ideations and does not present with any other emotional, behavioral or mental health complaints. Status: Patient is not a emergency medical service manager or dependent. Transition of care: patient was received from [facility]-assisted. 09:55 Acuity: DELORES Level 2 mk4 09:55 Method Of Arrival: Ambulance mk4 Triage Assessment: 10:00 Respiratory: Onset: The symptoms/episode began/occurred 2 weeks prior. mk4 10:04 General: Appears in no apparent distress. Respiratory: Airway is patent Respiratory mk4 effort is even, labored, Respiratory pattern is tachypnea. Historical: - Allergies: Advair Diskus (Unknown); Aspirin (Unknown); IODINEIODINE CONTAINING (Rash); PENICILLINS (Rash); Red Dye (Unknown); SULFA (SULFONAMIDES) (Rash); Symax-SL (Unknown); zelnorm (Unknown); - Home Meds: 1. Tums Oral as needed 2. Acetaminophen Oral 650 mg as needed 3. pantoprazole 40 mg oral TbEC 1 tab once daily 4. sucralfate 1 gram Oral tab 1 tab three times a day as needed 5. Vitamin D Oral 52776 unit weekly 6. Spiriva with HandiHaler 18 mcg Inhl CpDv 1 cap once daily 7. mirtazapine 7.5 mg Oral tab nightly 8. gabapentin 100 mg Oral tab twice daily 9. Lasix 20 mg Oral tab 1 tab once daily 10. Flovent HFA 2 puffs twice daily 11. citalopram 10 mg Oral tab once daily 12. donepezil 5 mg oral TbDL nightly 13. Albuterol-Ipratropium Inhl as needed as needed 14. alprazolam 0.25 mg Oral tab 1 tab tid prn 15. Mag-Al Plus 200-200-20 mg/5 mL oral susp 30 mL as needed 16. Ventolin Rotahaler/Rotacaps Inhl as needed 17. hyoscyamine sulfate 0.125 mg SL subl 1 -2 tabs under the tongue 4 times a day as needed - PMHx: Anxiety; COPD; Gastric Polyps; GERD; IBS with diarrhea; ESSENTIAL TREMOR; - Social history: Smoking status: Patient states was never smoker of tobacco. No barriers to communication noted, The patient speaks fluent Wolof. - Family history: Not pertinent. - : The pt / caregiver states he / she is not on anticoagulants. Home medication list is obtained from the facility MAR. Screenin:43 Screening information is obtained from the patient. Fall risk: At risk due to age, gait mk4 disturbance, The following interventions are performed due to a positive Fall Risk Screen: Fall Risk is added to Special Handling on the patient Summary Screen. A Fall Risk Bracelet was applied to the patient. Side Rails are placed in the up position. A Call Amaya is given with instruction to call for help when getting out of bed. Fall Alert bracelet is placed on the patient. Assistance ADL's: Requires assistance with meal preparation, this assistance is provided by residence staff, bathing, assistance is provided by residence staff, dressing, assistance is provided by toileting, assistance is provided by ambulation, assistance is provided by residence staff, housework, assistance is provided by residence staff, medication administration, assistance is provided by residence staff. Abuse/DV Screen: The patient / caregiver reports he/she is: not in a situation that causes fear, pain or injury. Nutritional screening: No deficits noted. Advance Directives: There is. home support is adequate. 11:53 Fall Risk. mk4 Assessment: 10:43 General: Appears ill. Neurological: Level of Consciousness is awake, alert, Pt noted to mk4 have tremors of the upper extremeties. Respiratory: Airway is patent Respiratory effort is even, Respiratory pattern is tachypnea. Derm: Skin is intact. 11:11 General: Appears in no apparent distress, Dr Toth in examining pt. Respiratory: Airway is mk4 patent Respiratory effort is even, Respiratory pattern is regular. 12:58 Neurological: Level of Consciousness is awake, alert. Respiratory: Breath sounds with mk4 wheezes inspiratory expiratory. GI: Reports UPSET STOMACH sotero madeline provided. 13:43 General: Appears in no apparent distress, pt states she has some indigestion / nausea mk4 persisting . Cardiovascular: Chest pain is denied. 13:57 General: Appears in no apparent distress, Dr Toth in speaking with pt. mk4 15:03 General: Appears in no apparent distress, pt sitting on edge of bed states she hasnt mk4 seen a nurse or Dr since 10 am which isnt true, pt requesting to be discharged , states she wants to go back to [place]. 16:10 General: Appears in no apparent distress, Behavior is anxious, cooperative, forgetful. mk4 Respiratory: Airway is patent Respiratory effort is even, unlabored, Respiratory pattern is regular. 18:04 General: Appears in no apparent distress, comfortable, Behavior is cooperative. mk4 Respiratory: Airway is patent Respiratory effort is even, Respiratory pattern is regular. Vital Signs: 09:55 BP 150 / 67; Pulse 88; Resp 26; Temp 100.7(TE); Pulse Ox 97% on 3 lpm NC; mk4 10:27 Weight 56.7 kg (R); Height 5 ft. 2 in. (157.48 cm) (R); dem1 10:45 Pulse 78 MON; Pulse Ox 98% ; mk4 11:12 BP 121 / 58 (auto/); mk4 11:12 Pulse 78 MON; Pulse Ox 97% ; mk4 13:38 Temp 98.8(O); mk4 14:28 Pulse 94 MON; Pulse Ox 93% ; mk4 14:28 Temp 98.9(TE); mk4 14:29 BP 142 / 65 (auto/); mk4 14:56 Pulse 88 MON; Pulse Ox 95% ; mk4 15:02 Pulse 86 MON; Pulse Ox 95% ; mk4 15:50 Pulse 90 MON; Pulse Ox 91% ; mk4 16:10 BP 152 / 70 (auto/); mk4 16:25 BP 137 / 56 (auto/); mk4 16:54 BP 165 / 74 (auto/); mk4 10:27 Body Mass Index 22.86 (56.70 kg, 157.48 cm) dem1 Vitals: 09:55 Log In Time N/A - ambulance arrival. mk4 ED Course: 09:41 Patient visited by Na Sullivan, Mail Order Sorter. lbd 09:41 Patient moved to Waiting lbd 09:42 Brea Ruiz is Private Physician. lbd 09:42 Wendy Garrido DO is PHCP. jo4 09:42 Td Campbell MD is Attending Physician. jo4 09:42 Patient moved to 6 lbd 09:55 Triage Initiated mk4 10:14 Patient visited by Molly Mosley RN. mk4 10:26 Pt greeted and oriented to ED. Patient advised of names of staff involved in care, [facility] location of call amaya, wait times and NPO status. Patient has correct armband on for positive identification. Placed in gown. Bed in low position. Call light in reach. Side rails up X2. Assisted to bathroom. traffic monitor specialist on. Pulse ox on. NIBP on. 10:27 Patient visited by Portia Leon. dem1 10:28 Patient visited by Portia Leon. dem1 10:33 Patient visited by Wendy Garrido DO. jo4 10:46 Maintain field IV. IV. mk4 11:11 Patient visited by Molly Mosley RN. mk4 11:23 [facility] Payment Agreement was scanned into [employer] and attached to record. mm15 11:27 BMP Sent. mk4 11:28 CBC with Diff Sent. mk4 11:31 Patient visited by Portia Leon. dem1 11:31 Assisted to bathroom. dem1 12:06 Patient visited by Molly Mosley RN. mk4 12:39 Patient visited by Molly Mosley RN. mk4 12:59 Patient visited by Molly Mosley RN. mk4 13:17 Chest, 2 View (pa\E\lat) Returned. EDMS 13:35 Patient visited by Molly Mosley RN. mk4 13:43 The patient / caregiver is instructed regarding the plan of care and ED course. mk4 14:20 Patient visited by Amy Danielle PCA. ct3 14:31 Patient visited by Rufina San PCA. ar3 14:31 Assisted to bathroom. ar3 14:53 CT Chest Without Contrast Returned. EDMS 15:07 Patient visited by Molly Mosley RN. mk4 15:41 Patient visited by Molly Mosley RN. mk4 16:21 Patient visited by Molly Mosley RN. mk4 17:03 Patient visited by Molly Mosley RN. mk4 17:07 Buddy Hernadez is Referral Physician. jo4 17:07 Chance Neumann MD is Referral Physician. jo4 17:30 Patient visited by Molly Mosley RN. mk4 18:04 Discontinued IV lock bleeding controlled, pressure dressing applied. No procedures done mk4 that require assistance. O2 via nasal cannula \T\ 2L/min. Administered Medications: 11:40 Drug: Albuterol-Ipratropium 3 ml [ipratropium-albuterol 0.5 mg-3 mg(2.5 mg base)/3 mL kt1 nebulization soln (3 mL)] Route: Inhalation; 17:30 Drug: ALPRAZolam 0.25 mg [alprazolam 0.25 mg tablet (1 tabs)] Route: PO; mk4 RT: 11:53 Initial Med Neb Given as ordered Patient was instructed and evaluated on procedure. kt1 Respiratory: Breath sounds are clear Breath sounds are diminished bilaterally. Order Results: Lab Order: CBC with Diff; SPEC'M 08/01/16 11:00 Test: WHITE BLOOD COUNT; Value: 11.8; Range: 4.0-10.0; Abnormal: Above high normal; Units: K/mm3; Status: F Test: RED BLOOD COUNT; Value: 4.49; Range: 4.00-5.40; Units: M/mm3; Status: F Test: HEMOGLOBIN; Value: 12.5; Range: 12.0-16.0; Units: g/dl; Status: F Test: HEMATOCRIT; Value: 39.1; Range: 36.0-47.0; Units: %; Status: F Test: MEAN CORPUSCULAR VOLUME; Value: 87.2; Range: 80.0-96.0; Units: fl; Status: F Test: MEAN CORPUSCULAR HEMOGLOBIN; Value: 27.8; Range: 27.0-33.0; Units: pg; Status: F Test: MEAN CORPUSCULAR HGB CONC; Value: 31.9; Range: 32.0-36.5; Abnormal: Below low normal; Units: g/dl; Status: F Test: RED CELL DISTRIBUTION WIDTH; Value: 13.2; Range: 11.5-14.5; Units: %; Status: F Test: PLATELET COUNT, AUTOMATED; Value: 183; Range: 150-450; Units: k/mm3; Status: F Test: NEUTROPHILS %; Value: 91.5; Range: 36.0-66.0; Abnormal: Above high normal; Units: %; Status: F Test: LYMPH %; Value: 4.4; Range: 24.0-44.0; Abnormal: Below low normal; Units: %; Status: F Test: MONO %; Value: 2.5; Range: 0.0-5.0; Units: %; Status: F Test: EOS %; Value: 0.6; Range: 0.0-3.0; Units: %; Status: F Test: BASO %; Value: 0.2; Range: 0.0-1.0; Units: %; Status: F Test: LARGE UNSTAINED CELL %; Value: 0.8; Range: 0.0-4.0; Units: %; Status: F Test: NEUTROPHILS #; Value: 10.8; Range: 1.8-7.7; Abnormal: Above high normal; Units: K/mm3; Status: F Test: LYMPH #; Value: 0.5; Range: 1.5-4.5; Abnormal: Below low normal; Units: K/mm3; Status: F Test: MONO #; Value: 0.3; Range: 0.0-0.8; Units: K/mm3; Status: F Test: EOS #; Value: 0.1; Range: 0.0-0.50; Units: K/mm3; Status: F Test: BASO #; Value: 0.0; Range: 0.0-0.2; Units: K/mm3; Status: F Test: LARGE UNSTAINED CELL #; Value: 0.1; Range: 0.0-0.4; Units: K/mm3; Status: F Lab Order: GRACE; LISA'M 08/01/16 11:00 Test: GLUCOSE, FASTING; Value: 88; Range: 83-110; Units: MG/DL; Status: F Test: BLOOD UREA NITROGEN; Value: 10; Range: 7-18; Units: MG/DL; Status: F Test: CREATININE FOR GFR; Value: 0.54; Range: 0.55-1.02; Abnormal: Below low normal; Units: MG/DL; Status: F Test: GLOMERULAR FILTRATION RATE; Value: > 60.0; Range: >32; Status: F Test: SODIUM LEVEL; Value: 143; Range: 136-145; Units: MEQ/L; Status: F Test: POTASSIUM SERUM; Value: 3.8; Range: 3.5-5.1; Units: MEQ/L; Status: F Test: CHLORIDE LEVEL; Value: 102; Range: 98-107; Units: MEQ/L; Status: F Test: CARBON DIOXIDE LEVEL; Value: 34; Range: 21-32; Abnormal: Above high normal; Units: MEQ/L; Status: F Test: ANION GAP; Value: 7; Range: 8-16; Abnormal: Below low normal; Units: MEQ/L; Status: F Test: CALCIUM LEVEL; Value: 9.8; Range: 8.8-10.2; Units: MG/DL; Status: F Test Note: ; Units are mL/min/1.73 m2 Chronic Kidney Disease Staging per NKF: Stage I & II GFR >=60 Normal to Mildly Decreased Stage III GFR 30-59 Moderately Decreased Stage IV GFR 15-29 Severely Decreased Stage V GFR <15 Very Little GFR Left ESRD GFR <15 on MACHINE SETUP OPERATOR Radiology Order: Chest, 2 View (pa\E\lat) Test: Chest, 2 View (pa\E\lat) REASON FOR EXAMINATION: Shortness of Breath; PA and lateral chest radiograph 08/01/2016; ; Indication :shortness of breath; ; Comparison: PA and lateral chest 04/06/2007, 06/29/2016, portable chest; 07/19/2016; ; The cardiac silhouette is of normal size. Chronic scarring is seen in the region; of the right cardiophrenic angle, in addition to the epicardial fat pad. There; is cephalization of pulmonary vasculature consistent with pulmonary venous; hypertension. Small nodular density in the right base measuring 6 x 11 mm; represents interval change. There is generalized osteopenia in the thoracic; spine and minimal thoracic dextroscoliosis; ; Impression underlying COPD with pulmonary venous hypertension.; ; Prominent right epicardial fat pad with scarring in the cardiophrenic angle.; ; 6 x 11 mm nodular density in the right base concerning for pulmonary nodule.; ; Consider CT of the chest which can be performed without IV contrast; ; ; Signed by; Raysa Deal MD 08/01/2016 01:01 P; Radiology Order: CT Chest Without Contrast Test: CT Chest Without Contrast REASON FOR EXAMINATION: Ndule on CXR; CT study of the chest without contrast:; ; History: Nodule on chest x-ray. Comparison is made with today's chest x-ray; showing a 1.1 cm nodular density projecting just above the right hemidiaphragm.; ; CT findings: There is no evidence of pleural or pericardial effusion. No; mediastinal or hilar adenopathy is noted on this noncontrast CT study. There is; some vascular calcification. No adrenal lesion is seen. The visualized upper; abdominal structures show clips in the gallbladder fossa and are otherwise; unremarkable.; ; There is bronchiectasis in the right lower lobe with some inspissated; endobronchial secretions in the basilar segment bronchi. There is some linear; atelectatic or fibrotic change in the right lower lobe. Also noted in this; region is a somewhat nodular opacity 2-3 cm above the right hemidiaphragm. This; measures 7 mm in diameter. It is not visibly calcified. This would appear to; correspond with the radiographic opacity. There is a second pulmonary nodule; which is more impressive and more worrisome in the vishal bronchovascular; distribution in the left upper lobe. This measures 12-13 mm in greatest; diameter. It is not visibly calcified. No other significant lung nodule or mass; lesion is seen. No infiltrate is noted. The exam is otherwise unremarkable.; ; Impression:; ; 1. Right lower lobe bronchiectasis with discoid atelectasis and/or scarring in; the right lower lobe.; ; 2. 7 mm noncalcified pulmonary nodule in the right lower lobe.; ; 3. 13 mm irregular noncalcified pulmonary nodule in the left upper lobe; worrisome for primary lung malignancy. Recommend pulmonary medicine evaluation; and PET scanning.; ; ; Signed by; Michael Lo MD 08/01/2016 02:35 P; Outcome: 17:08 Discharge ordered by Provider. jo4 18:07 Discharge Assessment: Patient awake, alert and oriented x 3. No cognitive and/or mk4 functional deficits noted. Patient verbalized understanding of disposition instructions. Patient awake and alert. Discharge Assessment: patient administered narcotics - no. Discharged to halfway. Report called to fidelina. The following High Risk Discharge criteria are identified: None. Condition: stable. CT Study completed. Property sent home with patient. 18:33 Patient left the ED. mk4 Signatures: Dispatcher [employer] EDMS Na Sullivan, Mail Order Sorter Unit lbd Sheeba Dunlap kt1 Rufina San, SENIOR ANIMATOR SENIOR ANIMATOR ar3 DanielleAmy hinton, SENIOR ANIMATOR SENIOR ANIMATOR ct3 Portia Leon dem1 Marshal Rivers mm15 Molly Mosley RN RN mk4 Wendy Garrido DO DO jo4 Corrections: (The following items were deleted from the chart) 09:56 09:54 Acuity: DELORES Level 3 mk4 mk4 MTDTed
--- NOTE | 2016-08-01 18:33 | EDDOCDS ---
Physician Documentation [facility] Name: Barbara Bravo Age: 85 yrs Sex: Female : 1930 Arrival Date: 08/01/2016 Time: 09:40 Bed 6 Private MD: Brea Ruiz Disposition: 08/01/16 17:08 Discharged to Home/Self Care. Impression: Chronic obstructive pulmonary disease with (acute) exacerbation, Solitary pulmonary nodule. - Condition is Stable. - Discharge Instructions: Chronic Obstructive Pulmonary Disease. - Medication Reconciliation, Local Pharmacy Hours form. - Follow up: Buddy Hernadez; When: As previously arranged; Reason: Further diagnostic work-up. Follow up: Chance Neumann MD; When: Call to arrange an appointment; Reason: Recheck today's complaints. - Problem is an acute exacerbation. - Symptoms have improved. - Notes: A referral will be made for you to see a consumer relations specialist for the lung nodule noted on chest CT. You have requested to see a femaleprovider, if possible. Please schedule an appointment to see Dr. Neumann at your soonest convenience. Historical: - Allergies: Advair Diskus (Unknown); Aspirin (Unknown); IODINEIODINE CONTAINING (Rash); PENICILLINS (Rash); Red Dye (Unknown); SULFA (SULFONAMIDES) (Rash); Symax-SL (Unknown); zelnorm (Unknown); - Home Meds: 1. Tums Oral as needed 2. Acetaminophen Oral 650 mg as needed 3. pantoprazole 40 mg oral TbEC 1 tab once daily 4. sucralfate 1 gram Oral tab 1 tab three times a day as needed 5. Vitamin D Oral 74594 unit weekly 6. Spiriva with HandiHaler 18 mcg Inhl CpDv 1 cap once daily 7. mirtazapine 7.5 mg Oral tab nightly 8. gabapentin 100 mg Oral tab twice daily 9. Lasix 20 mg Oral tab 1 tab once daily 10. Flovent HFA 2 puffs twice daily 11. citalopram 10 mg Oral tab once daily 12. donepezil 5 mg oral TbDL nightly 13. Albuterol-Ipratropium Inhl as needed as needed 14. alprazolam 0.25 mg Oral tab 1 tab tid prn 15. Mag-Al Plus 200-200-20 mg/5 mL oral susp 30 mL as needed 16. Ventolin Rotahaler/Rotacaps Inhl as needed 17. hyoscyamine sulfate 0.125 mg SL subl 1 -2 tabs under the tongue 4 times a day as needed - PMHx: Anxiety; COPD; Gastric Polyps; GERD; IBS with diarrhea; ESSENTIAL TREMOR; - Social history: Smoking status: Patient states was never smoker of tobacco. No barriers to communication noted, The patient speaks fluent Nicaraguan. - Family history: Not pertinent. - : The pt / caregiver states he / she is not on anticoagulants. Home medication list is obtained from the facility SEP. Vital Signs: 08/01 09:55 BP 150 / 67; Pulse 88; Resp 26; Temp 100.7(TE); Pulse Ox 97% on 3 lpm NC; mk4 10:27 Weight 56.7 kg / 125 lbs (R); Height 5 ft. 2 in. (157.48 cm) (R); dem1 10:45 Pulse 78 MON; Pulse Ox 98% ; mk4 11:12 BP 121 / 58 (auto/); mk4 11:12 Pulse 78 MON; Pulse Ox 97% ; mk4 13:38 Temp 98.8(O); mk4 14:28 Pulse 94 MON; Pulse Ox 93% ; mk4 14:28 Temp 98.9(TE); mk4 14:29 BP 142 / 65 (auto/); mk4 14:56 Pulse 88 MON; Pulse Ox 95% ; mk4 15:02 Pulse 86 MON; Pulse Ox 95% ; mk4 15:50 Pulse 90 MON; Pulse Ox 91% ; mk4 16:10 BP 152 / 70 (auto/); mk4 16:25 BP 137 / 56 (auto/); mk4 16:54 BP 165 / 74 (auto/); mk4 10:27 Body Mass Index 22.86 (56.70 kg, 157.48 cm) dem1 MDM: 11:20 Financial registration complete. mm15 11:23 [facility] [place] was scanned into [employer] and attached to record. mm15 11:24 Albuterol-Ipratropium 3 ml Inhalation once ordered. jo4 11:24 Call Respiratory ordered. jo4 11:25 Chest, 2 View (pa\E\lat) Ordered. EDMS 11:25 CBC with Diff Ordered. EDMS 11:25 BMP Ordered. EDMS 11:29 Call Respiratory complete. ml6 11:41 BMP Reviewed. jo4 13:07 CBC with Diff Reviewed. jo4 13:07 Repeat Temperature - Oral: Inform provider of result ordered. pc 13:09 CT Chest Without Contrast Ordered. EDMS 14:00 Chest, 2 View (pa\E\lat) Reviewed. jo4 15:30 CT Chest Without Contrast Reviewed. jo4 17:23 ALPRAZolam Tablet 0.25 mg PO once ordered. jo4 Administered Medications: 11:40 Drug: Albuterol-Ipratropium 3 ml [ipratropium-albuterol 0.5 mg-3 mg(2.5 mg base)/3 mL kt1 nebulization soln (3 mL)] Route: Inhalation; 17:30 Drug: ALPRAZolam 0.25 mg [alprazolam 0.25 mg tablet (1 tabs)] Route: PO; mk4 Signatures: Dispatcher [employer] [facility] Td Campbell MD MD pc Lowe, Matthew RN RN ml6 Marshal Rivers mm15 Molly Mosley RN RN mk4 Wendy Garrido DO DO jo4 Sheeba Dunlap kt1 The chart was reviewed and I authenticate all verbal orders and agree with the evaluation and treatment provided.Attachments: 11:23 [facility] Payment Agreement mm15 MTDD
--- NOTE | 2016-08-03 19:33 | EDDOCDS ---
Nurse's Notes [facility] Name: Barbara Bravo Age: 85 yrs Sex: Female : 1930 Arrival Date: 08/01/2016 Time: 09:40 Bed 6 Private MD: Brea Ruiz Diagnosis: Chronic obstructive pulmonary disease with (acute) exacerbation;Solitary pulmonary nodule Presentation: 08/01 09:54 Presenting complaint: Patient states: states she has been ill for the past week, mk4 coughing productive and short of breathe is on oxygen as she has COPD . Adult Sepsis Screening: The patient does not have new or worsening altered mentation. Patient has a respiratory rate of greater than or equal to 22 (1 point). Systolic blood pressure is greater than 100. Patient has a qSOFA score of 1- Negative Sepsis Screen. Patient has fever/chills- Positive Sepsis Screen. ED Provider Notified Td Campbell MD Patient made DELORES Level 2. Patient placed in exam room. Charge nurse notified. 09:55 Suicide/Homicide risk assessment- the patient denies having any suicidal and/or mk4 homicidal ideations and does not present with any other emotional, behavioral or mental health complaints. Status: Patient is not a well services operator or dependent. Transition of care: patient was received from [facility]-assisted. 09:55 Acuity: DELORES Level 2 mk4 09:55 Method Of Arrival: Ambulance mk4 Triage Assessment: 10:00 Respiratory: Onset: The symptoms/episode began/occurred 2 weeks prior. mk4 10:04 General: Appears in no apparent distress. Respiratory: Airway is patent Respiratory mk4 effort is even, labored, Respiratory pattern is tachypnea. Historical: - Allergies: Advair Diskus (Unknown); Aspirin (Unknown); IODINEIODINE CONTAINING (Rash); PENICILLINS (Rash); Red Dye (Unknown); SULFA (SULFONAMIDES) (Rash); Symax-SL (Unknown); zelnorm (Unknown); - Home Meds: 1. Tums Oral as needed 2. Acetaminophen Oral 650 mg as needed 3. pantoprazole 40 mg oral TbEC 1 tab once daily 4. sucralfate 1 gram Oral tab 1 tab three times a day as needed 5. Vitamin D Oral 10404 unit weekly 6. Spiriva with HandiHaler 18 mcg Inhl CpDv 1 cap once daily 7. mirtazapine 7.5 mg Oral tab nightly 8. gabapentin 100 mg Oral tab twice daily 9. Lasix 20 mg Oral tab 1 tab once daily 10. Flovent HFA 2 puffs twice daily 11. citalopram 10 mg Oral tab once daily 12. donepezil 5 mg oral TbDL nightly 13. Albuterol-Ipratropium Inhl as needed as needed 14. alprazolam 0.25 mg Oral tab 1 tab tid prn 15. Mag-Al Plus 200-200-20 mg/5 mL oral susp 30 mL as needed 16. Ventolin Rotahaler/Rotacaps Inhl as needed 17. hyoscyamine sulfate 0.125 mg SL subl 1 -2 tabs under the tongue 4 times a day as needed - PMHx: Anxiety; COPD; Gastric Polyps; GERD; IBS with diarrhea; ESSENTIAL TREMOR; - Social history: Smoking status: Patient states was never smoker of tobacco. No barriers to communication noted, The patient speaks fluent Palestinian. - Family history: Not pertinent. - : The pt / caregiver states he / she is not on anticoagulants. Home medication list is obtained from the facility MAR. Screenin:43 Screening information is obtained from the patient. Fall risk: At risk due to age, gait mk4 disturbance, The following interventions are performed due to a positive Fall Risk Screen: Fall Risk is added to Special Handling on the patient Summary Screen. A Fall Risk Bracelet was applied to the patient. Side Rails are placed in the up position. A Call Amaya is given with instruction to call for help when getting out of bed. Fall Alert bracelet is placed on the patient. Assistance ADL's: Requires assistance with meal preparation, this assistance is provided by residence staff, bathing, assistance is provided by residence staff, dressing, assistance is provided by toileting, assistance is provided by ambulation, assistance is provided by residence staff, housework, assistance is provided by residence staff, medication administration, assistance is provided by residence staff. Abuse/DV Screen: The patient / caregiver reports he/she is: not in a situation that causes fear, pain or injury. Nutritional screening: No deficits noted. Advance Directives: There is. home support is adequate. 11:53 Fall Risk. mk4 Assessment: 10:43 General: Appears ill. Neurological: Level of Consciousness is awake, alert, Pt noted to mk4 have tremors of the upper extremeties. Respiratory: Airway is patent Respiratory effort is even, Respiratory pattern is tachypnea. Derm: Skin is intact. 11:11 General: Appears in no apparent distress, Dr Toth in examining pt. Respiratory: Airway is mk4 patent Respiratory effort is even, Respiratory pattern is regular. 12:58 Neurological: Level of Consciousness is awake, alert. Respiratory: Breath sounds with mk4 wheezes inspiratory expiratory. GI: Reports UPSET STOMACH sotero madeline provided. 13:43 General: Appears in no apparent distress, pt states she has some indigestion / nausea mk4 persisting . Cardiovascular: Chest pain is denied. 13:57 General: Appears in no apparent distress, Dr Toth in speaking with pt. mk4 15:03 General: Appears in no apparent distress, pt sitting on edge of bed states she hasnt mk4 seen a nurse or Dr since 10 am which isnt true, pt requesting to be discharged , states she wants to go back to [place]. 16:10 General: Appears in no apparent distress, Behavior is anxious, cooperative, forgetful. mk4 Respiratory: Airway is patent Respiratory effort is even, unlabored, Respiratory pattern is regular. 18:04 General: Appears in no apparent distress, comfortable, Behavior is cooperative. mk4 Respiratory: Airway is patent Respiratory effort is even, Respiratory pattern is regular. Vital Signs: 09:55 BP 150 / 67; Pulse 88; Resp 26; Temp 100.7(TE); Pulse Ox 97% on 3 lpm NC; mk4 10:27 Weight 56.7 kg (R); Height 5 ft. 2 in. (157.48 cm) (R); dem1 10:45 Pulse 78 MON; Pulse Ox 98% ; mk4 11:12 BP 121 / 58 (auto/); mk4 11:12 Pulse 78 MON; Pulse Ox 97% ; mk4 13:38 Temp 98.8(O); mk4 14:28 Pulse 94 MON; Pulse Ox 93% ; mk4 14:28 Temp 98.9(TE); mk4 14:29 BP 142 / 65 (auto/); mk4 14:56 Pulse 88 MON; Pulse Ox 95% ; mk4 15:02 Pulse 86 MON; Pulse Ox 95% ; mk4 15:50 Pulse 90 MON; Pulse Ox 91% ; mk4 16:10 BP 152 / 70 (auto/); mk4 16:25 BP 137 / 56 (auto/); mk4 16:54 BP 165 / 74 (auto/); mk4 10:27 Body Mass Index 22.86 (56.70 kg, 157.48 cm) dem1 Vitals: 09:55 Log In Time N/A - ambulance arrival. mk4 ED Course: 09:41 Patient visited by Na Sullivan, Drawing Frame Tender. lbd 09:41 Patient moved to Waiting lbd 09:42 Brea Ruiz is Private Physician. lbd 09:42 Wendy Garrido DO is PHCP. jo4 09:42 Td Campbell MD is Attending Physician. jo4 09:42 Patient moved to 6 lbd 09:55 Triage Initiated mk4 10:14 Patient visited by Molly Mosley RN. mk4 10:26 Pt greeted and oriented to ED. Patient advised of names of staff involved in care, [facility] location of call amaya, wait times and NPO status. Patient has correct armband on for positive identification. Placed in gown. Bed in low position. Call light in reach. Side rails up X2. Assisted to bathroom. playground monitor on. Pulse ox on. NIBP on. 10:27 Patient visited by Portia Leon. dem1 10:28 Patient visited by Portia Leon. dem1 10:33 Patient visited by Wendy Garrido DO. jo4 10:46 Maintain field IV. IV. mk4 11:11 Patient visited by Molly Mosley RN. mk4 11:23 [facility] Payment Agreement was scanned into [employer] and attached to record. mm15 11:27 BMP Sent. mk4 11:28 CBC with Diff Sent. mk4 11:31 Patient visited by Portia Leon. dem1 11:31 Assisted to bathroom. dem1 12:06 Patient visited by Molly Mosley RN. mk4 12:39 Patient visited by Molly Mosley RN. mk4 12:59 Patient visited by Molly Mosley RN. mk4 13:17 Chest, 2 View (pa\E\lat) Returned. EDMS 13:35 Patient visited by Molly Mosley RN. mk4 13:43 The patient / caregiver is instructed regarding the plan of care and ED course. mk4 14:20 Patient visited by Amy Danielle PCA. ct3 14:31 Patient visited by Rufina San PCA. ar3 14:31 Assisted to bathroom. ar3 14:53 CT Chest Without Contrast Returned. EDMS 15:07 Patient visited by Molly Mosley, JOYCE. mk4 15:41 Patient visited by Molly Mosley, JOYCE. mk4 16:21 Patient visited by Molly Mosley RN. mk4 17:03 Patient visited by Molly Mosley, JOYCE. mk4 17:07 Buddy Henradez is Referral Physician. jo4 17:07 Chance Neumann MD is Referral Physician. jo4 17:30 Patient visited by Molly Mosley RN. mk4 18:04 Discontinued IV lock bleeding controlled, pressure dressing applied. No procedures done mk4 that require assistance. O2 via nasal cannula \T\ 2L/min. 08/02 09:25 T-Sheet-- Draft Copy was scanned into [employer] and attached to record. gb 09:25 Rhythm Strip was scanned into [employer] and attached to record. gb 09:25 PCR was scanned into [employer] and attached to record. gb Administered Medications: 08/01 11:40 Drug: Albuterol-Ipratropium 3 ml [ipratropium-albuterol 0.5 mg-3 mg(2.5 mg base)/3 mL kt1 nebulization soln (3 mL)] Route: Inhalation; 17:30 Drug: ALPRAZolam 0.25 mg [alprazolam 0.25 mg tablet (1 tabs)] Route: PO; mk4 Attachments: 09:25 Rhythm Strip gb RT: 08/01 11:53 Initial Med Neb Given as ordered Patient was instructed and evaluated on procedure. kt1 Respiratory: Breath sounds are clear Breath sounds are diminished bilaterally. Order Results: Lab Order: CBC with Diff; SPEC'M 08/01/16 11:00 Test: WHITE BLOOD COUNT; Value: 11.8; Range: 4.0-10.0; Abnormal: Above high normal; Units: K/mm3; Status: F Test: RED BLOOD COUNT; Value: 4.49; Range: 4.00-5.40; Units: M/mm3; Status: F Test: HEMOGLOBIN; Value: 12.5; Range: 12.0-16.0; Units: g/dl; Status: F Test: HEMATOCRIT; Value: 39.1; Range: 36.0-47.0; Units: %; Status: F Test: MEAN CORPUSCULAR VOLUME; Value: 87.2; Range: 80.0-96.0; Units: fl; Status: F Test: MEAN CORPUSCULAR HEMOGLOBIN; Value: 27.8; Range: 27.0-33.0; Units: pg; Status: F Test: MEAN CORPUSCULAR HGB CONC; Value: 31.9; Range: 32.0-36.5; Abnormal: Below low normal; Units: g/dl; Status: F Test: RED CELL DISTRIBUTION WIDTH; Value: 13.2; Range: 11.5-14.5; Units: %; Status: F Test: PLATELET COUNT, AUTOMATED; Value: 183; Range: 150-450; Units: k/mm3; Status: F Test: NEUTROPHILS %; Value: 91.5; Range: 36.0-66.0; Abnormal: Above high normal; Units: %; Status: F Test: LYMPH %; Value: 4.4; Range: 24.0-44.0; Abnormal: Below low normal; Units: %; Status: F Test: MONO %; Value: 2.5; Range: 0.0-5.0; Units: %; Status: F Test: EOS %; Value: 0.6; Range: 0.0-3.0; Units: %; Status: F Test: BASO %; Value: 0.2; Range: 0.0-1.0; Units: %; Status: F Test: LARGE UNSTAINED CELL %; Value: 0.8; Range: 0.0-4.0; Units: %; Status: F Test: NEUTROPHILS #; Value: 10.8; Range: 1.8-7.7; Abnormal: Above high normal; Units: K/mm3; Status: F Test: LYMPH #; Value: 0.5; Range: 1.5-4.5; Abnormal: Below low normal; Units: K/mm3; Status: F Test: MONO #; Value: 0.3; Range: 0.0-0.8; Units: K/mm3; Status: F Test: EOS #; Value: 0.1; Range: 0.0-0.50; Units: K/mm3; Status: F Test: BASO #; Value: 0.0; Range: 0.0-0.2; Units: K/mm3; Status: F Test: LARGE UNSTAINED CELL #; Value: 0.1; Range: 0.0-0.4; Units: K/mm3; Status: F Lab Order: [facility]; SPEC'M 08/01/16 11:00 Test: GLUCOSE, FASTING; Value: 88; Range: 83-110; Units: MG/DL; Status: F Test: BLOOD UREA NITROGEN; Value: 10; Range: 7-18; Units: MG/DL; Status: F Test: CREATININE FOR GFR; Value: 0.54; Range: 0.55-1.02; Abnormal: Below low normal; Units: MG/DL; Status: F Test: GLOMERULAR FILTRATION RATE; Value: > 60.0; Range: >32; Status: F Test: SODIUM LEVEL; Value: 143; Range: 136-145; Units: MEQ/L; Status: F Test: POTASSIUM SERUM; Value: 3.8; Range: 3.5-5.1; Units: MEQ/L; Status: F Test: CHLORIDE LEVEL; Value: 102; Range: 98-107; Units: MEQ/L; Status: F Test: CARBON DIOXIDE LEVEL; Value: 34; Range: 21-32; Abnormal: Above high normal; Units: MEQ/L; Status: F Test: ANION GAP; Value: 7; Range: 8-16; Abnormal: Below low normal; Units: MEQ/L; Status: F Test: CALCIUM LEVEL; Value: 9.8; Range: 8.8-10.2; Units: MG/DL; Status: F Test Note: ; Units are mL/min/1.73 m2 Chronic Kidney Disease Staging per NKF: Stage I & II GFR >=60 Normal to Mildly Decreased Stage III GFR 30-59 Moderately Decreased Stage IV GFR 15-29 Severely Decreased Stage V GFR <15 Very Little GFR Left ESRD GFR <15 on COUPLER Radiology Order: Chest, 2 View (pa\E\lat) Test: Chest, 2 View (pa\E\lat) REASON FOR EXAMINATION: Shortness of Breath; PA and lateral chest radiograph 08/01/2016; ; Indication :shortness of breath; ; Comparison: PA and lateral chest 04/06/2007, 06/29/2016, portable chest; 07/19/2016; ; The cardiac silhouette is of normal size. Chronic scarring is seen in the region; of the right cardiophrenic angle, in addition to the epicardial fat pad. There; is cephalization of pulmonary vasculature consistent with pulmonary venous; hypertension. Small nodular density in the right base measuring 6 x 11 mm; represents interval change. There is generalized osteopenia in the thoracic; spine and minimal thoracic dextroscoliosis; ; Impression underlying COPD with pulmonary venous hypertension.; ; Prominent right epicardial fat pad with scarring in the cardiophrenic angle.; ; 6 x 11 mm nodular density in the right base concerning for pulmonary nodule.; ; Consider CT of the chest which can be performed without IV contrast; ; ; Signed by; Raysa Deal MD 08/01/2016 01:01 P; Radiology Order: CT Chest Without Contrast Test: CT Chest Without Contrast REASON FOR EXAMINATION: Ndule on CXR; CT study of the chest without contrast:; ; History: Nodule on chest x-ray. Comparison is made with today's chest x-ray; showing a 1.1 cm nodular density projecting just above the right hemidiaphragm.; ; CT findings: There is no evidence of pleural or pericardial effusion. No; mediastinal or hilar adenopathy is noted on this noncontrast CT study. There is; some vascular calcification. No adrenal lesion is seen. The visualized upper; abdominal structures show clips in the gallbladder fossa and are otherwise; unremarkable.; ; There is bronchiectasis in the right lower lobe with some inspissated; endobronchial secretions in the basilar segment bronchi. There is some linear; atelectatic or fibrotic change in the right lower lobe. Also noted in this; region is a somewhat nodular opacity 2-3 cm above the right hemidiaphragm. This; measures 7 mm in diameter. It is not visibly calcified. This would appear to; correspond with the radiographic opacity. There is a second pulmonary nodule; which is more impressive and more worrisome in the vishal bronchovascular; distribution in the left upper lobe. This measures 12-13 mm in greatest; diameter. It is not visibly calcified. No other significant lung nodule or mass; lesion is seen. No infiltrate is noted. The exam is otherwise unremarkable.; ; Impression:; ; 1. Right lower lobe bronchiectasis with discoid atelectasis and/or scarring in; the right lower lobe.; ; 2. 7 mm noncalcified pulmonary nodule in the right lower lobe.; ; 3. 13 mm irregular noncalcified pulmonary nodule in the left upper lobe; worrisome for primary lung malignancy. Recommend pulmonary medicine evaluation; and PET scanning.; ; ; Signed by; Michael Lo MD 08/01/2016 02:35 P; Outcome: 17:08 Discharge ordered by Provider. jo4 18:07 Discharge Assessment: Patient awake, alert and oriented x 3. No cognitive and/or mk4 functional deficits noted. Patient verbalized understanding of disposition instructions. Patient awake and alert. Discharge Assessment: patient administered narcotics - no. Discharged to group home. Report called to fidelina. The following High Risk Discharge criteria are identified: None. Condition: stable. CT Study completed. Property sent home with patient. 18:33 Patient left the ED. mk4 Signatures: Dispatcher [employer] EDMS Na Sullivan, Drawing Frame Tender Unit lbd Cassie Dougherty, Reg Reg gb Sheeba Dunlap kt1 Rufina San, CHAINSTITCH ELASTIC ATTACHER CHAINSTITCH ELASTIC ATTACHER ar3 DanielleAmy, CHAINSTITCH ELASTIC ATTACHER CHAINSTITCH ELASTIC ATTACHER ct3 Portia Leon1 Marshal Rivers mm15 Molly Mosley, JOYCE RN mk4 Wendy Garrido DO DO jo4 Corrections: (The following items were deleted from the chart) 09:56 09:54 Acuity: DELORES Level 3 mk4 mk4 Chart Complete MTDD
--- NOTE | 2016-08-03 19:33 | EDDOCDS ---
Physician Documentation [facility] Name: Barbara Bravo Age: 85 yrs Sex: Female : 1930 Arrival Date: 08/01/2016 Time: 09:40 Bed 6 Private MD: Brea Ruiz Disposition: 08/01/16 17:08 Discharged to Home/Self Care. Impression: Chronic obstructive pulmonary disease with (acute) exacerbation, Solitary pulmonary nodule. - Condition is Stable. - Discharge Instructions: Chronic Obstructive Pulmonary Disease. - Medication Reconciliation, Local Pharmacy Hours form. - Follow up: Buddy Hernadez; When: As previously arranged; Reason: Further diagnostic work-up. Follow up: Chance Neumann MD; When: Call to arrange an appointment; Reason: Recheck today's complaints. - Problem is an acute exacerbation. - Symptoms have improved. - Notes: A referral will be made for you to see a behavioral intervention specialist for the lung nodule noted on chest CT. You have requested to see a femaleprovider, if possible. Please schedule an appointment to see Dr. Neumann at your soonest convenience. Historical: - Allergies: Advair Diskus (Unknown); Aspirin (Unknown); IODINEIODINE CONTAINING (Rash); PENICILLINS (Rash); Red Dye (Unknown); SULFA (SULFONAMIDES) (Rash); Symax-SL (Unknown); zelnorm (Unknown); - Home Meds: 1. Tums Oral as needed 2. Acetaminophen Oral 650 mg as needed 3. pantoprazole 40 mg oral TbEC 1 tab once daily 4. sucralfate 1 gram Oral tab 1 tab three times a day as needed 5. Vitamin D Oral 77847 unit weekly 6. Spiriva with HandiHaler 18 mcg Inhl CpDv 1 cap once daily 7. mirtazapine 7.5 mg Oral tab nightly 8. gabapentin 100 mg Oral tab twice daily 9. Lasix 20 mg Oral tab 1 tab once daily 10. Flovent HFA 2 puffs twice daily 11. citalopram 10 mg Oral tab once daily 12. donepezil 5 mg oral TbDL nightly 13. Albuterol-Ipratropium Inhl as needed as needed 14. alprazolam 0.25 mg Oral tab 1 tab tid prn 15. Mag-Al Plus 200-200-20 mg/5 mL oral susp 30 mL as needed 16. Ventolin Rotahaler/Rotacaps Inhl as needed 17. hyoscyamine sulfate 0.125 mg SL subl 1 -2 tabs under the tongue 4 times a day as needed - PMHx: Anxiety; COPD; Gastric Polyps; GERD; IBS with diarrhea; ESSENTIAL TREMOR; - Social history: Smoking status: Patient states was never smoker of tobacco. No barriers to communication noted, The patient speaks fluent Iranian. - Family history: Not pertinent. - : The pt / caregiver states he / she is not on anticoagulants. Home medication list is obtained from the facility SEP. Vital Signs: 08/01 09:55 BP 150 / 67; Pulse 88; Resp 26; Temp 100.7(TE); Pulse Ox 97% on 3 lpm NC; mk4 10:27 Weight 56.7 kg / 125 lbs (R); Height 5 ft. 2 in. (157.48 cm) (R); dem1 10:45 Pulse 78 MON; Pulse Ox 98% ; mk4 11:12 BP 121 / 58 (auto/); mk4 11:12 Pulse 78 MON; Pulse Ox 97% ; mk4 13:38 Temp 98.8(O); mk4 14:28 Pulse 94 MON; Pulse Ox 93% ; mk4 14:28 Temp 98.9(TE); mk4 14:29 BP 142 / 65 (auto/); mk4 14:56 Pulse 88 MON; Pulse Ox 95% ; mk4 15:02 Pulse 86 MON; Pulse Ox 95% ; mk4 15:50 Pulse 90 MON; Pulse Ox 91% ; mk4 16:10 BP 152 / 70 (auto/); mk4 16:25 BP 137 / 56 (auto/); mk4 16:54 BP 165 / 74 (auto/); mk4 10:27 Body Mass Index 22.86 (56.70 kg, 157.48 cm) dem1 MDM: 11:20 Financial registration complete. mm15 11:23 [facility] Payment Agreement was scanned into [employer] and attached to record. mm15 11:24 Albuterol-Ipratropium 3 ml Inhalation once ordered. jo4 11:24 Call Respiratory ordered. jo4 11:25 Chest, 2 View (pa\E\lat) Ordered. EDMS 11:25 CBC with Diff Ordered. EDMS 11:25 BMP Ordered. EDMS 11:29 Call Respiratory complete. ml6 11:41 BMP Reviewed. jo4 13:07 CBC with Diff Reviewed. jo4 13:07 Repeat Temperature - Oral: Inform provider of result ordered. pc 13:09 CT Chest Without Contrast Ordered. EDMS 14:00 Chest, 2 View (pa\E\lat) Reviewed. jo4 15:30 CT Chest Without Contrast Reviewed. jo4 17:23 ALPRAZolam Tablet 0.25 mg PO once ordered. jo4 08/02 09:25 T-Sheet-- Draft Copy was scanned into [employer] and attached to record. gb 09: Rhythm Strip was scanned into [employer] and attached to record. gb 09: PCR was scanned into [employer] and attached to record. gb Administered Medications: 08/01 11:40 Drug: Albuterol-Ipratropium 3 ml [ipratropium-albuterol 0.5 mg-3 mg(2.5 mg base)/3 mL kt1 nebulization soln (3 mL)] Route: Inhalation; 17:30 Drug: ALPRAZolam 0.25 mg [alprazolam 0.25 mg tablet (1 tabs)] Route: PO; mk4 Signatures: Dispatcher [employer] EDPA Td Campbell MD MD pc Barnhardt, Gloria, Reg Reg Federico Morris, RN RN ml6 Marshal Rivers mm15 Molly Mosley RN RN mk4 Wendy Garrido DO DO jo4 Sheeba Dunlap kt1 The chart was reviewed and I authenticate all verbal orders and agree with the evaluation and treatment provided.Attachments: 11:23 [facility] Payment Agreement mm15 08/02 09:25 T-Sheet-- Draft Copy gb Chart Complete MTDD
--- NOTE | 2016-08-03 19:33 | EDDOCDS ---
Physician Documentation [facility] Name: Barbara Bravo Age: 85 yrs Sex: Female : 1930 Arrival Date: 08/01/2016 Time: 09:40 Bed 6 Private MD: Brea Ruiz Disposition: 08/01/16 17:08 Discharged to Home/Self Care. Impression: Chronic obstructive pulmonary disease with (acute) exacerbation, Solitary pulmonary nodule. - Condition is Stable. - Discharge Instructions: Chronic Obstructive Pulmonary Disease. - Medication Reconciliation, Local Pharmacy Hours form. - Follow up: Buddy Hernadez; When: As previously arranged; Reason: Further diagnostic work-up. Follow up: Chance Neumann MD; When: Call to arrange an appointment; Reason: Recheck today's complaints. - Problem is an acute exacerbation. - Symptoms have improved. - Notes: A referral will be made for you to see a building performance specialist for the lung nodule noted on chest CT. You have requested to see a femaleprovider, if possible. Please schedule an appointment to see Dr. Neumann at your soonest convenience. Historical: - Allergies: Advair Diskus (Unknown); Aspirin (Unknown); IODINEIODINE CONTAINING (Rash); PENICILLINS (Rash); Red Dye (Unknown); SULFA (SULFONAMIDES) (Rash); Symax-SL (Unknown); zelnorm (Unknown); - Home Meds: 1. Tums Oral as needed 2. Acetaminophen Oral 650 mg as needed 3. pantoprazole 40 mg oral TbEC 1 tab once daily 4. sucralfate 1 gram Oral tab 1 tab three times a day as needed 5. Vitamin D Oral 38307 unit weekly 6. Spiriva with HandiHaler 18 mcg Inhl CpDv 1 cap once daily 7. mirtazapine 7.5 mg Oral tab nightly 8. gabapentin 100 mg Oral tab twice daily 9. Lasix 20 mg Oral tab 1 tab once daily 10. Flovent HFA 2 puffs twice daily 11. citalopram 10 mg Oral tab once daily 12. donepezil 5 mg oral TbDL nightly 13. Albuterol-Ipratropium Inhl as needed as needed 14. alprazolam 0.25 mg Oral tab 1 tab tid prn 15. Mag-Al Plus 200-200-20 mg/5 mL oral susp 30 mL as needed 16. Ventolin Rotahaler/Rotacaps Inhl as needed 17. hyoscyamine sulfate 0.125 mg SL subl 1 -2 tabs under the tongue 4 times a day as needed - PMHx: Anxiety; COPD; Gastric Polyps; GERD; IBS with diarrhea; ESSENTIAL TREMOR; - Social history: Smoking status: Patient states was never smoker of tobacco. No barriers to communication noted, The patient speaks fluent Belarusian. - Family history: Not pertinent. - : The pt / caregiver states he / she is not on anticoagulants. Home medication list is obtained from the facility SEP. Vital Signs: 08/01 09:55 BP 150 / 67; Pulse 88; Resp 26; Temp 100.7(TE); Pulse Ox 97% on 3 lpm NC; mk4 10:27 Weight 56.7 kg / 125 lbs (R); Height 5 ft. 2 in. (157.48 cm) (R); dem1 10:45 Pulse 78 MON; Pulse Ox 98% ; mk4 11:12 BP 121 / 58 (auto/); mk4 11:12 Pulse 78 MON; Pulse Ox 97% ; mk4 13:38 Temp 98.8(O); mk4 14:28 Pulse 94 MON; Pulse Ox 93% ; mk4 14:28 Temp 98.9(TE); mk4 14:29 BP 142 / 65 (auto/); mk4 14:56 Pulse 88 MON; Pulse Ox 95% ; mk4 15:02 Pulse 86 MON; Pulse Ox 95% ; mk4 15:50 Pulse 90 MON; Pulse Ox 91% ; mk4 16:10 BP 152 / 70 (auto/); mk4 16:25 BP 137 / 56 (auto/); mk4 16:54 BP 165 / 74 (auto/); mk4 10:27 Body Mass Index 22.86 (56.70 kg, 157.48 cm) dem1 MDM: 11:20 Financial registration complete. mm15 11:23 [facility] Payment Agreement was scanned into Atzip and attached to record. mm15 11:24 Albuterol-Ipratropium 3 ml Inhalation once ordered. jo4 11:24 Call Respiratory ordered. jo4 11:25 Chest, 2 View (pa\E\lat) Ordered. EDMS 11:25 CBC with Diff Ordered. EDMS 11:25 BMP Ordered. EDMS 11:29 Call Respiratory complete. ml6 11:41 BMP Reviewed. jo4 13:07 CBC with Diff Reviewed. jo4 13:07 Repeat Temperature - Oral: Inform provider of result ordered. pc 13:09 CT Chest Without Contrast Ordered. EDMS 14:00 Chest, 2 View (pa\E\lat) Reviewed. jo4 15:30 CT Chest Without Contrast Reviewed. jo4 17:23 ALPRAZolam Tablet 0.25 mg PO once ordered. jo4 08/02 09:25 T-Sheet-- Draft Copy was scanned into Atzip and attached to record. gb 09: Rhythm Strip was scanned into Atzip and attached to record. gb 09: PCR was scanned into [employer] and attached to record. gb Administered Medications: 08/01 11:40 Drug: Albuterol-Ipratropium 3 ml [ipratropium-albuterol 0.5 mg-3 mg(2.5 mg base)/3 mL kt1 nebulization soln (3 mL)] Route: Inhalation; 17:30 Drug: ALPRAZolam 0.25 mg [alprazolam 0.25 mg tablet (1 tabs)] Route: PO; mk4 Signatures: Dispatcher [employer] EDVT Td Campbell MD MD pc Barnhardt, Gloria, Reg Reg Federico Morris, RN RN ml6 Marshal Rivers mm15 Molly Mosley RN RN mk4 Wendy Garrido DO DO jo4 Sheeba Dunlap kt1 The chart was reviewed and I authenticate all verbal orders and agree with the evaluation and treatment provided.Attachments: 11:23 [facility] Payment Agreement mm15 08/02 09:25 T-Sheet-- Draft Copy gb Chart Complete MTDD
== END 2016-08-01 18:33 | disposition home or self-care (01) ==
LOC: M ED 09:40
DX: J44.1 Chronic obstructive pulmonary disease with (acute) exacerbation (principal); R91.1 Solitary pulmonary nodule; F41.1 Generalized anxiety disorder; K21.9 Gastro-esophageal reflux disease without esophagitis; K31.7 Polyp of stomach and duodenum; K58.0 Irritable bowel syndrome with diarrhea; G25.0 Essential tremor; Z79.899 Other long term (current) drug therapy; Z88.8 Allergy status to other drugs, medicaments and biological substances; Z88.6 Allergy status to analgesic agent; Z88.0 Allergy status to penicillin; Z91.018 Allergy to other foods; Z88.2 Allergy status to sulfonamides

== ENCOUNTER → 2016-08-29 | Outpatient (REF) | payer MEDICARE, OTHER | END | disposition home or self-care (01) | PROVIDERS: ATTEND Physician Assistant Medical | DX: K21.9 Gastro-esophageal reflux disease without esophagitis (principal) ==

== ENCOUNTER → 2016-09-08 | Outpatient (REF) | payer MEDICARE, OTHER ==
[~2016-09-08] MED LIST changes: +ACET-654 PO; +LEVO750T33 PO; +MACR100C3 PO; +PRED10TA PO; +TUMS500C PO
== END ==
LOC: EEVIPCON 09:14 → M LAB REF 09:14
PROVIDERS: ATTEND Physician Assistant
DX: N39.0 Urinary tract infection, site not specified (principal)

== ENCOUNTER → 2016-09-15 | Outpatient (CLI) | payer MEDICARE, OTHER ==
[~2016-09-15] MED LIST changes: -LEVO750T33 PO; -PRED10TA PO
--- NOTE | 2016-09-15 14:00 | REP ---
CHEST, TWO VIEWS: HISTORY: Shortness of breath. COMPARISON: 08/01/2016 A diffuse increase in interstitial markings is present in the lungs. The heart is upper limits of normal in size. The pulmonary vasculature is normal in appearance. The bony structure is osteopenic. IMPRESSION: Chronic interstitial fibrosis. Signed by Jaden Rojas MD 09/15/2016 02:04 P
[2016-09-15 17:33] LABS: ANION GAP 6 MEQ/L (8-16); BLOOD UREA NITROGEN 18 MG/DL (7-18); CALCIUM LEVEL 9.3 MG/DL (8.8-10.2); CARBON DIOXIDE LEVEL 38 MEQ/L (21-32); CHLORIDE LEVEL 99 MEQ/L (98-107); CREATININE FOR GFR 0.56 MG/DL (0.55-1.02); GLOMERULAR FILTRATION RATE > 60.0 (>32); GLUCOSE, FASTING 67 MG/DL (83-110); POTASSIUM SERUM 4.5 MEQ/L (3.5-5.1); SODIUM LEVEL 143 MEQ/L (136-145)
[2016-09-15 17:40] LABS: BASO % 0.4 % (0.0-1.0); EOS # 0.2 K/mm3 (0.0-0.50); EOS % 4.5 % (0.0-3.0); LARGE UNSTAINED CELL # 0.2 K/mm3 (0.0-0.4); LARGE UNSTAINED CELL % 4.4 % (0.0-4.0); LYMPH # 0.9 K/mm3 (1.5-4.5); LYMPH % 16.8 % (24.0-44.0); MEAN CORPUSCULAR HEMOGLOBIN 26.3 pg (27.0-33.0); MEAN CORPUSCULAR VOLUME 87.9 fl (80.0-96.0); MONO # 0.4 K/mm3 (0.0-0.8); NEUTROPHILS # 3.5 K/mm3 (1.8-7.7); NEUTROPHILS % 66.8 % (36.0-66.0); PLATELET COUNT, AUTOMATED 228 k/mm3 (150-450); RED CELL DISTRIBUTION WIDTH 14.2 % (11.5-14.5); WHITE BLOOD COUNT 5.3 K/mm3 (4.0-10.0)
[2016-09-15 18:03] LABS: ADD MORPHOLOGY? YES; HYPOCHROMASIA 1+
== END ==
LOC: M SMT 10:58
PROVIDERS: ATTEND Student in an Organized Health Care Education/Training Program
DX: J84.9 Interstitial pulmonary disease, unspecified (principal); R06.02 Shortness of breath

== ENCOUNTER 2016-09-18 16:23 | Inpatient (IN) | payer MEDICARE, OTHER ==
[~2016-09-18] VITALS: Ht 157.5 cm; Wt 58.8 kg
[~2016-09-18 16:23] MED LIST changes: -ACET-654 PO; -MACR100C3 PO; -TUMS500C PO
[2016-09-18 18:07] LABS: BASO % 0.2 % (0.0-1.0); EOS # 0.4 K/mm3 (0.0-0.50); EOS % 6.6 % (0.0-3.0); LARGE UNSTAINED CELL # 0.2 K/mm3 (0.0-0.4); LARGE UNSTAINED CELL % 3.4 % (0.0-4.0); LYMPH # 1.4 K/mm3 (1.5-4.5); LYMPH % 23.6 % (24.0-44.0); MEAN CORPUSCULAR HEMOGLOBIN 26.9 pg (27.0-33.0); MEAN CORPUSCULAR HGB CONC 30.8 g/dl (32.0-36.5); MEAN CORPUSCULAR VOLUME 87.2 fl (80.0-96.0); MONO # 0.3 K/mm3 (0.0-0.8); MONO % 5.3 % (0.0-5.0); NEUTROPHILS # 3.7 K/mm3 (1.8-7.7); NEUTROPHILS % 60.9 % (36.0-66.0); PLATELET COUNT, AUTOMATED 222 k/mm3 (150-450); RED CELL DISTRIBUTION WIDTH 14.1 % (11.5-14.5)
--- NOTE | 2016-09-18 18:17 | REP ---
Portable chest x-ray: History: Dyspnea and cough. Comparison chest x-ray is from 09/15/2016. Findings: The lungs are somewhat hyperinflated free of infiltrate. Heart is mildly enlarged unchanged. Interstitial markings are slightly prominent in the bases. Pulmonary vasculature is not increased. Oxygen delivery tubing and EKG monitoring electrodes are seen. Impression: Mildly prominent heart unchanged. Bibasilar interstitial fibrosis mild in degree. No acute disease. Signed by Michael Lo MD 09/18/2016 07:46 P
[2016-09-18 18:27] LABS: ANION GAP 3 MEQ/L (8-16); BLOOD UREA NITROGEN 20 MG/DL (7-18); CALCIUM LEVEL 9.1 MG/DL (8.8-10.2); CARBON DIOXIDE LEVEL 38 MEQ/L (21-32); CHLORIDE LEVEL 101 MEQ/L (98-107); CREATININE FOR GFR 0.61 MG/DL (0.55-1.02); GLOMERULAR FILTRATION RATE > 60.0 (>32); GLUCOSE, FASTING 97 MG/DL (83-110); POTASSIUM SERUM 4.1 MEQ/L (3.5-5.1); SODIUM LEVEL 142 MEQ/L (136-145)
[2016-09-18] MEDS ORDERED: dexameTHASONE 20 MG/5 ML VIAL (J1100) IV ONE (19:15)
[2016-09-18] MEDS: IPRATROPIUM 0.5MG/ALBUTEROL 2.5MG INH SOL UD 3ML (DUONEB)(J7620) NEB SCH ×4 (19:35→23:45)
[2016-09-18 20:03] LABS: ABG BASE EXCESS 10.8 (-2.0-2.0); ABG HCO3 34.9 MEQ/L (22.0-26.0); ABG PARTIAL PRESSURE CO2 44.7 mmHg (35.0-45.0); ABG PARTIAL PRESSURE O2 142.4 mmHg (75.0-100.0); ABG STANDARD HCO3 34.5 MEQ/L (22.0-26.0); ABG TOTAL CO2 36.2 MEQ/L (23.0-31.0)
--- NOTE | 2016-09-18 21:00 | ECGEPIP ---
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
[2016-09-18] MEDS ORDERED: ACETAMINOPHEN TAB 650MG DOSE (2X325MG) PO PRN (21:45)
[2016-09-18] MEDS ORDERED: IPRASOL4 INH (22:45)
[2016-09-18] MEDS ORDERED: FURO20TA2 PO (22:45)
[2016-09-18] MEDS ORDERED: HYOS0.1259 PO (22:45)
[2016-09-18] MEDS ORDERED: TUMS500C PO (22:45)
[2016-09-18] MEDS ORDERED: CITA10TA5 PO (22:45)
[2016-09-18] MEDS ORDERED: DONE5TAB17 PO (22:45)
[2016-09-18] MEDS ORDERED: PANT40TA2 PO (22:45)
[2016-09-18] MEDS ORDERED: ACET-654 PO (22:45)
[2016-09-18] MEDS ORDERED: MYLASSUD PO (22:45)
[2016-09-18] MEDS ORDERED: MACR100C3 PO (22:45)
[2016-09-18] MEDS ORDERED: FLUT44IN INH (22:45)
[2016-09-18] MEDS ORDERED: GABA-279 PO (22:45)
[2016-09-18] MEDS ORDERED: ALPR0.25 PO (22:45)
[2016-09-18 23:08] VITALS: BP 146/65
[2016-09-18] MEDS: ALPRAZolam 0.25 MG TAB PO PRN (23:32)
--- NOTE | 2016-09-18 23:48 | HPEPDOC ---
General Date of Admission Sep 18, 2016 at 21:40 Primary Care Physician: HONORIO NAVARRO DO Attending Physician: PIETER VELASQUEZ DO Chief Complaint The patient is a 86-year-old female admitted with a reason for visit of Copd W/ Exacerbation. Source: Patient, Family, Old records Exam Limitations: No limitations Timing/Duration: Day(s), Getting worse Severity: Moderate Associated Symptoms: Chest Pain, Cough, Shortness of breath, Weakness History of Present Illness Ms. Bravo is an 86 female with a past medical history significant for chronic obstructive pulmonary disease, grade 1 diastolic dysfunction, anxiety, gastroesophageal reflux disease, Alzheimer's disease, essential tremor, neuropathy, and vitamin D deficiency who presents to [facility] with "not feeling good" for the last couple days. She is a resident of [facility] and is accompanied in the emergency department by her daughter. She states that she is "not feeling good" for the last couple days and feels as if she is getting progressively worse. She initially presented to her primary care provider at the resident clinic and was instructed to present to the ED due to her worsening symptoms. She states that she feels short of breath and that she is "coming down with a cold." She admits to shortness of breath, especially with ambulation. She states that her nebulizer treatments do help. She is on oxygen 2L nasal cannula 05/02. She states that her breathing limits her activity. She admits to a productive cough of yellow sputum and states that she felt feverish at time of presentation. She describes a chest tightness , but denies pain in her chest. She describes a heaviness in her chest for the past couple days, states that is has remained the same in character, and is constant. The heaviness gets worse with exertion. She admits to a burning in her lower extremities that has been present since her 30's, but no pain. She feels weak and unsteady, but denies ever falling. She states that she is very cautious when ambulating to make sure she does not fall. She feels nervous and scared and states that she has always been a tearful individual. She denies any recent travel, environmental exposure, dizziness, blurry vision, change in vision or hearing. Home Medications Scheduled Albuterol/Ipratropium (Ipratropium [place]/Albut 0.5-2.5 (3) mg/3Ml) 1 Yasemin Yasemin 1 YASEMIN INH BID (Reported) Alprazolam (Alprazolam) 0.25 Mg Tab 0.25 MG PO TID (Reported) Citalopram Hydrobromide (Citalopram Hydrobromide) 10 Mg Tab 10 MG PO DAILY ( Reported) Donepezil Hydrochloride (Donepezil HCl) 5 Mg Tab 5 MG PO QHS (Reported) Fluticasone Propionate (Flovent Hfa 44 MCG) 120 Puff/10.6 Gm Aero 2 PUFF INH BID (Reported) Furosemide (Furosemide) 20 Mg Tab 20 MG PO DAILY (Reported) Gabapentin (Gabapentin) 100 Mg Cap 100 MG PO BID (Reported) Levofloxacin Hemihydrate (Levofloxacin) 750 Mg Tab 750 MG PO DAILY Mirtazapine (Mirtazapine) 7.5 Mg Tab 15 MG PO QHS (Reported) Pantoprazole Sodium (Pantoprazole Sodium) 40 Mg Tab 40 MG PO BID (Reported) Prednisone (Prednisone) 10 Mg Tab 10 MG PO ASDIRECTED Sucralfate (Carafate) 1 Gm Tab 1 GM PO AC (Reported) Tiotropium [place] Monohydrate (Spiriva Handihaler) 18 Mcg Cap 1 INHALATION INH DAILY (Reported) Vitamin D (Drisdol) 50,000 Unit Cap 50,000 UNIT PO QWEEK (Reported) SUNDAY Scheduled PRN Acetaminophen (Acetaminophen) 325 Mg Tab 650 MG PO Q6H PRN PRN PAIN (Reported) Albuterol Sulfate (Ventolin Hfa) 200 Puff/8 Gm Aers 2 PUFF INH Q4H PRN PRN SHORTNESS OF BREATH (Reported) Albuterol/Ipratropium (Ipratropium [place]/Albut 0.5-2.5 (3) mg/3Ml) 1 Yasemin Yasemin 1 YASEMIN INH Q6H PRN PRN SHORTNESS OF BREATH (Reported) Aluminum/Magnesium/Simeth (Mag-Al Plus 200-200-20 mg/5Ml) 30 Ml Susp 10 ML PO Q6H PRN PRN GI UPSET (Reported) Calcium Carbonate (Tums) 500 Mg Chw 500 MG PO QID PRN PRN INDIGESTION (Reported ) Hyoscyamine Sulfate (Hyoscyamine Sulfate) 0.125 Mg/5 Ml Elx 0.125 MG PO QID PRN PRN CRAMPS (Reported) Allergies Coded Allergies: Penicillins (Verified Allergy, Mild, RASH, 07/07/16) Sulfa Drugs (Verified Allergy, Mild, RASH, 07/07/16) Aspirin (Unverified Allergy, Unknown, 01/11/16) Fluticasone (Unverified Allergy, Unknown, 06/29/16) Hyoscyamine (Unverified Allergy, Unknown, [place], 01/11/16) Iodine (Unverified Allergy, Unknown, "TURNS RED", 01/11/16) Red Dye (Unverified Allergy, Unknown, "RED FOOD DYE", 01/11/16) Salmeterol (Unverified Allergy, Unknown, 06/29/16) Tegaserod (Unverified Allergy, Unknown, 01/11/16) Past Medical History Medical History 1. COPD 2. Anxiety 3. Grade 1 diastolic heart failure 4. GERD 5. Neuropathy 6. Alzheimer's 7. Essential tremor 8. IBS 9. Vitamin D deficiency Surgical History 1. Hysterectomy 2. Cholecystectomy 3. 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 No pets Review of Symptoms Constitutional: Reports: Weakness Eyes: Denies: Vision change ENT: Denies: Ear Pain Pulmonary: Reports: Cough, Dyspnea Cardiovascular: Reports: Chest Pain (Heaviness, tightness) Gastrointestinal: Denies: Abdominal Pain, Hematochezia, Melena, Nausea, Vomiting Genitourinary: Denies: Hematuria Hematologic: Denies: Petecchia, Purpura Musculoskeletal: Reports: Back Pain, Shoulder Pain Neurological: Reports: Weakness Physical Examination General Exam: Positive: Alert, Cooperative Eye Exam: Positive: EOMI, PERRLA, Negative: Sclera icteric ENT Exam: Positive: Atraumatic Neck Exam: Positive: Supple, Negative: Lymphadenopathy, thyromegaly Chest Exam: Positive: Diminished, Rhonchi, Wheezing Heart Exam: Positive: Normal S1, Normal S2, Rate Normal, Regular Rhythm, Negative: Gallops, Murmurs, Rubs Telemetry: Positive: No significant arrhythmia, Sinus Abdomen Exam: Positive: Normal bowel sounds, Soft, Negative: Hepatospenomegaly, Tenderness Extremity Exam: Positive: Normal pulses, Tenderness, Negative: Clubbing, Cyanosis, Edema, Swelling Skin Exam: Negative: Lesion, Rash Neuro Exam: Positive: Cranial Nerves 3-12 NL, Normal Speech Vital Signs T 98.1 HR 89 RR 22 BP 123/58 O2 95% 2L NC Height (in): 62 Weight (kg): 56.699 BMI (kg): 22.9 Laboratory Data Labs 24H Laboratory Tests 2 09/18/16 17:50: Anion Gap 3L, B-Type Natriuretic Peptide 19.5, White Blood Count 6.0, Red Blood Count 4.26, Hemoglobin 11.4L, Hematocrit 37.1, Mean Corpuscular Volume 87.2, Mean Corpuscular Hemoglobin 26.9L, Mean Corpuscular Hemoglobin Concent 30.8L, Red Cell Distribution Width 14.1, Platelet Count 222, Neutrophils (%) (Auto) 60.9, Lymphocytes (%) (Auto) 23.6L, Monocytes (%) (Auto) 5.3H, Eosinophils (%) ( Auto) 6.6H, Basophils (%) (Auto) 0.2, Neutrophils # (Auto) 3.7, Lymphocytes # ( Auto) 1.4L, Monocytes # (Auto) 0.3, Eosinophils # (Auto) 0.4, Basophils # (Auto ) 0.0, Blood Urea Nitrogen 20H, Creatinine 0.61, Sodium Level 142, Potassium Level 4.1, Chloride Level 101, Carbon Dioxide Level 38H, Calcium Level 9.1, Glomerular Filtration Rate > 60.0, Large Unclassified Cells # 0.2, Large Unclassified Cells % 3.4 09/18/16 19:45: Arterial Blood pH 7.510H, Arterial Blood Partial Pressure CO2 44.7, Arterial Blood Partial Pressure O2 142.4H, Arterial Blood Total CO2 36.2H, Arterial Blood HCO3 34.9H, Arterial Blood Base Excess 10.8H, Arterial Blood Oxygen Saturation 99.5H, Blood Gas Bicarbonate Standard 34.5H CBC/BMP Laboratory Tests 09/18/16 17:50 Calcium Level 9.1, Red Blood Count 4.26, Mean Corpuscular Volume 87.2, Mean Corpuscular Hemoglobin 26.9 L, Mean Corpuscular Hemoglobin Concent 30.8 L, Red Cell Distribution Width 14.1, Neutrophils (%) (Auto) 60.9, Lymphocytes (%) (Auto ) 23.6 L, Monocytes (%) (Auto) 5.3 H, Eosinophils (%) (Auto) 6.6 H, Basophils (% ) (Auto) 0.2, Neutrophils # (Auto) 3.7, Lymphocytes # (Auto) 1.4 L, Monocytes # (Auto) 0.3, Eosinophils # (Auto) 0.4, Basophils # (Auto) 0.0 Microbiology Microbiology 09/18/16 Blood Culture, Received Pending 09/18/16 Influenza Virus Type A Antigen - Final, Complete 09/18/16 Influenza Virus Type B Antigen - Final, Complete RAD Interpretation STUDY: CXR Rad Actions: Report Reviewed (Mildly prominent heart unchanged. Bibasilar interstitial fibrosis mild in degree. No acute disease.) Assessment/Plan 87 year old female who presents with signs and symptoms consistent with chronic obstructive pulmonary disease exacerbation. Problems (1) COPD with exacerbation Status: Acute Response to Treatment: Stable Problem Text: ABG: pH 7.51, pCO2 44.7, pO2 142.4, HCO3 34.9 - Continue patient on 2L NC - Continuous O2 saturation monitoring Normal WBC - Will hold administering antibiotics for the time-being - Obtain sputum culture - Obtain blood culture - Influenza negative Ordered - Duoneb - Spiriva (home medication) - Flovent (home medication) Monitor repeat labs (2) Diastolic CHF, chronic Status: Chronic Response to Treatment: Stable Problem Text: Maintain patient on home medication - Lasix 20mg daily (3) Neuropathy Status: Chronic Response to Treatment: Stable Problem Text: Maintain patient on home medication - Neurontin 100mg twice a day (4) Anxiety Status: Chronic Response to Treatment: Stable Problem Text: Continue patient on home medications - Xanax 0.25mg three times a day, as needed - Celexa 10mg daily - Remeron 7.5mg nightly (5) GERD (gastroesophageal reflux disease) Status: Chronic Response to Treatment: Stable Problem Text: Ordered - Mylanta 10mL every six hours, as needed Continue patient on home medications - Protonix 40mg twice a day Plan / VTE VTE Prophylaxis Ordered?: Yes (Lovenox 40mg SC daily) Plan Plan Continue nebulizer treatments and inhaled medications for symptomatic relief Monitor O2 saturation Maintain oxygenation via nasal cannula at 2L Continue home medications: GERD, anxiety, CHF, neuropathy Prophylactic DVT treatment: Lovenox 40mg SC daily Monitor daily labs Disposition Medical-surgical unit Anticipated hospitalization: 2 nights Diet: Continue Current Activity: Continue Current Diagnostics: Repeat Labs in AM, Obtain Cultures Anticipated Discharge: Assisted Living CARLOS EMERY Sep 18, 2016 23:48
[2016-09-19] MEDS: MAALOX 30 ML SUSP *UDC PO PRN (02:23)
[2016-09-19 06:00] VITALS: BP 142/63
[2016-09-19] MEDS: IPRATROPIUM 0.5MG/ALBUTEROL 2.5MG INH SOL UD 3ML (DUONEB)(J7620) NEB SCH ×3 (06:50→20:37)
[2016-09-19] MEDS: FLUTICASONE HFA 44 MCG 10.6GM INHALER (FLOVENT) INH SCH ×2 (07:50→20:36)
[2016-09-19] MEDS: TIOTROPIUM INHALER/CAPSULE (SPIRIVA) INH SCH (07:52)
[2016-09-19 07:55] VITALS: O2SAT 92
[2016-09-19] MEDS: ALPRAZolam 0.25 MG TAB PO PRN ×2 (09:42→18:40)
[2016-09-19] MEDS: GABAPENTIN 100 MG CAP PO SCH ×2 (09:42→22:22)
[2016-09-19] MEDS: CitaloPRAM (CeleXA) 10 MG TABLET PO SCH (09:43)
[2016-09-19] MEDS: FUROSEMIDE 20 MG TAB PO SCH (09:43)
[2016-09-19] MEDS: predniSONE 20 MG TAB PO SCH (09:43)
[2016-09-19] MEDS: PANTOPRAZOLE 40MG TAB (PROTONIX) PO SCH ×2 (09:43→22:22)
[2016-09-19] MEDS: ENOXAPARIN 40 MG/0.4 ML SYRINGE (J1650) SC SCH (09:44)
--- NOTE | 2016-09-19 10:07 | IPNPDOC ---
Subjective Date Seen The patient was seen on 09/19/16. Subjective Chief Complaint/HPI The patient is a 86-year-old female admitted with a reason for visit of Copd W/ Exacerbation. General: Denies: Chills, Night Sweats Constitutional: Denies: Chills, Fever Eyes: Denies: Pain, Vision change ENT: Denies: Ear Pain, Head Aches Skin: Denies: Lesions, Rash Pulmonary: Reports: Cough, Dyspnea Cardiovascular: Denies: Chest Pain, Palpitations Gastrointestinal: Denies: Nausea, Vomiting Genitourinary: Denies: Dysuria, Frequency Hematologic: Denies: Bleeding Excessively, Bruising Objective Physical Examination General Exam: Positive: Alert, Cooperative ENT Exam: Positive: Atraumatic, Mucous membr. moist/pink Neck Exam: Negative: JVD Chest Exam: Positive: Diminished, Negative: Rales, Rhonchi Heart Exam: Positive: Normal S1, Normal S2, Rate Normal, Regular Rhythm, Negative: Gallops, Murmurs, Rubs Telemetry: Positive: No significant arrhythmia, Sinus Abdomen Exam: Positive: Normal bowel sounds, Soft, Negative: Hepatospenomegaly, Tenderness Extremity Exam: Positive: Normal pulses, Negative: Clubbing, Cyanosis, Edema, Swelling Skin Exam: Negative: Lesion, Rash Neuro Exam: Positive: Normal Speech Assessment /Plan Problems (1) COPD with exacerbation Status: Acute Response to Treatment: Improving Problem Text: ABG on admission not notable for any CO2 retention Patient requires 2 L of oxygen at baseline, and this remains the same here White blood cell count within normal limits, afebrile here, we will hold off on any antibiotics for now Blood cultures and sputum cultures pending Chest x-ray with no acute findings Started on prednisone 40 mg by mouth daily Continue on Duoneb, Spiriva, Flovent We will continue to monitor the patient's respiratory status. (2) Diastolic CHF, chronic Status: Chronic Response to Treatment: Stable Problem Text: Appears euvolemic at this time Continue Lasix 20mg daily (3) Neuropathy Status: Chronic Response to Treatment: Stable Problem Text: Continue Neurontin 100mg twice a day (4) Anxiety Status: Chronic Response to Treatment: Stable Problem Text: Continue Xanax 0.25mg three times a day, as needed, Celexa 10mg daily, Remeron 7.5mg nightly (5) GERD (gastroesophageal reflux disease) Status: Chronic Response to Treatment: Stable Problem Text: Continue Protonix 40mg twice a day Plan/VTE VTE Prophylaxis Ordered?: Yes (Lovenox 40mg SC daily) Plan Diet: Continue Current Activity: Continue Current Diagnostics: Repeat Labs in AM, Obtain Cultures Anticipated Discharge: Assisted Living Disposition We will continue to monitor the patient's respiratory status and treat her with by mouth steroids for now. Anticipate discharge back to [facility] in the next 24-48 hours pending clinical improvement. VS[facility] Vital Signs/I&O Vital Signs Date Time Temp Pulse Resp B/P Pulse Ox O2 Delivery O2 Flow Rate FiO2 09/19/16 07:55 92 Nasal Cannula 2.0 09/19/16 06:00 96.6 70 19 142/63 I&O- Last 24 Hours up to 6 AM 09/19/16 06:00 Intake Total 300 ml Output Total 175 ml Balance 125 ml Laboratory Data 24H LABS Laboratory Tests 2 09/18/16 17:50: Anion Gap 3L, B-Type Natriuretic Peptide 19.5, White Blood Count 6.0, Red Blood Count 4.26, Hemoglobin 11.4L, Hematocrit 37.1, Mean Corpuscular Volume 87.2, Mean Corpuscular Hemoglobin 26.9L, Mean Corpuscular Hemoglobin Concent 30.8L, Red Cell Distribution Width 14.1, Platelet Count 222, Neutrophils (%) (Auto) 60.9, Lymphocytes (%) (Auto) 23.6L, Monocytes (%) (Auto) 5.3H, Eosinophils (%) ( Auto) 6.6H, Basophils (%) (Auto) 0.2, Neutrophils # (Auto) 3.7, Lymphocytes # ( Auto) 1.4L, Monocytes # (Auto) 0.3, Eosinophils # (Auto) 0.4, Basophils # (Auto ) 0.0, Blood Urea Nitrogen 20H, Creatinine 0.61, Sodium Level 142, Potassium Level 4.1, Chloride Level 101, Carbon Dioxide Level 38H, Calcium Level 9.1, Glomerular Filtration Rate > 60.0, Large Unclassified Cells # 0.2, Large Unclassified Cells % 3.4 09/18/16 19:45: Arterial Blood pH 7.510H, Arterial Blood Partial Pressure CO2 44.7, Arterial Blood Partial Pressure O2 142.4H, Arterial Blood Total CO2 36.2H, Arterial Blood HCO3 34.9H, Arterial Blood Base Excess 10.8H, Arterial Blood Oxygen Saturation 99.5H, Blood Gas Bicarbonate Standard 34.5H CBC/BMP Laboratory Tests 09/18/16 17:50 Calcium Level 9.1, Red Blood Count 4.26, Mean Corpuscular Volume 87.2, Mean Corpuscular Hemoglobin 26.9 L, Mean Corpuscular Hemoglobin Concent 30.8 L, Red Cell Distribution Width 14.1, Neutrophils (%) (Auto) 60.9, Lymphocytes (%) (Auto ) 23.6 L, Monocytes (%) (Auto) 5.3 H, Eosinophils (%) (Auto) 6.6 H, Basophils (% ) (Auto) 0.2, Neutrophils # (Auto) 3.7, Lymphocytes # (Auto) 1.4 L, Monocytes # (Auto) 0.3, Eosinophils # (Auto) 0.4, Basophils # (Auto) 0.0 Microbiology Microbiology 09/18/16 Blood Culture, Received Pending 09/18/16 Influenza Virus Type A Antigen - Final, Complete 09/18/16 Influenza Virus Type B Antigen - Final, Complete FAMILIA ANTHONY MD Sep 19, 2016 10:07
[2016-09-19] MEDS: ONDANSETRON 4 MG TAB (S0181) PO PRN ×2 (11:38→22:22)
[2016-09-19 14:00] VITALS: BP 131/60
[2016-09-19] MEDS: IPRATROPIUM 0.5MG/ALBUTEROL 2.5MG INH SOL UD 3ML (DUONEB)(J7620) NEB PRN (17:14)
[2016-09-19 22:00] VITALS: BP 122/58
[2016-09-19] MEDS: MIRTAZAPINE 7.5MG PER 1/2 TABLET PO SCH (22:22)
[2016-09-20] MEDS: IPRATROPIUM 0.5MG/ALBUTEROL 2.5MG INH SOL UD 3ML (DUONEB)(J7620) NEB SCH ×4 (01:55→20:58)
[2016-09-20 06:00] VITALS: BP 119/56
[2016-09-20 07:00] LABS: MEAN CORPUSCULAR HEMOGLOBIN 26.6 pg (27.0-33.0); MEAN CORPUSCULAR HGB CONC 30.2 g/dl (32.0-36.5); MEAN CORPUSCULAR VOLUME 88.1 fl (80.0-96.0); RED CELL DISTRIBUTION WIDTH 14.7 % (11.5-14.5); WHITE BLOOD COUNT 6.1 K/mm3 (4.0-10.0)
[2016-09-20 07:12] LABS: ANION GAP 4 MEQ/L (8-16); BLOOD UREA NITROGEN 24 MG/DL (7-18); CALCIUM LEVEL 9.4 MG/DL (8.8-10.2); CARBON DIOXIDE LEVEL 37 MEQ/L (21-32); CHLORIDE LEVEL 103 MEQ/L (98-107); CREATININE FOR GFR 0.61 MG/DL (0.55-1.02); GLOMERULAR FILTRATION RATE > 60.0 (>32); GLUCOSE, FASTING 77 MG/DL (83-110); POTASSIUM SERUM 4.1 MEQ/L (3.5-5.1); SODIUM LEVEL 144 MEQ/L (136-145)
[2016-09-20] MEDS: TIOTROPIUM INHALER/CAPSULE (SPIRIVA) INH SCH (07:23)
[2016-09-20] MEDS: FLUTICASONE HFA 44 MCG 10.6GM INHALER (FLOVENT) INH SCH ×2 (07:23→20:59)
[2016-09-20] MEDS: ENOXAPARIN 40 MG/0.4 ML SYRINGE (J1650) SC SCH (08:54)
[2016-09-20] MEDS: predniSONE 20 MG TAB PO SCH (08:55)
[2016-09-20] MEDS: CitaloPRAM (CeleXA) 10 MG TABLET PO SCH (08:55)
[2016-09-20] MEDS: FUROSEMIDE 20 MG TAB PO SCH (08:55)
[2016-09-20] MEDS: GABAPENTIN 100 MG CAP PO SCH ×2 (08:55→21:13)
[2016-09-20] MEDS: PANTOPRAZOLE 40MG TAB (PROTONIX) PO SCH ×2 (08:55→21:14)
[2016-09-20] MEDS ORDERED: PRED10TA PO (10:24)
[2016-09-20] MEDS: ALPRAZolam 0.25 MG TAB PO PRN (11:28)
[2016-09-20 14:00] VITALS: BP 111/53
[2016-09-20] MEDS: IPRATROPIUM 0.5MG/ALBUTEROL 2.5MG INH SOL UD 3ML (DUONEB)(J7620) NEB PRN (14:10)
--- NOTE | 2016-09-20 14:12 | IPNPDOC ---
Subjective Date Seen The patient was seen on 09/20/16. Subjective Chief Complaint/HPI The patient is a 86-year-old female admitted with a reason for visit of Copd W/ Exacerbation. General: Denies: Chills, Night Sweats Constitutional: Denies: Chills, Fever Eyes: Denies: Pain, Vision change ENT: Denies: Ear Pain, Head Aches Skin: Denies: Lesions, Rash Pulmonary: Reports: Cough, Dyspnea Cardiovascular: Denies: Chest Pain, Palpitations Gastrointestinal: Denies: Nausea, Vomiting Genitourinary: Denies: Dysuria, Frequency Hematologic: Denies: Bleeding Excessively, Bruising Objective Physical Examination General Exam: Positive: Alert, Cooperative ENT Exam: Positive: Atraumatic, Mucous membr. moist/pink Neck Exam: Negative: JVD Chest Exam: Positive: Diminished, Negative: Rales, Rhonchi Heart Exam: Positive: Normal S1, Normal S2, Rate Normal, Regular Rhythm, Negative: Gallops, Murmurs, Rubs Telemetry: Positive: No significant arrhythmia, Sinus Abdomen Exam: Positive: Normal bowel sounds, Soft, Negative: Hepatospenomegaly, Tenderness Extremity Exam: Positive: Normal pulses, Negative: Clubbing, Cyanosis, Edema, Swelling Skin Exam: Negative: Lesion, Rash Neuro Exam: Positive: Normal Speech Assessment /Plan Problems (1) COPD with exacerbation Status: Acute Response to Treatment: Improving Problem Text: ABG on admission not notable for any CO2 retention Patient requires 2 L of oxygen at baseline, and this remains the same here White blood cell count within normal limits, afebrile here, we will hold off on any antibiotics for now Blood cultures and sputum cultures unrevealing thus far Respiratory Panel positive for Gonzalez Virus Chest x-ray with no acute findings Cont on Prednisone Continue on Duoneb, Spiriva, Flovent Patient notes that her respiratory status has improved here today We will continue to monitor the patient's respiratory status. (2) Diastolic CHF, chronic Status: Chronic Response to Treatment: Stable Problem Text: Appears euvolemic at this time Continue Lasix 20mg daily (3) Neuropathy Status: Chronic Response to Treatment: Stable Problem Text: Continue Neurontin 100mg twice a day (4) Anxiety Status: Chronic Response to Treatment: Stable Problem Text: Continue Xanax 0.25mg three times a day, as needed, Celexa 10mg daily, Remeron 7.5mg nightly (5) GERD (gastroesophageal reflux disease) Status: Chronic Response to Treatment: Stable Problem Text: Continue Protonix 40mg twice a day Plan/VTE VTE Prophylaxis Ordered?: Yes (Lovenox 40mg SC daily) Plan Diet: Continue Current Activity: Continue Current Diagnostics: Repeat Labs in AM, Obtain Cultures Anticipated Discharge: Assisted Living Disposition Anticipate D/C to [facility] in the AM VS, I&O, 24H, Fishbone Vital Signs/I&O Vital Signs Date Time Temp Pulse Resp B/P Pulse Ox O2 Delivery O2 Flow Rate FiO2 09/20/16 08:10 Room Air 2.0 09/20/16 06:00 97.6 61 19 119/56 98 I&O- Last 24 Hours up to 6 AM 09/20/16 06:00 Intake Total 600 ml Output Total 325 ml Balance 275 ml Laboratory Data 24H LABS Laboratory Tests 2 09/20/16 06:29: Anion Gap 4L, Blood Urea Nitrogen 24H, Creatinine 0.61, Sodium Level 144, Potassium Level 4.1, Chloride Level 103, Carbon Dioxide Level 37H, Calcium Level 9.4, Glomerular Filtration Rate > 60.0 CBC/BMP Laboratory Tests 09/20/16 06:29 Calcium Level 9.4, Red Blood Count 3.90 L, Mean Corpuscular Volume 88.1, Mean Corpuscular Hemoglobin 26.6 L, Mean Corpuscular Hemoglobin Concent 30.2 L, Red Cell Distribution Width 14.7 H Microbiology Microbiology 09/18/16 Blood Culture - Preliminary, Resulted No growth after 24 hours . All specim... 09/19/16 Gram Stain - Final, Resulted 09/19/16 Sputum Culture, Resulted Pending 09/19/16 Respiratory Virus Panel (PCR) (CINDI) - Final, Complete Coronavirus Oc43 09/18/16 Influenza Virus Type A Antigen - Final, Complete 09/18/16 Influenza Virus Type B Antigen - Final, Complete FAMILIA ANTHONY MD Sep 20, 2016 14:12
[2016-09-20 20:59] VITALS: O2SAT 94
[2016-09-20] MEDS: MAALOX 30 ML SUSP *UDC PO PRN (21:13)
[2016-09-20] MEDS: MIRTAZAPINE 7.5MG PER 1/2 TABLET PO SCH (21:14)
[2016-09-20 22:00] VITALS: BP 145/65
[2016-09-21] MEDS: IPRATROPIUM 0.5MG/ALBUTEROL 2.5MG INH SOL UD 3ML (DUONEB)(J7620) NEB SCH ×2 (01:56→08:03)
[2016-09-21 06:00] VITALS: BP 119/58
[2016-09-21 06:53] LABS: MEAN CORPUSCULAR HEMOGLOBIN 26.8 pg (27.0-33.0); MEAN CORPUSCULAR HGB CONC 30.7 g/dl (32.0-36.5); MEAN CORPUSCULAR VOLUME 87.1 fl (80.0-96.0); RED CELL DISTRIBUTION WIDTH 14.2 % (11.5-14.5); WHITE BLOOD COUNT 6.5 K/mm3 (4.0-10.0)
[2016-09-21 07:12] LABS: ANION GAP 3 MEQ/L (8-16); BLOOD UREA NITROGEN 24 MG/DL (7-18); CALCIUM LEVEL 8.9 MG/DL (8.8-10.2); CARBON DIOXIDE LEVEL 38 MEQ/L (21-32); CHLORIDE LEVEL 102 MEQ/L (98-107); CREATININE FOR GFR 0.49 MG/DL (0.55-1.02); GLOMERULAR FILTRATION RATE > 60.0 (>32); GLUCOSE, FASTING 73 MG/DL (83-110); SODIUM LEVEL 143 MEQ/L (136-145)
[2016-09-21] MEDS: CitaloPRAM (CeleXA) 10 MG TABLET PO SCH (07:59)
[2016-09-21] MEDS: ENOXAPARIN 40 MG/0.4 ML SYRINGE (J1650) SC SCH (07:59)
[2016-09-21] MEDS: FUROSEMIDE 20 MG TAB PO SCH (07:59)
[2016-09-21] MEDS: predniSONE 20 MG TAB PO SCH (07:59)
[2016-09-21] MEDS: GABAPENTIN 100 MG CAP PO SCH (07:59)
[2016-09-21] MEDS: PANTOPRAZOLE 40MG TAB (PROTONIX) PO SCH (07:59)
[2016-09-21] MEDS: FLUTICASONE HFA 44 MCG 10.6GM INHALER (FLOVENT) INH SCH (08:03)
[2016-09-21] MEDS: TIOTROPIUM INHALER/CAPSULE (SPIRIVA) INH SCH (08:03)
[2016-09-21] MEDS: ALPRAZolam 0.25 MG TAB PO PRN (10:45)
[2016-09-21] MEDS ORDERED: PRED10TA PO (11:29)
--- NOTE | 2016-09-21 14:38 | DS.PDOC ---
Discharge Summary General Date of Admission Sep 18, 2016 at 21:40 Date of Discharge Sep 21, 2016 at 11:49 Discharge Summary PROCEDURES PERFORMED DURING STAY: None. ADMITTING DIAGNOSES: 1. . COPD exacerbation secondary to viral upper respiratory tract infection 2. . 3. . DISCHARGE DIAGNOSES: 1. . COPD exacerbation 2. . 3. . COMPLICATIONS/CHIEF COMPLAINT: Copd W/Exacerbation. HISTORY OF PRESENT ILLNESS: . 86-year-old female with past medical history of COPD on 2 L of oxygen at baseline, diastolic congestive heart failure, GERD, Alzheimer's disease, essential tremor, and anxiety presents to the [facility] to the ER with a chief complaint of worsening shortness of breath over the last 48 hours. The patient states that she had been having a cough productive of yellowish sputum. She also complained of feeling feverish, with associated lethargy and fatigue. In the ER, a chest x-ray revealed no acute findings. The patient was noted to the hospitalist service for COPD exacerbation. During the patient's stay here in the hospital, she remained afebrile, with a normal white blood cell count. The patient was noted to be positive for coronavirus on respiratory panel. The patient was started on IV steroids which were subsequently transitioned to by mouth steroids as the patient's respiratory status continued to improve. At this time, the patient states that she is feeling much better and is ready to go back to [facility]. The patient was seen by physical therapy, and she was cleared to return back to the assisted living facility. DISCHARGE MEDICATIONS: Please see below. ALLERGIES: Please see below. PHYSICAL EXAMINATION ON DISCHARGE: VITAL SIGNS: Please see below. General Exam: Positive: Alert, Cooperative ENT Exam: Positive: Atraumatic, Mucous membr. moist/pink Neck Exam: Negative: JVD Chest Exam: Positive: Diminished, Negative: Rales, Rhonchi Heart Exam: Positive: Normal S1, Normal S2, Rate Normal, Regular Rhythm, Negative: Gallops, Murmurs, Rubs Telemetry: Positive: No significant arrhythmia, Sinus Abdomen Exam: Positive: Normal bowel sounds, Soft, Negative: Hepatospenomegaly, Tenderness Extremity Exam: Positive: Normal pulses, Negative: Clubbing, Cyanosis, Edema, Swelling Skin Exam: Negative: Lesion, Rash Neuro Exam: Positive: Normal Speech LABORATORY DATA: Please see below. IMAGING: Portable chest x-ray: History: Dyspnea and cough. Comparison chest x-ray is from 09/15/2016. Findings: The lungs are somewhat hyperinflated free of infiltrate. Heart is mildly enlarged unchanged. Interstitial markings are slightly prominent in the bases. Pulmonary vasculature is not increased. Oxygen delivery tubing and EKG monitoring electrodes are seen. Impression: Mildly prominent heart unchanged. Bibasilar interstitial fibrosis mild in degree. No acute disease. PROGNOSIS: Medically stable at this time ACTIVITY: As tolerated. DIET: . 2 g low sodium diet DISPOSITION: [place]. DISCHARGE INSTRUCTIONS: 1. . Follow-up with primary care physician within one week 2. . Complete steroid taper as prescribed 3. . DISCHARGE CONDITION: Stable. TIME SPENT ON DISCHARGE: Greater than 30 minutes. Vital Signs/I&Os Vital Signs Date Time Temp Pulse Resp B/P Pulse Ox O2 Delivery O2 Flow Rate FiO2 09/21/16 08:03 Room Air 2.0 09/21/16 06:00 96.6 69 20 119/58 97 I&O- Last 24 Hours up to 6 AM 09/21/16 05:59 Intake Total 1590 ml Output Total 725 ml Balance 865 ml Laboratory Data Labs 24H Laboratory Tests 2 09/21/16 06:40: Anion Gap 3L, Blood Urea Nitrogen 24H, Creatinine 0.49L, Sodium Level 143, Potassium Level 4.0, Chloride Level 102, Carbon Dioxide Level 38H, Calcium Level 8.9, Glomerular Filtration Rate > 60.0 CBC/BMP Laboratory Tests 09/21/16 06:40 Calcium Level 8.9, Red Blood Count 3.78 L, Mean Corpuscular Volume 87.1, Mean Corpuscular Hemoglobin 26.8 L, Mean Corpuscular Hemoglobin Concent 30.7 L, Red Cell Distribution Width 14.2 Microbiology Microbiology 09/18/16 Blood Culture - Preliminary, Resulted No Growth after 48 hours. All Specime... 09/19/16 Gram Stain - Final, Resulted 09/19/16 Sputum Culture - Preliminary, Resulted Pseudomonas Aeruginosa 09/19/16 Respiratory Virus Panel (PCR) (CINDI) - Final, Complete Coronavirus Oc43 09/18/16 Influenza Virus Type A Antigen - Final, Complete 09/18/16 Influenza Virus Type B Antigen - Final, Complete Discharge Medications Scheduled Albuterol/Ipratropium (Ipratropium [place]/Albut 0.5-2.5 (3) mg/3Ml) 1 Yasemin Yasemin 1 YASEMIN INH BID (Reported) Alprazolam (Alprazolam) 0.25 Mg Tab 0.25 MG PO TID (Reported) Citalopram Hydrobromide (Citalopram Hydrobromide) 10 Mg Tab 10 MG PO DAILY ( Reported) Donepezil Hydrochloride (Donepezil HCl) 5 Mg Tab 5 MG PO QHS (Reported) Fluticasone Propionate (Flovent Hfa 44 MCG) 120 Puff/10.6 Gm Aero 2 PUFF INH BID (Reported) Furosemide (Furosemide) 20 Mg Tab 20 MG PO DAILY (Reported) Gabapentin (Gabapentin) 100 Mg Cap 100 MG PO BID (Reported) Mirtazapine (Mirtazapine) 7.5 Mg Tab 15 MG PO QHS (Reported) Nitrofurantoin Monohydrate Mac (Macrobid) 100 Mg Cap 100 MG PO BID (Reported) Pantoprazole Sodium (Pantoprazole Sodium) 40 Mg Tab 40 MG PO BID (Reported) Prednisone (Prednisone) 10 Mg Tab 10 MG PO ASDIRECTED Sucralfate (Carafate) 1 Gm Tab 1 GM PO AC (Reported) Tiotropium [place] Monohydrate (Spiriva [place]haler) 18 Mcg Cap 1 INHALATION INH DAILY (Reported) Vitamin D (Drisdol) 50,000 Unit Cap 50,000 UNIT PO QWEEK (Reported) SUNDAY Scheduled PRN Acetaminophen (Acetaminophen) 325 Mg Tab 650 MG PO Q6H PRN PRN PAIN (Reported) Albuterol Sulfate (Ventolin Hfa) 200 Puff/8 Gm Aers 2 PUFF INH Q4H PRN PRN SHORTNESS OF BREATH (Reported) Albuterol/Ipratropium (Ipratropium [place]/Albut 0.5-2.5 (3) mg/3Ml) 1 Yasemin Yasemin 1 YASEMIN INH Q6H PRN PRN SHORTNESS OF BREATH (Reported) Aluminum/Magnesium/Simeth (Mag-Al Plus 200-200-20 mg/5Ml) 30 Ml Susp 10 ML PO Q6H PRN PRN GI UPSET (Reported) Calcium Carbonate (Tums) 500 Mg Chw 500 MG PO QID PRN PRN INDIGESTION (Reported ) Hyoscyamine Sulfate (Hyoscyamine Sulfate) 0.125 Mg/5 Ml Elx 0.125 MG PO QID PRN PRN CRAMPS (Reported) Allergies Coded Allergies: Penicillins (Verified Allergy, Mild, RASH, 07/07/16) Sulfa Drugs (Verified Allergy, Mild, RASH, 07/07/16) Aspirin (Unverified Allergy, Unknown, 01/11/16) Fluticasone (Unverified Allergy, Unknown, 06/29/16) Hyoscyamine (Unverified Allergy, Unknown, [place], 01/11/16) Iodine (Unverified Allergy, Unknown, "TURNS RED", 01/11/16) Red Dye (Unverified Allergy, Unknown, "RED FOOD DYE", 01/11/16) Salmeterol (Unverified Allergy, Unknown, 06/29/16) Tegaserod (Unverified Allergy, Unknown, 01/11/16) FAMILIA ANTHONY MD Sep 21, 2016 14:38
== END 2016-09-21 11:49 | DRG 191 ==
LOC: M ED 18:11 → M ED INP 21:40 → M MSPAV 23:06
PROVIDERS: ADMIT Internal Medicine; ATTEND Internal Medicine
DX: J44.1 Chronic obstructive pulmonary disease with (acute) exacerbation (principal); I50.32 Chronic diastolic (congestive) heart failure; F41.9 Anxiety disorder, unspecified; K21.9 Gastro-esophageal reflux disease without esophagitis; G30.9 Alzheimer's disease, unspecified; F02.80 Dementia in other diseases classified elsewhere, unspecified severity, without behavioral disturbance, psychotic disturbance, mood disturbance, and anxiety; G25.0 Essential tremor; E55.9 Vitamin D deficiency, unspecified; B97.29 Other coronavirus as the cause of diseases classified elsewhere; G62.9 Polyneuropathy, unspecified; K58.9 Irritable bowel syndrome, unspecified; Z99.81 Dependence on supplemental oxygen; Z79.899 Other long term (current) drug therapy; Z88.0 Allergy status to penicillin; Z88.2 Allergy status to sulfonamides; Z88.6 Allergy status to analgesic agent; Z88.8 Allergy status to other drugs, medicaments and biological substances; Z91.048 Other nonmedicinal substance allergy status

== ENCOUNTER 2016-09-24 13:00 | Emergency (ER) | payer MEDICARE, OTHER ==
[~2016-09-24] VITALS: Ht 157.5 cm; Wt 56.7 kg
[~2016-09-24 13:00] MED LIST changes: +ACET-654 PO; +MACR100C3 PO; +PRED10TA PO; +TUMS500C PO
[2016-09-24 14:31] LABS: BASO % 0.2 % (0.0-1.0); EOS % 0.3 % (0.0-3.0); LARGE UNSTAINED CELL # 0.1 K/mm3 (0.0-0.4); LARGE UNSTAINED CELL % 0.9 % (0.0-4.0); LYMPH # 0.9 K/mm3 (1.5-4.5); MEAN CORPUSCULAR HEMOGLOBIN 26.8 pg (27.0-33.0); MEAN CORPUSCULAR HGB CONC 30.8 g/dl (32.0-36.5); MEAN CORPUSCULAR VOLUME 87.1 fl (80.0-96.0); MONO # 0.7 K/mm3 (0.0-0.8); MONO % 8.8 % (0.0-5.0); NEUTROPHILS # 6.2 K/mm3 (1.8-7.7); NEUTROPHILS % 78.8 % (36.0-66.0); PLATELET COUNT, AUTOMATED 291 k/mm3 (150-450); RED CELL DISTRIBUTION WIDTH 14.4 % (11.5-14.5); WHITE BLOOD COUNT 7.8 K/mm3 (4.0-10.0)
[2016-09-24 14:55] LABS: ALBUMIN 3.2 GM/DL (3.2-5.2); ALBUMIN/GLOBULIN RATIO 1.03 (1.00-1.93); ALKALINE PHOSPHATASE 82 U/L (45-117); ALT/SGPT 14 U/L (12-78); ANION GAP 6 MEQ/L (8-16); AST/SGOT 10 U/L (15-37); BILIRUBIN,DIRECT < 0.1 MG/DL (0.0-0.2); BILIRUBIN,TOTAL 0.2 MG/DL (0.2-1.0); BLOOD UREA NITROGEN 26 MG/DL (7-18); CALCIUM LEVEL 8.8 MG/DL (8.8-10.2); CARBON DIOXIDE LEVEL 39 MEQ/L (21-32); CHLORIDE LEVEL 100 MEQ/L (98-107); CREATININE FOR GFR 0.52 MG/DL (0.55-1.02); GLOMERULAR FILTRATION RATE > 60.0 (>32); GLUCOSE, FASTING 106 MG/DL (83-110); POTASSIUM SERUM 4.6 MEQ/L (3.5-5.1); SODIUM LEVEL 145 MEQ/L (136-145); TOTAL PROTEIN 6.3 GM/DL (6.4-8.2)
[2016-09-24] MEDS ORDERED: LEVO750T33 PO (16:44)
[2016-09-24] MEDS ORDERED: LevoFLOXacin 750 MG TABLET PO ONE (17:00)
[2016-09-24 18:28] VITALS: BP 129/60
--- NOTE | 2016-09-25 07:16 | REP ---
Pyrexia. COMPARISON: 09/18/2016. The lung metz are hyperexpanded. The cardiomediastinal silhouette is within normal limits. No acute patchy parenchymal opacities or pleural effusions have developed. Fibrotic changes are again seen throughout the lung metz with basilar predominance. There is no significant change in the appearance of the osseous structures. IMPRESSION: Stable chest with chronic changes as described above. Signed by Misael Rider DO 09/25/2016 12:05 P
--- NOTE | 2016-09-25 12:24 | ECGEPIP ---
Stationary ECG Study [facility] - ED Test Date: 2016-09-24 Pat Name: ALINA SANTOS Department: Room: - Gender: F Ophthalmic Medical Technician: tracy : 1930 Requested By: LEONARD Schwartz Order Number: [id number] Reading MD: Laurel Em Measurements Intervals [place] Rate: 70 P: 70 KS: 150 QRS: 35 QRSD: 86 T: 46 QT: 363 QTc: 394 Interpretive Statements SINUS RHYTHM POSSIBLE LEFT ATRIAL ENLARGEMENT SIMILAR 09/18/16 Electronically Signed On 09-25-2016 12:24:13 EDT by Laurel Em
== END 2016-09-24 18:34 | disposition home or self-care (01) ==
LOC: M ED 13:40
DX: B34.2 Coronavirus infection, unspecified (principal); A49.8 Other bacterial infections of unspecified site; R30.0 Dysuria; I50.9 Heart failure, unspecified; I10 Essential (primary) hypertension; J44.9 Chronic obstructive pulmonary disease, unspecified; K21.9 Gastro-esophageal reflux disease without esophagitis; K58.9 Irritable bowel syndrome, unspecified; F41.9 Anxiety disorder, unspecified; F32.9 Major depressive disorder, single episode, unspecified; Z88.8 Allergy status to other drugs, medicaments and biological substances; Z91.02 Food additives allergy status; Z88.0 Allergy status to penicillin; Z88.2 Allergy status to sulfonamides; Z79.899 Other long term (current) drug therapy; Z79.52 Long term (current) use of systemic steroids
CPT/HCPCS: 71020; 80048; 80076; 81001; 82550; 82553; 83605; 84484; 85025; 87040; 87077; 87086; 87804; 93005; 93041; 94760; 99284; P9612

== ENCOUNTER → 2016-10-02 | Outpatient (CLI) | payer MEDICARE, OTHER ==
[~2016-10-02] MED LIST changes: +E-Z PAQUE 60% w/v SUSP 355ML BOTTLE As Ordered ONE; +E-Z-GAS II EFFERVESCENT PACKET (SODIUM BICARB./CITRIC ACID/SIMETHICONE) As Ordered ONE; +E-Z-HD 98% w/w 340GM SUSP BTL As Ordered ONE; +LEVO750T33 PO
--- NOTE | 2016-10-02 16:16 | REP ---
UPPER GI, AIR CONTRAST: The procedure was performed under the direct supervision of Dr. Rees. The images were reviewed with Dr. Rees. The automatic grinder operator film shows no organomegaly or pathological masses. The intestinal gas pattern is nonspecific. There are surgical clips in the right upper quadrant. Liquid barium and gas-producing granules were given in the erect position as well as liquid barium in the prone oblique position in order to perform a double contrast upper GI examination. The oral and pharyngeal stages of deglutition are unremarkable. Esophageal transport is prompt and efficient and there is no esophagitis, stricture or mucosal ring. There is a small sliding hiatal hernia present. Gastroesophageal reflux is not demonstrated on this examination. Within the stomach, there are multiple subcentimeter polyps identified. There is no gastritis or ulcer disease identified. The duodenal grady are normally outlined. The mucosal folds are smooth and regular. There is no duodenitis, pancreatitis, peptic ulcer disease or neoplasm. The visualized portion of the proximal small bowel appears normal in course and caliber. IMPRESSION: 1. There is a small sliding type hiatal hernia. 2. There are multiple subcentimeter polyps identified in the stomach. 3 minutes and 5 seconds of fluoroscopy time was utilized for this procedure. Reviewed by FERNANDEZ Mosher 10/02/2016 05:04 PEdited and Signed by Ezekiel Rees MD 10/03/2016 03:34 P
== END ==
LOC: M RAD 08:51
PROVIDERS: ATTEND Physician Assistant Medical
DX: R10.13 Epigastric pain (principal); K44.9 Diaphragmatic hernia without obstruction or gangrene; K31.7 Polyp of stomach and duodenum; R07.9 Chest pain, unspecified; K21.9 Gastro-esophageal reflux disease without esophagitis

== ENCOUNTER → 2016-10-20 | Outpatient (REF) | payer MEDICARE, OTHER ==
[~2016-10-20] MED LIST changes: -E-Z PAQUE 60% w/v SUSP 355ML BOTTLE As Ordered ONE; -E-Z-GAS II EFFERVESCENT PACKET (SODIUM BICARB./CITRIC ACID/SIMETHICONE) As Ordered ONE; -E-Z-HD 98% w/w 340GM SUSP BTL As Ordered ONE
[2016-10-20 17:51] LABS: MEAN CORPUSCULAR HEMOGLOBIN 26.8 pg (27.0-33.0); MEAN CORPUSCULAR HGB CONC 30.4 g/dl (32.0-36.5); RED CELL DISTRIBUTION WIDTH 15.3 % (11.5-14.5); WHITE BLOOD COUNT 8.6 K/mm3 (4.0-10.0)
[2016-10-20 17:55] LABS: ANION GAP 6 MEQ/L (8-16); BLOOD UREA NITROGEN 22 MG/DL (7-18); CARBON DIOXIDE LEVEL 37 MEQ/L (21-32); CHLORIDE LEVEL 99 MEQ/L (98-107); CREATININE FOR GFR 0.52 MG/DL (0.55-1.02); GLOMERULAR FILTRATION RATE > 60.0 (>32); GLUCOSE, FASTING 78 MG/DL (83-110); POTASSIUM SERUM 4.3 MEQ/L (3.5-5.1); SODIUM LEVEL 142 MEQ/L (136-145)
== END ==
LOC: M SFHCPLAZ 15:12
DX: R07.9 Chest pain, unspecified (principal)
CPT/HCPCS: 36415; 80048; 82550; 82553; 84484; 85027; G0463

== ENCOUNTER → 2016-11-02 | Outpatient (REF) | payer MEDICARE, OTHER ==
[2016-11-02 15:04] LABS: YEAST LIKE CELL URINE AUTO LARGE
== END ==
LOC: M LAB REF 14:18
PROVIDERS: ATTEND Nurse Practitioner Family
DX: R30.0 Dysuria (principal)

== ENCOUNTER 2017-01-16 13:57 | Emergency (ER) | payer MEDICARE, OTHER ==
[~2017-01-16] VITALS: Ht 157.5 cm; Wt 56.8 kg
[~2017-01-16 13:57] MED LIST changes: -ACET-654 PO; +ACET1TAB17 PO; +AZIT-12 PO; -AZIT250T3 PO; +LEVO750T13 PO; -LEVO750T33 PO; -MACR100C3 PO; +MACR100C43 PO; -PRED10TA PO; +VITA1CAP40 PO; -VITA50003 PO
[2017-01-16] MEDS ORDERED: SERT50TA PO (14:20)
[2017-01-16] MEDS ORDERED: METO1TAB87 PO (14:20)
[2017-01-16] MEDS ORDERED: XANA0.5T PO (14:20)
[2017-01-16] MEDS ORDERED: ACETAMINOPHEN TAB 650MG DOSE (2X325MG) PO ONE (14:30)
--- NOTE | 2017-01-16 15:31 | REP ---
Clinical: Trauma . Comparison: 09/14/2016 . Findings: The mediastinum and cardiac silhouette are stable and within normal limits for portable technique. The lung metz demonstrate diffuse chronic interstitial changes without acute consolidation, effusion, or pneumothorax. Skeletal structures demonstrate osteopenia and degenerative changes. Impression: No acute cardiopulmonary process appreciated. Signed by Juve Brown MD 01/16/2017 03:23 P
[2017-01-16] MEDS ORDERED: IPRATROPIUM 0.5MG/ALBUTEROL 2.5MG INH SOL UD 3ML (DUONEB)(J7620) As Ordered ONE (16:12)
[2017-01-16] MEDS ORDERED: IPRATROPIUM 0.5MG/ALBUTEROL 2.5MG INH SOL UD 3ML (DUONEB)(J7620) NEB ONE (16:15)
[2017-01-16 16:18] VITALS: BP 141/64
== END 2017-01-16 16:33 | disposition home or self-care (01) ==
LOC: M ED 13:57 → EDBD 13:57 → M ED 16:33
DX: S20.212A Contusion of left front wall of thorax, initial encounter (principal); W19.XXXA Unspecified fall, initial encounter; Y92.129 Unspecified place in nursing home as the place of occurrence of the external cause; Y93.89 Activity, other specified; Y99.8 Other external cause status; I50.9 Heart failure, unspecified; J45.909 Unspecified asthma, uncomplicated; F41.9 Anxiety disorder, unspecified; Z88.8 Allergy status to other drugs, medicaments and biological substances; Z88.0 Allergy status to penicillin; Z88.2 Allergy status to sulfonamides; Z91.02 Food additives allergy status; Z79.899 Other long term (current) drug therapy

== ENCOUNTER → 2017-02-13 | Outpatient (REF) | payer MEDICARE, OTHER ==
[~2017-02-13] MED LIST changes: +METO1TAB87 PO; +SERT50TA PO; +XANA0.5T PO
== END ==
PROVIDERS: ATTEND Nurse Practitioner Family
DX: E55.9 Vitamin D deficiency, unspecified (principal)

== ENCOUNTER 2017-05-30 15:31 | Inpatient (IN) | payer MEDICARE, OTHER ==
[~2017-05-30] VITALS: Ht 157.5 cm; Wt 60.6 kg
--- NOTE | 2017-05-30 17:01 | REP ---
PORTABLE CHEST: AP portable view of the chest is performed. Prior study of 09/18/2016. Fibrotic changes bilaterally are stable. There is no evidence of acute infiltrate. The heart appears slightly enlarged. Mediastinal silhouette is unchanged. IMPRESSION: No acute infiltrate. Signed by Ezekiel Rees MD 05/31/2017 04:50 P
[2017-05-30] MEDS ORDERED: ACETAMINOPHEN 325 MG TAB As Ordered ONE (17:07)
[2017-05-30 17:11] LABS: BASO % 0.2 % (0.0-1.0); IMMATURE GRANULOCYTE % 0.5 % (0-0); LYMPH # 0.5 10^3/uL (1.5-4.5); LYMPH % 3.6 % (24.0-44.0); MEAN CORPUSCULAR HEMOGLOBIN 27.4 pg (27.0-33.0); MEAN CORPUSCULAR HGB CONC 30.9 g/dl (32.0-36.5); MEAN CORPUSCULAR VOLUME 88.5 fl (80.0-96.0); MONO % 7.5 % (0.0-5.0); NEUTROPHILS # 11.2 10^3/uL (1.8-7.7); NEUTROPHILS % 88.2 % (36.0-66.0); PLATELET COUNT, AUTOMATED 157 10^3/uL (150-450); RED CELL DISTRIBUTION WIDTH 13.8 % (11.5-14.5); WHITE BLOOD COUNT 12.7 10^3/uL (4.0-10.0)
[2017-05-30] MEDS ORDERED: ACETAMINOPHEN TAB 650MG DOSE (2X325MG) PO ONE (17:15)
[2017-05-30 17:19] LABS: ANION GAP 5 MEQ/L (8-16); BLOOD UREA NITROGEN 21 MG/DL (7-18); CALCIUM LEVEL 9.4 MG/DL (8.8-10.2); CARBON DIOXIDE LEVEL 33 MEQ/L (21-32); CHLORIDE LEVEL 102 MEQ/L (98-107); CREATININE FOR GFR 0.64 MG/DL (0.55-1.02); GLOMERULAR FILTRATION RATE > 60.0 (>32); GLUCOSE, FASTING 111 MG/DL (83-110); SODIUM LEVEL 140 MEQ/L (136-145)
[2017-05-30] MEDS ORDERED: ISOVUE-370 76% 100ML VIAL (Q9967) As Ordered ONE (18:28)
[2017-05-30] MEDS ORDERED: IPRATROPIUM 0.5MG/ALBUTEROL 2.5MG INH SOL UD 3ML (DUONEB)(J7620) NEB ONE (19:00)
[2017-05-30 19:09] LABS: MICROSCOPIC INDICATED? MAN YES (NO)
[2017-05-30 19:21] LABS: BACTERIA, URINE LARGE AMOUNT; HYALINE CAST, URINE 0-1 /lpf (0-1); SQUAMOUS EPITHELIAL CELL URINE MOD AMOUNT /hpf (SMALL AMT); TRANSITIONAL EPI CELLS, URINE LARGE AMOUNT /hpf; WBC, URINE TNTC /hpf (0-3)
[2017-05-30 19:22] LABS: MICROSCOPIC EXAM PERFORMED
[2017-05-30] MEDS ORDERED: CIPROFLOXACIN/D5W 400 MG/200 ML BAG (J0744) As Ordered ONE (20:24)
[2017-05-30] MEDS ORDERED: CIPROFLOXACIN 400 MG in APPROPRIATE DILUENT 1 EA IV ONE (20:30)
[2017-05-30] MEDS ORDERED: METO1TAB87 PO (21:47)
[2017-05-30] MEDS ORDERED: PANT40TA2 PO (21:47)
[2017-05-30] MEDS ORDERED: ACET1TAB17 PO (21:47)
[2017-05-30] MEDS ORDERED: SERT50TA PO (21:47)
[2017-05-30] MEDS ORDERED: VITA1CAP40 PO (21:47)
[2017-05-30] MEDS ORDERED: ALPR0.25 PO ×2 (21:47)
[2017-05-30] MEDS ORDERED: MILKSUS PO (21:47)
[2017-05-30] MEDS ORDERED: MONT10TA2 PO (21:47)
[2017-05-30] MEDS ORDERED: VENTAER INH (21:47)
[2017-05-30] MEDS ORDERED: DONETAB6 PO (21:47)
[2017-05-30] MEDS ORDERED: QUET1TAB7 PO (21:47)
[2017-05-30] MEDS ORDERED: MYLASSUD PO (21:47)
[2017-05-30] MEDS ORDERED: FURO20TA2 PO (21:47)
[2017-05-30] MEDS ORDERED: IPRASOL4 INH ×2 (21:47)
[2017-05-30] MEDS ORDERED: GABA-279 PO (21:47)
[2017-05-30] MEDS ORDERED: SPIR1CAP INH (21:47)
--- NOTE | 2017-05-30 23:09 | HPEPDOC ---
General Date of Admission may 30, 2017 Primary Care Physician: Jr Puga Collins Chief Complaint The patient is a 86-year-old female admitted with a reason for visit of Weakness. Source: Patient, Family Exam Limitations: Dementia, Hard of hearing, Mild cognitive slowing Timing/Duration: Day(s) (two days) Severity: Moderate Associated Symptoms: Cough, Chills, Malaise, Nausea, Weakness History of Present Illness 86 y.o. F w/ p.medhx. of COPD, G1DD, anxiety, GERD, Alzheimer, essential tremor , neuropathy, Vit. D. def. presents for two days of generalized weakness and decreased appetite. Daughter at bedside provides much of hx., as pt is very fatigued and unable to answer most of ROS, also due to some baseline dementia. Pt is orientated to person, place, time but very fatigued and falls asleep on exam. Daughter states two days ago, pt became very weak, last night she slid off her bed due to weakness (did not hit head or sustain LOC). Today she was still weak, daughter called EMS. In ED, pt only complains of neck ache, she thinks she slept on it wrong. Appetite has been good, no change in wt. no vomiting, some nausea, no dizziness, no pain with urination nor blood in urine, no inc. frequency urination, no diarrhea nor blood in stool. Pt felt febrile one day ago but no temperature as per daughter, some chills, no muscle aches or night sweats, no sick contacts or travel outside country. No h/a nor change in vision. Follows with Dr. Orourke of Neuro for dementia, apparently MRI was done recently according to daughter. Pt was also at [facility], now lives w/ daughter who stated she has some "lung nodules" but she doesn't want any interventions at her age. The pt. is a full code, her daughter and son are HCP. No new rashes or falls. Pt wears 2 L O2 at night, has required it through the day for past two days according to daughter, yet denies SOB or cough. Home Medications Scheduled Albuterol/Ipratropium (Ipratropium Lawrence/Albut 0.5-2.5 (3) mg/3Ml) 1 Nydia Nydia, 1 NYDIA INH BID, (Reported) Alprazolam (Alprazolam) 0.25 Mg Tab, 0.375 MG PO DAILY, (Reported) Donepezil Hcl (Donepezil HCl) 10 Mg Tab, 10 MG PO DAILY, (Reported) Ergocalciferol (Vitamin D) 50,000 Unit Cap, 50,000 UNIT PO ASDIRECTED, (Reported ) TAKES ON SUNDAY MORNINGS Gabapentin (Gabapentin) 100 Mg Cap, 100 MG PO BID, (Reported) Metoprolol Tartrate (Metoprolol Tartrate) 25 Mg Tab, 12.5 MG PO BID, (Reported) Montelukast Sodium (Montelukast Sodium) 10 Mg Tab, 10 MG PO QHS, (Reported) Pantoprazole Sodium (Pantoprazole Sodium) 40 Mg Tab, 40 MG PO BID, (Reported) Quetiapine Fumerate (Quetiapine Fumarate) 25 Mg Tab, 25 MG PO QHS, (Reported) Sertraline Hcl (Sertraline HCl) 50 Mg Tab, 100 MG PO DAILY, (Reported) Tiotropium Lawrence Monohydrate (Spiriva Handihaler) 18 Mcg Cap, 1 INHALATION INH DAILY, (Reported) Scheduled PRN Acetaminophen (Acetaminophen) 325 Mg Tab, 650 MG PO Q6H PRN for PAIN, (Reported) Albuterol Sulfate (Ventolin Hfa) 108 Mcg/Act Aer, 216 MCG INH Q4H PRN for SHORTNESS OF BREATH, (Reported) Albuterol/Ipratropium (Ipratropium Lawrence/Albut 0.5-2.5 (3) mg/3Ml) 1 Nydia Nydia, 1 NYDIA INH Q4H PRN for SHORTNESS OF BREATH, (Reported) Alprazolam (Alprazolam) 0.25 Mg Tab, 0.25 MG PO BID PRN for ANXIETY, (Reported) Aluminum/Magnesium/Simeth (Mag-Al Plus 200-200-20 mg/5Ml) 30 Ml Susp, 10 ML PO Q6H PRN for GI UPSET, (Reported) Furosemide (Furosemide) 20 Mg Tab, 20 MG PO DAILY PRN for EDEMA, (Reported) Milk Of Magnesia (Milk of Magnesia) 1,200 Mg/15 Ml Oliiva, 30 ML PO DAILY PRN for CONSTIPATION, (Reported) Allergies Coded Allergies: Penicillins (Verified Allergy, Mild, RASH, 07/07/16) Sulfa Drugs (Verified Allergy, Mild, RASH, 07/07/16) Aspirin (Unverified Allergy, Unknown, 01/11/16) Fluticasone (Unverified Allergy, Unknown, 06/29/16) Hyoscyamine (Unverified Allergy, Unknown, [place], 01/11/16) Iodine (Unverified Allergy, Unknown, "TURNS RED", 01/11/16) Red Dye (Unverified Allergy, Unknown, "RED FOOD DYE", 01/11/16) Salmeterol (Unverified Allergy, Unknown, 06/29/16) Tegaserod (Unverified Allergy, Unknown, 01/11/16) Past Medical History Medical History as per hpi Review of Symptoms Constitutional: Reports: Chills, Malaise, Weakness, Fatigue, Lethargy, Denies: Fever, Night Sweats, Weight Loss Eyes: Denies: Pain, Vision change ENT: Denies: Head Aches Skin: Reports: Other (thin skin), Denies: Rash, Lesions, Jaundice, Bruising, Itching, Dry Pulmonary: Denies: Dyspnea, Cough, Pleuritic Chest Pain Cardiovascular: Denies: Chest Pain, Palpitations, Orthopnea, Paroxysmal Noc. Dyspnea, Edema, Lt Headedness Gastrointestinal: Reports: Nausea, Denies: Vomiting, Abdominal Pain, Constipation, Melena, Hematochezia Genitourinary: Denies: Dysuria, Frequency, Incontinence, Hematuria, Retention Hematologic: Reports: Bruising (some bruises on ankle from dog scratch) Neurological: Reports: Weakness, Denies: Numbness Psych: Reports: Other Psych (dementia) Physical Examination General Exam: Positive: Cooperative, Mild Distress, Negative: Alert Eye Exam: Positive: Conjunctiva & lids normal, EOMI, Negative: Sclera icteric, Ptosis ENT Exam: Positive: Atraumatic, Mucous membr. moist/pink, Pharynx Normal, Tongue Midline, Nares Patent Neck Exam: Positive: Supple, Negative: JVD Chest Exam: Positive: Clear to auscultation, Negative: Rales, Rhonchi, Wheezing Heart Exam: Positive: Rate Normal, Normal S1, Normal S2, Negative: Gallops, Murmurs, Rubs Telemetry: Positive: No significant arrhythmia Abdomen Exam: Positive: Normal bowel sounds, Soft, Tenderness (RLQ), Negative: Hepatospenomegaly Extremity Exam: Positive: Normal pulses, Negative: Clubbing, Cyanosis, Edema, Tenderness, Swelling Skin Exam: Positive: Nl turgor and temperature, Other skin issue (thin skin), Negative: Rash, Breakdown Psych Exam: Positive: Oriented x 3, Negative: Memory Intact (baseline dementia) Vital Signs Vital Signs Date Time Temp Pulse Resp B/P (MAP) Pulse Ox O2 Delivery O2 Flow Rate FiO2 05/30/17 21:19 70 115/56 (75) 97 05/30/17 19:01 99.5 05/30/17 17:31 Nasal Cannula 2.0 05/30/17 16:04 18 Laboratory Data Labs 24H Laboratory Tests 2 05/30/17 16:38: Lactic Acid Level 0.7 05/30/17 16:40: Immature Granulocyte % (Auto) 0.5H, White Blood Count 12.7H, Red Blood Count 4.42, Hemoglobin 12.1, Hematocrit 39.1, Mean Corpuscular Volume 88.5, Mean Corpuscular Hemoglobin 27.4, Mean Corpuscular Hemoglobin Concent 30.9L, Red Cell Distribution Width 13.8, Platelet Count 157, Neutrophils (%) (Auto) 88.2H, Lymphocytes (%) (Auto) 3.6L, Monocytes (%) (Auto) 7.5H, Eosinophils (%) (Auto) 0.0, Basophils (%) (Auto) 0.2, Neutrophils # (Auto) 11.2H, Lymphocytes # (Auto) 0.5L, Monocytes # (Auto) 1.0H, Eosinophils # (Auto) 0.0, Basophils # (Auto) 0.0 , Immature Granulocyte # (Auto) 0.1H, Nucleated Red Blood Cells % (auto) 0.0, Anion Gap 5L, Glomerular Filtration Rate > 60.0, Blood Urea Nitrogen 21H, Creatinine 0.64, Sodium Level 140, Potassium Level 4.0, Chloride Level 102, Carbon Dioxide Level 33H, Calcium Level 9.4, Total Creatine Kinase 706H, Magnesium Level 2.0, Creatine Kinase MB 2.1, Creatine Kinase MB Relative Index 0.29, Troponin I 0.17H 05/30/17 19:01: Bedside Urine Color (LAB) DK YELLOW, Bedside Urine Appearance (LAB) TURBIDH, Bedside Urine pH (LAB) 5.0, Bedside Urine Specific [place] (LAB 1.025, Bedside Urine Protein (LAB) 2+H, Bedside Urine Glucose (UA) NEGATIVE, Bedside Urine Ketones (LAB) 1+H, Bedside Urine Blood POSITIVEH, Bedside Urine Nitrite (LAB) POSITIVEH, Bedside Urine Bilirubin (LAB) NEGATIVE, Bedside Urine Urobilinogen ( LAB) NORMAL, Bedside Urine Leukocyte Esterase (L POSITIVEH, Urine WBC TNTCH, Urine RBC 1-3, Urine Squamous Epithelial Cells MOD AMOUNTH, Urine Transitional Epithelial Cells LARGE AMOUNT, Urine Renal Epithelial Cells SMALL AMOUNTH, Urine Bacteria LARGE AMOUNTH, Urine Hyaline Casts 0-1, Urine Mucus SMALL AMOUNTH , Urine Sediment Examination PERFORMED CBC/BMP Laboratory Tests 05/30/17 16:40 Red Blood Count 4.42, Mean Corpuscular Volume 88.5, Mean Corpuscular Hemoglobin 27.4, Mean Corpuscular Hemoglobin Concent 30.9 L, Red Cell Distribution Width 13.8, Neutrophils (%) (Auto) 88.2 H, Lymphocytes (%) (Auto) 3.6 L, Monocytes (% ) (Auto) 7.5 H, Eosinophils (%) (Auto) 0.0, Basophils (%) (Auto) 0.2, Neutrophils # (Auto) 11.2 H, Lymphocytes # (Auto) 0.5 L, Monocytes # (Auto) 1.0 H, Eosinophils # (Auto) 0.0, Basophils # (Auto) 0.0, Calcium Level 9.4, Total Creatine Kinase 706 H Microbiology Microbiology 05/30/17 Blood Culture, Received Pending 05/30/17 Blood Culture, Received Pending 05/30/17 Influenza Virus Type A Antigen - Final, Complete 05/30/17 Influenza Virus Type B Antigen - Final, Complete Problems (1) Sepsis Status: Acute Response to Treatment: Stable Problem Text: c/w fluid hydration patient had fever on presentation, elevated white count and source of infection will c/w antibiotic therapy ceftriaxone 2gm IV q24h (2) UTI (urinary tract infection) Status: Acute Response to Treatment: Stable Problem Text: U/A consistent with UTI patient received ciprofloxacin in ED blood cultures pending WBC 12.7 c/w antibiotic therapy ceftriaxone (3) Fatigue Status: Acute Response to Treatment: Stable Problem Text: likely 2/2 UTI and sepsis will continue to monitor (4) COPD (chronic obstructive pulmonary disease) Status: Chronic Response to Treatment: Stable Problem Text: will continue 2L O2 and home medication Spiriva with duoneb coverage stable (5) Dementia Status: Chronic Response to Treatment: Stable Problem Text: patient is at baseline follows with local neurologist will continue to monitor (6) DVT prophylaxis Status: Acute Response to Treatment: Stable Problem Text: SCD TEDS Plan / VTE VTE Prophylaxis Ordered?: Yes GME ATTESTATION GME ATTESTATION My faculty preceptor for this patient encounter was physically present during the encounter and was fully available. All aspects of the patient interview, examination, medical decision making process, and medical care plan development were reviewed and approved by the faculty preceptor. The faculty preceptor is aware and concurs with the plan as stated in the body of this note and will attest to such by his/her cosignature. ATTENDING NOTE I have seen and examined the patient as did the resident I have reviewed the case and discussed the plan with her I concur with her findings on Hx and PE and agree with her A&P with the following Additions/Exceptions; Patient With Sepsis and Complicated UTI so a 2 MN admission is expected. Patient will require Chemical DVT PPX, Non Ambulatory, Prolonged expectation of illness, advanced Age. I fist saw patient 05/30/2017 DONN WEI DO May 30, 2017 23:09 JUNIOR VERDE MD May 31, 2017 05:27
[2017-05-31 02:55] VITALS: BP 146/65
[2017-05-31] MEDS ORDERED: SLF 3 ML SYR IV PRN (03:45)
[2017-05-31] MEDS: IPRATROPIUM 0.5MG/ALBUTEROL 2.5MG INH SOL UD 3ML (DUONEB)(J7620) NEB PRN ×2 (03:52→08:56)
[2017-05-31] MEDS ORDERED: CEFTRIAXONE SOD 2 GM in APPROPRIATE DILUENT 1 EA IV SCH (04:00)
[2017-05-31] MEDS ORDERED: NS 1,000 ML IV SCH (04:00)
[2017-05-31] MEDS: SLF 3 ML SYR IV SCH ×3 (05:13→20:58)
[2017-05-31 05:20] VITALS: BP 115/58
[2017-05-31 05:35] LABS: BASO % 0.1 % (0.0-1.0); EOS % 0.2 % (0.0-3.0); IMMATURE GRANULOCYTE % 0.6 % (0-0); LYMPH # 0.5 10^3/uL (1.5-4.5); LYMPH % 5.6 % (24.0-44.0); MEAN CORPUSCULAR HGB CONC 29.9 g/dl (32.0-36.5); MEAN CORPUSCULAR VOLUME 90.3 fl (80.0-96.0); MONO # 1.1 10^3/uL (0.0-0.8); MONO % 11.1 % (0.0-5.0); NEUTROPHILS # 7.8 10^3/uL (1.8-7.7); NEUTROPHILS % 82.4 % (36.0-66.0); PLATELET COUNT, AUTOMATED 135 10^3/uL (150-450); RED CELL DISTRIBUTION WIDTH 13.9 % (11.5-14.5); WHITE BLOOD COUNT 9.5 10^3/uL (4.0-10.0)
[2017-05-31 06:16] LABS: ANION GAP 3 MEQ/L (8-16); BLOOD UREA NITROGEN 14 MG/DL (7-18); CALCIUM LEVEL 9.2 MG/DL (8.8-10.2); CARBON DIOXIDE LEVEL 34 MEQ/L (21-32); CHLORIDE LEVEL 104 MEQ/L (98-107); CREATININE FOR GFR 0.41 MG/DL (0.55-1.02); GLOMERULAR FILTRATION RATE > 60.0 (>32); GLUCOSE, FASTING 96 MG/DL (83-110); POTASSIUM SERUM 3.8 MEQ/L (3.5-5.1); SODIUM LEVEL 141 MEQ/L (136-145)
[2017-05-31 08:00] VITALS: BP 134/61
[2017-05-31] MEDS ORDERED: ESCITALOPRAM OXALATE 10 MG TAB (LEXAPRO) PO ONE (08:15)
[2017-05-31] MEDS: DONEPEZIL 5 MG TAB PO SCH (08:42)
[2017-05-31] MEDS: LevoFLOXacin IV 750 MG in APPROPRIATE DILUENT 1 EA IV SCH (08:42)
[2017-05-31] MEDS: TIOTROPIUM INHALER/CAPSULE (SPIRIVA) INH SCH (08:54)
[2017-05-31] MEDS ORDERED: SERTRALINE HCL 50 MG TAB PO SCH (09:00)
[2017-05-31] MEDS ORDERED: SERTRALINE 100 MG TAB PO ONE (09:00)
[2017-05-31] MEDS ORDERED: SERTRALINE HCL 25 MG TABLET PO ONE (09:00)
[2017-05-31] MEDS ORDERED: LEVALBUTEROL 1.25 MG/0.5 ML CONCENTRATE NEB INH PRN (10:45)
--- NOTE | 2017-05-31 11:21 | IPN ---
DATE OF SERVICE: 05/31/2017 Patient seen and examined at the bedside. Chart has been reviewed. This morning, patient complains of persistent dysuria. She refuses Pyridium. Patient also complains of severe depression, unable to stop herself from crying most days and most of the time during the day while awake. Vitals: Temperature 98, pulse 76, respiratory 17, blood pressure 134/61, 88% on room air, 97% 2 liters nasal cannula. Generally, patient is awake, alert, oriented to herself. Answers questions appropriately. She is tearful at the bedside. No respiratory distress or cyanosis. Trachea is midline. No nasal flaring. Able to complete full sentences. No jugular venous distention. No thyromegaly. No cervical lymphadenopathy. Lungs are diminished with wheezing bilaterally. Heart: S1, S2, sinus rhythm. Abdomen is soft, nontender, nondistended. Positive bowel sounds. Positive CVA tenderness. Suprapubic tenderness. No rebound, guarding. Extremities: No cyanosis, clubbing or pitting edema. LABORATORY DATA: Microbiology: Imaging studies have been reviewed. ASSESSMENT AND PLAN: This is an 86-year-old female FULL CODE, past medical history of chronic obstructive pulmonary disease (COPD), anxiety, reflux, Alzheimer's dementia, tremors, vitamin D deficiency, neuropathy, presented to the emergency room with 2 day history of weakness, decrease in appetite. Follows with Dr. Orourke. Wears 2 liters of oxygen only at night but has required it throughout the day as well, presents to the emergency room and was found to have urinary tract infection and sepsis with elevated white count. She was given ceftriaxone but did have a prior history of ESBL E. Coli, therefore this was changed to Levaquin. She is continued on medications for chronic obstructive pulmonary disease (COPD) with DuoNebs, Spiriva due to active wheezing and hypoxia. Patient was started on prednisone. CURRENT ISSUES: 1. Urinary tract infection/pyelonephritis. Patient has a history of E. Coli ESBL contact isolation, continue with Levaquin which it was sensitive to during a previous admission. Discontinue patient's ceftriaxone. 2. Chronic obstructive pulmonary disease (COPD) active exacerbation, active wheezing. Nebulizer treatment and prednisone. Continue with Singulair and oxygen if saturation is below 88%. Discontinue IV fluids. Recheck an x-ray 3. Alzheimer's dementia. Continue home medications. 4. Severe depression. Per Dr Gomez patient may increase her Zoloft to 25 mg increased from baseline which would be 125 mg daily. 5. Anxiety. May resume home dose of Xanax. 6. Deep venous thrombosis (DVT) prophylaxis. Compression stockings. Patient may be transferred to medical/surgical floor.
[2017-05-31] MEDS: LEVALBUTEROL 1.25 MG/0.5 ML CONCENTRATE NEB INH SCH ×4 (11:29→23:47)
[2017-05-31] MEDS: ALPRAZolam 0.25 MG TAB PO SCH (11:40)
[2017-05-31] MEDS: predniSONE 20 MG TAB PO SCH ×2 (11:40→20:57)
[2017-05-31] MEDS: PANTOPRAZOLE 40MG TAB (PROTONIX) PO SCH ×2 (11:41→20:57)
[2017-05-31 12:30] VITALS: BP 131/59
--- NOTE | 2017-05-31 13:49 | ECGEPIP ---
Stationary ECG Study [facility] - ED Test Date: 2017-05-30 Pat Name: ALINA SANTOS Department: Room: - Gender: F Community Engagement Specialist: merissa : [phone] Requested By: GURMEET Alatorre Order Number: [id number] Reading MD: Td Campbell Measurements Intervals [place] Rate: 97 P: 77 WI: 153 QRS: 52 QRSD: 84 T: 70 QT: 334 QTc: 424 Interpretive Statements SINUS RHYTHM LEFT ATRIAL ENLARGEMENT NONSPECIFIC ST & T-WAVE ABNORMALITY SIMILAR TO 09/24/16 Electronically Signed On 05-31-2017 13:49:09 EST by Td Campbell
[2017-05-31] MEDS: MAALOX 30 ML SUSP *UDC PO PRN (17:42)
[2017-05-31 20:05] VITALS: BP 129/62
[2017-05-31] MEDS: MONTELUKAST 10 MG TAB PO SCH (20:57)
[2017-05-31] MEDS: ACETAMINOPHEN 325 MG TAB PO PRN (20:57)
[2017-05-31] MEDS: QUEtiapine FUMARATE 25 MG TAB PO SCH (20:58)
[2017-06-01] MEDS: LEVALBUTEROL 1.25 MG/0.5 ML CONCENTRATE NEB INH SCH ×6 (03:49→23:11)
[2017-06-01 04:00] VITALS: BP 145/67
[2017-06-01] MEDS: SLF 3 ML SYR IV SCH ×3 (04:28→21:05)
[2017-06-01 05:48] LABS: IMMATURE GRANULOCYTE % 0.7 % (0-0); LYMPH # 0.4 10^3/uL (1.5-4.5); LYMPH % 6.5 % (24.0-44.0); MEAN CORPUSCULAR HEMOGLOBIN 26.9 pg (27.0-33.0); MEAN CORPUSCULAR HGB CONC 30.4 g/dl (32.0-36.5); MEAN CORPUSCULAR VOLUME 88.4 fl (80.0-96.0); MONO # 0.3 10^3/uL (0.0-0.8); MONO % 4.6 % (0.0-5.0); NEUTROPHILS % 88.2 % (36.0-66.0); PLATELET COUNT, AUTOMATED 150 10^3/uL (150-450); RED CELL DISTRIBUTION WIDTH 13.8 % (11.5-14.5); WHITE BLOOD COUNT 6.8 10^3/uL (4.0-10.0)
[2017-06-01 06:01] LABS: ANION GAP 5 MEQ/L (8-16); BLOOD UREA NITROGEN 15 MG/DL (7-18); CALCIUM LEVEL 9.6 MG/DL (8.8-10.2); CARBON DIOXIDE LEVEL 32 MEQ/L (21-32); CHLORIDE LEVEL 107 MEQ/L (98-107); CREATININE FOR GFR 0.47 MG/DL (0.55-1.02); GLOMERULAR FILTRATION RATE > 60.0 (>32); GLUCOSE, FASTING 131 MG/DL (83-110); POTASSIUM SERUM 4.3 MEQ/L (3.5-5.1); SODIUM LEVEL 144 MEQ/L (136-145)
[2017-06-01] MEDS: TIOTROPIUM INHALER/CAPSULE (SPIRIVA) INH SCH (07:16)
[2017-06-01 07:17] VITALS: O2SAT 94
[2017-06-01 08:00] VITALS: BP 171/76
[2017-06-01] MEDS: LevoFLOXacin IV 750 MG in APPROPRIATE DILUENT 1 EA IV SCH (08:54)
[2017-06-01] MEDS: DONEPEZIL 5 MG TAB PO SCH (08:55)
[2017-06-01] MEDS: predniSONE 20 MG TAB PO SCH ×2 (08:55→20:51)
[2017-06-01] MEDS: SERTRALINE 100 MG TAB PO SCH (08:55)
[2017-06-01] MEDS: PANTOPRAZOLE 40MG TAB (PROTONIX) PO SCH ×2 (08:55→20:51)
[2017-06-01] MEDS: SERTRALINE HCL 25 MG TABLET PO SCH (08:55)
[2017-06-01] MEDS: ALPRAZolam 0.25 MG TAB PO SCH (08:56)
[2017-06-01] MEDS ORDERED: ESCITALOPRAM OXALATE 10 MG TAB (LEXAPRO) PO SCH (09:00)
--- NOTE | 2017-06-01 11:13 | REP ---
Clinical: Right flank pain. Comparison: 04/03/2007. Findings: The mid to lower pole of the right kidney appears mildly prominent and includes a 1.1 cm hypodensity likely representing cyst. Adjacent inflammatory stranding is appreciated. There is no evidence for hydroureteronephrosis, intrarenal or obstructing ureteral calculi. Findings may represent pyelonephritis and/or lobar nephronia. Correlation with urinalysis is recommended. Liver, spleen, pancreas, bilateral adrenal glands and left kidney are normal for noncontrast evaluation. The patient is status post cholecystectomy. The enteric system is without obvious acute obstruction or inflammatory process. Sigmoid diverticulosis noted without acute diverticulitis. Pelvis demonstrates collapsed bladder and evidence for prior hysterectomy along with pessary in satisfactory position. No pelvic fluid or ascites. No free air. No obvious adenopathy. Atherosclerotic changes of the aorta and vasculature noted without aneurysm. Musculoskeletal structures demonstrate age-related degenerative changes. Lung bases are clear. Visualized heart and pericardium are normal. Impression: 1. Findings as described above may represent right-sided pyelonephritis and/or lobar nephronia. Correlation with urinalysis is recommended. No evidence for urinary tract calcifications or hydroureteronephrosis. 2. Colonic and sigmoid diverticulosis without acute diverticulitis. 3. No ascites. Signed by Juve Brown MD 06/01/2017 11:05 A
[2017-06-01 11:30] VITALS: BP 135/64
--- NOTE | 2017-06-01 12:00 | IPN ---
DATE OF SERVICE: 06/01/2017 Patient seen and examined at the bedside. Chart has been reviewed. She continues to complain of severe depression with crying spells. She states that her dysuria is slightly improved. Urgency and frequency improved as well. Breathing is improved with oral prednisone yesterday. Decreased wheezing. Able to ambulate a little bit better today than yesterday. She has no nausea or vomiting. Unable to sleep at night. Otherwise, tolerating her diet. No abdominal pain. Vitals: Temperature 96.9, pulse 69, respiratory 18, blood pressure 145/67, 98% on 2 liters nasal cannula. Generally, patient is awake, alert, oriented to herself. Answers questions appropriately. No use of respiratory accessory muscles. She has baseline nonessential tremor. Pupils are round and reactive. Moist mucous membranes. No jugular venous distention (JVD). Lungs diminished with bilateral wheezing. Heart S1, S2, sinus tachycardia. Abdomen is soft, nontender, nondistended. Extremities: No cyanosis, clubbing or any pitting edema. LABORATORY DATA: CBC, metabolic panel, microbiology, and imaging studies have been reviewed. ASSESSMENT AND PLAN: This is an 86-year-old female FULL CODE, past history of chronic obstructive pulmonary disease (COPD), anxiety, reflux, Alzheimer's dementia, tremors, vitamin D deficiency, neuropathy, presented to the emergency room with 2 day history of weakness, decreased appetite. Follows with Dr. Orourke. Wears 2 liters of oxygen at night but has required it throughout the day, presented with urinary tract infection and sepsis with elevated white count. She was given ceftriaxone but did have a prior history of ESBL E. Coli, therefore this was changed to Levaquin. Patient had audible wheezing, was treated for chronic obstructive pulmonary disease (COPD) exacerbation with prednisone, DuoNebs, oxygen therapy and Spiriva. CURRENT ISSUES: 1. UTI/pyelonephritis. History of E. Coli ESBL, contact isolation. Patient had resistance to ceftriaxone, currently on Levaquin which it was sensitive. 2. Chronic obstructive pulmonary disease (COPD) exacerbation with active wheezing. Nebulizer treatment and prednisone, Singulair and oxygen to goal saturation of 88 to 92%. 3. Alzheimer's dementia. Continue home medications. 4. Severe depression with crying spells. Per Dr. Gomez, increase Zoloft to 125 daily. 5. Anxiety. Home dose of Xanax. DISPOSITION: May be transferred to the medical/surgical floor.
[2017-06-01 14:00] VITALS: BP 138/74
[2017-06-01] MEDS: ALPRAZolam 0.25 MG TAB PO PRN (16:10)
[2017-06-01] MEDS: QUEtiapine FUMARATE 25 MG TAB PO SCH (20:51)
[2017-06-01] MEDS: MONTELUKAST 10 MG TAB PO SCH (20:51)
[2017-06-01 22:00] VITALS: BP 159/74
[2017-06-02] MEDS: LEVALBUTEROL 1.25 MG/0.5 ML CONCENTRATE NEB INH SCH ×5 (01:28→19:34)
[2017-06-02 06:00] VITALS: BP 144/67
[2017-06-02] MEDS: SLF 3 ML SYR IV SCH ×3 (06:00→22:00)
[2017-06-02] MEDS: LevoFLOXacin 750 MG TABLET PO SCH (06:01)
[2017-06-02] MEDS: ALPRAZolam 0.25 MG TAB PO PRN ×2 (06:04→20:52)
[2017-06-02] MEDS: TIOTROPIUM INHALER/CAPSULE (SPIRIVA) INH SCH (07:17)
[2017-06-02] MEDS ORDERED: ALPRAZolam 0.25 MG TAB PO ONE (08:45)
[2017-06-02] MEDS: DONEPEZIL 5 MG TAB PO SCH (08:48)
[2017-06-02] MEDS: SERTRALINE 100 MG TAB PO SCH (08:48)
[2017-06-02] MEDS: predniSONE 20 MG TAB PO SCH ×2 (08:48→20:52)
[2017-06-02] MEDS: PANTOPRAZOLE 40MG TAB (PROTONIX) PO SCH ×2 (08:48→20:52)
[2017-06-02] MEDS: SERTRALINE HCL 25 MG TABLET PO SCH (08:49)
[2017-06-02 09:03] LABS: IMMATURE GRANULOCYTE % 0.6 % (0-0); LYMPH # 0.6 10^3/uL (1.5-4.5); LYMPH % 6.5 % (24.0-44.0); MEAN CORPUSCULAR HEMOGLOBIN 26.8 pg (27.0-33.0); MEAN CORPUSCULAR HGB CONC 30.2 g/dl (32.0-36.5); MEAN CORPUSCULAR VOLUME 88.7 fl (80.0-96.0); MONO # 0.7 10^3/uL (0.0-0.8); NEUTROPHILS # 7.6 10^3/uL (1.8-7.7); NEUTROPHILS % 84.9 % (36.0-66.0); PLATELET COUNT, AUTOMATED 224 10^3/uL (150-450); RED CELL DISTRIBUTION WIDTH 14.2 % (11.5-14.5); WHITE BLOOD COUNT 8.9 10^3/uL (4.0-10.0)
[2017-06-02 09:31] LABS: ANION GAP 3 MEQ/L (8-16); BLOOD UREA NITROGEN 16 MG/DL (7-18); CALCIUM LEVEL 9.5 MG/DL (8.8-10.2); CARBON DIOXIDE LEVEL 37 MEQ/L (21-32); CHLORIDE LEVEL 103 MEQ/L (98-107); GLOMERULAR FILTRATION RATE > 60.0 (>32); GLUCOSE, FASTING 115 MG/DL (83-110); POTASSIUM SERUM 3.9 MEQ/L (3.5-5.1); SODIUM LEVEL 143 MEQ/L (136-145)
[2017-06-02 14:00] VITALS: BP 132/60
--- NOTE | 2017-06-02 15:25 | IPN ---
DATE OF SERVICE: 06/02/2017 Patient seen and examined at the bedside. Chart has been reviewed. The patient complains of being very anxious and restless, having crying spells. Per Dr. Gomez, the patient's Zoloft can be increased by 25 mg from 100 mg and can be titrated as outpatient up to 200 mg. She denies any fevers, chills, dysuria, urgency, frequency. No other issues per nursing. Vitals: Temperature 98.4, pulse 74, respiratory rate 17, blood pressure 144/67, 95% on 2 liters nasal cannula. Lungs clear to auscultation. No wheezing, rales or rhonchi. Heart S1, S2, sinus rhythm. Abdomen is soft, nontender, nondistended. Positive bowel sounds. Extremities: No cyanosis, clubbing or any pitting edema. Neurologic: The patient has resting essential tremors. She is crying at the bedside, very tearful. The patient denies any suicidal or homicidal tendency and no suicidal plan. LABORATORY DATA: White count 6.8, hemoglobin 11, hematocrit 37, platelet count 150. Sodium 144, potassium 4.3, chloride 107, bicarbonate 32, BUN 15, creatinine 0.47, glucose of 131. ASSESSMENT AND PLAN: This is an 86-year-old female FULL CODE, history of Alzheimer's dementia, essential tremor, chronic obstructive pulmonary disease (COPD), anxiety, reflux, neuropathy, presented to the emergency room with 2 day history of weakness, decreased appetite. Follows with Dr. Orourke. Wears oxygen throughout the day and was found to have a urinary tract infection (UTI) and sepsis with prior history of ESBL E. Coli, resistant to ceftriaxone. Patient had audible wheezing, was treated for COPD exacerbation with DuoNebs, oxygen therapy and Spiriva. CURRENT ISSUES: 1. UTI/pyelonephritis. Currently on contact isolation due to history of ESBL E coli, resistant to ceftriaxone, currently on Levaquin which it was sensitive to, still waiting the urine culture during this admission. Continue with present management. Bacid to prevent Clostridium (C.) difficile. 2. COPD with active wheezing. Improved significantly on nebulizer treatment, prednisone, Singulair and oxygen to goal saturation of 88 to 92%. 3. Alzheimer's dementia. Continue home medications. 4. Severe depression with crying spells. Per Dr. Gomez, Zoloft has been increased to 125 daily. 5. Anxiety. As needed Xanax.
[2017-06-02] MEDS: MAALOX 30 ML SUSP *UDC PO PRN (20:53)
[2017-06-02] MEDS: QUEtiapine FUMARATE 25 MG TAB PO SCH (20:53)
[2017-06-02] MEDS: MONTELUKAST 10 MG TAB PO SCH (20:53)
[2017-06-02 22:00] VITALS: BP 158/60
[2017-06-03] MEDS: LEVALBUTEROL 1.25 MG/0.5 ML CONCENTRATE NEB INH SCH ×8 (03:09→23:35)
[2017-06-03 06:00] VITALS: BP 154/80
[2017-06-03] MEDS: SLF 3 ML SYR IV SCH ×3 (06:00→20:12)
[2017-06-03] MEDS ORDERED: LEVO750T13 PO (06:41)
[2017-06-03] MEDS ORDERED: BACITAB PO ×2 (06:41→06:43)
[2017-06-03] MEDS ORDERED: LEVA750T7 PO (06:43)
[2017-06-03] MEDS: LevoFLOXacin 750 MG TABLET PO SCH (06:53)
[2017-06-03 07:09] LABS: ANION GAP 3 MEQ/L (8-16); BLOOD UREA NITROGEN 19 MG/DL (7-18); CALCIUM LEVEL 9.3 MG/DL (8.8-10.2); CARBON DIOXIDE LEVEL 34 MEQ/L (21-32); CHLORIDE LEVEL 103 MEQ/L (98-107); CREATININE FOR GFR 0.47 MG/DL (0.55-1.02); GLOMERULAR FILTRATION RATE > 60.0 (>32); GLUCOSE, FASTING 104 MG/DL (83-110); POTASSIUM SERUM 4.6 MEQ/L (3.5-5.1); SODIUM LEVEL 140 MEQ/L (136-145)
[2017-06-03] MEDS: TIOTROPIUM INHALER/CAPSULE (SPIRIVA) INH SCH (07:11)
[2017-06-03 08:23] LABS: BASO % 0.1 % (0.0-1.0); IMMATURE GRANULOCYTE % 0.6 % (0-0); LYMPH # 0.6 10^3/uL (1.5-4.5); LYMPH % 7.6 % (24.0-44.0); MEAN CORPUSCULAR HGB CONC 30.3 g/dl (32.0-36.5); MEAN CORPUSCULAR VOLUME 89.1 fl (80.0-96.0); MONO # 0.8 10^3/uL (0.0-0.8); MONO % 9.4 % (0.0-5.0); NEUTROPHILS # 6.8 10^3/uL (1.8-7.7); NEUTROPHILS % 82.3 % (36.0-66.0); PLATELET COUNT, AUTOMATED 248 10^3/uL (150-450); WHITE BLOOD COUNT 8.3 10^3/uL (4.0-10.0)
[2017-06-03] MEDS: SERTRALINE HCL 25 MG TABLET PO SCH (09:06)
[2017-06-03] MEDS: DONEPEZIL 5 MG TAB PO SCH (09:06)
[2017-06-03] MEDS: SERTRALINE 100 MG TAB PO SCH (09:06)
[2017-06-03] MEDS: PANTOPRAZOLE 40MG TAB (PROTONIX) PO SCH ×2 (09:06→20:11)
[2017-06-03] MEDS: VITAMIN D 50,000 UNITS CAPSULE (ERGOCALCIFEROL 1.25MG) PO SCH (09:07)
[2017-06-03] MEDS: predniSONE 20 MG TAB PO SCH ×2 (09:07→20:11)
[2017-06-03] MEDS: ALPRAZolam 0.25 MG TAB PO PRN (11:35)
[2017-06-03 14:00] VITALS: BP 143/75
--- NOTE | 2017-06-03 16:53 | IPN ---
DATE: 06/03/2017 Patient is seen and examined at the bedside. Chart has been reviewed. Patient is still tearful at the bedside, anxious about going home, states that she wanted her tremors to go away prior to discharge. Patient denies any dysuria, urgency, frequency, no fever or chills. Denies any cough, shortness of breath. Patient feels unsteady with ambulation. VITAL SIGNS: Temperature 98.3, pulse 74, respiratory rate 20, blood pressure 154/80, 97% on 2 liters nasal cannula. GENERALLY: Patient has essential tremors. She is awake, alert, oriented, very tearful and sad, answering questions appropriately. Anicteric sclerae. No jugular venous distention (JVD). No thyromegaly. No cervical lymphadenopathy. Moist mucous membranes. LUNGS: Clear to auscultation. No wheezing, rales, or rhonchi. HEART: S1, S2, sinus rhythm. ABDOMEN: Soft, nontender, nondistended. Positive bowel sounds. EXTREMITIES: No cyanosis, clubbing, or any pitting edema. NEUROLOGIC: Patient has resting essential tremors, tearful at the bedside. PSYCHIATRIC: No suicidal or homicidal tendency. No suicidal plan. LABORATORY DATA: CBC, metabolic panel, microbiology, imaging studies have all been reviewed. ASSESSMENT AND PLAN: This is an 86-year-old female with history of essential tremors, Alzheimer's dementia, FULL CODE, chronic obstructive pulmonary disease (COPD), neuropathy, anxiety, presents to the emergency room (ER) due to a history of weakness and decreased appetite, follows usually with Dr. Orourke. Patient was found to have Escherichia (E) coli urinary tract infection, currently on Levaquin. She has also had wheezing and was treated for COPD exacerbation. IMPRESSION: 1. Urinary tract infection (UTI), pyelonephritis. Patient is currently on ceftriaxone. Urine culture shows Escherichia (E) coli which is gibbons sensitive. Will discontinue isolation precautions. Continue with Levaquin for now due to pyelonephritis found on CT of the abdomen and pelvis. 2. Chronic obstructive pulmonary disease (COPD) exacerbation. Nebulizer treatments. Supplemental oxygen. Currently at baseline oxygen saturation. Doing well with Xopenex with no complaints of worsening tremors. Also on prednisone 60 twice a day with improvement in her wheezing. Currently with some coarse breath sounds. 3. Alzheimer's dementia. Continue on donepezil. 4. Severe depression with crying spells. On Zoloft currently at a higher dose, 125 mg daily. 5. For anxiety, as needed Xanax 0.25. 6. Vitamin D deficiency, on vitamin D. 7. Reflux, on Protonix. 8. Code status. FULL CODE. DISPOSITION: Awaiting physical therapy (PT) clearance prior to discharge home.
--- NOTE | 2017-06-03 19:58 | IPNPDOC ---
Text Note Date of Service The patient was seen on 06/03/17. NOTE Patient with Gassy discomfort, Simethicone BID to Ordered PRN. VS,Fishbone, I+O VS, Fishbone, I+O Laboratory Tests 06/03/17 06:15 Calcium Level 9.3 06/03/17 07:42 Red Blood Count 4.33, Mean Corpuscular Volume 89.1, Mean Corpuscular Hemoglobin 27.0, Mean Corpuscular Hemoglobin Concent 30.3 L, Red Cell Distribution Width 14.0, Neutrophils (%) (Auto) 82.3 H, Lymphocytes (%) (Auto) 7.6 L, Monocytes (% ) (Auto) 9.4 H, Eosinophils (%) (Auto) 0.0, Basophils (%) (Auto) 0.1, Neutrophils # (Auto) 6.8, Lymphocytes # (Auto) 0.6 L, Monocytes # (Auto) 0.8, Eosinophils # (Auto) 0.0, Basophils # (Auto) 0.0 Vital Signs Date Time Temp Pulse Resp B/P (MAP) Pulse Ox O2 Delivery O2 Flow Rate FiO2 06/03/17 14:00 98.2 83 18 143/75 (97) 97 Nasal Cannula 2.0 I&O- Last 24 Hours up to 6 AM 06/04/17 06:00 Intake Total 480 ml Output Total 200 ml Balance 280 ml JUNIOR VERDE MD Jun 03, 2017 19:58
[2017-06-03] MEDS: SIMETHICONE 80 MG CHEW TAB PO PRN (20:11)
[2017-06-03] MEDS: QUEtiapine FUMARATE 25 MG TAB PO SCH (20:11)
[2017-06-03] MEDS: MONTELUKAST 10 MG TAB PO SCH (20:12)
[2017-06-03 22:00] VITALS: BP 150/67
[2017-06-04] MEDS: IPRATROPIUM 0.5MG/ALBUTEROL 2.5MG INH SOL UD 3ML (DUONEB)(J7620) NEB PRN (02:54)
[2017-06-04] MEDS: LevoFLOXacin 750 MG TABLET PO SCH (05:30)
[2017-06-04] MEDS: ACETAMINOPHEN 325 MG TAB PO PRN ×2 (05:31→21:42)
[2017-06-04] MEDS: SLF 3 ML SYR IV SCH ×3 (05:31→21:36)
[2017-06-04 06:00] VITALS: BP 156/69
[2017-06-04 06:48] LABS: ANION GAP 2 MEQ/L (8-16); BASO % 0.1 % (0.0-1.0); BLOOD UREA NITROGEN 17 MG/DL (7-18); CALCIUM LEVEL 9.6 MG/DL (8.8-10.2); CARBON DIOXIDE LEVEL 40 MEQ/L (21-32); CHLORIDE LEVEL 101 MEQ/L (98-107); CREATININE FOR GFR 0.44 MG/DL (0.55-1.02); GLOMERULAR FILTRATION RATE > 60.0 (>32); GLUCOSE, FASTING 115 MG/DL (83-110); IMMATURE GRANULOCYTE % 0.8 % (0-0); LYMPH # 0.9 10^3/uL (1.5-4.5); LYMPH % 10.2 % (24.0-44.0); MEAN CORPUSCULAR HEMOGLOBIN 27.1 pg (27.0-33.0); MEAN CORPUSCULAR HGB CONC 30.4 g/dl (32.0-36.5); MEAN CORPUSCULAR VOLUME 89.2 fl (80.0-96.0); MONO # 0.8 10^3/uL (0.0-0.8); MONO % 9.1 % (0.0-5.0); NEUTROPHILS # 6.8 10^3/uL (1.8-7.7); NEUTROPHILS % 79.8 % (36.0-66.0); PLATELET COUNT, AUTOMATED 259 10^3/uL (150-450); POTASSIUM SERUM 4.1 MEQ/L (3.5-5.1); RED CELL DISTRIBUTION WIDTH 14.2 % (11.5-14.5); SODIUM LEVEL 143 MEQ/L (136-145); WHITE BLOOD COUNT 8.5 10^3/uL (4.0-10.0)
[2017-06-04] MEDS: LEVALBUTEROL 1.25 MG/0.5 ML CONCENTRATE NEB INH SCH ×5 (07:33→23:43)
[2017-06-04] MEDS: TIOTROPIUM INHALER/CAPSULE (SPIRIVA) INH SCH (07:33)
[2017-06-04] MEDS: SERTRALINE HCL 25 MG TABLET PO SCH (08:44)
[2017-06-04] MEDS: DONEPEZIL 5 MG TAB PO SCH (08:44)
[2017-06-04] MEDS: SERTRALINE 100 MG TAB PO SCH (08:44)
[2017-06-04] MEDS: predniSONE 20 MG TAB PO SCH ×2 (08:44→21:34)
[2017-06-04] MEDS: PANTOPRAZOLE 40MG TAB (PROTONIX) PO SCH ×2 (08:44→21:35)
--- NOTE | 2017-06-04 09:17 | IPN ---
DATE OF SERVICE: 06/04/2017 Patient seen and examined at the bedside. Chart has been reviewed. Patient denies any dysuria, urgency, frequency, fever, chills, flank pain. Patient is tolerating her diet well. She has chronic essential tremors, unsteady on her feet and has not passes a home safety evaluation. No other issues per nursing. Patient complaints of gas discomfort, given simethicone last evening. No signs of diarrhea. Temperature 98.9, pulse 69, respiratory 20, blood pressure 156/69, 97% on 2 liters nasal cannula. Generally awake, alert, oriented to person and place. Lungs are clear to auscultation. No wheezing, rales or rhonchi. Heart: S1, S2, sinus rhythm. Abdomen is soft, nontender, nondistended. Extremities: No cyanosis, clubbing or pitting edema. Patient has resting tremors. LABORATORY DATA: White count 8.5, hemoglobin 11, hematocrit 37, platelet count 259. Sodium 143, potassium 4.1, chloride 101, bicarbonate 40, BUN 17, creatinine 0.44, glucose of 115. Urine culture 06/01 no growth. Blood culture 05/30 no growth after 72 hours. Influenza A and B are negative. ASSESSMENT AND PLAN: This is an 86-year-old female who has essential tremors, Alzheimer's dementia, FULL CODE, chronic obstructive pulmonary disease (COPD), neuropathy, anxiety, presents to the emergency room (ER) due to history of weakness, decreased appetite, was found to have E. Coli infection currently on Levaquin. Patient also had wheezing and is being treated for chronic obstructive pulmonary disease (COPD) exacerbation. IMPRESSION: Urinary tract infection (UTI) pyelonephritis. Current on ceftriaxone. Urine culture shows E. Coli which was pansensitive. Will discontinue isolation precautions. Continue with ceftriaxone for now. Pyelonephritis was found on CT abdomen and pelvis. Chronic obstructive pulmonary disease (COPD) exacerbation. Nebulizer treatments, supplemental oxygen. Currently at baseline oxygen need. Saturations are adequate. Doing well with Xopenex. No complaints. Also will need to taper prednisone in the next few days. Alzheimer's dementia on Donepezil. Essential tremors, chronic. Severe depression requiring Zoloft which was recently increased to 125 daily for anxiety as needed. Vitamin D deficiency, vitamin D supplementation. Reflux, on Protonix. CODE STATUS: FULL CODE. DISPOSITION: Still awaiting physical therapy (PT) clearance prior to discharge home.
[2017-06-04] MEDS: MAALOX 30 ML SUSP *UDC PO PRN (11:07)
[2017-06-04 14:00] VITALS: BP 136/63
[2017-06-04] MEDS: ALPRAZolam 0.25 MG TAB PO PRN (14:13)
[2017-06-04] MEDS: MONTELUKAST 10 MG TAB PO SCH (21:35)
[2017-06-04] MEDS: QUEtiapine FUMARATE 25 MG TAB PO SCH (21:35)
[2017-06-04] MEDS: SIMETHICONE 80 MG CHEW TAB PO PRN (21:42)
[2017-06-04 22:00] VITALS: BP 155/71
[2017-06-05] MEDS: LEVALBUTEROL 1.25 MG/0.5 ML CONCENTRATE NEB INH SCH ×6 (03:43→21:20)
[2017-06-05] MEDS: ALPRAZolam 0.25 MG TAB PO PRN ×3 (04:02→18:23)
[2017-06-05] MEDS: SLF 3 ML SYR IV SCH (05:25)
[2017-06-05] MEDS: LevoFLOXacin 750 MG TABLET PO SCH (05:25)
[2017-06-05] MEDS: MAALOX 30 ML SUSP *UDC PO PRN (05:27)
[2017-06-05 06:00] VITALS: BP 134/63
[2017-06-05 06:11] LABS: BASO % 0.2 % (0.0-1.0); IMMATURE GRANULOCYTE % 1.1 % (0-0); LYMPH # 0.7 10^3/uL (1.5-4.5); LYMPH % 7.7 % (24.0-44.0); MEAN CORPUSCULAR HEMOGLOBIN 26.7 pg (27.0-33.0); MEAN CORPUSCULAR HGB CONC 30.1 g/dl (32.0-36.5); MEAN CORPUSCULAR VOLUME 88.5 fl (80.0-96.0); MONO # 0.5 10^3/uL (0.0-0.8); MONO % 5.7 % (0.0-5.0); NEUTROPHILS % 85.3 % (36.0-66.0); PLATELET COUNT, AUTOMATED 276 10^3/uL (150-450); RED CELL DISTRIBUTION WIDTH 14.1 % (11.5-14.5); WHITE BLOOD COUNT 9.3 10^3/uL (4.0-10.0)
[2017-06-05 06:23] LABS: ANION GAP 4 MEQ/L (8-16); BLOOD UREA NITROGEN 13 MG/DL (7-18); CALCIUM LEVEL 9.7 MG/DL (8.8-10.2); CARBON DIOXIDE LEVEL 39 MEQ/L (21-32); CHLORIDE LEVEL 98 MEQ/L (98-107); GLOMERULAR FILTRATION RATE > 60.0 (>32); GLUCOSE, FASTING 113 MG/DL (83-110); POTASSIUM SERUM 4.1 MEQ/L (3.5-5.1); SODIUM LEVEL 141 MEQ/L (136-145)
[2017-06-05] MEDS: TIOTROPIUM INHALER/CAPSULE (SPIRIVA) INH SCH (07:20)
[2017-06-05 09:35] VITALS: BP 120/60
[2017-06-05] MEDS: DONEPEZIL 5 MG TAB PO SCH (10:32)
[2017-06-05] MEDS: PANTOPRAZOLE 40MG TAB (PROTONIX) PO SCH ×2 (10:32→20:44)
[2017-06-05] MEDS: predniSONE 20 MG TAB PO SCH ×2 (10:33→20:44)
[2017-06-05] MEDS: SERTRALINE HCL 25 MG TABLET PO SCH (10:34)
[2017-06-05] MEDS: SERTRALINE 100 MG TAB PO SCH (10:34)
--- NOTE | 2017-06-05 13:54 | IPNPDOC ---
Text Note Date of Service The patient was seen on 06/05/17. NOTE Subjective: Patient is an 86 year old female with a PMHx of Diastolic CHF (Grade 1 ), COPD, Alzheimer, Essential tremor, Neuropathy, Vitamin D deficiency, Anxiety , GERD who presented to the ER with decreased appetite and weakness. Patient was noted to have a febrile episode outside the hospital. Patient was subsequently found to have a urinary tract infection with pyelonephritis and she has been started on levofloxacin. Patient was seen and examined at the bedside. The patient denies any complaints. Denies any dysuria or frequency. As remained afebrile. He needs to work with physical therapy. Objective: Vitals (See below) General: Lying in bed, no acute distress, comfortable, AAOx3 HEENT: NC, AT CVS: RRR, +S1S2 Lungs: Fair air entry b/l, mild b/l wheezing Abdomen: Soft, ND, NT Extremities: - Edema, - Calf tenderness Assessment and plan: Urinary tract infection with pyelonephritis - likely 2/2 Escherichia coli - Currently has improvement in her fatigue dysuria and frequency - Maintains afebrile - Cultures remain negative after 5 days - Urine culture 06/01: Negative for growth after 5 days - Continue with levofloxacin (Antibiotic day# 6) Acute exacerbation of COPD - She noted some difficulty with breathing this morning - Reveals mild wheezing in bilateral lung metz - c/w Montelukast - c/w inhaled therapy with Xopinex, Spiriva - c/w prednisone; will consider tapering dose tomorrow Diastolic CHF (Grade 1) - No evidence of acute exacerbation - Appears euvolemic at this moment Alzheimer - c/w donepezil Essential tremor - Chronic Neuropathy - Chronic Vitamin D deficiency - c/w supplementation Anxiety - c/w sertraline, quetiapine, alprazolam GERD - c/w Protonix DVT prophylaxis - c/w sleeve compression devices CODE STATUS: - Full code Disposition: - Awaiting clearance from physical therapy Ishan HORAN, I+O Ishan HORAN, I+O Laboratory Tests 06/05/17 05:42 Red Blood Count 4.54, Mean Corpuscular Volume 88.5, Mean Corpuscular Hemoglobin 26.7 L, Mean Corpuscular Hemoglobin Concent 30.1 L, Red Cell Distribution Width 14.1, Neutrophils (%) (Auto) 85.3 H, Lymphocytes (%) (Auto) 7.7 L, Monocytes (% ) (Auto) 5.7 H, Eosinophils (%) (Auto) 0.0, Basophils (%) (Auto) 0.2, Neutrophils # (Auto) 8.0 H, Lymphocytes # (Auto) 0.7 L, Monocytes # (Auto) 0.5, Eosinophils # (Auto) 0.0, Basophils # (Auto) 0.0, Calcium Level 9.7 Vital Signs Date Time Temp Pulse Resp B/P (MAP) Pulse Ox O2 Delivery O2 Flow Rate FiO2 06/05/17 11:00 Nasal Cannula 2.0 06/05/17 09:35 96.5 84 14 120/60 (80) 97 I&O- Last 24 Hours up to 6 AM 06/06/17 06:00 Intake Total 120 ml Output Total 150 ml Balance -30 ml ELZBIETA ACOSTA MD Jun 05, 2017 13:54
[2017-06-05 14:10] VITALS: BP 120/56
[2017-06-05] MEDS ORDERED: SENNA 8.6 MG TAB (SENOKOT) PO PRN (16:15)
[2017-06-05] MEDS ORDERED: MOM 30ML SUSPENSION UDC PO PRN (16:15)
[2017-06-05] MEDS: SIMETHICONE 80 MG CHEW TAB PO PRN (16:54)
[2017-06-05] MEDS: QUEtiapine FUMARATE 25 MG TAB PO SCH (20:44)
[2017-06-05] MEDS: MONTELUKAST 10 MG TAB PO SCH (20:44)
[2017-06-05 22:00] VITALS: BP 123/60
[2017-06-06] MEDS: LEVALBUTEROL 1.25 MG/0.5 ML CONCENTRATE NEB INH SCH ×7 (00:50→23:38)
[2017-06-06] MEDS: LevoFLOXacin 750 MG TABLET PO SCH (05:13)
[2017-06-06 06:00] VITALS: BP 137/62
[2017-06-06 06:18] LABS: BASO % 0.1 % (0.0-1.0); IMMATURE GRANULOCYTE % 1.3 % (0-0); LYMPH # 0.9 10^3/uL (1.5-4.5); LYMPH % 7.8 % (24.0-44.0); MEAN CORPUSCULAR HEMOGLOBIN 26.3 pg (27.0-33.0); MEAN CORPUSCULAR HGB CONC 30.1 g/dl (32.0-36.5); MEAN CORPUSCULAR VOLUME 87.4 fl (80.0-96.0); MONO # 0.6 10^3/uL (0.0-0.8); MONO % 5.5 % (0.0-5.0); NEUTROPHILS # 9.8 10^3/uL (1.8-7.7); NEUTROPHILS % 85.3 % (36.0-66.0); PLATELET COUNT, AUTOMATED 290 10^3/uL (150-450); RED CELL DISTRIBUTION WIDTH 14.1 % (11.5-14.5); WHITE BLOOD COUNT 11.5 10^3/uL (4.0-10.0)
[2017-06-06 06:29] LABS: ANION GAP 1 MEQ/L (8-16); BLOOD UREA NITROGEN 13 MG/DL (7-18); CALCIUM LEVEL 9.4 MG/DL (8.8-10.2); CARBON DIOXIDE LEVEL 41 MEQ/L (21-32); CHLORIDE LEVEL 99 MEQ/L (98-107); CREATININE FOR GFR 0.43 MG/DL (0.55-1.02); GLOMERULAR FILTRATION RATE > 60.0 (>32); GLUCOSE, FASTING 112 MG/DL (83-110); SODIUM LEVEL 141 MEQ/L (136-145)
[2017-06-06] MEDS: TIOTROPIUM INHALER/CAPSULE (SPIRIVA) INH SCH (07:31)
--- NOTE | 2017-06-06 09:01 | REP ---
Clinical: Chest pain. Dyspnea. Comparison: 05/30/2017. Findings: Mediastinum and cardiac silhouette are within normal limits and stable. Lung metz demonstrate diffuse chronic advanced interstitial changes and scarring/fibrosis with possible trace basilar atelectasis. No obvious acute consolidation, effusion, or pneumothorax. Skeletal structures stable. Impression: Stable chronic changes. Cannot exclude trace left basilar atelectasis. Signed by Juve Brown MD 06/06/2017 08:53 A
[2017-06-06] MEDS: SERTRALINE HCL 25 MG TABLET PO SCH (09:16)
[2017-06-06] MEDS: predniSONE 20 MG TAB PO SCH ×2 (09:16→21:00)
[2017-06-06] MEDS: SERTRALINE 100 MG TAB PO SCH (09:16)
[2017-06-06] MEDS: DONEPEZIL 5 MG TAB PO SCH (09:17)
[2017-06-06] MEDS: PANTOPRAZOLE 40MG TAB (PROTONIX) PO SCH ×2 (09:17→21:00)
[2017-06-06] MEDS: MAALOX 30 ML SUSP *UDC PO PRN (12:23)
--- NOTE | 2017-06-06 13:10 | IPNPDOC ---
Text Note Date of Service The patient was seen on 06/06/17. NOTE Subjective: Patient is an 86 year old female with a PMHx of Diastolic CHF (Grade 1 ), COPD, Alzheimer, Essential tremor, Neuropathy, Vitamin D deficiency, Anxiety , GERD who presented to the ER with decreased appetite and weakness. Patient was noted to have a febrile episode outside the hospital. Patient was subsequently found to have a urinary tract infection with pyelonephritis and she has been started on levofloxacin. Patient was seen and examined at the bedside. She reports that she feels a little weak. Denies any dysuria or cough a this time. Objective: Vitals (See below) General: Lying in bed, no acute distress, comfortable, AAOx3 HEENT: NC, AT CVS: RRR, +S1S2 Lungs: Fair air entry b/l, mild b/l wheezing Abdomen: Soft, ND, NT Extremities: - Edema, - Calf tenderness Assessment and plan: Urinary tract infection with pyelonephritis - Currently has improvement in her fatigue dysuria and frequency - Maintains afebrile - Cultures remain negative after 5 days - Urine culture 06/01: Negative for growth after 5 days - CT abdomen / pelvis 06/01: suspected right sided pyelonephritis / lobar nephronia, chronic sigmoid diverticulosis without diverticulitis - Continue with levofloxacin (Antibiotic day# 7) Acute exacerbation of COPD - Denies any difficulty breathing - Reveals mild wheezing in bilateral lung metz - c/w Montelukast - c/w inhaled therapy with Xopinex, Spiriva - c/w prednisone; will reduce dose today Leukocytosis - possibly 2/2 corticosteroids - Remains afebrile - Repeat CXR and UA ordered - no change in current antibiotics at this time - Will taper steroids Diastolic CHF (Grade 1) - No evidence of acute exacerbation - Appears euvolemic at this moment Alzheimer - c/w donepezil Essential tremor - Chronic Neuropathy - Chronic Vitamin D deficiency - c/w supplementation Anxiety - c/w sertraline, quetiapine, alprazolam GERD - c/w Protonix DVT prophylaxis - c/w sleeve compression devices CODE STATUS: - Full code Disposition: - Cleared by physical therapy - Awaiting normalization of leukocytosis VS,Fishbone, I+O VS, Fishbone, I+O Laboratory Tests 06/06/17 05:41 Red Blood Count 4.37, Mean Corpuscular Volume 87.4, Mean Corpuscular Hemoglobin 26.3 L, Mean Corpuscular Hemoglobin Concent 30.1 L, Red Cell Distribution Width 14.1, Neutrophils (%) (Auto) 85.3 H, Lymphocytes (%) (Auto) 7.8 L, Monocytes (% ) (Auto) 5.5 H, Eosinophils (%) (Auto) 0.0, Basophils (%) (Auto) 0.1, Neutrophils # (Auto) 9.8 H, Lymphocytes # (Auto) 0.9 L, Monocytes # (Auto) 0.6, Eosinophils # (Auto) 0.0, Basophils # (Auto) 0.0, Calcium Level 9.4 Vital Signs Date Time Temp Pulse Resp B/P (MAP) Pulse Ox O2 Delivery O2 Flow Rate FiO2 06/06/17 06:00 98.9 75 17 137/62 (87) 99 Nasal Cannula 2.0 I&O- Last 24 Hours up to 6 AM 06/07/17 06:00 Intake Total 240 ml Output Total 0 ml Balance 240 ml ELZBIETA ACOSTA MD Jun 06, 2017 13:10
[2017-06-06 14:00] VITALS: BP 133/62
[2017-06-06] MEDS: SIMETHICONE 80 MG CHEW TAB PO PRN (16:09)
[2017-06-06] MEDS: ALPRAZolam 0.25 MG TAB PO PRN (21:00)
[2017-06-06] MEDS: MONTELUKAST 10 MG TAB PO SCH (21:00)
[2017-06-06] MEDS: QUEtiapine FUMARATE 25 MG TAB PO SCH (21:00)
[2017-06-06 22:00] VITALS: BP 150/69
[2017-06-07] MEDS: LEVALBUTEROL 1.25 MG/0.5 ML CONCENTRATE NEB INH SCH ×6 (03:41→23:26)
[2017-06-07 06:00] VITALS: BP 155/73
[2017-06-07] MEDS: LevoFLOXacin 750 MG TABLET PO SCH (06:34)
[2017-06-07] MEDS: TIOTROPIUM INHALER/CAPSULE (SPIRIVA) INH SCH (07:44)
[2017-06-07] MEDS ORDERED: predniSONE 20 MG TAB PO SCH (09:00)
[2017-06-07 09:35] LABS: BASO % 0.2 % (0.0-1.0); EOS % 0.1 % (0.0-3.0); IMMATURE GRANULOCYTE % 0.9 % (0-0); LYMPH # 1.1 10^3/uL (1.5-4.5); LYMPH % 9.3 % (24.0-44.0); MEAN CORPUSCULAR HEMOGLOBIN 26.5 pg (27.0-33.0); MEAN CORPUSCULAR HGB CONC 30.3 g/dl (32.0-36.5); MEAN CORPUSCULAR VOLUME 87.4 fl (80.0-96.0); MONO # 0.8 10^3/uL (0.0-0.8); NEUTROPHILS # 9.7 10^3/uL (1.8-7.7); NEUTROPHILS % 82.5 % (36.0-66.0); PLATELET COUNT, AUTOMATED 295 10^3/uL (150-450); RED CELL DISTRIBUTION WIDTH 14.5 % (11.5-14.5); WHITE BLOOD COUNT 11.7 10^3/uL (4.0-10.0)
[2017-06-07 10:00] LABS: ALBUMIN 2.7 GM/DL (3.2-5.2); ALBUMIN/GLOBULIN RATIO 1.08 (1.00-1.93); ALKALINE PHOSPHATASE 55 U/L (45-117); ALT/SGPT 24 U/L (12-78); ANION GAP 6 MEQ/L (8-16); AST/SGOT 15 U/L (7-37); BILIRUBIN,TOTAL 0.2 MG/DL (0.2-1.0); BLOOD UREA NITROGEN 12 MG/DL (7-18); CALCIUM LEVEL 8.6 MG/DL (8.8-10.2); CARBON DIOXIDE LEVEL 36 MEQ/L (21-32); CHLORIDE LEVEL 99 MEQ/L (98-107); CREATININE FOR GFR 0.45 MG/DL (0.55-1.02); GLOMERULAR FILTRATION RATE > 60.0 (>32); GLUCOSE, FASTING 92 MG/DL (83-110); MAGNESIUM LEVEL 2.1 MG/DL (1.8-2.4); POTASSIUM SERUM 4.2 MEQ/L (3.5-5.1); SODIUM LEVEL 141 MEQ/L (136-145); TOTAL PROTEIN 5.2 GM/DL (6.4-8.2)
[2017-06-07] MEDS: predniSONE 20 MG TAB PO SCH ×2 (10:05→20:03)
[2017-06-07] MEDS: PANTOPRAZOLE 40MG TAB (PROTONIX) PO SCH ×2 (10:05→20:03)
[2017-06-07] MEDS: DONEPEZIL 5 MG TAB PO SCH (10:05)
[2017-06-07] MEDS: SERTRALINE 100 MG TAB PO SCH (10:05)
[2017-06-07] MEDS: SERTRALINE HCL 25 MG TABLET PO SCH (10:05)
--- NOTE | 2017-06-07 11:31 | REP ---
Clinical: Constipation. Technique: Single supine view of the abdomen and pelvis. Findings: Moderate fecal stasis is suggested without evidence for obstruction or obvious perforation. No definite fecal impaction at the rectum is identified by current radiograph. No organomegaly. Prior cholecystectomy. Skeletal structures demonstrate age-related degenerative changes. Impression: Mild/moderate fecal stasis suggested. Signed by Juve Brown MD 06/07/2017 11:22 A
[2017-06-07] MEDS: MIRALAX *UNIT DOSE* 17GM PACKET PO SCH (11:59)
[2017-06-07 14:00] VITALS: BP 134/63
--- NOTE | 2017-06-07 14:06 | IPNPDOC ---
Text Note Date of Service The patient was seen on 06/07/17. NOTE Subjective: Patient is an 86 year old female with a PMHx of Diastolic CHF (Grade 1 ), COPD, Alzheimer, Essential tremor, Neuropathy, Vitamin D deficiency, Anxiety , GERD who presented to the ER with decreased appetite and weakness. Patient was noted to have a febrile episode outside the hospital. Patient was subsequently found to have a urinary tract infection with pyelonephritis and she has been started on levofloxacin. Patient was seen and examined at the bedside. Patient again noted feeling fatigued, feels that she is not herself. Denies any cough. Denies any difficulty breathing. Denies any dysuria, abdominal pain or diarrhea. Objective: Vitals (See below) General: Lying in bed, no acute distress, comfortable, AAOx3 HEENT: NC, AT CVS: RRR, +S1S2 Lungs: Fair air entry b/l, mild b/l wheezing Abdomen: Soft, ND, NT Extremities: - Edema, - Calf tenderness Assessment and plan: Urinary tract infection with pyelonephritis - Denies any urinary symptoms - Temperature of 100.2 noted on 06/06, afternoon - Blood and urine cultures have remained negative from 05/30 and 06/01 - CT abdomen / pelvis 06/01: suspected right sided pyelonephritis / lobar nephronia, chronic sigmoid diverticulosis without diverticulitis - Continue with levofloxacin (Antibiotic day# 8 of 10) Acute exacerbation of COPD - Does not reporting any shortness of breath, wheezing or cough - Physical without any evidence of wheezing or rhonchi - CXR 06/06: Stable chronic changes, cannot exclude trace left basilar atelectasis - c/w Montelukast - c/w inhaled therapy with Xopinex, Spiriva - c/w prednisone; will continue to taper dose of steroids - c/w incentive spirometry Leukocytosis - possibly 2/2 corticosteroids - Remains afebrile - Repeat CXR and UA ordered - no change in current antibiotics at this time Fecal stasis / Constipation - Noted to have history of severe constipation the past - XR Abdomen 06/07: Mild/moderate fecal stasis suggested - c/w senna, milk of magnesia PRN - We will give Fleet enema today Diastolic CHF (Grade 1) - No evidence of acute exacerbation - Appears euvolemic at this moment Alzheimer - c/w donepezil Essential tremor - Chronic Neuropathy - Chronic Vitamin D deficiency - c/w supplementation Anxiety - c/w sertraline, quetiapine, alprazolam GERD - c/w Protonix DVT prophylaxis - c/w sleeve compression devices CODE STATUS: - Full code Disposition: - Cleared by physical therapy - Awaiting normalization of leukocytosis VS,Fishbone, I+O VS, Fishbone, I+O Laboratory Tests 06/07/17 08:47 Red Blood Count 4.30, Mean Corpuscular Volume 87.4, Mean Corpuscular Hemoglobin 26.5 L, Mean Corpuscular Hemoglobin Concent 30.3 L, Red Cell Distribution Width 14.5, Neutrophils (%) (Auto) 82.5 H, Lymphocytes (%) (Auto) 9.3 L, Monocytes (% ) (Auto) 7.0 H, Eosinophils (%) (Auto) 0.1, Basophils (%) (Auto) 0.2, Neutrophils # (Auto) 9.7 H, Lymphocytes # (Auto) 1.1 L, Monocytes # (Auto) 0.8, Eosinophils # (Auto) 0.0, Basophils # (Auto) 0.0, Calcium Level 8.6 L, Aspartate Amino Transf (AST/SGOT) 15, Alanine Aminotransferase (ALT/SGPT) 24, Alkaline Phosphatase 55, Total Bilirubin 0.2, Total Protein 5.2 L, Albumin 2.7 L Vital Signs Date Time Temp Pulse Resp B/P (MAP) Pulse Ox O2 Delivery O2 Flow Rate FiO2 06/07/17 11:37 Nasal Cannula 2.0 06/07/17 06:00 97.0 66 18 155/73 (100) 97 I&O- Last 24 Hours up to 6 AM 06/08/17 06:00 Intake Total 460 ml Output Total 200 ml Balance 260 ml ELZBIETA ACOSTA MD Jun 07, 2017 14:06
[2017-06-07] MEDS ORDERED: FLEET ENEMA PR PRN (14:15)
[2017-06-07] MEDS: MAALOX 30 ML SUSP *UDC PO PRN (16:18)
[2017-06-07] MEDS: QUEtiapine FUMARATE 25 MG TAB PO SCH (20:03)
[2017-06-07] MEDS: MONTELUKAST 10 MG TAB PO SCH (20:03)
[2017-06-07] MEDS: ACETAMINOPHEN 325 MG TAB PO PRN (20:04)
[2017-06-07 22:00] VITALS: BP 154/74
[2017-06-08] MEDS: LEVALBUTEROL 1.25 MG/0.5 ML CONCENTRATE NEB INH SCH ×6 (04:00→23:47)
[2017-06-08] MEDS: LevoFLOXacin 750 MG TABLET PO SCH (05:08)
[2017-06-08 06:00] VITALS: BP 142/67
[2017-06-08 06:02] LABS: BASO % 0.1 % (0.0-1.0); LYMPH # 1.1 10^3/uL (1.5-4.5); LYMPH % 8.2 % (24.0-44.0); MEAN CORPUSCULAR HEMOGLOBIN 26.6 pg (27.0-33.0); MEAN CORPUSCULAR HGB CONC 30.5 g/dl (32.0-36.5); MEAN CORPUSCULAR VOLUME 87.1 fl (80.0-96.0); MONO # 0.8 10^3/uL (0.0-0.8); MONO % 6.2 % (0.0-5.0); NEUTROPHILS # 11.1 10^3/uL (1.8-7.7); NEUTROPHILS % 84.5 % (36.0-66.0); PLATELET COUNT, AUTOMATED 313 10^3/uL (150-450); RED CELL DISTRIBUTION WIDTH 14.5 % (11.5-14.5); WHITE BLOOD COUNT 13.1 10^3/uL (4.0-10.0)
[2017-06-08 06:26] LABS: ALBUMIN 2.9 GM/DL (3.2-5.2); ALBUMIN/GLOBULIN RATIO 1.07 (1.00-1.93); ALKALINE PHOSPHATASE 58 U/L (45-117); ALT/SGPT 25 U/L (12-78); ANION GAP 3 MEQ/L (8-16); AST/SGOT 13 U/L (7-37); BILIRUBIN,TOTAL 0.2 MG/DL (0.2-1.0); BLOOD UREA NITROGEN 12 MG/DL (7-18); CALCIUM LEVEL 9.1 MG/DL (8.8-10.2); CARBON DIOXIDE LEVEL 40 MEQ/L (21-32); CHLORIDE LEVEL 98 MEQ/L (98-107); CREATININE FOR GFR 0.59 MG/DL (0.55-1.02); GLOMERULAR FILTRATION RATE > 60.0 (>32); GLUCOSE, FASTING 101 MG/DL (83-110); MAGNESIUM LEVEL 2.1 MG/DL (1.8-2.4); POTASSIUM SERUM 4.2 MEQ/L (3.5-5.1); SODIUM LEVEL 141 MEQ/L (136-145); TOTAL PROTEIN 5.6 GM/DL (6.4-8.2)
[2017-06-08] MEDS: TIOTROPIUM INHALER/CAPSULE (SPIRIVA) INH SCH (07:38)
[2017-06-08] MEDS: DONEPEZIL 5 MG TAB PO SCH (07:59)
[2017-06-08] MEDS: SERTRALINE HCL 25 MG TABLET PO SCH (07:59)
[2017-06-08] MEDS: ALPRAZolam 0.25 MG TAB PO PRN ×2 (07:59→15:15)
[2017-06-08] MEDS: SERTRALINE 100 MG TAB PO SCH (08:00)
[2017-06-08] MEDS: PANTOPRAZOLE 40MG TAB (PROTONIX) PO SCH ×2 (08:00→20:50)
[2017-06-08] MEDS: predniSONE 20 MG TAB PO SCH ×2 (08:00→20:51)
[2017-06-08] MEDS: MIRALAX *UNIT DOSE* 17GM PACKET PO SCH (08:01)
--- NOTE | 2017-06-08 08:46 | REP ---
Clinical: Chest pain. Dyspnea. Comparison: 08/01/2016. Findings: Previously identified 13 mm left upper lobe lesion now measures 2.3 x 2.1 x 1.6 cm and is considerably increased in size. A small 8 mm subpleural density is also appreciated periphery of the left upper lobe (image 21). Bilateral age-related chronic interstitial changes and mild bronchiectasis remain relatively stable. No consolidation or effusion. No pneumothorax. Evaluation for adenopathy is significantly limited by the lack of intravenous contrast enhancement. The mediastinum demonstrates atherosclerotic changes to the thoracic aorta and coronary arteries without aortic aneurysm or cardiomegaly. No pericardial effusion. Musculoskeletal structures demonstrate age-related changes without focal osseous abnormality. Impression: 1. Left upper lobe mass has increased in size to 2.3 cm maximal diameter and is consistent with malignancy. No further acute lesion is identified. Adenopathy cannot be excluded. 2. Chronic stable changes as described above including 8 mm subpleural density along the periphery of the left upper lobe. 3. No consolidation/atelectasis or pleural effusion. Signed by Juve Brown MD 06/08/2017 08:38 A
--- NOTE | 2017-06-08 08:59 | IPNPDOC ---
Text Note Date of Service The patient was seen on 06/08/17. NOTE Subjective: Patient is an 86 year old female with a PMHx of Diastolic CHF (Grade 1 ), COPD, Alzheimer, Essential tremor, Neuropathy, Vitamin D deficiency, Anxiety , GERD who presented to the ER with decreased appetite and weakness. Patient was noted to have a febrile episode outside the hospital. Patient was subsequently found to have a urinary tract infection with pyelonephritis and she has been started on levofloxacin. Patient was seen and examined at the bedside. Patient still reports feelings of being fatigued. Denies any difficulty breathing or cough. Denies any dysuria or diarrhea. Denies any abdominal pain or chest pain. Objective: Vitals (See below) General: Lying in bed, no acute distress, comfortable, AAOx3 HEENT: NC, AT CVS: RRR, +S1S2 Lungs: Fair air entry b/l, mild b/l wheezing Abdomen: Soft, ND, NT Extremities: - Edema, - Calf tenderness Assessment and plan: Urinary tract infection with pyelonephritis - Denies any urinary symptoms - Temperature of 100.2 noted on 06/06, afternoon - Blood and urine cultures have remained negative from 05/30 and 06/01 - CT abdomen / pelvis 06/01: suspected right sided pyelonephritis / lobar nephronia, chronic sigmoid diverticulosis without diverticulitis - c/w levofloxacin (Antibiotic day# 9 of 10) Acute exacerbation of COPD - Improvement in her breathing - CXR 06/06: Stable chronic changes, cannot exclude trace left basilar atelectasis - c/w Montelukast; Xopinex, Spiriva - c/w prednisone 40 BID - c/w incentive spirometry Leukocytosis - possibly 2/2 corticosteroids - Continues to trend upward - Remains afebrile - Repeat CXR and UA ordered - no change in current antibiotics at this time 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 Adenopathy not excluded, consolidation / atelectasis / pleural effusion - Will require tissue to get definitive diagnosis ; Will discuss with Pulmonary to determine best course of action - Patient son at the bedside and we had a discussion with the patient about her plans of care; currently they will discuss with other family members to determine whether a biopsy will be pursued Fecal stasis / Constipation - Noted to have history of severe constipation the past - XR Abdomen 06/07: Mild/moderate fecal stasis suggested - c/w senna, milk of magnesia PRN - s/p Fleet enema today Diastolic CHF (Grade 1) - No evidence of acute exacerbation - Appears euvolemic at this moment Alzheimer - c/w Donepezil Essential tremor - Chronic Neuropathy - Chronic Vitamin D deficiency - c/w supplementation Anxiety - c/w sertraline, quetiapine, alprazolam GERD - c/w Protonix DVT prophylaxis - c/w sleeve compression devices CODE STATUS: - Full code Disposition: - Cleared by physical therapy - Awaiting normalization of leukocytosis - Left upper lobe lung mass workup VS,Ishan, I+O VS, Ishan, I+O Laboratory Tests 06/08/17 05:33 Red Blood Count 4.48, Mean Corpuscular Volume 87.1, Mean Corpuscular Hemoglobin 26.6 L, Mean Corpuscular Hemoglobin Concent 30.5 L, Red Cell Distribution Width 14.5, Neutrophils (%) (Auto) 84.5 H, Lymphocytes (%) (Auto) 8.2 L, Monocytes (% ) (Auto) 6.2 H, Eosinophils (%) (Auto) 0.0, Basophils (%) (Auto) 0.1, Neutrophils # (Auto) 11.1 H, Lymphocytes # (Auto) 1.1 L, Monocytes # (Auto) 0.8 , Eosinophils # (Auto) 0.0, Basophils # (Auto) 0.0, Calcium Level 9.1, Aspartate Amino Transf (AST/SGOT) 13, Alanine Aminotransferase (ALT/SGPT) 25, Alkaline Phosphatase 58, Total Bilirubin 0.2, Total Protein 5.6 L, Albumin 2.9 L Vital Signs Date Time Temp Pulse Resp B/P (MAP) Pulse Ox O2 Delivery O2 Flow Rate FiO2 06/08/17 06:00 97.8 74 18 142/67 (92) 99 Nasal Cannula 2.0 ELZBIETA ACOSTA MD Jun 08, 2017 08:59
[2017-06-08 14:00] VITALS: BP 105/49
[2017-06-08] MEDS: MONTELUKAST 10 MG TAB PO SCH (20:50)
[2017-06-08] MEDS: QUEtiapine FUMARATE 25 MG TAB PO SCH (20:50)
[2017-06-09] VITALS: BP 115/63
[2017-06-09] MEDS: LEVALBUTEROL 1.25 MG/0.5 ML CONCENTRATE NEB INH SCH ×6 (04:00→23:57)
[2017-06-09] MEDS: LevoFLOXacin 750 MG TABLET PO SCH (05:50)
[2017-06-09 06:00] VITALS: BP 135/63
[2017-06-09 06:30] LABS: BASO % 0.1 % (0.0-1.0); LYMPH # 0.9 10^3/uL (1.5-4.5); LYMPH % 6.8 % (24.0-44.0); MEAN CORPUSCULAR HEMOGLOBIN 26.8 pg (27.0-33.0); MEAN CORPUSCULAR HGB CONC 30.2 g/dl (32.0-36.5); MEAN CORPUSCULAR VOLUME 88.8 fl (80.0-96.0); MONO # 0.6 10^3/uL (0.0-0.8); MONO % 4.7 % (0.0-5.0); NEUTROPHILS # 10.9 10^3/uL (1.8-7.7); NEUTROPHILS % 87.4 % (36.0-66.0); PLATELET COUNT, AUTOMATED 282 10^3/uL (150-450); RED CELL DISTRIBUTION WIDTH 14.5 % (11.5-14.5); WHITE BLOOD COUNT 12.5 10^3/uL (4.0-10.0)
[2017-06-09 06:47] LABS: ALBUMIN 2.8 GM/DL (3.2-5.2); ALBUMIN/GLOBULIN RATIO 0.97 (1.00-1.93); ALKALINE PHOSPHATASE 63 U/L (45-117); ALT/SGPT 23 U/L (12-78); ANION GAP 1 MEQ/L (8-16); AST/SGOT 13 U/L (7-37); BILIRUBIN,TOTAL 0.2 MG/DL (0.2-1.0); BLOOD UREA NITROGEN 16 MG/DL (7-18); CARBON DIOXIDE LEVEL 41 MEQ/L (21-32); CHLORIDE LEVEL 99 MEQ/L (98-107); CREATININE FOR GFR 0.59 MG/DL (0.55-1.02); GLOMERULAR FILTRATION RATE > 60.0 (>32); GLUCOSE, FASTING 114 MG/DL (83-110); MAGNESIUM LEVEL 2.3 MG/DL (1.8-2.4); POTASSIUM SERUM 4.5 MEQ/L (3.5-5.1); SODIUM LEVEL 141 MEQ/L (136-145); TOTAL PROTEIN 5.7 GM/DL (6.4-8.2)
[2017-06-09] MEDS: TIOTROPIUM INHALER/CAPSULE (SPIRIVA) INH SCH (07:27)
[2017-06-09] MEDS: MIRALAX *UNIT DOSE* 17GM PACKET PO SCH (08:52)
[2017-06-09] MEDS: DONEPEZIL 5 MG TAB PO SCH (08:52)
[2017-06-09] MEDS: SERTRALINE 100 MG TAB PO SCH (08:52)
[2017-06-09] MEDS: SERTRALINE HCL 25 MG TABLET PO SCH (08:53)
[2017-06-09] MEDS: PANTOPRAZOLE 40MG TAB (PROTONIX) PO SCH ×2 (08:53→20:41)
[2017-06-09] MEDS: predniSONE 20 MG TAB PO SCH ×2 (08:53→20:41)
--- NOTE | 2017-06-09 09:22 | IPNPDOC ---
Text Note Date of Service The patient was seen on 06/09/17. NOTE Subjective: Patient is an 86 year old female with a PMHx of Diastolic CHF (Grade 1 ), COPD, Alzheimer, Essential tremor, Neuropathy, Vitamin D deficiency, Anxiety , GERD who presented to the ER with decreased appetite and weakness. Patient was noted to have a febrile episode outside the hospital. Patient was subsequently found to have a urinary tract infection with pyelonephritis and she has been started on levofloxacin. Patient was seen and examined at the bedside. Patient reported feeling some abdominal pain this morning occurring on the left upper and lower quadrants. She denied any nausea, vomiting, diarrhea or constipation. Denied any difficulty breathing, cough or palpitations. Objective: Vitals (See below) General: Lying in bed, no acute distress, comfortable, AAOx3 HEENT: NC, AT CVS: RRR, +S1S2 Lungs: Fair air entry b/l, no appreciable wheezing Abdomen: Soft, ND, mild tenderness at LUQ / LLQ Extremities: - Edema, - Calf tenderness Assessment and plan: Urinary tract infection with pyelonephritis - Denies any urinary symptoms - Temperature of 100.2 noted on 06/06, afternoon - Blood and urine cultures have remained negative from 05/30 and 06/01 - CT abdomen / pelvis 06/01: suspected right sided pyelonephritis / lobar nephronia, chronic sigmoid diverticulosis without diverticulitis - Will discontinue levofloxacin (completed 10 day course) Acute exacerbation of COPD - Improvement in her breathing - CXR 06/06: Stable chronic changes, cannot exclude trace left basilar atelectasis - c/w Montelukast; Xopinex, Spiriva - c/w prednisone; will continue to taper steroids - c/w incentive spirometry Leukocytosis - possibly 2/2 corticosteroids - Still remains elevated - Repeat CXR and UA ordered - Will discontinue Levaquin LLQ / LUQ Abdominal pain - possibly 2/2 diverticulitis - Noted to have mild leukocytosis, mild low-grade fevers were noted in the past 2 days - Will order CT abdomen and pelvis with IV contrast to rule out diverticulitis - Will start antibiotics if positive for diverticulitis 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 Adenopathy not excluded, consolidation / atelectasis / pleural effusion - Discussion with patient and son at bedside; currently discussing whether they want to pursue a biopsy; aware of risks and benefits Fecal stasis / Constipation - Noted to have history of severe constipation the past - XR Abdomen 06/07: Mild/moderate fecal stasis suggested - c/w senna, milk of magnesia PRN - s/p Fleet enema today Diastolic CHF (Grade 1) - No evidence of acute exacerbation - Appears euvolemic at this moment Alzheimer - c/w Donepezil Essential tremor - Chronic Neuropathy - Chronic Vitamin D deficiency - c/w supplementation Anxiety - c/w sertraline, quetiapine, alprazolam GERD - c/w Protonix DVT prophylaxis - c/w sleeve compression devices CODE STATUS: - Full code Disposition: - Cleared by physical therapy - Left upper lobe lung mass workup; consideration for possible biopsy depending on family's wish - CT abdomen and pelvis to evaluate for diverticulitis VS,Fishbone, I+O VS, Fishbone, I+O Laboratory Tests 06/09/17 05:56 Red Blood Count 4.36, Mean Corpuscular Volume 88.8, Mean Corpuscular Hemoglobin 26.8 L, Mean Corpuscular Hemoglobin Concent 30.2 L, Red Cell Distribution Width 14.5, Neutrophils (%) (Auto) 87.4 H, Lymphocytes (%) (Auto) 6.8 L, Monocytes (% ) (Auto) 4.7, Eosinophils (%) (Auto) 0.0, Basophils (%) (Auto) 0.1, Neutrophils # (Auto) 10.9 H, Lymphocytes # (Auto) 0.9 L, Monocytes # (Auto) 0.6, Eosinophils # (Auto) 0.0, Basophils # (Auto) 0.0, Calcium Level 9.0, Aspartate Amino Transf (AST/SGOT) 13, Alanine Aminotransferase (ALT/SGPT) 23, Alkaline Phosphatase 63, Total Bilirubin 0.2, Total Protein 5.7 L, Albumin 2.8 L Vital Signs Date Time Temp Pulse Resp B/P (MAP) Pulse Ox O2 Delivery O2 Flow Rate FiO2 06/09/17 06:00 98.1 98 17 135/63 (87) 63 Nasal Cannula 2.0 I&O- Last 24 Hours up to 6 AM 06/10/17 06:00 Intake Total 120 ml Output Total 0 ml Balance 120 ml ELZBIETA ACOSTA MD Jun 09, 2017 09:22
[2017-06-09] MEDS ORDERED: READI-CAT 2 PO ONE ×4 (10:15→11:10)
[2017-06-09] MEDS: ALPRAZolam 0.25 MG TAB PO PRN ×2 (10:46→20:46)
--- NOTE | 2017-06-09 13:29 | REP ---
Clinical: Acute abdominal pain. Technique: Axial images from the lung bases to the pubic symphysis using oral contrast (per protocol) with coronal and sagittal re-formations. Comparison: 05/30/2017, 04/03/2007. Findings: Lung bases are clear. Visualized heart and pericardium normal / stable. Liver, spleen, pancreas, bilateral adrenal glands and left kidney are normal. The right kidney demonstrates few hypodensities up to 1.5 cm and likely represent cysts. The previously noted perinephric stranding has resolved. The enteric system is without obstruction or obvious acute inflammatory process. Significant colonic and sigmoid diverticulosis noted without definite evidence for acute diverticulitis. Pelvis demonstrates normal bladder and evidence for prior hysterectomy with pessary in place. No pelvic fluid or ascites. No obvious adenopathy. Abdominal aorta with atherosclerotic changes but no evidence for aneurysm. No free air. Musculoskeletal structures demonstrate age-related degenerative changes without focal osseous abnormality. Impression: Previously noted right perinephric stranding has resolved. Colonic and sigmoid diverticulosis without evidence for acute diverticulitis. No free fluid. No free air. Signed by Juve Brown MD 06/09/2017 01:20 P
[2017-06-09 14:00] VITALS: BP 132/60
[2017-06-09] MEDS: QUEtiapine FUMARATE 25 MG TAB PO SCH (20:41)
[2017-06-09] MEDS: MONTELUKAST 10 MG TAB PO SCH (20:41)
[2017-06-09] MEDS: MAALOX 30 ML SUSP *UDC PO PRN (20:42)
[2017-06-09 22:00] VITALS: BP 112/75
[2017-06-10] MEDS: LEVALBUTEROL 1.25 MG/0.5 ML CONCENTRATE NEB INH SCH ×5 (04:00→20:45)
[2017-06-10 06:00] VITALS: BP 137/63
[2017-06-10 06:35] LABS: BASO % 0.1 % (0.0-1.0); EOS % 0.1 % (0.0-3.0); IMMATURE GRANULOCYTE % 0.8 % (0-0); LYMPH # 1.3 10^3/uL (1.5-4.5); LYMPH % 9.6 % (24.0-44.0); MEAN CORPUSCULAR HEMOGLOBIN 26.5 pg (27.0-33.0); MEAN CORPUSCULAR HGB CONC 30.3 g/dl (32.0-36.5); MEAN CORPUSCULAR VOLUME 87.6 fl (80.0-96.0); MONO # 0.9 10^3/uL (0.0-0.8); MONO % 6.7 % (0.0-5.0); NEUTROPHILS % 82.7 % (36.0-66.0); PLATELET COUNT, AUTOMATED 264 10^3/uL (150-450); RED CELL DISTRIBUTION WIDTH 14.6 % (11.5-14.5); WHITE BLOOD COUNT 13.2 10^3/uL (4.0-10.0)
[2017-06-10 06:55] LABS: ALKALINE PHOSPHATASE 50 U/L (45-117); ALT/SGPT 20 U/L (12-78); ANION GAP 1 MEQ/L (8-16); AST/SGOT 8 U/L (7-37); BILIRUBIN,TOTAL 0.2 MG/DL (0.2-1.0); BLOOD UREA NITROGEN 14 MG/DL (7-18); CALCIUM LEVEL 8.9 MG/DL (8.8-10.2); CARBON DIOXIDE LEVEL 41 MEQ/L (21-32); CHLORIDE LEVEL 99 MEQ/L (98-107); CREATININE FOR GFR 0.51 MG/DL (0.55-1.02); GLOMERULAR FILTRATION RATE > 60.0 (>32); GLUCOSE, FASTING 90 MG/DL (83-110); POTASSIUM SERUM 4.5 MEQ/L (3.5-5.1); SODIUM LEVEL 141 MEQ/L (136-145); TOTAL PROTEIN 5.4 GM/DL (6.4-8.2)
[2017-06-10 06:56] LABS: ALBUMIN 2.7 GM/DL (3.2-5.2); MAGNESIUM LEVEL 2.5 MG/DL (1.8-2.4)
[2017-06-10] MEDS: TIOTROPIUM INHALER/CAPSULE (SPIRIVA) INH SCH (07:20)
[2017-06-10] MEDS: SERTRALINE HCL 25 MG TABLET PO SCH (09:54)
[2017-06-10] MEDS: DONEPEZIL 5 MG TAB PO SCH (09:54)
[2017-06-10] MEDS: predniSONE 20 MG TAB PO SCH ×2 (09:54→22:14)
[2017-06-10] MEDS: MIRALAX *UNIT DOSE* 17GM PACKET PO SCH (09:55)
[2017-06-10] MEDS: PANTOPRAZOLE 40MG TAB (PROTONIX) PO SCH ×2 (09:55→22:14)
[2017-06-10] MEDS: SERTRALINE 100 MG TAB PO SCH (09:55)
[2017-06-10] MEDS: VITAMIN D 50,000 UNITS CAPSULE (ERGOCALCIFEROL 1.25MG) PO SCH (09:57)
[2017-06-10] MEDS: ALPRAZolam 0.25 MG TAB PO PRN (12:33)
[2017-06-10 14:00] VITALS: BP 117/56
--- NOTE | 2017-06-10 14:16 | IPNPDOC ---
Text Note Date of Service The patient was seen on 06/10/17. NOTE Subjective: Patient is an 86 year old female with a PMHx of Diastolic CHF (Grade 1 ), COPD, Alzheimer, Essential tremor, Neuropathy, Vitamin D deficiency, Anxiety , GERD who presented to the ER with decreased appetite and weakness. Patient was noted to have a febrile episode outside the hospital. Patient was subsequently found to have a urinary tract infection with pyelonephritis and she has been started on levofloxacin. Patient was seen and examined at the bedside. She denies any cough, shortness of breath or palpitations. She does note some abdominal pain. Denies any diarrhea or dysuria. Objective: Vitals (See below) General: Lying in bed, no acute distress, comfortable, AAOx3 HEENT: NC, AT CVS: RRR, +S1S2 Lungs: Fair air entry b/l, no appreciable wheezing Abdomen: Soft, ND, no appreciable tenderness, + BS Extremities: - Edema, - Calf tenderness Assessment and plan: Urinary tract infection with pyelonephritis - Denies any urinary symptoms - Temperature of 100.2 noted on 06/06, afternoon - Blood and urine cultures have remained negative from 05/30 and 06/01 - CT abdomen / pelvis 06/01: suspected right sided pyelonephritis / lobar nephronia, chronic sigmoid diverticulosis without diverticulitis - CT abdomen / pelvis 06/09: Resolution of right-sided perinephric stranding; no evidence of diverticulitis - s/p levofloxacin (completed 10 day course) Acute exacerbation of COPD - Improvement in her breathing, without any evidence of wheezing or cough - CXR 06/06: Stable chronic changes, cannot exclude trace left basilar atelectasis - c/w Montelukast; Xopinex, Spiriva - c/w prednisone; will keep on current dose and reduce again tomorrow - c/w incentive spirometry Leukocytosis - possibly 2/2 corticosteroids - Still remains elevated - UA 06/06: Negative for infection - CT chest 06/08: No consolidation/atelectasis or pleural effusion, chronic stable changes left upper lobe mass, increased to 2.3 cm - s/p Levaquin 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 Adenopathy not excluded, consolidation / atelectasis / pleural effusion - Discussion with patient and son at bedside; currently discussing whether they want to pursue a biopsy; aware of risks and benefits Fecal stasis / Constipation - Noted to have history of severe constipation the past - XR Abdomen 06/07: Mild/moderate fecal stasis suggested - s/p Fleet enema - c/w senna, milk of magnesia PRN Diastolic CHF (Grade 1) - No evidence of acute exacerbation - Appears euvolemic at this moment Alzheimer - c/w Donepezil Essential tremor - Chronic Neuropathy - Chronic Vitamin D deficiency - c/w supplementation Anxiety - c/w sertraline, quetiapine, alprazolam GERD - c/w Protonix DVT prophylaxis - c/w sleeve compression devices CODE STATUS: - Full code Disposition: - Cleared by physical therapy - Left upper lobe lung mass workup; consideration for possible biopsy depending on family's wish - Will continue with steroid taper VS,Fishbone, I+O VS, Fishbone, I+O Laboratory Tests 06/10/17 06:19 Calcium Level 8.9, Aspartate Amino Transf (AST/SGOT) 8, Alanine Aminotransferase (ALT/SGPT) 20, Alkaline Phosphatase 50, Total Bilirubin 0.2, Total Protein 5.4 L, Albumin 2.7 L 06/10/17 06:20 Red Blood Count 4.34, Mean Corpuscular Volume 87.6, Mean Corpuscular Hemoglobin 26.5 L, Mean Corpuscular Hemoglobin Concent 30.3 L, Red Cell Distribution Width 14.6 H, Neutrophils (%) (Auto) 82.7 H, Lymphocytes (%) (Auto) 9.6 L, Monocytes ( %) (Auto) 6.7 H, Eosinophils (%) (Auto) 0.1, Basophils (%) (Auto) 0.1, Neutrophils # (Auto) 11.0 H, Lymphocytes # (Auto) 1.3 L, Monocytes # (Auto) 0.9 H, Eosinophils # (Auto) 0.0, Basophils # (Auto) 0.0 Vital Signs Date Time Temp Pulse Resp B/P (MAP) Pulse Ox O2 Delivery O2 Flow Rate FiO2 06/10/17 06:00 97.7 75 17 137/63 (87) 96 Nasal Cannula 2.0 I&O- Last 24 Hours up to 6 AM 06/11/17 06:00 Intake Total 120 ml Balance 120 ml ELZBIETA ACOSTA MD Jun 10, 2017 14:16
[2017-06-10 22:00] VITALS: BP 141/65
[2017-06-10] MEDS: QUEtiapine FUMARATE 25 MG TAB PO SCH (22:14)
[2017-06-10] MEDS: MONTELUKAST 10 MG TAB PO SCH (22:14)
[2017-06-11 06:00] VITALS: BP 148/69
[2017-06-11 06:42] LABS: BASO % 0.1 % (0.0-1.0); EOS % 0.1 % (0.0-3.0); IMMATURE GRANULOCYTE % 0.7 % (0-0); LYMPH # 0.8 10^3/uL (1.5-4.5); LYMPH % 6.3 % (24.0-44.0); MEAN CORPUSCULAR HEMOGLOBIN 26.4 pg (27.0-33.0); MEAN CORPUSCULAR HGB CONC 30.4 g/dl (32.0-36.5); MEAN CORPUSCULAR VOLUME 86.7 fl (80.0-96.0); MONO # 0.5 10^3/uL (0.0-0.8); MONO % 4.1 % (0.0-5.0); NEUTROPHILS # 10.7 10^3/uL (1.8-7.7); NEUTROPHILS % 88.7 % (36.0-66.0); PLATELET COUNT, AUTOMATED 247 10^3/uL (150-450); RED CELL DISTRIBUTION WIDTH 14.7 % (11.5-14.5); WHITE BLOOD COUNT 12.1 10^3/uL (4.0-10.0)
[2017-06-11 06:59] LABS: ALBUMIN 2.8 GM/DL (3.2-5.2); ALBUMIN/GLOBULIN RATIO 1.04 (1.00-1.93); ALKALINE PHOSPHATASE 62 U/L (45-117); ALT/SGPT 19 U/L (12-78); ANION GAP 2 MEQ/L (8-16); AST/SGOT 10 U/L (7-37); BILIRUBIN,TOTAL 0.3 MG/DL (0.2-1.0); BLOOD UREA NITROGEN 12 MG/DL (7-18); CALCIUM LEVEL 8.9 MG/DL (8.8-10.2); CARBON DIOXIDE LEVEL 39 MEQ/L (21-32); CHLORIDE LEVEL 100 MEQ/L (98-107); CREATININE FOR GFR 0.44 MG/DL (0.55-1.02); GLOMERULAR FILTRATION RATE > 60.0 (>32); GLUCOSE, FASTING 98 MG/DL (83-110); MAGNESIUM LEVEL 2.4 MG/DL (1.8-2.4); POTASSIUM SERUM 4.7 MEQ/L (3.5-5.1); SODIUM LEVEL 141 MEQ/L (136-145); TOTAL PROTEIN 5.5 GM/DL (6.4-8.2)
[2017-06-11] MEDS: TIOTROPIUM INHALER/CAPSULE (SPIRIVA) INH SCH (07:26)
[2017-06-11] MEDS: LEVALBUTEROL 1.25 MG/0.5 ML CONCENTRATE NEB INH SCH ×3 (07:27→11:29)
[2017-06-11] MEDS: MIRALAX *UNIT DOSE* 17GM PACKET PO SCH (08:53)
[2017-06-11] MEDS: SERTRALINE 100 MG TAB PO SCH (08:53)
[2017-06-11] MEDS: DONEPEZIL 5 MG TAB PO SCH (08:53)
[2017-06-11] MEDS: predniSONE 20 MG TAB PO SCH (08:53)
[2017-06-11] MEDS: PANTOPRAZOLE 40MG TAB (PROTONIX) PO SCH (08:53)
[2017-06-11] MEDS: SERTRALINE HCL 25 MG TABLET PO SCH (08:53)
[2017-06-11] MEDS ORDERED: PRED10TA2 PO (10:45)
[2017-06-11] MEDS: ALPRAZolam 0.25 MG TAB PO PRN (12:08)
[2017-06-11] MEDS: MAALOX 30 ML SUSP *UDC PO PRN (12:08)
--- NOTE | 2017-06-12 19:45 | DSES ---
DATE OF ADMISSION: 05/30/2017 DATE OF DISCHARGE: 06/11/2017 ATTENDING PHYSICIANS: Arielle Cruz MD, Johanny Lara MD PRIMARY CARE PROVIDER: Nia Vicente NP REFERRING PHYSICIAN: None. CONSULTING PHYSICIANS: None. CONDITION ON DISCHARGE: Stable. FINAL DIAGNOSES: 1. Urinary tract infection (UTI) with pyelonephritis. 2. Acute exacerbation of chronic obstructive pulmonary disease (COPD). PROCEDURES: None. HISTORY OF PRESENT ILLNESS: Patient is an 86-year-old female with a past medical history of diastolic congestive heart failure (CHF) grade 1, COPD, Alzheimer's, benign essential tremor, neuropathy, vitamin D deficiency, anxiety, and gastroesophageal reflux disease (GERD), who presented to the emergency room (ER) with decreased appetite and weakness. Patient was noted to have a febrile episode outside the hospital. Patient was subsequently found to have a urinary tract infection with pyelonephritis, and she was started on levofloxacin. HOSPITAL COURSE: 1. Urinary tract infection with pyelonephritis. Denies any urinary symptoms at this point. Patient had a fever initially; however, it has resolved. Blood cultures and urine cultures were negative from 05/30/2017 to 06/01/2017. CT abdomen from 06/01/2017 was suspicious for right-sided pyelonephritis with lobar nephronia, chronic sigmoid diverticulosis without diverticulitis. Subsequent CT abdomen and pelvis on 06/09/2017 revealed resolution of right-sided perinephric stranding. No evidence of diverticulitis. Status post levofloxacin for 10-day course. 2. Acute exacerbation of COPD. Improvement in her breathing without any evidence of wheezing. Chest x-ray on 06/06/2017 revealed stable chronic changes. Cannot exclude trace left basilar atelectasis. Patient was continued with montelukast, Xopenex, and Spiriva. Patient was put on prednisone and continued on a taper and will complete the taper as an outpatient. Patient was continued with incentive spirometry. 3. Leukocytosis. Possibly secondary to corticosteroids. Still remains mildly elevated; however, has remained stable. Urinalysis negative for any infection. CT chest on 06/08/2017 revealed no consolidation, atelectasis, or pleural effusion. Chronic stable changes in left upper lobe were noted, and a new mass of 2.3 cm was noted. Patient is status post Levaquin. 4. Left upper lobe mass, likely secondary to malignancy. Reports smoking history. CT chest revealed a left upper lobe mass had increased in size to 2.3 cm, consistent with malignancy with no further acute lesions identified. Adenopathy was not excluded. Consolidation/atelectasis/pleural effusion was not noted. We had an extensive discussion with the patient about pursuing biopsy; however, patient has not made a decision at this point and will continue discussion with her primary care provider, Nia Vicente. Patient is aware of the risks and benefits of getting a biopsy and not getting a biopsy. 5. Fecal stasis, chronic constipation. Noted to have history of severe constipation in the past. X-ray of abdomen 06/08/2017 revealed mild to moderate fecal stasis. Patient is positive post Fleet enema and has been having normal bowel movements. Patient will be continued with Senna and milk of magnesia as needed. 6. Diastolic CHF grade 1. No evidence of acute exacerbation. Appears to be euvolemic at this point. 7. Alzheimer's. Continue with donepezil. 8. Essential tremor. Has been chronic. 9. Neuropathy. Chronic. 10. Vitamin D deficiency. Continue with supplementation. 11. Anxiety. Continue with sertraline, quetiapine, and alprazolam. 12. GERD. Continue with Protonix. 13. Deep venous thrombosis (DVT) prophylaxis. Continue with sleeve compression devices. DISCHARGE MEDICATION: Patient will be discharged home on the following medication list: - Bacid one tablet by mouth twice a day - prednisone to be taken as directed - acetaminophen 650 mg by mouth every 6 hours as needed pain - Ventolin 216 mcg inhaled every 4 hours as needed shortness of breath - albuterol/ipratropium one solution inhaled twice a day - alprazolam 0.25 mg by mouth twice a day as needed anxiety - aluminum/magnesium/simethicone 10 mL by mouth every 6 hours as needed gastrointestinal (GI) upset - donepezil 10 mg by mouth daily - vitamin D 50,000 units by mouth as directed - furosemide 20 mg by mouth daily as needed edema - gabapentin 100 mg by mouth twice a day - milk of magnesia 30 mL by mouth daily as needed constipation - montelukast 10 mg by mouth nightly - Protonix 40 mg by mouth twice a day - quetiapine 25 mg by mouth nightly - sertraline 100 mg by mouth daily - tiotropium one inhalation daily DISCHARGE INSTRUCTIONS: Patient has been advised to followup with her primary care provider, Nia Vicente, within the next 7 days. She has been advised to remain compliant with the treatment plan and medication. Advised to return to the emergency room if she experiences any problems. TIME SPENT ON DISCHARGE: Greater than 35 minutes.
== END 2017-06-11 13:09 | disposition home or self-care (01) | DRG 872 ==
LOC: M ED 15:31 → M ED INP 23:57 → M PCU 05-31 02:54 → M MSPAV 06-01 11:25
PROVIDERS: ADMIT Internal Medicine; ATTEND Internal Medicine
DX: A41.9 Sepsis, unspecified organism (principal); N10 Acute pyelonephritis; J44.1 Chronic obstructive pulmonary disease with (acute) exacerbation; I50.32 Chronic diastolic (congestive) heart failure; C34.12 Malignant neoplasm of upper lobe, left bronchus or lung; F41.9 Anxiety disorder, unspecified; K21.9 Gastro-esophageal reflux disease without esophagitis; G30.9 Alzheimer's disease, unspecified; F02.80 Dementia in other diseases classified elsewhere, unspecified severity, without behavioral disturbance, psychotic disturbance, mood disturbance, and anxiety; K59.00 Constipation, unspecified; G25.0 Essential tremor; G62.9 Polyneuropathy, unspecified; K57.30 Diverticulosis of large intestine without perforation or abscess without bleeding; F32.9 Major depressive disorder, single episode, unspecified; E55.9 Vitamin D deficiency, unspecified; Z99.81 Dependence on supplemental oxygen; Z79.899 Other long term (current) drug therapy; Z88.0 Allergy status to penicillin; Z88.2 Allergy status to sulfonamides; Z88.6 Allergy status to analgesic agent; Z88.8 Allergy status to other drugs, medicaments and biological substances; Z87.891 Personal history of nicotine dependence

== ENCOUNTER 2017-07-25 13:15 | Emergency (ER) | payer MEDICARE, OTHER ==
[2017-07-25 14:15] LABS: BASO % 0.4 % (0.0-1.0); EOS # 0.1 10^3/uL (0.0-0.50); EOS % 1.7 % (0.0-3.0); HEMATOCRIT 43.6 % (36.0-47.0); HEMOGLOBIN 12.4 g/dl (12.0-16.0); IMMATURE GRANULOCYTE % 0.2 % (0-0); LYMPH # 1.2 10^3/uL (1.5-4.5); LYMPH % 15.1 % (24.0-44.0); MEAN CORPUSCULAR HEMOGLOBIN 26.3 pg (27.0-33.0); MEAN CORPUSCULAR HGB CONC 28.4 g/dl (32.0-36.5); MEAN CORPUSCULAR VOLUME 92.6 fl (80.0-96.0); MONO # 0.6 10^3/uL (0.0-0.8); NEUTROPHILS % 74.6 % (36.0-66.0); PLATELET COUNT, AUTOMATED 198 10^3/uL (150-450); RED BLOOD COUNT 4.71 10^6/uL (4.00-5.40); RED CELL DISTRIBUTION WIDTH 14.3 % (11.5-14.5)
[2017-07-25 14:23] LABS: BLOOD UREA NITROGEN 14 MG/DL (7-18); CALCIUM LEVEL 9.8 MG/DL (8.8-10.2); CHLORIDE LEVEL 95 MEQ/L (98-107); CREATININE FOR GFR 0.42 MG/DL (0.55-1.02); GLOMERULAR FILTRATION RATE > 60.0 (>32); GLUCOSE, FASTING 86 MG/DL (83-110); POTASSIUM SERUM 4.5 MEQ/L (3.5-5.1); SODIUM LEVEL 143 MEQ/L (136-145)
[2017-07-25] MEDS: IPRATROPIUM 0.5MG/ALBUTEROL 2.5MG INH SOL UD 3ML (DUONEB)(J7620) NEB (14:32)
[2017-07-25 14:35] LABS: CARBON DIOXIDE LEVEL 49 MEQ/L (21-32)
[2017-07-25 17:03] LABS: KETONE, URINE AUTO RFX TRACE mg/dL (NEGATIVE); LEUKOCYTE ESTERASE UR AUTO RFX NEGATIVE (NEGATIVE); MUCUS, URINE RFX SMALL (NEGATIVE); NITRITE, URINE AUTO RFX NEGATIVE (NEGATIVE); RBC, URINE AUTO RFX 0 /HPF (0-3); SPECIFIC GRAVITY UR AUTO RFX 1.019 (1.002-1.035); SQUAM EPITHELIAL CELL UR AURFX 0 /HPF (0-6); WBC, URINE AUTO RFX 1 /HPF (0-3)
== END 2017-07-25 19:04 | disposition home or self-care (01) ==
LOC: M ED 13:15
DX: G30.9 Alzheimer's disease, unspecified (principal); F02.80 Dementia in other diseases classified elsewhere, unspecified severity, without behavioral disturbance, psychotic disturbance, mood disturbance, and anxiety; J44.9 Chronic obstructive pulmonary disease, unspecified; R91.8 Other nonspecific abnormal finding of lung field; I50.9 Heart failure, unspecified; K59.00 Constipation, unspecified; Z79.899 Other long term (current) drug therapy; Z88.8 Allergy status to other drugs, medicaments and biological substances; Z91.02 Food additives allergy status; Z88.0 Allergy status to penicillin; Z88.2 Allergy status to sulfonamides
CPT/HCPCS: 71046

== ENCOUNTER 2018-01-22 19:49 | Emergency (ER) | payer MEDICARE, OTHER ==
[2018-01-22] MEDS: dexameTHASONE 20 MG/5 ML VIAL (J1100) IV ×2 (21:19)
[2018-01-22] MEDS: IPRATROPIUM 0.5MG/ALBUTEROL 2.5MG INH SOL UD 3ML (DUONEB)(J7620) NEB ×2 (21:37)
== END 2018-01-23 00:41 | disposition home or self-care (01) ==
LOC: M ED 01-23 00:41
DX: F43.0 Acute stress reaction (principal); J44.9 Chronic obstructive pulmonary disease, unspecified; K21.9 Gastro-esophageal reflux disease without esophagitis; R25.1 Tremor, unspecified; F03.90 Unspecified dementia, unspecified severity, without behavioral disturbance, psychotic disturbance, mood disturbance, and anxiety; F41.9 Anxiety disorder, unspecified; F32.9 Major depressive disorder, single episode, unspecified; Z99.81 Dependence on supplemental oxygen; Z79.899 Other long term (current) drug therapy; Z88.6 Allergy status to analgesic agent; Z88.0 Allergy status to penicillin; Z88.2 Allergy status to sulfonamides; Z88.8 Allergy status to other drugs, medicaments and biological substances; Z91.89 Other specified personal risk factors, not elsewhere classified; Z91.02 Food additives allergy status
CPT/HCPCS: J1100

== ENCOUNTER 2018-02-08 15:42 | Inpatient (IN) | payer MEDICARE, OTHER ==
[2018-02-08 17:14] LABS: BASO % 0.2 % (0.0-1.0); EOS # 0.2 10^3/uL (0.0-0.50); HEMOGLOBIN 10.9 g/dl (12.0-15.5); IMMATURE GRANULOCYTE % 0.2 % (0-3.0); LYMPH # 0.9 10^3/uL (1.5-4.5); MEAN CORPUSCULAR HGB CONC 29.5 g/dl (32.0-36.5); MEAN CORPUSCULAR VOLUME 91.8 fl (80.0-96.0); MONO # 0.7 10^3/uL (0.0-0.8); MONO % 7.7 % (0.0-5.0); NEUTROPHILS # 6.6 10^3/uL (1.8-7.7); NEUTROPHILS % 78.9 % (36.0-66.0); PLATELET COUNT, AUTOMATED 245 10^3/uL (150-450); RED BLOOD COUNT 4.03 10^6/uL (4.00-5.40); WHITE BLOOD COUNT 8.4 10^3/uL (4.0-10.0)
[2018-02-08] MEDS: IPRATROPIUM 0.5MG/ALBUTEROL 2.5MG INH SOL UD 3ML (DUONEB)(J7620) NEB ×2 (17:20→17:38)
[2018-02-08 17:30] LABS: LACTIC ACID SEPSIS PROTOCOL 1.5 MMOL/L (0.4-2.0)
[2018-02-08 17:33] LABS: ALBUMIN 3.2 GM/DL (3.2-5.2); ALBUMIN/GLOBULIN RATIO 0.76 (1.00-1.93); ALKALINE PHOSPHATASE 83 U/L (45-117); ALT/SGPT 18 U/L (12-78); ANION GAP 4 MEQ/L (8-16); AST/SGOT 10 U/L (7-37); BILIRUBIN,DIRECT < 0.1 MG/DL (0.0-0.2); BILIRUBIN,TOTAL 0.3 MG/DL (0.2-1.0); BLOOD UREA NITROGEN 16 MG/DL (7-18); CALCIUM LEVEL 9.6 MG/DL (8.8-10.2); CARBON DIOXIDE LEVEL 40 MEQ/L (21-32); CHLORIDE LEVEL 98 MEQ/L (98-107); CPK CREATINE PHOSPHOKINASE 12 U/L (26-192); GLOMERULAR FILTRATION RATE > 60.0 (>32); GLUCOSE, FASTING 108 MG/DL (70-100); POTASSIUM SERUM 3.7 MEQ/L (3.5-5.1); SODIUM LEVEL 142 MEQ/L (136-145); THYROXINE (T4) 12.8 UG/DL (4.5-12.0); TOTAL PROTEIN 7.4 GM/DL (6.4-8.2); TROPONIN I < 0.02 NG/ML (< 0.10)
[2018-02-08 17:39] LABS: CK-MB VALUE MASS < 1.0 NG/ML (<3.6); MB/CK RELATIVE INDEX 8.33 (< OR =4); NT-PRO BNP 94 PG/ML (<450); THYROID STIMULATING HORMONE 0.697 uIU/ML (0.358-3.740)
[2018-02-08 17:57] LABS: INR 0.99; PROTHROMBIN TIME 13.2 SECONDS (12.1-14.4)
[2018-02-08] MEDS: MOXIFLOXACIN HCL 400 MG in APPROPRIATE DILUENT 1 EA IV (18:15)
[2018-02-08 18:28] LABS: ABG BASE EXCESS 7.4 (-2.0-2.0); ABG HCO3 33.4 MEQ/L (22.0-26.0); ABG O2 SATURATION 98.8 % (95.0-99.0); ABG PARTIAL PRESSURE CO2 54.7 mmHg (35.0-45.0); ABG PARTIAL PRESSURE O2 115.3 mmHg (75.0-100.0); ABG STANDARD HCO3 31.2 MEQ/L (22.0-26.0); ABG TOTAL CO2 35.1 MEQ/L (23.0-31.0); ABG pH (ARTERIAL) 7.404 UNITS (7.350-7.450)
[2018-02-08] MEDS ORDERED: MOM 30ML SUSPENSION UDC PO (20:30)
[2018-02-08] MEDS ORDERED: ALBUTEROL 90 MCG/ACT 8GM HFA INHALER INH (20:30)
[2018-02-08] MEDS ORDERED: FUROSEMIDE 20 MG TAB PO (20:30)
[2018-02-08] MEDS: ALPRAZolam 0.25 MG TAB PO (20:45)
[2018-02-08] MEDS: SENOKOT S TAB PO (23:16)
[2018-02-08] MEDS: PANTOPRAZOLE 40MG TAB (PROTONIX) PO (23:16)
[2018-02-08] MEDS: MONTELUKAST 10 MG TAB PO (23:16)
[2018-02-08] MEDS: methylPREDNISolone INJ 125 MG/2 ML VIAL (J2930) IV (23:17)
[2018-02-09] MEDS: IPRATROPIUM 0.5MG/ALBUTEROL 2.5MG INH SOL UD 3ML (DUONEB)(J7620) INH ×5 (00:53→19:22)
[2018-02-09] MEDS: QUEtiapine FUMARATE 25 MG TAB PO ×2 (02:00→20:21)
[2018-02-09] MEDS: PANTOPRAZOLE 40MG TAB (PROTONIX) PO ×2 (11:27→20:21)
[2018-02-09] MEDS: DONEPEZIL 5 MG TAB PO (11:28)
[2018-02-09] MEDS: SENOKOT S TAB PO ×2 (11:28→20:21)
[2018-02-09] MEDS: ENOXAPARIN 30 MG/0.3 ML SYR (J1650) SC (11:29)
[2018-02-09] MEDS: ALPRAZolam 0.25 MG TAB PO (15:36)
[2018-02-09] MEDS: MONTELUKAST 10 MG TAB PO (20:21)
[2018-02-10] MEDS: ALPRAZolam 0.25 MG TAB PO ×3 (03:38→15:12)
[2018-02-10] MEDS: IPRATROPIUM 0.5MG/ALBUTEROL 2.5MG INH SOL UD 3ML (DUONEB)(J7620) INH ×2 (07:11→19:19)
[2018-02-10] MEDS: DONEPEZIL 5 MG TAB PO (10:00)
[2018-02-10] MEDS: ENOXAPARIN 30 MG/0.3 ML SYR (J1650) SC (10:00)
[2018-02-10] MEDS: VITAMIN D 50,000 UNITS CAPSULE (ERGOCALCIFEROL 1.25MG) PO (10:01)
[2018-02-10] MEDS: PANTOPRAZOLE 40MG TAB (PROTONIX) PO ×2 (10:01→20:24)
[2018-02-10] MEDS: SENOKOT S TAB PO ×2 (10:01→20:25)
[2018-02-10] MEDS: QUEtiapine FUMARATE 25 MG TAB PO (20:24)
[2018-02-10] MEDS: MONTELUKAST 10 MG TAB PO (20:25)
[2018-02-11] MEDS: IPRATROPIUM 0.5MG/ALBUTEROL 2.5MG INH SOL UD 3ML (DUONEB)(J7620) INH ×3 (01:36→20:23)
[2018-02-11] MEDS: ALPRAZolam 0.25 MG TAB PO ×4 (01:44→20:20)
[2018-02-11 08:15] LABS: HEMATOCRIT 35.7 % (36.0-47.0); HEMOGLOBIN 10.4 g/dl (12.0-15.5); MEAN CORPUSCULAR HEMOGLOBIN 27.3 pg (27.0-33.0); MEAN CORPUSCULAR HGB CONC 29.1 g/dl (32.0-36.5); MEAN CORPUSCULAR VOLUME 93.7 fl (80.0-96.0); PLATELET COUNT, AUTOMATED 211 10^3/uL (150-450); RED BLOOD COUNT 3.81 10^6/uL (4.00-5.40); RED CELL DISTRIBUTION WIDTH 15.1 % (11.5-14.5); WHITE BLOOD COUNT 6.7 10^3/uL (4.0-10.0)
[2018-02-11 08:52] LABS: VITAMIN B12 LEVEL 374 PG/ML (247-911)
[2018-02-11 08:53] LABS: FOLATE 6.9 NG/ML (>5.4)
[2018-02-11 08:56] LABS: ANION GAP 4 MEQ/L (8-16); BLOOD UREA NITROGEN 9 MG/DL (7-18); CALCIUM LEVEL 9.3 MG/DL (8.8-10.2); CARBON DIOXIDE LEVEL 39 MEQ/L (21-32); CHLORIDE LEVEL 102 MEQ/L (98-107); CREATININE FOR GFR 0.56 MG/DL (0.55-1.30); GLOMERULAR FILTRATION RATE > 60.0 (>32); GLUCOSE, FASTING 106 MG/DL (70-100); POTASSIUM SERUM 3.3 MEQ/L (3.5-5.1); SODIUM LEVEL 145 MEQ/L (136-145)
[2018-02-11] MEDS: ENOXAPARIN 30 MG/0.3 ML SYR (J1650) SC (09:04)
[2018-02-11] MEDS: SENOKOT S TAB PO ×2 (09:04→20:20)
[2018-02-11] MEDS: PANTOPRAZOLE 40MG TAB (PROTONIX) PO ×2 (09:04→20:20)
[2018-02-11] MEDS: DONEPEZIL 5 MG TAB PO (09:04)
[2018-02-11] MEDS: MAALOX 30 ML SUSP *UDC PO (18:50)
[2018-02-11] MEDS: MONTELUKAST 10 MG TAB PO (20:20)
[2018-02-11] MEDS: QUEtiapine FUMARATE 25 MG TAB PO (20:20)
[2018-02-12] MEDS: ALPRAZolam 0.25 MG TAB PO ×2 (03:16→10:05)
[2018-02-12] MEDS: IPRATROPIUM 0.5MG/ALBUTEROL 2.5MG INH SOL UD 3ML (DUONEB)(J7620) INH ×5 (03:19→19:58)
[2018-02-12] MEDS: SENOKOT S TAB PO ×2 (09:01→20:02)
[2018-02-12] MEDS: PANTOPRAZOLE 40MG TAB (PROTONIX) PO ×2 (09:01→20:02)
[2018-02-12] MEDS: DONEPEZIL 5 MG TAB PO (09:01)
[2018-02-12] MEDS: ENOXAPARIN 30 MG/0.3 ML SYR (J1650) SC (09:01)
[2018-02-12] MEDS: POTASSIUM CHLORIDE 10 MEQ SR TABLET PO (11:35)
[2018-02-12] MEDS: ALBUTEROL SULFATE 2.5 MG/0.5 ML INH NEB SOLN NEB (11:37)
[2018-02-12] MEDS: LORazepam 0.5 MG TAB PO (16:06)
[2018-02-12] MEDS: QUEtiapine FUMARATE 25 MG TAB PO (20:01)
[2018-02-12] MEDS: MONTELUKAST 10 MG TAB PO (20:02)
[2018-02-13] MEDS: ALBUTEROL SULFATE 2.5 MG/0.5 ML INH NEB SOLN NEB ×2 (00:55→04:57)
[2018-02-13] MEDS: ACETAMINOPHEN TAB 650MG DOSE (2X325MG) PO (04:34)
[2018-02-13] MEDS: LORazepam 0.5 MG TAB PO ×2 (04:34→11:10)
[2018-02-13] MEDS: ENOXAPARIN 30 MG/0.3 ML SYR (J1650) SC (09:00)
[2018-02-13] MEDS: PANTOPRAZOLE 40MG TAB (PROTONIX) PO (09:02)
[2018-02-13] MEDS: SENOKOT S TAB PO (09:02)
[2018-02-13] MEDS: DONEPEZIL 5 MG TAB PO (09:02)
== END 2018-02-13 12:10 | DRG 56 ==
LOC: M ED 15:42 → M ED INP 20:16 → M MS5PR 22:47
DX: G30.9 Alzheimer's disease, unspecified (principal); E43 Unspecified severe protein-calorie malnutrition; J96.11 Chronic respiratory failure with hypoxia; F02.81 Dementia in other diseases classified elsewhere, unspecified severity, with behavioral disturbance; I50.32 Chronic diastolic (congestive) heart failure; C34.12 Malignant neoplasm of upper lobe, left bronchus or lung; J96.12 Chronic respiratory failure with hypercapnia; Z68.1 Body mass index [BMI] 19.9 or less, adult; J44.9 Chronic obstructive pulmonary disease, unspecified; K21.9 Gastro-esophageal reflux disease without esophagitis; F41.9 Anxiety disorder, unspecified; E55.9 Vitamin D deficiency, unspecified; Z66 Do not resuscitate; J84.10 Pulmonary fibrosis, unspecified; G25.0 Essential tremor; K59.00 Constipation, unspecified; G62.9 Polyneuropathy, unspecified; Z99.81 Dependence on supplemental oxygen; Z88.0 Allergy status to penicillin; Z88.2 Allergy status to sulfonamides; Z88.6 Allergy status to analgesic agent; Z88.8 Allergy status to other drugs, medicaments and biological substances; Z79.899 Other long term (current) drug therapy; Z87.442 Personal history of urinary calculi; Z87.891 Personal history of nicotine dependence